=== PATIENT | female | born 1970 | race Hispanic/Latino ===

== ENCOUNTER 2024-10-13 16:34 | Inpatient (IN) | payer SELFPAY ==
[~2024-10-13] VITALS: Ht 152.4 cm; Wt 56.2 kg
--- NOTE | 2024-10-13 17:10 | NUR ---
Discussed plan of care, home medications and IV antibiotics and future testing with Dr. Caban at bedside.
[2024-10-13 17:11] LABS: IMMATURE GRANULOCYTE ABSOLUTE 0.04 K/uL (0-1); NUCLEATED RED BLOOD CELLS 0.0 % (0.0-0.19); PLATELET COUNT (AUTO) 335 K/uL (130-400); RED BLOOD CELL COUNT(AUTO) 3.41 MIL/uL (4.00-5.50); RED CELL DISTRIBUTION WIDTH 12.9 % (11.0-15.5); WHITE BLOOD COUNT (AUTO) 9.0 K/uL (4.8-10.8)
--- NOTE | 2024-10-13 17:15 | NUR ---
Collected wound cultures of right foot 4th toe ulcer. sent to lab
[2024-10-13 17:19] LABS: CREATININE 1.0 mg/dL (0.5-1.0); GLOMERULAR FILTR. RATE CALC 66.0 mL/min (>90); GLUCOSE,RANDOM 135.0 mg/dL (70-105); SODIUM SERUM 131.0 mmol/L (136-145); UREA NITROGEN, BLOOD 26.0 mg/dL (7-18)
--- NOTE | 2024-10-13 17:24 | ERN ---
General Chief Complaint: FOOT INJURY/PAIN Stated Complaint: RT FOOT UCLER Time Seen by MD: 16:38 Source: patient History of Present Illness Initial Comments PATIENT IS A 54-YEAR-OLD FEMALE COMING IN COMPLAINING OF RIGHT FOOT PAIN. PER PATIENT SHE NOTICED A LESION IN BETWEEN HER 4TH AND 5TH DIGIT WHICH SHE BELIEVES IT IS GETTING WORSE. SHE IS A DIABETIC AND STATES HE HAS HAD ULCERS IN THE PAST BUT THIS ONE SEEMS TO BE GETTING WORSE. Allergies: Coded Allergies: No Known Drug Allergies (Unverified Allergy, Unknown, 10/13/24) Past Medical History Past Medical History: Diabetes-Type II Past Surgical History: Hysterectomy, ROS Dictation CONSTITUTIONAL: NO CHILLS, NO FEVER, NO WEAKNESS, NO DIAPHORESIS, NO MALAISE. HEAD/FACE: NO SIGNS OF TRAUMA. EENT: NO EYE PAIN, NO BLURRED VISION, NO TEARING, NO DOUBLE VISION, NO EAR PAIN, NO EAR DISCHARGE, NO NOSE PAIN, NO NASAL CONGESTION, NO THROAT PAIN, NO THROAT SWELLING, NO MOUTH PAIN. RESPIRATORY: NO COUGH, NO ORTHOPNEA, NO SOB, NO STRIDOR, NO WHEEZING. CARDIOVASCULAR: NO CHEST PAIN, NO EDEMA, NO PALPITATIONS, NO SYNCOPE. GASTROINTESTINAL/ABDOMINAL: NO ABDOMINAL PAIN, NO CONSTIPATION, NO DIARRHEA, NO NAUSEA, NO VOMITING. GENITOURINARY: NO ABNORMAL DISCHARGE, NO DYSURIA, NO FREQUENT URINATION, NO HEMATURIA. NO COMPLAINTS OF PAIN IN THE GENITALS. MUSCULOSKELETAL: NO BACK PAIN, NO GOUT, NO JOINT PAIN, NO JOINT SWELLING, NO MUSCLE PAIN, NO MUSCLE STIFFNESS, NO NECK PAIN. INTEGUMENTARY: NO CHANGE IN COLOR, NO CHANGE IN HAIR/NAILS, NO DRYNESS, LESION, NO LUMPS, NO RASH. NEUROLOGICAL/PSYCH: NO ANXIETY, NOT DEPRESSED, NO EMOTIONAL PROBLEM, NO HEADACHE, NO NUMBNESS, NO PRE-EXISTING DEFICIT, NO HISTORY OF SEIZURES, NO TREMORS, NO WEAKNESS. HEMATOLOGIC/LYMPHATIC: NOT ANEMIC, NO HISTORY OF BLOOD CLOTS, NO APPARENT BLEEDING, NO BRUISING, GLANDS NOT SWOLLEN. ALL SYSTEMS NEGATIVE, EXCEPT NOTED. Physical Exam Physical Exam Dictation VITAL SIGNS: REVIEWED. GENERAL APPEARANCE: ALERT, ORIENTED X3, NO ACUTE DISTRESS, OBESE. HEAD AND FACE: NON-TRAUMATIC. EYES: PERRL, PINK CONJUNCTIVAS, EYELID NO TRAUMA, ANTERIOR CHAMBER CLEAR. EARS: PINNAS INTACT AND NO SIGNS OF TRAUMA OR ERYTHEMA. EAR CANALS CLEAR AND NO DISCHARGE. TMS NO ERYTHEMA. NOSE: NO DISCHARGE, NO BLEEDING. OROPHARYNX: MOUTH NORMAL, TEETH NO CARIES, TONGUE PINK. PHARYNX CLEAR, NO ERYTHEMA. TONSILS NO EXUDATES, NO ABSCESSES NOTED. MUCOUS MEMBRANE MOIST. NECK: SUPPLE, NON-TENDER, NO THYROMEGALY, NO MASSES, NO JVD, NO BRUITS. BREAST: DEFERRED. CHEST: NO TENDERNESS, NO CREPITUS, NO PARADOXICAL MOVEMENT, NO RETRACTIONS. LUNGS: CLEAR, WELL-VENTILATED, SYMMETRIC, NO RALES, NO WHEEZING, NO RHONCHI, NO STRIDOR, GOOD BREATH SOUNDS BILATERALLY. HEART: REGULAR RATE, REGULAR RHYTHM, NO MURMUR, NO GALLOPS. VASCULAR: NO PERIPHERAL EDEMA. ABDOMEN: SOFT, POSITIVE BOWEL SOUNDS, NONDISTENDED, NO GUARDING, NONTENDER, NO REBOUND, NO MASSES NO HEPATOMEGALY, NO SPLENOMEGALY, NO ROMEO'S SIGN, NO HERNIAS. RECTAL: DEFERRED. GENITAL: DEFERRED. NEUROLOGICAL: NORMAL SPEECH, GROSS MOTOR FUNCTION INTACT, GROSS SENSORY FUNCTION INTACT. MUSCULOSKELETAL: NECK NONTENDER, FULL RANGE OF MOTION, BACK NONTENDER, FULL RANGE OF MOTION. EXTREMITIES: NONTENDER, FULL RANGE OF MOTION. SKIN: COLOR PINK, DRY, NO TURGOR, NO RASH, 4TH AND 5TH DIGIT LESION CONSISTENT WITH NECROSIS. LYMPHATICS: DEFERRED. Results Laboratory and Microbiology Lab and Micro Result Laboratory Tests Test 10/13/24 17:00 White Blood Count 9.0 K/uL (4.8-10.8) Red Blood Count 3.41 MIL/uL (4.00-5.50) L Hemoglobin 9.1 g/dL (12.0-16.0) L Hematocrit 27.9 % (36-48) L Mean Corpuscular Volume 81.8 fL (79-99) Mean Corpuscular Hemoglobin 26.7 pg (27.0-33.0) L Mean Corpuscular Hemoglobin Concent 32.6 g/dL (32.0-36.0) Red Cell Distribution Width 12.9 % (11.0-15.5) Platelet Count 335 K/uL (130-400) Mean Platelet Volume 8.9 fL (7.5-10.5) Immature Granulocyte % (Auto) 0.4 % (0-1) Neutrophils (%) (Auto) 76.9 % (40.0-77.0) Lymphocytes (%) (Auto) 15.2 % (21.0-51.0) L Monocytes (%) (Auto) 5.7 % (3.0-13.0) Eosinophils (%) (Auto) 1.6 % (0.0-8.0) Basophils (%) (Auto) 0.2 % (0.0-5.0) Neutrophils # (Auto) 6.9 K/uL (1.8-7.7) Lymphocytes # (Auto) 1.4 K/uL (1.0-4.8) Monocytes # (Auto) 0.5 K/uL (0.1-1.0) Eosinophils # (Auto) 0.14 K/uL (0.00-0.70) Basophils # (Auto) 0.02 K/uL (0.00-0.20) Absolute Immature Granulocyte (auto 0.04 K/uL (0-1) Nucleated Red Blood Cells 0.0 % (0.0-0.19) Sodium Level 131 mmol/L (136-145) L Potassium Level 4.1 mmol/L (3.5-5.1) Chloride Level 97 mmol/L (101-111) L Carbon Dioxide Level 26 mmol/L (21-32) Blood Urea Nitrogen 26 mg/dL (7-18) H Creatinine 1.0 mg/dL (0.5-1.0) Glomerular Filtration Rate Calc 66 mL/min (>90) Random Glucose 135 mg/dL (70-105) H Total Calcium 9.3 mg/dL (8.5-10.1) Labs Reviewed?: Yes EKG/XRAY/US/CT/MRI X-RAY Comment [address] [address] [place] [address] IMAGING REPORT Signed PATIENT: KEAGAN DUNN MR#: [id number] : 1970 SEX: F AGE: 54 LOCATION: [facility] ORDER 42 STATUS: REG ER REPORT#: [id number] SERVICE 40 REASON: WOUND ORDERING PHYSICIAN: BEE PARADA MD PROCEDURE: FT 2VW RT - FOOT LIMITED 2VWS RT EXAM: CR right foot, 2 View. CLINICAL HISTORY: WOUND COMPARISON: None provided. FINDINGS: BONES: No acute fracture or aggressive appearing osseous lesion. No definite radiographic findings of osteomyelitis. JOINTS: The joint spaces appear within normal limits. No dislocation. SOFT TISSUES: The soft tissues are unremarkable. IMPRESSION: No acute osseous abnormality. /[place] DICTATED BY: PAULINE LOUISE MD DATE: 10/13/241828 ELECTRONICALLY SIGNED BY: PAULINE LOUISE MD DATE: 10/13/241828 [facility] MDM: DIFFERENTIAL DIAGNOSIS: OSTEOMYELITIS, CELLULITIS, NECROSIS, RATIONALE: TESTS CONSIDERED AND ORDERED SECONDARY TO SHARED DECISION MAKING INCLUDE: LABS, ECG AND RADIOLOGY PREVIOUS OUTSIDE RECORDS REVIEWED: OLD ER VISITS. RISK OF COMPLICATION AND/OR MORBIDITY OR MORTALITY OF PATIENT MANAGEMENT: NONE MEDICATIONS-PER MEDICATION RECONCILIATION NEED FOR HOSPITALIZATION: PATIENT DOES MEET CRITERIA FOR HOSPITALIZATION. NEED FOR EMERGENCY MAJOR/MINOR SURGERY: NO THERE ARE NO SOCIAL CONCERNS WITH THIS PATIENT. PRESCRIPTION DRUG MANAGEMENT PRESCRIPTIONS WILL INCLUDE SYMPTOMATIC CARE PATIENT'S PRIOR EXTERNAL MEDICAL RECORDS FROM OTHER ER VISITS WERE REVIEWED BY Rocio Denise INDICATED. PRIOR TESTING AND RESULTS FROM PREVIOUS VISITS WERE REVIEWED. PRIOR TESTS WERE TAKEN INTO ACCOUNT WITH MEDICAL DECISION MAKING AND RESOURCE UTILIZATION, INDEPENDENT HISTORIAN/HISTORIANS WERE USED TO OBTAIN COMPLETE MEDICAL HISTORY. I INDEPENDENTLY INTERPRETED THE TEST THAT WERE PERFORMED, RESULTS WERE REVIEWED BY ME AND CONSIDERED FINDINGS ON RADIOLOGY IF ORDERED. MEDICAL MANAGEMENT AND EXAMINATION INTERPRETATION DISCUSSIONS WERE HAD BY ME WITH OTHER QUALIFIED HEALTHCARE PROFESSIONALS INDICATED FOR THE PATIENT'S CARE. PATIENT WILL BE ADMITTED UNDER THE CARE OF HOSPITALIST GROUP FOR ONGOING MANAGEMENT ED Course Orders Procedure Category Date Status Time Cbc With Differential LAB 10/13/24 In Process 16:41 Basic Metabolic Panel LAB 10/13/24 Complete 16:41 Erythrocyte LAB 10/13/24 In Process Sedimentation Rate 16:41 Foot Limited 2vws Rt RAD 10/13/24 Resulted 16:41 Vancomycin 1g/250ml PHA 10/13/24 Complete Kit (Vancomycin 1g/2 17:30 Zosyn 3.375gm+Ns 50ml PHA 10/13/24 In Process (Zosyn 3.375gm+Ns 17:30 Current Medications Medications (Trade) Dose Ordered Sig/Elsy Route PRN Reason Start Time Stop Time Status Last Admin Dose Admin Piperacillin Sod/ Tazobactam Sod (Zosyn 3.375gm+NS 50ml) 3.375 gm Q12H IV 10/13/24 17:30 10/23/24 17:29 Vancomycin HCl (Vancomycin 1g/ 250ml Kit) 1 gm ONCE ONCE IV 10/13/24 17:30 10/13/24 17:31 DC Vital Signs Date Time Temp Pulse Resp B/P (MAP) Pulse Ox O2 Delivery O2 Flow Rate FiO2 10/13/24 16:37 98.1 91 16 123/67 100 Room Air 0 DX & DISP Disposition: Inpatient Decision to Admit Time: 17:24 Departure Impression: Primary Impression: Cellulitis in diabetic foot Additional Impression: Osteomyelitis of right foot Condition: Stable Referrals: SELF,REFERRAL (PCP) BEE PARADA MD Oct 13, 2024 17:24
[2024-10-13] MEDS ORDERED: ZOSYN 3.375GM +NS 50ML IV SCH (17:30)
--- NOTE | 2024-10-13 17:30 | HMCIMG ---
EXAM: CR right foot, 2 View. CLINICAL HISTORY: WOUND COMPARISON: None provided. FINDINGS: BONES: No acute fracture or aggressive appearing osseous lesion. No definite radiographic findings of osteomyelitis. JOINTS: The joint spaces appear within normal limits. No dislocation. SOFT TISSUES: The soft tissues are unremarkable. IMPRESSION: No acute osseous abnormality. /[place]
--- NOTE | 2024-10-13 17:40 | NUR ---
Dr. Caban notify Dr. Gage and Dr. Amaya of new consults.
[2024-10-13] MEDS: VANCOMYCIN KIT 1 GM/250 ML IV.KIT IV ONE (17:56)
--- NOTE | 2024-10-13 17:56 | NUR ---
Called pharmacy, spoke to Mr. Willis and notify him we do not have zosyn in [place]. He stated pharmacy will re stock.
--- NOTE | 2024-10-13 18:00 | NUR ---
Performed wound care as per Dr. Caban orders. Patient tolerated treatment well. Daughter at bedside. Discussed with adult daughter with patuients permission plan of care, antibiotic treatment and pending consults.
[2024-10-13 18:18] LABS: ERYTHROCYTE SEDIMENTATION RATE 155 MM/HR (0-30)
[2024-10-13 18:22] LABS: INR 0.97 (0.85-1.15)
[2024-10-13 18:23] LABS: % IRON SATURATION 6.9 % (22-44); IRON, SERUM 19.0 mcg/dL (50-170)
[2024-10-13] MEDS ORDERED: VANCOMYCIN PROTOCOL PER PHARMACY IV SCH (18:30)
[2024-10-13 18:41] LABS: ASPARTATE AMINOTRANSFERASE 15.0 U/L (10-37); LACTATE DEHYDROGENASE 160.0 U/L (81-234); TOTAL PROTEIN, SERUM 8.1 g/dL (6.0-8.3)
--- NOTE | 2024-10-13 18:42 | HP ---
[facility] HISTORY AND PHYSICAL Date of Service: Oct 13, 2024 Time of Service: 18:30 HISTORY OF PRESENT ILLNESS: Date of service: 10/13/2024, patient was seen in ER room 16 54-year-old female with underlying history of type 2 diabetes mellitus (diagnosed with diabetes for about 21 years) who presented to the ER for further evaluation of progressive redness, nonhealing wound involving the interdigital space of the 3rd and 4th digit of the right foot. Symptoms have been ongoing for the past 4-5 days and patient has been using local therapy with iodine as well as been taking penicillin for further treatment as outpatient. She has been cleaning the wound with sterile water. Symptoms have been worsening and patient has developed progressive redness of the right foot as well as increased drainage between the interdigital space with purulence noted. She denies previous history of cardiac disease of peripheral arterial disease. She has been taking ibuprofen intermittently with Tylenol for pain control at home. Reports having subjective chills. On presentation to the hospital, patient was noted to be afebrile with T-max of 98.1 F, heart rate of 91, blood pressure of 123/67. Labs on presentation showed WBC count of 9000, hemoglobin of 9.1, platelet count of 074908. BMP remarkable for sodium of 131, potassium 4.1, BUN of 26, creatinine 1.0. Patient had x-rays of the right foot which showed no acute fractures or soft tissue gas. Patient will be admitted for further treatment management of complicated cellulitis with infected diabetic foot wound/ulcer involving the interdigital space of the 3rd and 4th toe with progressive cellulitis of the right foot. Patient will receive broad-spectrum antibiotics, IV hydration. We will consult Podiatry and Infectious Disease. Patient will also undergo workup for peripheral arterial disease. REVIEW OF SYSTEMS CONSTITUTIONAL: Denies fevers, chills, or night sweats. No unintentional weight loss reported. NEUROLOGICAL: Denies headache, amaurosis fugax, motor weakness, sensory deficit, vertigo/spinning sensation, gait abnormalities, or tremors. ENT: No hearing loss, otalgia, otorrhea, rhinitis, rhinorrhea, hoarseness, or sore throat. CARDIOVASCULAR: Denies any exertional angina, dyspnea on exertion, orthopnea, paroxysmal nocturnal dyspnea, palpitations, life-threatening arrhythmias, claudication. PULMONARY: Denies any shortness of breath, cough, phlegm/sputum, hemoptysis, pleuritic chest pain. SLEEP: Denies morning headaches, daytime somnolence or napping. Denies difficulty falling asleep, staying asleep, waking from sleep. Denies knowledge of snoring. GASTROINTESTINAL: Denies any type of dysphagia to either liquids or solids. Denies nausea, vomiting, pyrosis, early satiety, abdominal pain, diarrhea, constipation, or changes in stool consistency or caliber. Denies coffee-ground emesis, hematemesis, hematochezia, or melanotic stools. GENITOURINARY: Denies frequency, urgency, nocturia, hematuria or incontinence (Storage/Irritative symptoms.) Low urinary stream, straining to void, urinary intermittency or hesitancy, splitting of the voiding stream, terminal dribbling. ENDOCRINOLOGIC: Denies polyuria, polydipsia, polyphagia or heat/cold intolerances. HEMATOLOGIC: Denies thrombophilia/previous clots, or coagulopathy/bleeding disorders. ONCOLOGIC: Denies personal history of malignancy. DERMATOLOGIC: Progressive redness, swelling and non healing diabetic foot ulcer involving the right foot, redness involving the 2nd to 4th toes PSYCHIATRIC: Denies any suicidal or homicidal ideation. Denies hallucinations. PAST MEDICAL HISTORY: Insulin-dependent diabetes over the past 21 years PAST SURGICAL HISTORY: History of hysterectomy, PAST SOCIAL HISTORY: Denies active smoking or alcohol consumption, patient is employed in [employer] services FAMILY HISTORY: Reports family history of diabetes Allergies: No known drug allergies Home medications: Patient reports being on metformin and Lantus as outpatient Coded Allergies: No Known Drug Allergies (Unverified Allergy, Unknown, 10/13/24) PHYSICAL EXAM GENERAL APPEARANCE: The patient is awake, alert, and oriented, in no acute cardiopulmonary distress. NEUROLOGICAL: Cranial nerves II-XII grossly intact. neurological examination is non focal for the patient HEENT: Face is symmetric. Pupils are equal and reactive. Extraocular movements are intact. NECK: Supple. No JVD. No thyromegaly. No submental, submandibular, pre- /postauricular, occipital or supraclavicular lymphadenopathy. CHEST: Normal chest expansion. No Telemetry. LUNGS: Absence of any rales, rhonchi or any wheezing. CARDIOVASCULAR: Regular. S1 and S2 normal. No appreciable rubs, murmurs or gallops. ABDOMEN: Soft, nontender, and nondistended. There is no rebound, voluntary guarding, or rigidity. : Deferred. No [place]. EXTREMITIES: right foot is swollen and redness noted extending to the midfoot, deep ulcer with purulence noted between the interdigital space of the 3rd and 4th toes, redness, noted of the 2nd, 3rd and 4th digit, patchy area of necrosis noted of the plantar and dorsal aspect of the metatarsal aspect of the third and fourth digit SKIN: as noted above Vital Sign (Last 24 Hours) 10/13/24 16:37 Temp 98.1 Pulse 91 Resp 16 B/P (MAP) 123/67 Pulse Ox 100 O2 Delivery Room Air O2 Flow Rate 0 LABS: Laboratory: Test 10/13/24 18:01 10/13/24 17:00 Range/Units Prothrombin Time 10.3 9.6-11.6 SEC Prothromb Time International Ratio 0.97 0.85-1.15 Activated Partial Thromboplast Time 27.4 26.3-35.5 SEC Iron Level 19 L 50-170 mcg/dL Total Iron Binding Capacity 273 250-450 mcg/dL Percent Iron Saturation 6.9 L 22-44 % White Blood Count 9.0 4.8-10.8 K/uL Red Blood Count 3.41 L 4.00-5.50 MIL/uL Hemoglobin 9.1 L 12.0-16.0 g/dL Hematocrit 27.9 L 36-48 % Mean Corpuscular Volume 81.8 79-99 fL Mean Corpuscular Hemoglobin 26.7 L 27.0-33.0 pg Mean Corpuscular Hemoglobin Concent 32.6 32.0-36.0 g/dL Red Cell Distribution Width 12.9 11.0-15.5 % Platelet Count 335 130-400 K/uL Mean Platelet Volume 8.9 7.5-10.5 fL Immature Granulocyte % (Auto) 0.4 0-1 % Neutrophils (%) (Auto) 76.9 40.0-77.0 % Lymphocytes (%) (Auto) 15.2 L 21.0-51.0 % Monocytes (%) (Auto) 5.7 3.0-13.0 % Eosinophils (%) (Auto) 1.6 0.0-8.0 % Basophils (%) (Auto) 0.2 0.0-5.0 % Neutrophils # (Auto) 6.9 1.8-7.7 K/uL Lymphocytes # (Auto) 1.4 1.0-4.8 K/uL Monocytes # (Auto) 0.5 0.1-1.0 K/uL Eosinophils # (Auto) 0.14 0.00-0.70 K/uL Basophils # (Auto) 0.02 0.00-0.20 K/uL Absolute Immature Granulocyte (auto 0.04 0-1 K/uL Nucleated Red Blood Cells 0.0 0.0-0.19 % Erythrocyte Sedimentation Rate 155 H 0-30 MM/HR Sodium Level 131 L 136-145 mmol/L Potassium Level 4.1 3.5-5.1 mmol/L Chloride Level 97 L 101-111 mmol/L Carbon Dioxide Level 26 21-32 mmol/L Blood Urea Nitrogen 26 H 7-18 mg/dL Creatinine 1.0 0.5-1.0 mg/dL Glomerular Filtration Rate Calc 66 >90 mL/min Random Glucose 135 H 70-105 mg/dL Total Calcium 9.3 8.5-10.1 mg/dL Current Medications Medications (Trade) Dose Ordered Sig/Elsy Route PRN Reason Start Time Stop Time Status Last Admin Dose Admin Acetaminophen (TYLenol 500MG TAB) 500 mg Q6H PRN PO MILD PAIN (1-3) 10/13/24 18:00 11/12/24 17:59 Cefepime HCl (MAXipime 2 gm vial) 2 gm Q12H IVPB 10/13/24 18:00 10/23/24 17:59 Famotidine (Pepcid 20mg Vial) 20 mg DAILY IV 10/14/24 09:00 10/13/24 18:14 DC Insulin Glargine (LANtus 100 UNITS/ML 10 ML VIAL) 12 units DAILY SQ 10/14/24 09:00 11/13/24 08:59 Insulin Human Regular (humuLIN R 100 UNIT/ML 3ML) INSULIN SLIDING SCAL... ACHS SQ 10/13/24 21:00 11/12/24 20:59 Metronidazole/ Sodium Chloride 100 ml @ 100 mls/hr Q8H6 IVPB 10/13/24 22:00 10/23/24 21:59 Morphine Sulfate (morPHINE 2MG SYG) 2 mg Q6H PRN IVP SEVERE PAIN (7-10) 10/13/24 18:00 10/20/24 17:59 Ondansetron HCl (zoFRAN 4MG INJ) 4 mg Q6H PRN IVP NAUSEA/VOMITING 10/13/24 18:00 11/12/24 17:59 Pantoprazole Sodium (PROTonix 40MG INJ) 40 mg HS IVP 10/13/24 21:00 11/12/24 20:59 Piperacillin Sod/ Tazobactam Sod (Zosyn 3.375gm+NS 50ml) 3.375 gm Q12H IV 10/13/24 17:30 10/13/24 17:56 DC Sodium Chloride 1,000 ml @ 100 mls/hr Q10H IV 10/13/24 18:00 11/12/24 17:59 Vancomycin HCl (Vancomycin 750mg) 750 mg Q12H IVPB 10/14/24 06:00 10/24/24 05:59 Vancomycin HCl (Vancomycin Protocol) 1 each AD IV 10/13/24 18:30 10/27/24 18:29 DIAGNOSTICS / RADIOLOGY: SERVICE 164 REASON: WOUND ORDERING PHYSICIAN: BEE PARADA MD PROCEDURE: FT 2VW RT - FOOT LIMITED 2VWS RT EXAM: CR right foot, 2 View. CLINICAL HISTORY: WOUND COMPARISON: None provided. FINDINGS: BONES: No acute fracture or aggressive appearing osseous lesion. No definite radiographic findings of osteomyelitis. JOINTS: The joint spaces appear within normal limits. No dislocation. SOFT TISSUES: The soft tissues are unremarkable. IMPRESSION: No acute osseous abnormality. /[place] DICTATED BY: PAULINE LOUISE MD DATE: 10/13/241828 ELECTRONICALLY SIGNED BY: PAULINE LOUISE MD DATE: 10/13/241828 ASSESSMENT: Progressive cellulitis of the right foot involving the midfoot with failure of outpatient treatment, POA Infected diabetic deep foot ulcer involving the interdigital space of the 3rd and 4th digit, POA Progressive cellulitis involving the 2nd, 3rd, 4th toes of the right foot, POA Hypovolemic hyponatremia, POA Anemia, POA Underlying history of insulin-dependent diabetes mellitus, POA PLAN: Patient will be admitted to medical-surgical floor under telemetry monitoring Consultation with Dr. Amaya with Podiatry will be requested for further assessment in evaluation for need for debridement/washout of the deep wound We will obtain MRI of the right foot to rule out any associated osteomyelitis Blood cultures will be obtained, wound cultures will be obtained We will start broad-spectrum antibiotics with vancomycin/cefepime/Flagyl All antibiotics will be renally dosed We will start IV hydration with normal saline at 100 mL/hour Consultation with Infectious Disease will be requested Patient has been using ibuprofen intermittently at home for pain control, NSAIDs will be stopped, we will obtain iron panel for further evaluation of anemia, patient denies any symptoms of GI bleed, heavy periods or hematuria. We will obtain a stool guaiac as well Transfuse to maintain hemoglobin greater than seven We will start patient on IV Protonix 40 mg daily We will obtain a arterial ultrasound to rule out any flow-limiting stenosis impairing wound healing of the right foot we will obtain a venous Doppler as well for further evaluation of right foot edema and rule out any occult DVT We will start patient on sliding scale insulin a.c. and HS, we will start patient on Lantus 12 units daily All labs will be repeated in the morning, we will check A1c and TSH Patient reports having had multiple vaccinations about a month ago and states that she may have received a tetanus vaccination as well about a month ago Date of service: 10/13/2024 Plan of care was discussed with patient at bedside Prognosis: Guarded Dc Caban MD Advanced Care Planning: Which of the following were discussed: Hospice care: Yes __ No _X_ Therapeutic options: Yes _X_ No __ Advance directives: Yes _X_ No __ Other discussions: Discussed with who?: Patient Voluntary nature of this service was explained to the patient? Yes _x_ No __ Amount of time spent: 20 minutes DC CABAN MD Oct 13, 2024 18:42
[2024-10-13] MEDS: 0.9%NACL 1000ML 1,000 ML IV SCH (18:46)
[2024-10-13 20:00] VITALS: BP 103/55; PULSE 72; RESP 19; TEMP 98.7
--- NOTE | 2024-10-13 20:17 | HMCIMG ---
EXAM: US for Deep Venous Thrombosis, right Lower Extremity. CLINICAL HISTORY: Patient presents with leg pain and swelling. TECHNIQUE: Real-time ultrasound scan of the veins of the right lower extremity with color Doppler flow, spectral waveform analysis and compression. COMPARISON: None provided. FINDINGS: DEEP VEINS: The common femoral vein (CFV), profunda femoris vein (PFV), and superficial femoral vein (SFV) at proximal, mid, and distal segments are echolucent and compressible, with normal color Doppler flow and augmentation. The popliteal vein and posterior tibial vein (PTV) are also patent with normal compression and Doppler flow. The great saphenous vein (GSV) demonstrates normal compressibility and Doppler characteristics. SOFT TISSUES: No popliteal fossa cyst or other soft tissue abnormality. IMPRESSION: No deep venous thrombosis evident in the right lower extremity. /[place]
--- NOTE | 2024-10-13 20:30 | HMCIMG ---
EXAMINATION: US Duplex Bilateral Lower Extremity Arteries. CLINICAL HISTORY: The patient presents with a non-healing wound on the right foot. History of diabetes mellitus type II. Evaluate for peripheral arterial disease. COMPARISON: None provided. TECHNIQUE: Real-time ultrasound scan of the arteries of both lower extremities with 2-D graves scale, color Doppler flow, and spectral waveform analysis. FINDINGS: RIGHT LOWER EXTREMITY: COMMON FEMORAL ARTERY: Peak systolic velocity (PSV) 114 cm/sec. Triphasic waveform. No occlusion or significant stenosis. SUPERFICIAL FEMORAL ARTERY: Proximal PSV 144 cm/sec, mid PSV 100 cm/sec, distal PSV 110 cm/sec. Triphasic waveform. No occlusion or significant stenosis. POPLITEAL ARTERY: Proximal PSV 76 cm/sec, distal PSV 100 cm/sec. Triphasic waveform. No occlusion or significant stenosis. CALF ARTERIES: Posterior tibial artery PSV 79 cm/sec. Triphasic waveform. Anterior tibial artery distal PSV 92 cm/sec. Monophasic waveform. Dorsalis pedis artery PSV 116 cm/sec. Monophasic waveform. No occlusion or significant stenosis. LEFT LOWER EXTREMITY: COMMON FEMORAL ARTERY: PSV 147 cm/sec. Triphasic waveform. No occlusion or significant stenosis. SUPERFICIAL FEMORAL ARTERY: Proximal PSV 145 cm/sec, mid PSV 110 cm/sec, distal PSV 69 cm/sec. Triphasic waveform. No occlusion or significant stenosis. POPLITEAL ARTERY: Proximal PSV 62 cm/sec, distal PSV 100 cm/sec. Triphasic waveform. No occlusion or significant stenosis. CALF ARTERIES: Posterior tibial artery PSV 45 cm/sec. Triphasic waveform. Anterior tibial artery distal PSV 106 cm/sec. Triphasic waveform. Dorsalis pedis artery PSV 100 cm/sec. Triphasic waveform. No occlusion or significant stenosis. IMPRESSION: No hemodynamically significant stenosis or occlusion in either lower extremity. Monophasic flow in the right anterior tibial and dorsalis pedis arteries, consistent with mild distal atherosclerotic disease and hyperemia. /[place]
[2024-10-14] VITALS: BP 115/64; PULSE 70; RESP 17; TEMP 98.8
[2024-10-14 04:00] VITALS: BP 107/54; PULSE 74; RESP 17; TEMP 98.5
[2024-10-14] MEDS: VANCOMYCIN 750MG VIAL IVPB SCH (05:42)
[2024-10-14 06:59] LABS: CREATININE 1.0 mg/dL (0.5-1.0); GLOMERULAR FILTR. RATE CALC 66.0 mL/min (>90); GLUCOSE,RANDOM 78.0 mg/dL (70-105); SODIUM SERUM 138.0 mmol/L (136-145); UREA NITROGEN, BLOOD 14.0 mg/dL (7-18)
--- NOTE | 2024-10-14 07:25 | CONS ---
CONSULTATION NOTE Date of Service: Oct 14, 2024 Reason for Consultation: 54 years old female was seen at the emergency room for evaluation of ulceration to the right foot 3rd and 4th interspace base of 4th toe with necrotic tissue and cellulitis not responding to local care by herself at home. Requesting Physician: Dr. Caban HISTORY OF PRESENT ILLNESS: Patient stated she developed this ulcerations weeks ago she has been taking care of this by herself done with hydrogen peroxide sterile water antibiotic powder and Betadine has not responded to local care at home at this time presented to the emergency room with cellulitis and worsening of the wound. This is of the right foot. REVIEW OF SYSTEMS CONSTITUTIONAL: Denies fever, chills, or fatigue. HEAD/FACE: No signs of trauma. EENT: Denies eye pain, blurred vision, double vision, or light sensitivity. RESPIRATORY: Denies shortness of breath, cough, wheezing CARDIOVASCULAR: Denies chest pain, palpitation, syncope GASTROINTESTINAL/ABDOMINAL: Denies abdominal pain, constipation, diarrhea, nausea or vomiting GENITOURINARY: Denies dysuria or hematuria. MUSCULOSKELETAL: Denies joint pain, tenderness, or trauma. INTEGUMENTARY: Ulcer to the right foot with cellulitis. NEUROLOGICAL/PSYCH: Denies anxiety, depression, heat or cold intolerance. PAST MEDICAL HISTORY: [ ] Diabetes PAST SURGICAL HISTORY: [ ] PAST SOCIAL HISTORY: [ ] Denies any smoking or drinking. Or use of illicit drugs. FAMILY HISTORY: Noncontributory Coded Allergies: No Known Drug Allergies (Unverified Allergy, Unknown, 10/13/24) PHYSICAL EXAM EYES: Anicteric. Pupils equal and reactive. HENT: No oral thrush seen, moist Oral mucosa NECK: Supple, no JVD or thyromegaly. LUNGS: Good air entry. No rales, no rhonchi. CARDIOVASCULAR: S1, S2 regular. No murmur heard. ABDOMEN: Soft, non tender, bowel sounds present, no organomegaly CENTRAL NERVOUS SYSTEM: Awake, alert, oriented x 3. No focal deficits. SKIN: Cellulitis of the ulcer on the right foot 3rd and 4th interspace base of the 4th toe plantar area of the 4th toe with necrotic tissue. Cellulitis of the foot. LYMPHATICS: No peripheral lymphadenopathy MUSCULOSKELETAL: No joint swelling, erythema or tenderness. EXTREMITIES: No cyanosis or clubbing BACK: No deformity, no pressure ulcer. GENITOURINARY: No dysuria or hematuria Vital Sign (Last 24 Hours) 10/13/24 10/14/24 17:20 04:00 Temp 98.4 Pulse 74 Resp 17 B/P (MAP) 107/54 Pulse Ox 98 O2 Delivery Room Air O2 Flow Rate 0 FiO2 21 LABS: Laboratory: Test 10/14/24 06:42 10/13/24 22:59 10/13/24 18:01 10/13/24 17:00 Range/Units Sodium Level 138 136-145 mmol/L Potassium Level 3.7 3.5-5.1 mmol/L Chloride Level 106 101-111 mmol/L Carbon Dioxide Level 24 21-32 mmol/L Blood Urea Nitrogen 14 7-18 mg/dL Creatinine 1.0 0.5-1.0 mg/dL Glomerular Filtration Rate Calc 66 >90 mL/min Random Glucose 78 70-105 mg/dL Total Calcium 8.6 8.5-10.1 mg/dL Whole Blood Glucose 101 70-110 MG/DL Prothrombin Time 10.3 9.6-11.6 SEC Prothromb Time International Ratio 0.97 0.85-1.15 Activated Partial Thromboplast Time 27.4 26.3-35.5 SEC Hemoglobin A1c 13.5 H 4.0-6.0 % Estimated Average Glucose (eAG) 341 H 70-126 mg/dL Lactic Acid Level 0.9 0.8-2.5 mmol/L Iron Level 19 L 50-170 mcg/dL Total Iron Binding Capacity 273 250-450 mcg/dL Percent Iron Saturation 6.9 L 22-44 % Ferritin 252 H 15-150 ng/mL Total Bilirubin 0.3 0.2-1.0 mg/dL Direct Bilirubin 0.1 0.0-0.3 mg/dL Aspartate Amino Transf (AST/SGOT) 15 10-37 U/L Alanine Aminotransferase (ALT/SGPT) 19 12-78 U/L Alkaline Phosphatase 104 50-136 U/L Lactate Dehydrogenase 160 81-234 U/L C-Reactive Protein, Quantitative 82.00 H 0.5-3.0 mg/L Total Protein 8.1 6.0-8.3 g/dL Albumin 3.0 L 3.5-5.0 g/dL Procalcitonin < 0.05 L 0.05-0.5 ng/mL Thyroid Stimulating Hormone (TSH) 1.73 0.36-3.74 uIU/mL White Blood Count 9.0 4.8-10.8 K/uL Red Blood Count 3.41 L 4.00-5.50 MIL/uL Hemoglobin 9.1 L 12.0-16.0 g/dL Hematocrit 27.9 L 36-48 % Mean Corpuscular Volume 81.8 79-99 fL Mean Corpuscular Hemoglobin 26.7 L 27.0-33.0 pg Mean Corpuscular Hemoglobin Concent 32.6 32.0-36.0 g/dL Red Cell Distribution Width 12.9 11.0-15.5 % Platelet Count 335 130-400 K/uL Mean Platelet Volume 8.9 7.5-10.5 fL Immature Granulocyte % (Auto) 0.4 0-1 % Neutrophils (%) (Auto) 76.9 40.0-77.0 % Lymphocytes (%) (Auto) 15.2 L 21.0-51.0 % Monocytes (%) (Auto) 5.7 3.0-13.0 % Eosinophils (%) (Auto) 1.6 0.0-8.0 % Basophils (%) (Auto) 0.2 0.0-5.0 % Neutrophils # (Auto) 6.9 1.8-7.7 K/uL Lymphocytes # (Auto) 1.4 1.0-4.8 K/uL Monocytes # (Auto) 0.5 0.1-1.0 K/uL Eosinophils # (Auto) 0.14 0.00-0.70 K/uL Basophils # (Auto) 0.02 0.00-0.20 K/uL Absolute Immature Granulocyte (auto 0.04 0-1 K/uL Nucleated Red Blood Cells 0.0 0.0-0.19 % Erythrocyte Sedimentation Rate 155 H 0-30 MM/HR DIAGNOSTICS / RADIOLOGY: No fracture or dislocation on x-ray MRI pending. ASSESSMENT: Diabetic foot ulcer to the right foot Cellulitis right foot PLAN: Continued IV antibiotic was started Iodosorb to the wound patient most likely will need debridement of this ulcer we will follow up MRI studies and depending on the results we will plan for continue current care thank you very much for allowing us to participate in this case. CLEOPATRA MCCORMACK DPM Oct 14, 2024 07:25
[2024-10-14] MEDS: IODOSORB GEL 40GM TP ONE (07:30)
--- NOTE | 2024-10-14 07:40 | NUR ---
ASSUMED PATIENT CARE AT THIS TIME
[2024-10-14 07:52] LABS: NUCLEATED RED BLOOD CELLS 0.0 % (0.0-0.19); PLATELET COUNT (AUTO) 340.0 K/uL (130-400); RED BLOOD CELL COUNT(AUTO) 3.27 MIL/uL (4.00-5.50); RED CELL DISTRIBUTION WIDTH 13.1 % (11.0-15.5); WHITE BLOOD COUNT (AUTO) 6.3 K/uL (4.8-10.8)
[2024-10-14] MEDS ORDERED: FAMOTIDINE 20MG VIAL IV SCH (09:00)
--- NOTE | 2024-10-14 11:18 | CONS ---
INFECTIOUS DISEASE CONSULTATION NOTE Date of Service: Oct 14, 2024 Reason for Consultation: Right foot cellulitis with infected DFU Requesting Physician: Dc Caban MD HISTORY OF PRESENT ILLNESS: Patient is a 54-year-old female with a past medical history of type 2 diabetes mellitus, who presented to the ER with a5 day history of nonhealing ulcer involving the interdigital space between the 3rd and 4th digits of the right foot. The ulcer was first noticed as a sore but has progressively worsened. Patient states that she has been taking penicillin and cleaning the wound daily at home. Symptoms have been worsening since then so she decided to come in for evaluation. Denies any fever , chills, nausea or vomiting. Labs done in the ED showed a WBC 6.3, and a HbA1c 13.5 and Glucose 341. Blood cultures and wound cultures were sent. X-ray, arterial doppler and venous doppler of the right foot were unremarkable. Pending MRI results. Patient is currently on Vancomycin 750mg, Metronidazole 500mg and Cefepime 2g. Patient remains afebrile . REVIEW OF SYSTEMS CONSTITUTIONAL: Denies fever, chills, or fatigue. HEAD/FACE: No signs of trauma. EENT: Denies eye pain, blurred vision, double vision, or light sensitivity. RESPIRATORY: Denies shortness of breath, cough, wheezing CARDIOVASCULAR: Denies chest pain, palpitation, syncope GASTROINTESTINAL/ABDOMINAL: Denies abdominal pain, constipation, diarrhea, nausea or vomiting GENITOURINARY: Denies dysuria or hematuria. MUSCULOSKELETAL: Denies joint pain, tenderness, or trauma. INTEGUMENTARY: right foot diabetic wound NEUROLOGICAL/PSYCH: Denies anxiety, depression, heat or cold intolerance. PAST MEDICAL HISTORY: Insulin dependent Diabetes mellitus for 21 yrs PAST SURGICAL HISTORY: Hysterectomy. PAST SOCIAL HISTORY: Denies smoking , alcohol consumption or use of illegal drugs FAMILY HISTORY: Diabetes mellitus Coded Allergies: No Known Drug Allergies (Unverified Allergy, Unknown, 10/13/24) PHYSICAL EXAM EYES: Anicteric. Pupils equal and reactive. HENT: No oral thrush seen, moist Oral mucosa NECK: Supple, no JVD or thyromegaly. LUNGS: Good air entry. No rales, no rhonchi. CARDIOVASCULAR: S1, S2 regular. No murmur heard. ABDOMEN: Soft, non tender, bowel sounds present, no organomegaly CENTRAL NERVOUS SYSTEM: Awake, alert, oriented x 3. No focal deficits. SKIN: No rashes, no swelling. LYMPHATICS: No peripheral lymphadenopathy MUSCULOSKELETAL: No joint swelling, erythema or tenderness. EXTREMITIES: Right foot swelling and redness , deep ulcer with purulence noted in the 3rd and 4th interdigital space BACK: No deformity, no pressure ulcer. GENITOURINARY: No dysuria or hematuria Vital Sign (Last 24 Hours) 10/14/24 07:43 Temp 98.4 Pulse 79 Resp 18 B/P (MAP) 130/67 Pulse Ox 100 O2 Delivery Room Air* O2 Flow Rate 0 FiO2 21 LABS: Laboratory: Test 10/14/24 09:54 10/14/24 07:45 10/14/24 06:42 10/13/24 18:01 Range/Units Whole Blood Glucose 99 70-110 MG/DL White Blood Count 6.3 # 4.8-10.8 K/uL Red Blood Count 3.27 L 4.00-5.50 MIL/uL Hemoglobin 8.8 L 12.0-16.0 g/dL Hematocrit 26.7 L 36-48 % Mean Corpuscular Volume 81.7 79-99 fL Mean Corpuscular Hemoglobin 26.9 L 27.0-33.0 pg Mean Corpuscular Hemoglobin Concent 33.0 32.0-36.0 g/dL Red Cell Distribution Width 13.1 11.0-15.5 % Platelet Count 340 130-400 K/uL Mean Platelet Volume 8.7 7.5-10.5 fL Nucleated Red Blood Cells 0.0 0.0-0.19 % Sodium Level 138 136-145 mmol/L Potassium Level 3.7 3.5-5.1 mmol/L Chloride Level 106 101-111 mmol/L Carbon Dioxide Level 24 21-32 mmol/L Blood Urea Nitrogen 14 7-18 mg/dL Creatinine 1.0 0.5-1.0 mg/dL Glomerular Filtration Rate Calc 66 >90 mL/min Random Glucose 78 70-105 mg/dL Total Calcium 8.6 8.5-10.1 mg/dL Prothrombin Time 10.3 9.6-11.6 SEC Prothromb Time International Ratio 0.97 0.85-1.15 Activated Partial Thromboplast Time 27.4 26.3-35.5 SEC Hemoglobin A1c 13.5 H 4.0-6.0 % Estimated Average Glucose (eAG) 341 H 70-126 mg/dL Lactic Acid Level 0.9 0.8-2.5 mmol/L Iron Level 19 L 50-170 mcg/dL Total Iron Binding Capacity 273 250-450 mcg/dL Percent Iron Saturation 6.9 L 22-44 % Ferritin 252 H 15-150 ng/mL Total Bilirubin 0.3 0.2-1.0 mg/dL Direct Bilirubin 0.1 0.0-0.3 mg/dL Aspartate Amino Transf (AST/SGOT) 15 10-37 U/L Alanine Aminotransferase (ALT/SGPT) 19 12-78 U/L Alkaline Phosphatase 104 50-136 U/L Lactate Dehydrogenase 160 81-234 U/L C-Reactive Protein, Quantitative 82.00 H 0.5-3.0 mg/L Total Protein 8.1 6.0-8.3 g/dL Albumin 3.0 L 3.5-5.0 g/dL Procalcitonin < 0.05 L 0.05-0.5 ng/mL Thyroid Stimulating Hormone (TSH) 1.73 0.36-3.74 uIU/mL Test 10/13/24 17:00 Range/Units Immature Granulocyte % (Auto) 0.4 0-1 % Neutrophils (%) (Auto) 76.9 40.0-77.0 % Lymphocytes (%) (Auto) 15.2 L 21.0-51.0 % Monocytes (%) (Auto) 5.7 3.0-13.0 % Eosinophils (%) (Auto) 1.6 0.0-8.0 % Basophils (%) (Auto) 0.2 0.0-5.0 % Neutrophils # (Auto) 6.9 1.8-7.7 K/uL Lymphocytes # (Auto) 1.4 1.0-4.8 K/uL Monocytes # (Auto) 0.5 0.1-1.0 K/uL Eosinophils # (Auto) 0.14 0.00-0.70 K/uL Basophils # (Auto) 0.02 0.00-0.20 K/uL Absolute Immature Granulocyte (auto 0.04 0-1 K/uL Erythrocyte Sedimentation Rate 155 H 0-30 MM/HR DIAGNOSTICS / RADIOLOGY: PATIENT: KEAGAN DUNN MR#: [id number] : 1970 SEX: F AGE: 54 LOCATION: ED ORDER [id number] STATUS: REG ER REPORT#: [id number] SERVICE 164 REASON: WOUND ORDERING PHYSICIAN: BEE PARADA MD PROCEDURE: FT 2VW RT - FOOT LIMITED 2VWS RT EXAM: CR right foot, 2 View. CLINICAL HISTORY: WOUND COMPARISON: None provided. FINDINGS: BONES: No acute fracture or aggressive appearing osseous lesion. No definite radiographic findings of osteomyelitis. JOINTS: The joint spaces appear within normal limits. No dislocation. SOFT TISSUES: The soft tissues are unremarkable. IMPRESSION: No acute osseous abnormality. /[place] DICTATED BY: PAULINE LOUISE MD DATE: 10/13/241828 ELECTRONICALLY SIGNED BY: PAULINE LOUISE MD DATE: 10/13/241828 PATIENT: KEAGAN DUNN MR#: [id number] : 1970 SEX: F AGE: 54 LOCATION: [facility] ORDER 44 [facility]: [facility] REPORT#: [id number] SERVICE 40 REASON: RLE edema, r/o any DVT ORDERING PHYSICIAN: DC CABAN MD PROCEDURE: VENOUS UNI - US VENOUS DOPPLER UNILATERAL EXAM: US for Deep Venous Thrombosis, right Lower Extremity. CLINICAL HISTORY: Patient presents with leg pain and swelling. TECHNIQUE: Real-time ultrasound scan of the veins of the right lower extremity with color Doppler flow, spectral waveform analysis and compression. COMPARISON: None provided. FINDINGS: DEEP VEINS: The common femoral vein (CFV), profunda femoris vein (PFV), and superficial femoral vein (SFV) at proximal, mid, and distal segments are echolucent and compressible, with normal color Doppler flow and augmentation. The popliteal vein and posterior tibial vein (PTV) are also patent with normal compression and Doppler flow. The great saphenous vein (GSV) demonstrates normal compressibility and Doppler characteristics. SOFT TISSUES: No popliteal fossa cyst or other soft tissue abnormality. IMPRESSION: No deep venous thrombosis evident in the right lower extremity. /[place] DICTATED BY: JOSE OVERTON Jr., MD DATE: 10/13/242116 ELECTRONICALLY SIGNED BY: JOSE OVERTON Jr., MD DATE: 10/13/242116 PATIENT: KEAGAN DUNN MR#: [id number] : 1970 SEX: F AGE: 54 LOCATION: [facility] ORDER 44 STATUS: ADM IN REPORT#: [id number] SERVICE 40 REASON: non healing wound right foot, r/o significant PAD, hx of DM II ORDERING PHYSICIAN: DC CABAN MD PROCEDURE: ART B LE - US ARTERIAL BILAT LOW EXT DUPL EXAMINATION: US Duplex Bilateral Lower Extremity Arteries. CLINICAL HISTORY: The patient presents with a non-healing wound on the right foot. History of diabetes mellitus type II. Evaluate for peripheral arterial disease. COMPARISON: None provided. TECHNIQUE: Real-time ultrasound scan of the arteries of both lower extremities with 2-D graves scale, color Doppler flow, and spectral waveform analysis. FINDINGS: RIGHT LOWER EXTREMITY: COMMON FEMORAL ARTERY: Peak systolic velocity (PSV) 114 cm/sec. Triphasic waveform. No occlusion or significant stenosis. SUPERFICIAL FEMORAL ARTERY: Proximal PSV 144 cm/sec, mid PSV 100 cm/sec, distal PSV 110 cm/sec. Triphasic waveform. No occlusion or significant stenosis. POPLITEAL ARTERY: Proximal PSV 76 cm/sec, distal PSV 100 cm/sec. Triphasic waveform. No occlusion or significant stenosis. CALF ARTERIES: Posterior tibial artery PSV 79 cm/sec. Triphasic waveform. Anterior tibial artery distal PSV 92 cm/sec. Monophasic waveform. Dorsalis pedis artery PSV 116 cm/sec. Monophasic waveform. No occlusion or significant stenosis. LEFT LOWER EXTREMITY: COMMON FEMORAL ARTERY: PSV 147 cm/sec. Triphasic waveform. No occlusion or significant stenosis. SUPERFICIAL FEMORAL ARTERY: Proximal PSV 145 cm/sec, mid PSV 110 cm/sec, distal PSV 69 cm/sec. Triphasic waveform. No occlusion or significant stenosis. POPLITEAL ARTERY: Proximal PSV 62 cm/sec, distal PSV 100 cm/sec. Triphasic waveform. No occlusion or significant stenosis. CALF ARTERIES: Posterior tibial artery PSV 45 cm/sec. Triphasic waveform. Anterior tibial artery distal PSV 106 cm/sec. Triphasic waveform. Dorsalis pedis artery PSV 100 cm/sec. Triphasic waveform. No occlusion or significant stenosis. IMPRESSION: No hemodynamically significant stenosis or occlusion in either lower extremity. Monophasic flow in the right anterior tibial and dorsalis pedis arteries, consistent with mild distal atherosclerotic disease and hyperemia. /[place] DICTATED BY: JOSE OVERTON Jr., MD DATE: 10/13/242129 ELECTRONICALLY SIGNED BY: JOSE OVERTON Jr., MD DATE: 10/13/242129 ASSESSMENT: Infected Diabetic ulcer involving the interdigital space between the 3rd & 4th toes Cellulitis of the right foot Anemia PLAN: *Continue on Vancomycin 750mg, Cefepime 2g, Metronidazole 500mg as ordered *Continue on IV hydration with normal saline at 100 mL/hour for adequate hydration. *Pending results of MRI of the right foot *Pending blood and wound culture results *Podiatry consult has been placed. *Transfuse to maintain hemoglobin greater than seven *We will start patient on IV Protonix 40 mg daily ATTESTATION BY PHYSICIAN I have seen and examined the patient. I reviewed the documentation, medical decision making, and treatment plan as noted by the resident provider above. I agree with the findings and plan of care. oTo García MD OBI,ROSA Denise MD Oct 14, 2024 11:18
[2024-10-14 12:00] VITALS: BP 110/58; PULSE 70; RESP 17; TEMP 98.7
--- NOTE | 2024-10-14 12:08 | NUR ---
DCP: HOME Pt states she and 21yro daughter live in home her sister in law owns. 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 Pt denies need for assist with her ADLS or home management. Uses no DME r in home care services. PCP is R Minor and uses [facility] for rx and will return at [place]. Community resources given Addendum: 10/14/24 at 1215 by JENNI MAYNARD Amended: Links added.
[2024-10-14] MEDS ORDERED: IODOSORB GEL 40GM TP ONE (12:30)
[2024-10-14] MEDS ORDERED: DEXTROSE 50%-WATER 50 ML DISP.SYRIN IV PRN (12:30)
[2024-10-14] MEDS ORDERED: GLUCAGON 1MG KIT 1 MG ML IM PRN (12:30)
--- NOTE | 2024-10-14 14:21 | PN ---
[facility] PROGRESS NOTE Date of Service: Oct 14, 2024 Time of Service: 14:18 SUBJECTIVE: 54-year-old female with underlying history of type 2 diabetes mellitus (diagnosed with diabetes for about 21 years) who presented to the ER for further evaluation of progressive redness, nonhealing wound involving the interdigital space of the 3rd and 4th digit of the right foot. Symptoms have been ongoing for the past 4-5 days and patient has been using local therapy with iodine as well as been taking penicillin for further treatment as outpatient. She has been cleaning the wound with sterile water. Symptoms have been worsening and patient has developed progressive redness of the right foot as well as increased drainage between the interdigital space with purulence noted. She denied previous history of cardiac disease of peripheral arterial disease. She has been taking ibuprofen intermittently with Tylenol for pain control at home. Reported having subjective chills. On presentation to the hospital, patient was noted to be afebrile with T-max of 98.1 F, heart rate of 91, blood pressure of 123/67. Labs on presentation showed WBC count of 9000, hemoglobin of 9.1, platelet count of 269039. BMP remarkable for sodium of 131, potassium 4.1, BUN of 26, creatinine 1.0. Patient had x-rays of the right foot which showed no acute fractures or soft tissue gas. Patient admitted for further treatment management of complicated cellulitis with infected diabetic foot wound/ulcer involving the interdigital space of the 3rd and 4th toe with progressive cellulitis of the right foot. Patient received broad-spectrum antibiotics, IV hydration. Podiatry and Infectious Disease consulted. Patient will undergo workup for peripheral arterial disease. 10/14 patient remains hemodynamically stable, BP 130/67, afebrile, saturating normal on room air, getting IV antibiotics at the time of my visit, Doppler of the lower extremities no evidence of DVT to the right lower extremity, MRI of the foot pending. Arterial Doppler no hemodynamically significant stenosis or occlusion in either lower extremity, monophasic flow in the right anterior tibial and dorsalis pedis arteries consistent with mild discharge atherosclerotic disease and hyperemia. We will continue the patient on vancomycin and Flagyl IV, patient also on cefepime, podiatry and infectious disease consulted, we will continue to follow input and recommendations. REVIEW OF SYSTEMS CONSTITUTIONAL: Denies fevers, chills, or night sweats. No unintentional weight loss reported. NEUROLOGICAL: Denies headache, amaurosis fugax, motor weakness, sensory deficit, vertigo/spinning sensation, gait abnormalities, or tremors. ENT: No hearing loss, otalgia, otorrhea, rhinitis, rhinorrhea, hoarseness, or sore throat. CARDIOVASCULAR: Denies any exertional angina, dyspnea on exertion, orthopnea, paroxysmal nocturnal dyspnea, palpitations, life-threatening arrhythmias, jackson ication. PULMONARY: Denies any shortness of breath, cough, phlegm/sputum, hemoptysis, pleuritic chest pain. SLEEP: Denies morning headaches, daytime somnolence or napping. Denies difficulty falling asleep, staying asleep, waking from sleep. Denies knowledge of snoring. GASTROINTESTINAL: Denies any type of dysphagia to either liquids or solids. Denies nausea, vomiting, pyrosis, early satiety, abdominal pain, diarrhea, constipation, or changes in stool consistency or caliber. Denies coffee-ground emesis, hematemesis, hematochezia, or melanotic stools. GENITOURINARY: Denies frequency, urgency, nocturia, hematuria or incontinence (Storage/Irritative symptoms.) Low urinary stream, straining to void, urinary intermittency or hesitancy, splitting of the voiding stream, terminal dribbling. ENDOCRINOLOGIC: Denies polyuria, polydipsia, polyphagia or heat/cold intolerances. HEMATOLOGIC: Denies thrombophilia/previous clots, or coagulopathy/bleeding disorders. ONCOLOGIC: Denies personal history of malignancy. DERMATOLOGIC: Progressive redness, swelling and non healing diabetic foot ulcer involving the right foot, redness involving the 2nd to 4th toes PSYCHIATRIC: Denies any suicidal or homicidal ideation. Denies hallucinations. PHYSICAL EXAM GENERAL APPEARANCE: The patient is awake, alert, and oriented, in no acute cardiopulmonary distress. NEUROLOGICAL: Cranial nerves II-XII grossly intact. neurological examination is non focal for the patient HEENT: Face is symmetric. Pupils are equal and reactive. Extraocular movements are intact. NECK: Supple. No JVD. No thyromegaly. No submental, submandibular, pre- /postauricular, occipital or supraclavicular lymphadenopathy. CHEST: Normal chest expansion. No Telemetry. LUNGS: Absence of any rales, rhonchi or any wheezing. CARDIOVASCULAR: Regular. S1 and S2 normal. No appreciable rubs, murmurs or gallops. ABDOMEN: Soft, nontender, and nondistended. There is no rebound, voluntary guarding, or rigidity. : Deferred. No [place]. EXTREMITIES: right foot is swollen and redness noted extending to the midfoot, deep ulcer with purulence noted between the interdigital space of the 3rd and 4th toes, redness, noted of the 2nd, 3rd and 4th digit, patchy area of necrosis noted of the plantar and dorsal aspect of the metatarsal aspect of the third and fourth digit SKIN: as noted above Vital Signs (last 8hr) Date Time Temp Pulse Resp B/P (MAP) Pulse Ox O2 Delivery O2 Flow Rate FiO2 10/14/24 07:43 98.4 79 18 130/67 100 Room Air* 0 21 LABS: Laboratory: Test 10/14/24 11:56 10/14/24 07:45 10/14/24 06:42 10/13/24 18:01 Range/Units Whole Blood Glucose 56 L 70-110 MG/DL White Blood Count 6.3 # 4.8-10.8 K/uL Red Blood Count 3.27 L 4.00-5.50 MIL/uL Hemoglobin 8.8 L 12.0-16.0 g/dL Hematocrit 26.7 L 36-48 % Mean Corpuscular Volume 81.7 79-99 fL Mean Corpuscular Hemoglobin 26.9 L 27.0-33.0 pg Mean Corpuscular Hemoglobin Concent 33.0 32.0-36.0 g/dL Red Cell Distribution Width 13.1 11.0-15.5 % Platelet Count 340 130-400 K/uL Mean Platelet Volume 8.7 7.5-10.5 fL Nucleated Red Blood Cells 0.0 0.0-0.19 % Sodium Level 138 136-145 mmol/L Potassium Level 3.7 3.5-5.1 mmol/L Chloride Level 106 101-111 mmol/L Carbon Dioxide Level 24 21-32 mmol/L Blood Urea Nitrogen 14 7-18 mg/dL Creatinine 1.0 0.5-1.0 mg/dL Glomerular Filtration Rate Calc 66 >90 mL/min Random Glucose 78 70-105 mg/dL Total Calcium 8.6 8.5-10.1 mg/dL Prothrombin Time 10.3 9.6-11.6 SEC Prothromb Time International Ratio 0.97 0.85-1.15 Activated Partial Thromboplast Time 27.4 26.3-35.5 SEC Hemoglobin A1c 13.5 H 4.0-6.0 % Estimated Average Glucose (eAG) 341 H 70-126 mg/dL Lactic Acid Level 0.9 0.8-2.5 mmol/L Iron Level 19 L 50-170 mcg/dL Total Iron Binding Capacity 273 250-450 mcg/dL Percent Iron Saturation 6.9 L 22-44 % Ferritin 252 H 15-150 ng/mL Total Bilirubin 0.3 0.2-1.0 mg/dL Direct Bilirubin 0.1 0.0-0.3 mg/dL Aspartate Amino Transf (AST/SGOT) 15 10-37 U/L Alanine Aminotransferase (ALT/SGPT) 19 12-78 U/L Alkaline Phosphatase 104 50-136 U/L Lactate Dehydrogenase 160 81-234 U/L C-Reactive Protein, Quantitative 82.00 H 0.5-3.0 mg/L Total Protein 8.1 6.0-8.3 g/dL Albumin 3.0 L 3.5-5.0 g/dL Procalcitonin < 0.05 L 0.05-0.5 ng/mL Thyroid Stimulating Hormone (TSH) 1.73 0.36-3.74 uIU/mL Test 10/13/24 17:00 Range/Units Immature Granulocyte % (Auto) 0.4 0-1 % Neutrophils (%) (Auto) 76.9 40.0-77.0 % Lymphocytes (%) (Auto) 15.2 L 21.0-51.0 % Monocytes (%) (Auto) 5.7 3.0-13.0 % Eosinophils (%) (Auto) 1.6 0.0-8.0 % Basophils (%) (Auto) 0.2 0.0-5.0 % Neutrophils # (Auto) 6.9 1.8-7.7 K/uL Lymphocytes # (Auto) 1.4 1.0-4.8 K/uL Monocytes # (Auto) 0.5 0.1-1.0 K/uL Eosinophils # (Auto) 0.14 0.00-0.70 K/uL Basophils # (Auto) 0.02 0.00-0.20 K/uL Absolute Immature Granulocyte (auto 0.04 0-1 K/uL Erythrocyte Sedimentation Rate 155 H 0-30 MM/HR Current Medications Medications (Trade) Dose Ordered Sig/Elsy Route PRN Reason Start Time Stop Time Status Last Admin Dose Admin Acetaminophen (TYLenol 500MG TAB) 500 mg Q6H PRN PO MILD PAIN (1-3) 10/13/24 18:00 11/12/24 17:59 Cefepime HCl (MAXipime 2 gm vial) 2 gm Q12H IVPB 10/13/24 18:00 10/23/24 17:59 10/14/24 05:41 2 GM Dextrose (D50w) 50 ml AD PRN IV HYPOGLYCEMIA PROTOCOL 10/14/24 12:30 11/13/24 12:29 Famotidine (Pepcid 20mg Vial) 20 mg DAILY IV 10/14/24 09:00 10/13/24 18:14 DC Glucagon (Glucagon 1mg Kit) 1 mg AD PRN IM HYPOGLYCEMIA PROTOCOL 10/14/24 12:30 11/13/24 12:29 Insulin Glargine (LANtus 100 UNITS/ML 10 ML VIAL) 12 units DAILY SQ 10/14/24 09:00 11/13/24 08:59 Insulin Human Regular (humuLIN R 100 UNIT/ML 3ML) INSULIN SLIDING SCAL... ACHS SQ 10/13/24 21:00 11/12/24 20:59 Metronidazole/ Sodium Chloride 100 ml @ 100 mls/hr Q8H6 IVPB 10/13/24 22:00 10/23/24 21:59 10/14/24 05:42 100 MLS/HR Morphine Sulfate (morPHINE 2MG SYG) 2 mg Q6H PRN IVP SEVERE PAIN (7-10) 10/13/24 18:00 10/20/24 17:59 10/13/24 18:46 2 MG Ondansetron HCl (zoFRAN 4MG INJ) 4 mg Q6H PRN IVP NAUSEA/VOMITING 10/13/24 18:00 11/12/24 17:59 10/13/24 18:46 4 MG Pantoprazole Sodium (PROTonix 40MG INJ) 40 mg HS IVP 10/13/24 21:00 11/12/24 20:59 10/13/24 23:07 40 MG Piperacillin Sod/ Tazobactam Sod (Zosyn 3.375gm+NS 50ml) 3.375 gm Q12H IV 10/13/24 17:30 10/13/24 17:56 DC Sodium Chloride 1,000 ml @ 100 mls/hr Q10H IV 10/13/24 18:00 11/12/24 17:59 10/14/24 05:58 100 MLS/HR Vancomycin HCl (Vancomycin 750mg) 750 mg Q12H IVPB 10/14/24 06:00 10/24/24 05:59 10/14/24 05:42 750 MG Vancomycin HCl (Vancomycin Protocol) 1 each AD IV 10/13/24 18:30 10/27/24 18:29 DIAGNOSTICS / RADIOLOGY: [ ] ASSESSMENT: Progressive cellulitis of the right foot involving the midfoot with failure of outpatient treatment, POA Infected diabetic deep foot ulcer involving the interdigital space of the 3rd and 4th digit, POA Progressive cellulitis involving the 2nd, 3rd, 4th toes of the right foot, POA Hypovolemic hyponatremia, POA Anemia, POA Underlying history of insulin-dependent diabetes mellitus, POA PLAN: patient remains hemodynamically stable, BP 130/67, afebrile, saturating normal on room air, getting IV antibiotics at the time of my visit, Doppler of the lower extremities no evidence of DVT to the right lower extremity, MRI of the foot pending. Arterial Doppler no hemodynamically significant stenosis or occlusion in either lower extremity, monophasic flow in the right anterior tibial and dorsalis pedis arteries consistent with mild discharge atherosclerotic disease and hyperemia. We will continue the patient on vancomycin and Flagyl IV, patient also on cefepime, podiatry and infectious disease consulted, we will continue to follow input and recommendations. NEURO: Minimize central acting medications as possible. Fall Precautions. Well lighted room through the day and minimize interruptions through the night to prevent acute delirium. PULMONARY: Supplemental 02 as needed BiPAP as necessary, for respiratory distress Titrate Fio2 to keep Spo2 > or = 90% DuoNebs and CPT as needed IS hourly while awake for pulmonary hygiene prn Out of bed to chair as tolerated Maintain aspiration precautions at all times CARDIOVASCULAR: Follow hemodynamics. Vital signs per facility protocol GI & NUTRITION: Continue nutritional support Aspirations precautions Prokinetic agents and laxatives as needed KIDNEYS & ELECTROLYTES: Strict monitoring of intake and output Daily weights Avoid nephrotoxic agents Monitor electrolytes and replace as needed Goal urine output of 30mL/hr or 0.5mL/kg/hr Medications to be dosed according to renal function. Avoid contrast if possible ENDOCRINE: Maintain blood glucose between 100-180 at all times. Insulin sliding scale for blood glucose management Hypoglycemia and hyperglycemia protocol in place INFECTIOUS DISEASE: Trend temperature, WBC and procalcitonin level Follow cultures, deescalate antibiotics as soon as possible. Panculture if new onset fever HEMATOLOGY & COAGULATION: Monitor H&H. Keep Hgb > 7 Transfuse 1 unit of PRBC for Hgb < 7 Transfuse 1 pack of platelets of platelets < 20, 000 Watch for any signs and symptoms of bleeding SKIN: Pressure ulcer prevention per facility protocol Specialty mattress as needed ORTHO/REHAB Continue PT/OT PRN: MEDICATIONS Tylenol 650 mg po every 4 hrs for fever zofran 4 mg IV every 6 hrs for n/v Hydralazine 5 mg IV every 4 hrs systolic pressure > 160 bowel regiment: lactulose 20 gm PO BID PRN constipation Supportive measures: Continue GI and DVT prophylaxis Disposition: Pending improvement in clinical condition All questions answered time spent: > 35 min NANCY COLBERT MD Oct 14, 2024 14:21
--- NOTE | 2024-10-14 14:51 | NUR ---
[facility] Consult: Patient assessed by wound healing team. See wound assessment. Assessment and recommendations provided. Education provided. Addendum: 10/15/24 at 1453 by LENNOX ANDRE RN RN/GHULAM Amended: Links added.
[2024-10-14] MEDS ORDERED: IODOSORB GEL 40GM TP SCH (17:30)
--- NOTE | 2024-10-14 20:05 | PN ---
INFECTIOUS DISEASE FOLLOWUP NOTE DATE OF SERVICE: 10/14/2024 SUBJECTIVE: The patient is seen and examined at bedside today. No fever. No chills. Still complains of pain to the right foot. No cough. No shortness of breath. No palpitations or orthopnea. No depression or suicidal ideation. No heat or cold intolerance. Denies dysuria and hematuria. No bleeding tendency. No rashes or itchiness. PHYSICAL EXAMINATION: VITAL SIGNS: Temperature today 98.9. EYES: No icterus. Pupils are equal and reactive. HEENT: No oral thrush seen. Moist oral mucosa. NECK: Supple. No JVD or thyromegaly. LUNGS: Good air entry. No rales, no rhonchi. CARDIOVASCULAR: S1 and S2, regular. No murmur heard. ABDOMEN: Full, soft, and nontender. Bowel sound is present. CENTRAL NERVOUS SYSTEM: Awake, alert, oriented x 3. No focal deficits. SKIN: No rashes. No itchiness. LYMPHATIC: There is right inguinal lymphadenopathy. BACK: No deformity. No pressure ulcer. EXTREMITIES: Ulcer with ____ to the right fourth toe. HEMATOLOGIC: No bleeding or petechial lesion is present. ASSESSMENT: A 54-year-old female who presented with left foot ulcer. Current problems include: * Diabetic foot ulcer. * Left foot cellulitis. * Possible osteomyelitis. * Possible peripheral vascular disease. PLAN: * Continue wound care. * Continue antibiotics. * Followup cultures. * Continue pain management. * Continue DVT prophylaxis. * Continue nutritional support. * Followup MRI results. TID: [id number] RECEIPT: [id number]
--- NOTE | 2024-10-14 21:51 | NUR ---
IODOSORB GEL NOT GIVEN BY DAY STAFF [facility]. GIVEN TO PATIENT BUT I AM UNABLE TO SIGN IT FROM THE MED LIST
--- NOTE | 2024-10-14 22:28 | NUR ---
CLEANED AND DRESSED WOUND, WOUND CS SENT
[2024-10-14] MEDS ORDERED: METF-446 PO (22:53)
[2024-10-14 23:00] VITALS: BP 143/68; PULSE 88; RESP 19; TEMP 98.6; O2SAT 97
[2024-10-15] VITALS (7 sets, daily range): BP systolic 134–164; BP diastolic 76–85; PULSE 79–89; RESP 19–20; TEMP 98–98.9; O2SAT 99
[2024-10-15] MEDS ORDERED: INSU3INS3 SQ (00:52)
--- NOTE | 2024-10-15 08:28 | HMCIMG ---
EXAMINATION: NONCONTRAST MRI OF THE RIGHT FOOT. CLINICAL HISTORY: Right foot cellulitis. COMPARISON: None provided. TECHNIQUE: Multiplanar, multisequence MR images of the right foot were obtained. FINDINGS: Evidence of cutaneous irregularity and suspicious ulcer involving fourth toe tip measuring 1.4 cm tyler-posteriorly and is associated with moderate phalangeal marrow edema and suspicious proximal phalangeal dorsal sided erosions. Evidence of cutaneous irregularity and suspicious ulcer involving the third toe at the level of proximal phalanx but no underlying osseous involvement. Fifth toe hammertoe deformity. Moderate diffuse dorsal as well as plantar subcutaneous edema and mild intrinsic foot muscles edema. No discrete drainable collection. Visualized extensor and flexor tendons are normal in course and morphology without evidence of tenosynovitis. IMPRESSION: 1. 1.4 cm ulcer of fourth toe tip with marrow edema and suspicious proximal phalangeal dorsal sided erosions, concerning for osteomyelitis. 2. Ulcer of third toe proximal phalanx without osseous involvement. 3. Moderate soft tissue edema of foot without drainable collection, concerning for cellulitis. /[place]
[2024-10-15] MEDS: IODOSORB GEL 40GM TP SCH (09:00)
--- NOTE | 2024-10-15 11:23 | CONS ---
[facility] CARDIOLOGY CONSULTATION REPORT Cardiology consultation note dictated for Usama Cardozo MD Date Patient Seen: Oct 15, 2024 Requesting Physician: Bri Danielle MD Reason for Consultation: PAD History of Present Illness: This is a 54-year-old female with a past medical history of type 2 diabetes mellitus who presented to the ED with complaints of worsening right lower extremity ulcer over the last 4-5 days. Cardiology has been consulted for PAD. The patient endorsed wearing a new pair of shoes and developed a blister to the right dorsal aspect of her foot. Over the last 4-5 days the blister progressed to ulceration and necrosis prompting h er to seek medical attention. Bilateral lower extremity arterial ultrasound on 10/13/2024 demonstrating monophasic flow in the right anterior tibial and dorsalis pedis arteries consistent with mild distal atherosclerotic disease and hyperemia. MRI of the right lower extremity on 10/13/2024 demonstrated 4th toe osteomyelitis. Right lower extremity venous Doppler was negative for DVT. Past Medical History: As per HPI and summarized below Past Surgical History: x2 I and D of an abscess to the left buttocks Family History: The patient's mother has diabetes mellitus type 2 with a history of diabetic ulcers to lower extremities. Social History: The patient lives with family. Habits: The patient denies alcohol, tobacco, or illicit drug use. Home Meds: Lantus insulin 15 units a.c. breakfast Metformin 1000 mg b.i.d. Current Meds: Medications Dose Ordered Sig/Elsy Start Time Stop Time Status Last Admin Sodium Chloride 1,000 ml @ 100 mls/hr Q10H 10/13/24 18:00 11/12/24 17:59 10/15/24 09:22 Morphine Sulfate 2 mg Q6H PRN 10/13/24 18:00 10/20/24 17:59 10/13/24 18:46 Acetaminophen 500 mg Q6H PRN 10/13/24 18:00 11/12/24 17:59 Ondansetron HCl 4 mg Q6H PRN 10/13/24 18:00 11/12/24 17:59 10/13/24 18:46 Cefepime HCl 2 gm Q12H 10/13/24 18:00 10/23/24 17:59 10/15/24 05:11 Pantoprazole Sodium 40 mg HS 10/13/24 21:00 11/12/24 20:59 10/14/24 21:55 Vancomycin HCl 1 each AD 10/13/24 18:30 10/27/24 18:29 Vancomycin HCl 750 mg Q12H 10/14/24 06:00 10/24/24 05:59 10/15/24 05:42 Insulin Glargine 12 units DAILY 10/14/24 09:00 11/13/24 08:59 10/15/24 09:31 Insulin Human Regular INSULIN SLIDING SCAL... ACHS 10/13/24 21:00 11/12/24 20:59 10/14/24 22:19 Dextrose 50 ml AD PRN 10/14/24 12:30 11/13/24 12:29 Glucagon 1 mg AD PRN 10/14/24 12:30 11/13/24 12:29 Cadexomer Iodine 1 APPL DAILY 10/15/24 09:00 11/14/24 08:59 Metronidazole/ Sodium Chloride 100 ml @ 100 mls/hr Q8H 10/15/24 07:30 10/25/24 07:29 10/15/24 09:22 Review of Systems: CONST: No fever, fatigue, or weight changes. EYES: No recent vision problems. ENT: No congestion, ear pain, or sore throat. C/V: No chest pain, palpitations, or edema. RESP: No cough, congestion, wheezing or shortness of breath. GI: No abdominal pain, nausea, vomiting, constipation, or diarrhea. : No incontinence or dysuria. SKIN: Admits to right lower extremity ulceration and necrosis NEURO: No headache, focal numbness or weakness, dizziness, or seizures. PSYCH: No depression or anxiety. HEME: No abnormal bruising or bleeding. LYMPH: No swollen glands. Physical Examination: GENERAL: No acute distress. HEAD: Normal with no signs of head trauma. EYES: PERRLA, EOMI, conjunctiva and sclera normal. ENT: Hearing grossly intact, normal oropharynx. NECK: Supple without JVD. There is no tenderness, lymphadenopathy, or masses. No thyromegaly. Normal carotid upstrokes without bruits. LUNGS: Clear breath sounds bilaterally. No wheezes, or rhonchi. HEART: Normal rate and rhythm. Normal S1 and S2 without murmurs, gallop or rub. VASC: Right DP pulse 1 +, unable to palpate right PT pulse. Left DP pulse 2 +. ABD: Bowel sounds normal, soft, nontender, no masses, no organomegaly. No audible bruits. : Not examined LYMPH: No lymphadenopathy noted. EXT: Right foot with edema, erythema, and warmth to touch. SKIN: Right foot interspace between the 3rd and 4th toes with ulceration, 4th t oe with necrosis. NEURO: Awake, alert, and oriented x3. No focal sensory or strength deficits noted. Vital Signs (last 8hr) Date Time Temp Pulse Resp B/P (MAP) Pulse Ox O2 Delivery O2 Flow Rate FiO2 10/15/24 08:00 98.4 79 19 134/78 100 Room Air 21 10/15/24 07:40 Room Air* 0 21 10/15/24 03:50 98.1 84 19 164/78 98 Room Air Laboratory: Hematology Labs: Test 10/14/24 07:45 10/13/24 17:00 Range/Units White Blood Count 6.3 # 4.8-10.8 K/uL Red Blood Count 3.27 L 4.00-5.50 MIL/uL Hemoglobin 8.8 L 12.0-16.0 g/dL Hematocrit 26.7 L 36-48 % Mean Corpuscular Volume 81.7 79-99 fL Mean Corpuscular Hemoglobin 26.9 L 27.0-33.0 pg Mean Corpuscular Hemoglobin Concent 33.0 32.0-36.0 g/dL Red Cell Distribution Width 13.1 11.0-15.5 % Platelet Count 340 130-400 K/uL Mean Platelet Volume 8.7 7.5-10.5 fL Nucleated Red Blood Cells 0.0 0.0-0.19 % Immature Granulocyte % (Auto) 0.4 0-1 % Neutrophils (%) (Auto) 76.9 40.0-77.0 % Lymphocytes (%) (Auto) 15.2 L 21.0-51.0 % Monocytes (%) (Auto) 5.7 3.0-13.0 % Eosinophils (%) (Auto) 1.6 0.0-8.0 % Basophils (%) (Auto) 0.2 0.0-5.0 % Neutrophils # (Auto) 6.9 1.8-7.7 K/uL Lymphocytes # (Auto) 1.4 1.0-4.8 K/uL Monocytes # (Auto) 0.5 0.1-1.0 K/uL Eosinophils # (Auto) 0.14 0.00-0.70 K/uL Basophils # (Auto) 0.02 0.00-0.20 K/uL Absolute Immature Granulocyte (auto 0.04 0-1 K/uL Erythrocyte Sedimentation Rate 155 H 0-30 MM/HR Chemistry Labs: Test 10/15/24 05:19 10/14/24 06:42 10/13/24 18:01 Range/Units Whole Blood Glucose 158 H 70-110 MG/DL Sodium Level 138 136-145 mmol/L Potassium Level 3.7 3.5-5.1 mmol/L Chloride Level 106 101-111 mmol/L Carbon Dioxide Level 24 21-32 mmol/L Blood Urea Nitrogen 14 7-18 mg/dL Creatinine 1.0 0.5-1.0 mg/dL Glomerular Filtration Rate Calc 66 >90 mL/min Random Glucose 78 70-105 mg/dL Total Calcium 8.6 8.5-10.1 mg/dL Hemoglobin A1c 13.5 H 4.0-6.0 % Estimated Average Glucose (eAG) 341 H 70-126 mg/dL Lactic Acid Level 0.9 0.8-2.5 mmol/L Iron Level 19 L 50-170 mcg/dL Total Iron Binding Capacity 273 250-450 mcg/dL Percent Iron Saturation 6.9 L 22-44 % Ferritin 252 H 15-150 ng/mL Total Bilirubin 0.3 0.2-1.0 mg/dL Direct Bilirubin 0.1 0.0-0.3 mg/dL Aspartate Amino Transf (AST/SGOT) 15 10-37 U/L Alanine Aminotransferase (ALT/SGPT) 19 12-78 U/L Alkaline Phosphatase 104 50-136 U/L Lactate Dehydrogenase 160 81-234 U/L C-Reactive Protein, Quantitative 82.00 H 0.5-3.0 mg/L Total Protein 8.1 6.0-8.3 g/dL Albumin 3.0 L 3.5-5.0 g/dL Procalcitonin < 0.05 L 0.05-0.5 ng/mL Thyroid Stimulating Hormone (TSH) 1.73 0.36-3.74 uIU/mL Coagulation Labs: Test 10/13/24 18:01 Range/Units Prothrombin Time 10.3 9.6-11.6 SEC Prothromb Time International Ratio 0.97 0.85-1.15 Activated Partial Thromboplast Time 27.4 26.3-35.5 SEC Diagnostics / Radiology: Impression and Plan: PAD, ulcer to the right foot interspace region between the 3rd and 4th toes (Masoud category 5 symptoms) Bilateral lower extremity arterial ultrasound on 10/13/2024 demonstrated monophasic flow in the right anterior tibial and dorsalis pedis arteries MRI of the right lower extremity on 10/13/2024 demonstrated 4th toe osteomyelitis. -Start aspirin 81 mg daily and atorvastatin 40 mg nightly -Obtain a CTA abd aorta with BLE runoff -NPO after MN, for possible peripheral angiogram with possible peripheral vascular intervention with Dr. Razo in AM -At this time, the patient is hesitant to undergo procedure and would like to think about Comorbidities: Uncontrolled type 2 diabetes mellitus, A1c 13.5% [facility] Oct 15, 2024 11:23
[2024-10-15] MEDS: ASPIRIN 81 MG EC TAB PO SCH (12:49)
--- NOTE | 2024-10-15 15:53 | PN ---
[facility] PROGRESS NOTE Date of Service: Oct 15, 2024 Time of Service: 15:51 SUBJECTIVE: 54-year-old female with underlying history of type 2 diabetes mellitus (diagnosed with diabetes for about 21 years) who presented to the ER for further evaluation of progressive redness, nonhealing wound involving the interdigital space of the 3rd and 4th digit of the right foot. Symptoms have been ongoing for the past 4-5 days and patient has been using local therapy with iodine as well as been taking penicillin for further treatment as outpatient. She has been cleaning the wound with sterile water. Symptoms have been worsening and patient has developed progressive redness of the right foot as well as increased drainage between the interdigital space with purulence noted. She denied previous history of cardiac disease of peripheral arterial disease. She has been taking ibuprofen intermittently with Tylenol for pain control at home. Reported having subjective chills. On presentation to the hospital, patient was noted to be afebrile with T-max of 98.1 F, heart rate of 91, blood pressure of 123/67. Labs on presentation showed WBC count of 9000, hemoglobin of 9.1, platelet count of 233391. BMP remarkable for sodium of 131, potassium 4.1, BUN of 26, creatinine 1.0. Patient had x-rays of the right foot which showed no acute fractures or soft tissue gas. Patient admitted for further treatment management of complicated cellulitis with infected diabetic foot wound/ulcer involving the interdigital space of the 3rd and 4th toe with progressive cellulitis of the right foot. Patient received broad-spectrum antibiotics, IV hydration. Podiatry and Infectious Disease consulted. Patient will undergo workup for peripheral arterial disease. 10/14 patient remains hemodynamically stable, BP 130/67, afebrile, saturating normal on room air, getting IV antibiotics at the time of my visit, Doppler of the lower extremities no evidence of DVT to the right lower extremity, MRI of the foot pending. Arterial Doppler no hemodynamically significant stenosis or occlusion in either lower extremity, monophasic flow in the right anterior tibial and dorsalis pedis arteries consistent with mild discharge atherosclerotic disease and hyperemia. We will continue the patient on vancomycin and Flagyl IV, patient also on cefepime, podiatry and infectious disease consulted, we will continue to follow input and recommendations. 10/15 patient remains admitted to the medical floor, getting IV antibiotics at the time of my visit, comfortably in bed, no acute events overnight per discussion with the RN. Results of MRI of the right foot positive for osteomyelitis, discussed with the patient. Arterial Doppler findings reviewed and discussed with the patient, findings of monophasic flow in the right anterior tibial and dorsalis pedis arteries consistent with a mild atherosclerotic disease. We will continue the patient on broad-spectrum IV antibiotics, infectious disease consultation requested, continue to follow input and recommendation, follow up Podiatry input recommendation, local wound care. Patient is scheduled for angiogram tomorrow. REVIEW OF SYSTEMS CONSTITUTIONAL: Denies fevers, chills, or night sweats. No unintentional weight loss reported. NEUROLOGICAL: Denies headache, amaurosis fugax, motor weakness, sensory deficit, vertigo/spinning sensation, gait abnormalities, or tremors. ENT: No hearing loss, otalgia, otorrhea, rhinitis, rhinorrhea, hoarseness, or sore throat. CARDIOVASCULAR: Denies any exertional angina, dyspnea on exertion, orthopnea, paroxysmal nocturnal dyspnea, palpitations, life-threatening arrhythmias, claudication. PULMONARY: Denies any shortness of breath, cough, phlegm/sputum, hemoptysis, pleuritic chest pain. SLEEP: Denies morning headaches, daytime somnolence or napping. Denies difficulty falling asleep, staying asleep, waking from sleep. Denies knowledge of snoring. GASTROINTESTINAL: Denies any type of dysphagia to either liquids or solids. D enies nausea, vomiting, pyrosis, early satiety, abdominal pain, diarrhea, constipation, or changes in stool consistency or caliber. Denies coffee-ground emesis, hematemesis, hematochezia, or melanotic stools. GENITOURINARY: Denies frequency, urgency, nocturia, hematuria or incontinence (Storage/Irritative symptoms.) Low urinary stream, straining to void, urinary intermittency or hesitancy, splitting of the voiding stream, terminal dribbling. ENDOCRINOLOGIC: Denies polyuria, polydipsia, polyphagia or heat/cold intolerances. HEMATOLOGIC: Denies thrombophilia/previous clots, or coagulopathy/bleeding disorders. ONCOLOGIC: Denies personal history of malignancy. DERMATOLOGIC: Progressive redness, swelling and non healing diabetic foot ulcer involving the right foot, redness involving the 2nd to 4th toes PSYCHIATRIC: Denies any suicidal or homicidal ideation. Denies hallucinations. PHYSICAL EXAM GENERAL APPEARANCE: The patient is awake, alert, and oriented, in no acute cardiopulmonary distress. NEUROLOGICAL: Cranial nerves II-XII grossly intact. neurological examination is non focal for the patient HEENT: Face is symmetric. Pupils are equal and reactive. Extraocular movements are intact. NECK: Supple. No JVD. No thyromegaly. No submental, submandibular, pre- /postauricular, occipital or supraclavicular lymphadenopathy. CHEST: Normal chest expansion. No Telemetry. LUNGS: Absence of any rales, rhonchi or any wheezing. CARDIOVASCULAR: Regular. S1 and S2 normal. No appreciable rubs, murmurs or gallops. ABDOMEN: Soft, nontender, and nondistended. There is no rebound, voluntary guarding, or rigidity. : Deferred. No [place]. EXTREMITIES: right foot is swollen and redness noted extending to the midfoot, deep ulcer with purulence noted between the interdigital space of the 3rd and 4th toes, redness, noted of the 2nd, 3rd and 4th digit, patchy area of necrosis noted of the plantar and dorsal aspect of the metatarsal aspect of the third and fourth digit SKIN: as noted above Vital Signs (last 8hr) Date Time Temp Pulse Resp B/P (MAP) Pulse Ox O2 Delivery O2 Flow Rate FiO2 10/15/24 11:51 98.2 82 19 142/77 99 Room Air 21 10/15/24 08:00 98.4 79 19 134/78 100 Room Air 21 LABS: Laboratory: Test 10/15/24 11:14 10/15/24 04:59 10/14/24 07:45 10/14/24 06:42 Range/Units Whole Blood Glucose 208 H 70-110 MG/DL Bedside Glucose Comment Notified Nurse Vancomycin Level Trough 13.2 10.0-20.0 UG/ML White Blood Count 6.3 # 4.8-10.8 K/uL Red Blood Count 3.27 L 4.00-5.50 MIL/uL Hemoglobin 8.8 L 12.0-16.0 g/dL Hematocrit 26.7 L 36-48 % Mean Corpuscular Volume 81.7 79-99 fL Mean Corpuscular Hemoglobin 26.9 L 27.0-33.0 pg Mean Corpuscular Hemoglobin Concent 33.0 32.0-36.0 g/dL Red Cell Distribution Width 13.1 11.0-15.5 % Platelet Count 340 130-400 K/uL Mean Platelet Volume 8.7 7.5-10.5 fL Nucleated Red Blood Cells 0.0 0.0-0.19 % Sodium Level 138 136-145 mmol/L Potassium Level 3.7 3.5-5.1 mmol/L Chloride Level 106 101-111 mmol/L Carbon Dioxide Level 24 21-32 mmol/L Blood Urea Nitrogen 14 7-18 mg/dL Creatinine 1.0 0.5-1.0 mg/dL Glomerular Filtration Rate Calc 66 >90 mL/min Random Glucose 78 70-105 mg/dL Total Calcium 8.6 8.5-10.1 mg/dL Test 10/13/24 18:01 10/13/24 17:00 Range/Units Prothrombin Time 10.3 9.6-11.6 SEC Prothromb Time International Ratio 0.97 0.85-1.15 Activated Partial Thromboplast Time 27.4 26.3-35.5 SEC Hemoglobin A1c 13.5 H 4.0-6.0 % Estimated Average Glucose (eAG) 341 H 70-126 mg/dL Lactic Acid Level 0.9 0.8-2.5 mmol/L Iron Level 19 L 50-170 mcg/dL Total Iron Binding Capacity 273 250-450 mcg/dL Percent Iron Saturation 6.9 L 22-44 % Ferritin 252 H 15-150 ng/mL Total Bilirubin 0.3 0.2-1.0 mg/dL Direct Bilirubin 0.1 0.0-0.3 mg/dL Aspartate Amino Transf (AST/SGOT) 15 10-37 U/L Alanine Aminotransferase (ALT/SGPT) 19 12-78 U/L Alkaline Phosphatase 104 50-136 U/L Lactate Dehydrogenase 160 81-234 U/L C-Reactive Protein, Quantitative 82.00 H 0.5-3.0 mg/L Total Protein 8.1 6.0-8.3 g/dL Albumin 3.0 L 3.5-5.0 g/dL Procalcitonin < 0.05 L 0.05-0.5 ng/mL Thyroid Stimulating Hormone (TSH) 1.73 0.36-3.74 uIU/mL Immature Granulocyte % (Auto) 0.4 0-1 % Neutrophils (%) (Auto) 76.9 40.0-77.0 % Lymphocytes (%) (Auto) 15.2 L 21.0-51.0 % Monocytes (%) (Auto) 5.7 3.0-13.0 % Eosinophils (%) (Auto) 1.6 0.0-8.0 % Basophils (%) (Auto) 0.2 0.0-5.0 % Neutrophils # (Auto) 6.9 1.8-7.7 K/uL Lymphocytes # (Auto) 1.4 1.0-4.8 K/uL Monocytes # (Auto) 0.5 0.1-1.0 K/uL Eosinophils # (Auto) 0.14 0.00-0.70 K/uL Basophils # (Auto) 0.02 0.00-0.20 K/uL Absolute Immature Granulocyte (auto 0.04 0-1 K/uL Erythrocyte Sedimentation Rate 155 H 0-30 MM/HR Current Medications Medications (Trade) Dose Ordered Sig/Elsy Route PRN Reason Start Time Stop Time Status Last Admin Dose Admin Acetaminophen (TYLenol 500MG TAB) 500 mg Q6H PRN PO MILD PAIN (1-3) 10/13/24 18:00 11/12/24 17:59 Aspirin (Aspirin 81mg Ec Tab) 81 mg DAILY PO 10/15/24 11:30 11/14/24 11:29 10/15/24 12:49 81 MG Atorvastatin Calcium (LIPItor 40MG) 40 mg HS PO 10/15/24 21:00 11/14/24 20:59 Cadexomer Iodine (Iodosorb Gel 40gm) 1 APPL DAILY TP 10/15/24 09:00 10/15/24 15:22 DC Cadexomer Iodine (Iodosorb Gel 40gm) 1 APPL DAILY TP 10/16/24 09:00 11/15/24 08:59 Cadexomer Iodine (Iodosorb Gel 40gm) 1 APPL ONCE TP 10/14/24 17:30 10/14/24 23:32 DC Cefepime HCl (MAXipime 2 gm vial) 2 gm Q12H IVPB 10/13/24 18:00 10/23/24 17:59 10/15/24 05:11 2 GM Dextrose (D50w) 50 ml AD PRN IV HYPOGLYCEMIA PROTOCOL 10/14/24 12:30 11/13/24 12:29 Famotidine (Pepcid 20mg Vial) 20 mg DAILY IV 10/14/24 09:00 10/13/24 18:14 DC Glucagon (Glucagon 1mg Kit) 1 mg AD PRN IM HYPOGLYCEMIA PROTOCOL 10/14/24 12:30 11/13/24 12:29 Insulin Glargine (LANtus 100 UNITS/ML 10 ML VIAL) 12 units DAILY SQ 10/14/24 09:00 11/13/24 08:59 10/15/24 09:31 12 UNITS Insulin Human Regular (humuLIN R 100 UNIT/ML 3ML) INSULIN SLIDING SCAL... ACHS SQ 10/13/24 21:00 11/12/24 20:59 10/15/24 12:49 3 UNIT Metronidazole/ Sodium Chloride 100 ml @ 100 mls/hr Q8H IVPB 10/15/24 07:30 10/25/24 07:29 10/15/24 09:22 100 MLS/HR Metronidazole/ Sodium Chloride 100 ml @ 100 mls/hr Q8H6 IVPB 10/13/24 22:00 10/15/24 00:10 DC 10/14/24 22:21 100 MLS/HR Morphine Sulfate (morPHINE 2MG SYG) 2 mg Q6H PRN IVP SEVERE PAIN (7-10) 10/13/24 18:00 10/20/24 17:59 10/13/24 18:46 2 MG Ondansetron HCl (zoFRAN 4MG INJ) 4 mg Q6H PRN IVP NAUSEA/VOMITING 10/13/24 18:00 11/12/24 17:59 10/13/24 18:46 4 MG Pantoprazole Sodium (PROTonix 40MG INJ) 40 mg HS IVP 10/13/24 21:00 11/12/24 20:59 10/14/24 21:55 40 MG Piperacillin Sod/ Tazobactam Sod (Zosyn 3.375gm+NS 50ml) 3.375 gm Q12H IV 10/13/24 17:30 10/13/24 17:56 DC Sodium Chloride 1,000 ml @ 100 mls/hr Q10H IV 10/13/24 18:00 11/12/24 17:59 10/15/24 09:22 100 MLS/HR Vancomycin HCl (Vancomycin 750mg) 750 mg Q12H IVPB 10/14/24 06:00 10/24/24 05:59 10/15/24 05:42 750 MG Vancomycin HCl (Vancomycin Protocol) 1 each AD IV 10/13/24 18:30 10/27/24 18:29 DIAGNOSTICS / RADIOLOGY: [ ] ASSESSMENT: Progressive cellulitis of the right foot involving the midfoot with failure of outpatient treatment, POA Infected diabetic deep foot ulcer involving the interdigital space of the 3rd and 4th digit, POA Progressive cellulitis involving the 2nd, 3rd, 4th toes of the right foot, POA Hypovolemic hyponatremia, POA Anemia, POA Underlying history of insulin-dependent diabetes mellitus, POA PLAN: patient remains admitted to the medical floor, getting IV antibiotics at the time of my visit, comfortably in bed, no acute events overnight per discussion with the RN. Results of MRI of the right foot positive for osteomyelitis, discussed with the patient. Arterial Doppler findings reviewed and discussed with the patient, findings of monophasic flow in the right anterior tibial and dorsalis pedis arteries consistent with a mild atherosclerotic disease. We will continue the patient on broad-spectrum IV antibiotics, infectious disease consultation requested, continue to follow input and recommendation, follow up Podiatry input recommendation, local wound care. Patient is scheduled for angiogram tomorrow. NEURO: Minimize central acting medications as possible. Fall Precautions. Well lighted room through the day and minimize interruptions through the night to prevent acute delirium. PULMONARY: Supplemental 02 as needed BiPAP as necessary, for respiratory distress Titrate Fio2 to keep Spo2 > or = 90% DuoNebs and CPT as needed IS hourly while awake for pulmonary hygiene prn Out of bed to chair as tolerated Maintain aspiration precautions at all times CARDIOVASCULAR: Follow hemodynamics. Vital signs per facility protocol GI & NUTRITION: Continue nutritional support Aspirations precautions Prokinetic agents and laxatives as needed KIDNEYS & ELECTROLYTES: Strict monitoring of intake and output Daily weights Avoid nephrotoxic agents Monitor electrolytes and replace as needed Goal urine output of 30mL/hr or 0.5mL/kg/hr Medications to be dosed according to renal function. Avoid contrast if possible ENDOCRINE: Maintain blood glucose between 100-180 at all times. Insulin sliding scale for blood glucose management Hypoglycemia and hyperglycemia protocol in place INFECTIOUS DISEASE: Trend temperature, WBC and procalcitonin level Follow cultures, deescalate antibiotics as soon as possible. Panculture if new onset fever HEMATOLOGY & COAGULATION: Monitor H&H. Keep Hgb > 7 Transfuse 1 unit of PRBC for Hgb < 7 Transfuse 1 pack of platelets of platelets < 20, 000 Watch for any signs and symptoms of bleeding SKIN: Pressure ulcer prevention per facility protocol Specialty mattress as needed ORTHO/REHAB Continue PT/OT PRN: MEDICATIONS Tylenol 650 mg po every 4 hrs for fever zofran 4 mg IV every 6 hrs for n/v Hydralazine 5 mg IV every 4 hrs systolic pressure > 160 bowel regiment: lactulose 20 gm PO BID PRN constipation Supportive measures: Continue GI and DVT prophylaxis Disposition: Pending improvement in clinical condition All questions answered time spent: > 35 min NANCY COLBERT MD Oct 15, 2024 15:53
[2024-10-15] MEDS ORDERED: IOHEXOL-350 50ML VIAL IV ONE (16:28)
[2024-10-15] MEDS ORDERED: IOHEXOL 350 MG/ML 100ML INFUS..BTL IV ONE (16:28)
--- NOTE | 2024-10-15 21:01 | PN ---
INFECTIOUS DISEASE PROGRESS NOTE Date of Service: Oct 15, 2024 SUBJECTIVE: This is a 54-year-old female patient who was admitted to the hospital for evaluation of a nonhealing diabetic wound on the right foot. An MRI of the right foot showed right 4th toe concerning for osteomyelitis. The preliminary right foot wound cultures is growing Bindu albicans and Streptococcus agalactiae group B. Patient was updated with these findings. We will continue on vancomycin, cefepime and metronidazole. PHYSICAL EXAM EYES: Anicteric. Pupils equal and reactive. HENT: No oral thrush seen, moist Oral mucosa NECK: Supple, no JVD or thyromegaly. LUNGS: Good air entry. No rales, no rhonchi. CARDIOVASCULAR: S1, S2 regular. No murmur heard. ABDOMEN: Soft, non tender, bowel sounds present, no organomegaly CENTRAL NERVOUS SYSTEM: Awake, alert, oriented x 3. SKIN: No rashes, no swelling. Right foot diabetic ulcer in the 3rd and 4th interdigital space LYMPHATICS: No peripheral lymphadenopathy MUSCULOSKELETAL: No joint swelling, erythema or tenderness. EXTREMITIES: Right foot swelling and redness. BACK: No deformity, no pressure ulcer. GENITOURINARY: No dysuria or hematuria. Vital Sign (Last 12 Hours) 10/15/24 10/15/24 10/15/24 11:51 16:00 19:40 Temp 98.2 99.0 98.2 Pulse 82 85 86 Resp 19 19 20 B/P (MAP) 142/77 151/78 158/76 Pulse Ox 99 100 99 O2 Delivery Room Air Room Air Room Air FiO2 21 21 Intake & Output (last 24hrs) 10/14/24 10/14/24 10/15/24 15:00 23:00 07:00 Intake Total 470.0 ml Balance 470.0 ml LABS: Laboratory: Test 10/15/24 19:43 10/15/24 15:51 10/15/24 04:59 10/14/24 07:45 Range/Units Whole Blood Glucose 223 H 70-110 MG/DL Bedside Glucose Comment Notified Nurse Vancomycin Level Trough 13.2 10.0-20.0 UG/ML White Blood Count 6.3 # 4.8-10.8 K/uL Red Blood Count 3.27 L 4.00-5.50 MIL/uL Hemoglobin 8.8 L 12.0-16.0 g/dL Hematocrit 26.7 L 36-48 % Mean Corpuscular Volume 81.7 79-99 fL Mean Corpuscular Hemoglobin 26.9 L 27.0-33.0 pg Mean Corpuscular Hemoglobin Concent 33.0 32.0-36.0 g/dL Red Cell Distribution Width 13.1 11.0-15.5 % Platelet Count 340 130-400 K/uL Mean Platelet Volume 8.7 7.5-10.5 fL Nucleated Red Blood Cells 0.0 0.0-0.19 % Test 10/14/24 06:42 Range/Units Sodium Level 138 136-145 mmol/L Potassium Level 3.7 3.5-5.1 mmol/L Chloride Level 106 101-111 mmol/L Carbon Dioxide Level 24 21-32 mmol/L Blood Urea Nitrogen 14 7-18 mg/dL Creatinine 1.0 0.5-1.0 mg/dL Glomerular Filtration Rate Calc 66 >90 mL/min Random Glucose 78 70-105 mg/dL Total Calcium 8.6 8.5-10.1 mg/dL DIAGNOSTICS / RADIOLOGY: PATIENT: KEAGAN DUNN MR#: [id number] : 1970 SEX: F AGE: 54 LOCATION: [facility] ORDER 48 STATUS: ADM IN REPORT#: [id number] SERVICE 46 REASON: cellulitis, right foot, infected DFU of space between 3rd and 4th toe ORDERING PHYSICIAN: ASIM MCFADDEN MD PROCEDURE: FT RT WO - MR FOOT RIGHT WO EXAMINATION: NONCONTRAST MRI OF THE RIGHT FOOT. CLINICAL HISTORY: Right foot cellulitis. COMPARISON: None provided. TECHNIQUE: Multiplanar, multisequence MR images of the right foot were obtained. FINDINGS: Evidence of cutaneous irregularity and suspicious ulcer involving fourth toe tip measuring 1.4 cm tyler-posteriorly and is associated with moderate phalangeal marrow edema and suspicious proximal phalangeal dorsal sided erosions. Evidence of cutaneous irregularity and suspicious ulcer involving the third toe at the level of proximal phalanx but no underlying osseous involvement. Fifth toe hammertoe deformity. Moderate diffuse dorsal as well as plantar subcutaneous edema and mild intrinsic foot muscles edema. No discrete drainable collection. Visualized extensor and flexor tendons are normal in course and morphology without evidence of tenosynovitis. IMPRESSION: 1. 1.4 cm ulcer of fourth toe tip with marrow edema and suspicious proximal phalangeal dorsal sided erosions, concerning for osteomyelitis. 2. Ulcer of third toe proximal phalanx without osseous involvement. 3. Moderate soft tissue edema of foot without drainable collection, concerning for cellulitis. /[place] DICTATED BY: JOSE OVERTON Jr., MD DATE: 10/15/24926 ELECTRONICALLY SIGNED BY: JOSE OVERTON Jr., MD DATE: 10/15/24926 ASSESSMENT: 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 Right 4th toe diabetic ulcer with gangrene. Right foot Cellulitis. Ruling out peripheral artery disease. Diabetes mellitus. Anemia PLAN: Continue on Vancomycin per pharmacy protocol. Continue Cefepime. Continue Metronidazole IV. Continue pain management. Continue wound care as recommended by mess attendant. Continue GI prophylaxis. This case was reviewed and discussed with my supervising physician and the above assessment and plan was formulated and agreed upon. ATTESTATION BY PHYSICIAN I have seen and examined the patient. I reviewed the documentation, medical decision making, and treatment plan as noted by the mid-level provider above. I agree with the findings and plan of care. MENDY KHAN MD, [facility] Oct 15, 2024 21:01
[2024-10-16] VITALS (7 sets, daily range): BP systolic 136–172; BP diastolic 76–95; PULSE 82–103; RESP 16–20; TEMP 97.8–98.4; O2SAT 98
--- NOTE | 2024-10-16 04:50 | HMCIMG ---
EXAM: CTA Aorta Runoff with IV contrast. CLINICAL HISTORY: Peripheral arterial disease. TECHNIQUE: Thin collimated axial CTA images of the abdomen, pelvis and bilateral lower extremities were obtained with sagittal and coronal reformatted images also submitted. CT scan done according to ALARA (As Low As Reasonably Achievable). Intravenous contrast was administered. COMPARISON: Ultrasound bilateral arterial doppler dated 10/13/24. FINDINGS: Abdominal aorta: Unremarkable abdominal aorta, celiac trunk, superior mesenteric artery, inferior mesenteric artery and bilateral renal arteries. A few tiny calcific atheromatous plaques in the abdominal aorta. Aortic Bifurcation: Unremarkable. Bilateral Common, origins of the internal, and external Iliac arteries: Unremarkable. Bilateral Common femoral, origin of the deep femoral, and Superficial femoral arteries: Moderate circumferential calcific atheromatous plaques in the bilateral superficial femoral arteries without luminal stenosis. Bilateral Popliteal arteries: Mild circumferential calcific atheromatous plaques in the bilateral popliteal arteries without luminal stenosis. Tibio-peroneal trifurcation: Unremarkable. Anterior Tibial, Posterior Tibial, and Peroneal arteries: Mild circumferential calcific atheromatous plaques with 10%-20% luminal stenosis. Dorsalis Pedis artery: Unremarkable. Normal 3-vessel flow to the foot. Osseous and Soft tissue structures: No acute abnormality. Unremarkable lung bases. There is no focal abnormality in the liver, gallbladder, spleen, pancreas, adrenals or kidneys. Mildly prominent common bile duct measuring up to 0.7 cm. No bowel wall thickening, obstruction or ileus. The appendix is normal. Mild uncomplicated sigmoid diverticulosis. No significant abdominal lymphadenopathy. No ascites. Circumferential urinary bladder wall thickening measuring up to 0.7 cm. Post-hysterectomy status. No pelvic mass. Multiple tiny phleboliths in the pelvis. IMPRESSIONS: 1. No hemodynamically significant abnormality. 2. Mild to moderate circumferential calcific atheromatous plaques in the bilateral superficial femoral, popliteal, anterior tibial, posterior tibial and peroneal arteries without significant luminal stenosis. Normal three-vessel flow to the foot. 3. Incidental mildly prominent common bile duct. 4. Cystitis. Grossly unremarkable ultrasound arterial doppler of the bilateral lower limbs dated 10/13/24. /[place]
[2024-10-16 05:49] LABS: NUCLEATED RED BLOOD CELLS 0.0 % (0.0-0.19); PLATELET COUNT (AUTO) 373.0 K/uL (130-400); RED BLOOD CELL COUNT(AUTO) 3.2 MIL/uL (4.00-5.50); RED CELL DISTRIBUTION WIDTH 13.1 % (11.0-15.5); WHITE BLOOD COUNT (AUTO) 6.5 K/uL (4.8-10.8)
[2024-10-16 06:04] LABS: ASPARTATE AMINOTRANSFERASE 16.0 U/L (10-37); CREATININE 0.7 mg/dL (0.5-1.0); GLOMERULAR FILTR. RATE CALC 101.0 mL/min (>90); GLUCOSE,RANDOM 195.0 mg/dL (70-105); SODIUM SERUM 140.0 mmol/L (136-145); TOTAL PROTEIN, SERUM 6.8 g/dL (6.0-8.3); UREA NITROGEN, BLOOD 9.0 mg/dL (7-18)
[2024-10-16] MEDS: MAGNESIUM 2GM PREMIX 50ML 50 ML IV PRN (06:22)
[2024-10-16] MEDS ORDERED: MAGNESIUM 2GM PREMIX 50ML 50 ML IV SCH (09:30)
[2024-10-16 09:40] LABS: % IRON SATURATION 12.6 % (22-44); IRON, SERUM 29.0 mcg/dL (50-170)
[2024-10-16] MEDS: IODOSORB GEL 40GM TP SCH (10:05)
--- NOTE | 2024-10-16 10:18 | PN ---
PROGRESS NOTE Date of Service: Oct 16, 2024 Time of Service: 10:14 SUBJECTIVE: This 58 years old female was seen for follow up evaluation right foot ulceration with gangrenous changes of the base of the 4th toe and 3rd toe right foot. The patient scheduled to have angiogram to be done today. Pending this evaluation and possible results for future planning. REVIEW OF SYSTEMS CONSTITUTIONAL: Denies fever, chills, or fatigue. HEAD/FACE: No signs of trauma. EENT: Denies eye pain, blurred vision, double vision, or light sensitivity. RESPIRATORY: Denies shortness of breath, cough, wheezing CARDIOVASCULAR: Denies chest pain, palpitation, syncope GASTROINTESTINAL/ABDOMINAL: Denies abdominal pain, constipation, diarrhea, nausea or vomiting GENITOURINARY: Denies dysuria or hematuria. MUSCULOSKELETAL: Denies joint pain, tenderness, or trauma. INTEGUMENTARY: Ulcer to the right foot with cellulitis. NEUROLOGICAL/PSYCH: Denies anxiety, depression, heat or cold intolerance. PHYSICAL EXAM EYES: Anicteric. Pupils equal and reactive. HENT: No oral thrush seen, moist Oral mucosa NECK: Supple, no JVD or thyromegaly. LUNGS: Good air entry. No rales, no rhonchi. CARDIOVASCULAR: S1, S2 regular. No murmur heard. ABDOMEN: Soft, non tender, bowel sounds present, no organomegaly CENTRAL NERVOUS SYSTEM: Awake, alert, oriented x 3. No focal deficits. SKIN: Cellulitis of the ulcer on the right foot 3rd and 4th interspace base of the 4th toe plantar area of the 4th toe with necrotic tissue. Cellulitis of the foot. LYMPHATICS: No peripheral lymphadenopathy MUSCULOSKELETAL: No joint swelling, erythema or tenderness. History of osteomyelitis to the 4th toe and base of the proximal phalanx 3rd toe. EXTREMITIES: No cyanosis or clubbing BACK: No deformity, no pressure ulcer. GENITOURINARY: No dysuria or hematuria Vital Signs (last 8hr) Date Time Temp Pulse Resp B/P (MAP) Pulse Ox O2 Delivery O2 Flow Rate FiO2 10/16/24 08:00 97.9 85 18 151/77 98 Room Air 21 10/16/24 03:04 98.2 90 16 144/76 98 Room Air LABS: Laboratory: Test 10/16/24 05:36 10/16/24 05:01 10/15/24 15:51 10/15/24 04:59 Range/Units White Blood Count 6.5 4.8-10.8 K/uL Red Blood Count 3.20 L 4.00-5.50 MIL/uL Hemoglobin 8.4 L 12.0-16.0 g/dL Hematocrit 26.1 L 36-48 % Mean Corpuscular Volume 81.6 79-99 fL Mean Corpuscular Hemoglobin 26.3 L 27.0-33.0 pg Mean Corpuscular Hemoglobin Concent 32.2 32.0-36.0 g/dL Red Cell Distribution Width 13.1 11.0-15.5 % Platelet Count 373 130-400 K/uL Mean Platelet Volume 9.0 7.5-10.5 fL Nucleated Red Blood Cells 0.0 0.0-0.19 % Sodium Level 140 136-145 mmol/L Potassium Level 3.3 L 3.5-5.1 mmol/L Chloride Level 107 101-111 mmol/L Carbon Dioxide Level 24 21-32 mmol/L Blood Urea Nitrogen 9 7-18 mg/dL Creatinine 0.7 0.5-1.0 mg/dL Glomerular Filtration Rate Calc 101 >90 mL/min Random Glucose 195 H 70-105 mg/dL Total Calcium 8.6 8.5-10.1 mg/dL Magnesium Level 1.50 L 1.80-2.40 mg/dL Total Bilirubin 0.3 0.2-1.0 mg/dL Aspartate Amino Transf (AST/SGOT) 16 10-37 U/L Alanine Aminotransferase (ALT/SGPT) 11 L 12-78 U/L Alkaline Phosphatase 88 50-136 U/L Total Protein 6.8 6.0-8.3 g/dL Albumin 2.3 L 3.5-5.0 g/dL Whole Blood Glucose 159 H 70-110 MG/DL Bedside Glucose Comment Notified Nurse Vancomycin Level Trough 13.2 10.0-20.0 UG/ML DIAGNOSTICS / RADIOLOGY: No fracture or dislocation on x-ray MRI positive for osteomyelitis of the 4th toe ASSESSMENT: Diabetic foot ulcer to the right foot Cellulitis right foot Osteomyelitis 4th toe right foot. PLAN: Continued IV antibiotic . Continue Iodosorb has a local wound care. Extensive conversation was done with the patient explain her about the severity of her case and the need for possible amputation of 4th toe and debridement of the 3rd toe base local wound care antibiotic therapy prolonged. She will be having an angiogram to be done today the depending on the studies results and tire trucker recommendation we will proceed to schedule the patient for amputation of this toe and debridement of this wound. The prognosis is guarded secondary to multiple comorbidities including peripheral vascular disease and diabetes with neuropathy. Once we had fully further studies results we will go ahead and proceed with debridement and amputation. CLEOPATRA MCCORMACK DPM Oct 16, 2024 10:18
--- NOTE | 2024-10-16 10:36 | NUR ---
ANGIOGRAM VIA TELEPHONE. GAVE OKAY TO GIVE MORNING MEDICATIONS INCLUDING ASPIRIN. TO HOLD ON LANTUS 12 UNITS. ORDERED TO SCHEDULE PT FOR ANGIOGRAM WITH DR. SEAY.
[2024-10-16] MEDS: PoTASSium chloRIDE 20MEQ ER 20 MEQ ERTAB PO ONE (10:44)
--- NOTE | 2024-10-16 11:05 | PN ---
[facility] PROGRESS NOTE Date of Service: Oct 16, 2024 Time of Service: 10:59 SUBJECTIVE: 54-year-old female with underlying history of type 2 diabetes mellitus (diagnosed with diabetes for about 21 years) who presented to the ER for further evaluation of progressive redness, nonhealing wound involving the interdigital space of the 3rd and 4th digit of the right foot. Symptoms have been ongoing for the past 4-5 days and patient has been using local therapy with iodine as well as been taking penicillin for further treatment as outpatient. She has been cleaning the wound with sterile water. Symptoms have been worsening and patient has developed progressive redness of the right foot as well as increased drainage between the interdigital space with purulence noted. She denied previous history of cardiac disease of peripheral arterial disease. She has been taking ibuprofen intermittently with Tylenol for pain control at home. Reported having subjective chills. On presentation to the hospital, patient was noted to be afebrile with T-max of 98.1 F, heart rate of 91, blood pressure of 123/67. Labs on presentation showed WBC count of 9000, hemoglobin of 9.1, platelet count of 177436. BMP remarkable for sodium of 131, potassium 4.1, BUN of 26, creatinine 1.0. Patient had x-rays of the right foot which showed no acute fractures or soft tissue gas. Patient admitted for further treatment management of complicated cellulitis with infected diabetic foot wound/ulcer involving the interdigital space of the 3rd and 4th toe with progressive cellulitis of the right foot. Patient received broad-spectrum antibiotics, IV hydration. Podiatry and Infectious Disease consulted. Patient will undergo workup for peripheral arterial disease. 10/14 patient remains hemodynamically stable, BP 130/67, afebrile, saturating normal on room air, getting IV antibiotics at the time of my visit, Doppler of the lower extremities no evidence of DVT to the right lower extremity, MRI of the foot pending. Arterial Doppler no hemodynamically significant stenosis or occlusion in either lower extremity, monophasic flow in the right anterior tibial and dorsalis pedis arteries consistent with mild discharge atherosclerotic disease and hyperemia. We will continue the patient on vancomycin and Flagyl IV, patient also on cefepime, podiatry and infectious disease consulted, we will continue to follow input and recommendations. 10/15 patient remains admitted to the medical floor, getting IV antibiotics at the time of my visit, comfortably in bed, no acute events overnight per discussion with the RN. Results of MRI of the right foot positive for osteomyelitis, discussed with the patient. Arterial Doppler findings reviewed and discussed with the patient, findings of monophasic flow in the right anterior tibial and dorsalis pedis arteries consistent with a mild atherosclerotic disease. We will continue the patient on broad-spectrum IV antibiotics, infectious disease consultation requested, continue to follow input and recommendation, follow up Podiatry input recommendation, local wound care. Patient is scheduled for angiogram tomorrow. 10/16 patient remains admitted to the medical floor, BP 151/77, afebrile, saturating normal on room air. Hemoglobin of 8.4, hematocrit 26.1. Sodium 140, potassium 3.3, BUN of nine, creatinine 0.7, magnesium level 1.5. Iron level of 29. Patient evaluated by campground caretaker yesterday, CTA aorta runoff with IV contrast no hemodynamically significant abnormality, mild to moderate circumferential calcific atheromatous plaques in the bilateral superficial femoral, popliteal, anterior tibial, posterior tibial and peroneal arteries without significant luminal stenosis, normal three-vessel flow to the foot, incidental mildly prominent common bile duct, cystitis. Grossly unremarkable ultrasound arterial Doppler of the bilateral lower limb stated 10/13/2024. Results of culture from right foot positive for Bindu albicans, Streptococcus agalactiae group B. Start losartan 25 mg p.o. daily, hydralazine 5 mg IV every 6 hours as needed. Replace electrolytes with magnesium sulfate 2 g IV x1, potassium chloride 40 mEq p.o. x1. Follow stool occult blood, if positive we will request GI consultation. We will hold aspirin for now. Continue to follow podiatry input and recommendation, continue local wound care with the cadexomer iodine one application daily, continue broad-spectrum IV antibiotics with the vanco and Flagyl IV, continue to follow ID input and recommendation. Follow Cardiology input and recommendation. Patient is scheduled for angiogram tomorrow. During my visit patient comfortably in bed, alert oriented x3, getting IV fluids and IV antibiotics. Denies chest pain, shortness shortness for breath, no nausea, no vomiting, no abdominal pain, no pain to the right foot area. REVIEW OF SYSTEMS CONSTITUTIONAL: Denies fevers, chills, or night sweats. No unintentional weight loss reported. NEUROLOGICAL: Denies headache, amaurosis fugax, motor weakness, sensory deficit, vertigo/spinning sensation, gait abnormalities, or tremors. ENT: No hearing loss, otalgia, otorrhea, rhinitis, rhinorrhea, hoarseness, or sore throat. CARDIOVASCULAR: Denies any exertional angina, dyspnea on exertion, orthopnea, paroxysmal nocturnal dyspnea, palpitations, life-threatening arrhythmias, claudication. PULMONARY: Denies any shortness of breath, cough, phlegm/sputum, hemoptysis, pleuritic chest pain. SLEEP: Denies morning headaches, daytime somnolence or napping. Denies difficulty falling asleep, staying asleep, waking from sleep. Denies knowledge of snoring. GASTROINTESTINAL: Denies any type of dysphagia to either liquids or solids. Denies nausea, vomiting, pyrosis, early satiety, abdominal pain, diarrhea, constipation, or changes in stool consistency or caliber. Denies coffee-ground emesis, hematemesis, hematochezia, or melanotic stools. GENITOURINARY: Denies frequency, urgency, nocturia, hematuria or incontinence (Storage/Irritative symptoms.) Low urinary stream, straining to void, urinary intermittency or hesitancy, splitting of the voiding stream, terminal dribbling. ENDOCRINOLOGIC: Denies polyuria, polydipsia, polyphagia or heat/cold intolerances. HEMATOLOGIC: Denies thrombophilia/previous clots, or coagulopathy/bleeding disorders. ONCOLOGIC: Denies personal history of malignancy. DERMATOLOGIC: Progressive redness, swelling and non healing diabetic foot ulcer involving the right foot, redness involving the 2nd to 4th toes PSYCHIATRIC: Denies any suicidal or homicidal ideation. Denies hallucinations. PHYSICAL EXAM GENERAL APPEARANCE: The patient is awake, alert, and oriented, in no acute cardiopulmonary distress. NEUROLOGICAL: Cranial nerves II-XII grossly intact. neurological examination is non focal for the patient HEENT: Face is symmetric. Pupils are equal and reactive. Extraocular movements are intact. NECK: Supple. No JVD. No thyromegaly. No submental, submandibular, pre-/postau ricular, occipital or supraclavicular lymphadenopathy. CHEST: Normal chest expansion. No Telemetry. LUNGS: Absence of any rales, rhonchi or any wheezing. CARDIOVASCULAR: Regular. S1 and S2 normal. No appreciable rubs, murmurs or gallops. ABDOMEN: Soft, nontender, and nondistended. There is no rebound, voluntary guarding, or rigidity. : Deferred. No [place]. EXTREMITIES: right foot is swollen and redness noted extending to the midfoot, deep ulcer with purulence noted between the interdigital space of the 3rd and 4th toes, redness, noted of the 2nd, 3rd and 4th digit, patchy area of necrosis noted of the plantar and dorsal aspect of the metatarsal aspect of the third and fourth digit SKIN: as noted above Vital Signs (last 8hr) Date Time Temp Pulse Resp B/P (MAP) Pulse Ox O2 Delivery O2 Flow Rate FiO2 10/16/24 08:00 97.9 85 18 151/77 98 Room Air 21 10/16/24 03:04 98.2 90 16 144/76 98 Room Air LABS: Laboratory: Test 10/16/24 05:36 10/16/24 05:01 10/15/24 15:51 10/15/24 04:59 Range/Units White Blood Count 6.5 4.8-10.8 K/uL Red Blood Count 3.20 L 4.00-5.50 MIL/uL Hemoglobin 8.4 L 12.0-16.0 g/dL Hematocrit 26.1 L 36-48 % Mean Corpuscular Volume 81.6 79-99 fL Mean Corpuscular Hemoglobin 26.3 L 27.0-33.0 pg Mean Corpuscular Hemoglobin Concent 32.2 32.0-36.0 g/dL Red Cell Distribution Width 13.1 11.0-15.5 % Platelet Count 373 130-400 K/uL Mean Platelet Volume 9.0 7.5-10.5 fL Nucleated Red Blood Cells 0.0 0.0-0.19 % Sodium Level 140 136-145 mmol/L Potassium Level 3.3 L 3.5-5.1 mmol/L Chloride Level 107 101-111 mmol/L Carbon Dioxide Level 24 21-32 mmol/L Blood Urea Nitrogen 9 7-18 mg/dL Creatinine 0.7 0.5-1.0 mg/dL Glomerular Filtration Rate Calc 101 >90 mL/min Random Glucose 195 H 70-105 mg/dL Total Calcium 8.6 8.5-10.1 mg/dL Magnesium Level 1.50 L 1.80-2.40 mg/dL Iron Level 29 #L 50-170 mcg/dL Total Iron Binding Capacity 229 L 250-450 mcg/dL Percent Iron Saturation 12.6 L 22-44 % Total Bilirubin 0.3 0.2-1.0 mg/dL Aspartate Amino Transf (AST/SGOT) 16 10-37 U/L Alanine Aminotransferase (ALT/SGPT) 11 L 12-78 U/L Alkaline Phosphatase 88 50-136 U/L Total Protein 6.8 6.0-8.3 g/dL Albumin 2.3 L 3.5-5.0 g/dL Whole Blood Glucose 159 H 70-110 MG/DL Bedside Glucose Comment Notified Nurse Vancomycin Level Trough 13.2 10.0-20.0 UG/ML Current Medications Medications (Trade) Dose Ordered Sig/Elsy Route PRN Reason Start Time Stop Time Status Last Admin Dose Admin Acetaminophen (TYLenol 500MG TAB) 500 mg Q6H PRN PO MILD PAIN (1-3) 10/13/24 18:00 11/12/24 17:59 Aspirin (Aspirin 81mg Ec Tab) 81 mg DAILY PO 10/15/24 11:30 11/14/24 11:29 10/16/24 10:44 81 MG Atorvastatin Calcium (LIPItor 40MG) 40 mg HS PO 10/15/24 21:00 11/14/24 20:59 10/15/24 21:12 40 MG Cadexomer Iodine (Iodosorb Gel 40gm) 1 APPL DAILY TP 10/15/24 09:00 10/15/24 15:22 DC Cadexomer Iodine (Iodosorb Gel 40gm) 1 APPL DAILY TP 10/16/24 09:00 11/15/24 08:59 10/16/24 10:05 1 APPL Cadexomer Iodine (Iodosorb Gel 40gm) 1 APPL ONCE TP 10/14/24 17:30 10/14/24 23:32 DC Cefepime HCl (MAXipime 2 gm vial) 2 gm Q12H IVPB 10/13/24 18:00 10/23/24 17:59 10/16/24 05:03 2 GM Dextrose (D50w) 50 ml AD PRN IV HYPOGLYCEMIA PROTOCOL 10/14/24 12:30 11/13/24 12:29 Famotidine (Pepcid 20mg Vial) 20 mg DAILY IV 10/14/24 09:00 10/13/24 18:14 DC Glucagon (Glucagon 1mg Kit) 1 mg AD PRN IM HYPOGLYCEMIA PROTOCOL 10/14/24 12:30 11/13/24 12:29 Hydralazine HCl (APRESOLine 20MG INJ) 5 mg Q6H PRN IV ADMINISTER FOR SBP > 160 10/16/24 09:30 11/15/24 09:29 Insulin Glargine (LANtus 100 UNITS/ML 10 ML VIAL) 12 units DAILY SQ 10/14/24 09:00 11/13/24 08:59 10/15/24 09:31 12 UNITS Insulin Human Regular (humuLIN R 100 UNIT/ML 3ML) INSULIN SLIDING SCAL... ACHS SQ 10/13/24 21:00 11/12/24 20:59 10/15/24 21:13 3 UNIT Losartan Potassium (CozAAR 25MG TAB) 25 mg DAILY PO 10/16/24 09:30 11/15/24 09:29 10/16/24 10:44 25 MG Magnesium Sulfate 50 ml @ 0 mls/hr PROTOCOL IV 10/16/24 09:30 10/16/24 09:24 DC Magnesium Sulfate 50 ml @ 0 mls/hr PROTOCOL PRN IV MAGNESIUM PROTOCOL 10/16/24 06:30 11/15/24 06:29 10/16/24 06:22 25 MLS/HR Metronidazole/ Sodium Chloride 100 ml @ 100 mls/hr Q8H IVPB 10/15/24 07:30 10/25/24 07:29 10/16/24 09:57 100 MLS/HR Metronidazole/ Sodium Chloride 100 ml @ 100 mls/hr Q8H6 IVPB 10/13/24 22:00 10/15/24 00:10 DC 10/14/24 22:21 100 MLS/HR Morphine Sulfate (morPHINE 2MG SYG) 2 mg Q6H PRN IVP SEVERE PAIN (7-10) 10/13/24 18:00 10/20/24 17:59 10/13/24 18:46 2 MG Ondansetron HCl (zoFRAN 4MG INJ) 4 mg Q6H PRN IVP NAUSEA/VOMITING 10/13/24 18:00 11/12/24 17:59 10/13/24 18:46 4 MG Pantoprazole Sodium (PROTonix 40MG INJ) 40 mg HS IVP 10/13/24 21:00 11/12/24 20:59 10/15/24 21:12 40 MG Piperacillin Sod/ Tazobactam Sod (Zosyn 3.375gm+NS 50ml) 3.375 gm Q12H IV 10/13/24 17:30 10/13/24 17:56 DC Potassium Chloride 100 ml @ 50 mls/hr AD PRN IV POTASSIUM PROTOCOL 10/16/24 06:30 11/15/24 06:29 Sodium Chloride 1,000 ml @ 100 mls/hr Q10H IV 10/13/24 18:00 11/12/24 17:59 10/16/24 05:37 100 MLS/HR Vancomycin HCl (Vancomycin 750mg) 750 mg Q12H IVPB 10/14/24 06:00 10/24/24 05:59 10/16/24 05:37 750 MG Vancomycin HCl (Vancomycin Protocol) 1 each AD IV 10/13/24 18:30 10/27/24 18:29 DIAGNOSTICS / RADIOLOGY: [ ] ASSESSMENT: Progressive cellulitis of the right foot involving the midfoot with failure of outpatient treatment, POA Infected diabetic deep foot ulcer involving the interdigital space of the 3rd and 4th digit, POA Progressive cellulitis involving the 2nd, 3rd, 4th toes of the right foot, POA Hypovolemic hyponatremia, POA Anemia, POA Underlying history of insulin-dependent diabetes mellitus, POA PLAN: Start losartan 25 mg p.o. daily, hydralazine 5 mg IV every 6 hours as needed. Replace electrolytes with magnesium sulfate 2 g IV x1, potassium chloride 40 mEq p.o. x1. Follow stool occult blood, if positive we will request GI consultation. We will hold aspirin for now. Continue to follow podiatry input and recommendation, continue local wound care with the cadexomer iodine one application daily, continue broad-spectrum IV antibiotics with the vanco and Flagyl IV, continue to follow ID input and recommendation. Follow Cardiology input and recommendation. Plan for angiogram tomorrow. NEURO: Minimize central acting medications as possible. Fall Precautions. Well lighted room through the day and minimize interruptions through the night to prevent acute delirium. PULMONARY: Supplemental 02 as needed BiPAP as necessary, for respiratory distress Titrate Fio2 to keep Spo2 > or = 90% DuoNebs and CPT as needed IS hourly while awake for pulmonary hygiene prn Out of bed to chair as tolerated Maintain aspiration precautions at all times CARDIOVASCULAR: Follow hemodynamics. Vital signs per facility protocol GI & NUTRITION: Continue nutritional support Aspirations precautions Prokinetic agents and laxatives as needed KIDNEYS & ELECTROLYTES: Strict monitoring of intake and output Daily weights Avoid nephrotoxic agents Monitor electrolytes and replace as needed Goal urine output of 30mL/hr or 0.5mL/kg/hr Medications to be dosed according to renal function. Avoid contrast if possible ENDOCRINE: Maintain blood glucose between 100-180 at all times. Insulin sliding scale for blood glucose management Hypoglycemia and hyperglycemia protocol in place INFECTIOUS DISEASE: Trend temperature, WBC and procalcitonin level Follow cultures, deescalate antibiotics as soon as possible. Panculture if new onset fever HEMATOLOGY & COAGULATION: Monitor H&H. Keep Hgb > 7 Transfuse 1 unit of PRBC for Hgb < 7 Transfuse 1 pack of platelets of platelets < 20, 000 Watch for any signs and symptoms of bleeding SKIN: Pressure ulcer prevention per facility protocol Specialty mattress as needed ORTHO/REHAB Continue PT/OT PRN: MEDICATIONS Tylenol 650 mg po every 4 hrs for fever zofran 4 mg IV every 6 hrs for n/v Hydralazine 5 mg IV every 4 hrs systolic pressure > 160 bowel regiment: lactulose 20 gm PO BID PRN constipation Supportive measures: Continue GI and DVT prophylaxis Disposition: Pending improvement in clinical condition All questions answered time spent: > 35 min NANCY COLBERT MD Oct 16, 2024 11:05
--- NOTE | 2024-10-16 13:56 | NUR ---
DR. SEAY AT BEDSIDE. EXPLAINED TO PT THAT PROCEDURE IS CANCELLED FOR TODAY.PT CAN GO BACK TO PREVIOUS DIET. PROCEDURE WILL BE RESCHEDULED FOR 7 AROUND NOON. TO HOLD MORNING INSULIN. OKAY TO GIVE ASPIRIN AND OTHER PO MEDICATIONS. HOLD BREAKFAST WELL. NPO AFTER MIDNIGHT.
--- NOTE | 2024-10-16 14:47 | PN ---
Patient seen and evaluated, no contraindication to contrast or angiography, erythema and induration of right foot with foot bandaged and ischemic ulceration of toes. Risks of contrast reaction, renal dysfunction, bleeding, and vascular complications requiring surgery or amputation, were discussed. Patient verbalizes understanding and acceptance of the risks. 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 Vitals/Labs Vital Signs Date Time Temp Pulse Resp B/P (MAP) Pulse Ox O2 Delivery O2 Flow Rate FiO2 10/16/24 13:26 103 148/79 10/16/24 12:00 97.9 18 100 Room Air 21 10/15/24 19:54 0 Laboratory Tests 10/16/24 05:36 Medications Current Medications Vancomycin HCl 1 gm ONCE ONCE IV Last administered on 10/13/24at 17:56; Start 10/13/24 at 17:30; Stop 10/13/24 at 17:31; Status DC Piperacillin Sod/ Tazobactam Sod 3.375 gm Q12H IV; Start 10/13/24 at 17:30; Stop 10/13/24 at 17:56; Status DC Sodium Chloride 1,000 ml @ 100 mls/hr Q10H IV Last administered on 10/16/24at 05:37; Start 10/13/24 at 18:00; Stop 11/12/24 at 17:59 Morphine Sulfate 2 mg Q6H PRN IVP Last administered on 10/13/24at 18:46; Start 10/13/24 at 18:00; Stop 10/20/24 at 17:59 Famotidine 20 mg DAILY IV; Start 10/14/24 at 09:00; Stop 10/13/24 at 18:14; Status DC Acetaminophen 500 mg Q6H PRN PO; Start 10/13/24 at 18:00; Stop 11/12/24 at 17:59 Ondansetron HCl 4 mg Q6H PRN IVP Last administered on 10/13/24at 18:46; Start 10/13/24 at 18:00; Stop 11/12/24 at 17:59 Cefepime HCl 2 gm Q12H IVPB Last administered on 10/16/24at 05:03; Start 10/13/24 at 18:00; Stop 10/23/24 at 17:59 Pantoprazole Sodium 40 mg HS IVP Last administered on 10/15/24at 21:12; Start 10/13/24 at 21:00; Stop 11/12/24 at 20:59 Metronidazole/ Sodium Chloride 100 ml @ 100 mls/hr Q8H6 IVPB Last administered on 10/14/24at 22:21; Start 10/13/24 at 22:00; Stop 10/15/24 at 00:10; Status DC Vancomycin HCl 1 each AD IV; Start 10/13/24 at 18:30; Stop 10/27/24 at 18:29 Vancomycin HCl 750 mg Q12H IVPB Last administered on 10/16/24at 05:37; Start 10/14/24 at 06:00; Stop 10/24/24 at 05:59 Insulin Glargine 12 units DAILY SQ Last administered on 10/15/24at 09:31; Start 10/14/24 at 09:00; Stop 11/13/24 at 08:59 Insulin Human Regular INSULIN SLIDING SCAL... ACHS SQ Last administered on 10/15/24at 21:13; Start 10/13/24 at 21:00; Stop 11/12/24 at 20:59 Cadexomer Iodine 1 APPL ONCE ONCE TP; Start 10/14/24 at 07:30; Stop 10/14/24 at 23:32; Status DC Cadexomer Iodine APPL ONCE ONCE TP; Start 10/14/24 at 12:30; Stop 10/14/24 at 23:32; Status DC Dextrose 50 ml AD PRN IV; Start 10/14/24 at 12:30; Stop 11/13/24 at 12:29 Glucagon 1 mg AD PRN IM; Start 10/14/24 at 12:30; Stop 11/13/24 at 12:29 Cadexomer Iodine 1 APPL ONCE TP; Start 10/14/24 at 17:30; Stop 10/14/24 at 23:32; Status DC Cadexomer Iodine 1 APPL DAILY TP; Start 10/15/24 at 09:00; Stop 10/15/24 at 15:22; Status DC Metronidazole/ Sodium Chloride 100 ml @ 100 mls/hr Q8H IVPB Last administered on 10/16/24at 09:57; Start 10/15/24 at 07:30; Stop 10/25/24 at 07:29 Aspirin 81 mg DAILY PO Last administered on 10/16/24at 10:44; Start 10/15/24 at 11:30; Stop 10/16/24 at 11:09; Status DC Atorvastatin Calcium 40 mg HS PO Last administered on 10/15/24at 21:12; Start 10/15/24 at 21:00; Stop 11/14/24 at 20:59 Cadexomer Iodine 1 APPL DAILY TP Last administered on 10/16/24at 10:05; Start 10/16/24 at 09:00; Stop 11/15/24 at 08:59 Iohexol 50 ml STK-MED ONCE IV; Start 10/15/24 at 16:28; Stop 10/15/24 at 16:28; Status DC Iohexol 35,000 mg STK-MED ONCE IV; Start 10/15/24 at 16:28; Stop 10/15/24 at 16:28; Status DC Magnesium Sulfate 50 ml @ 0 mls/hr PROTOCOL PRN IV Last administered on 10/16/24at 06:22; Start 10/16/24 at 06:30; Stop 11/15/24 at 06:29 Potassium Chloride 100 ml @ 50 mls/hr AD PRN IV Last administered on 10/16/24at 11:28; Start 10/16/24 at 06:30; Stop 11/15/24 at 06:29 Potassium Chloride 40 meq ONCE ONCE PO Last administered on 10/16/24at 10:44; Start 10/16/24 at 09:30; Stop 10/16/24 at 09:31; Status DC Magnesium Sulfate 50 ml @ 0 mls/hr PROTOCOL IV; Start 10/16/24 at 09:30; Stop 10/16/24 at 09:24; Status DC Losartan Potassium 25 mg DAILY PO Last administered on 10/16/24at 10:44; Start 10/16/24 at 09:30; Stop 11/15/24 at 09:29 Hydralazine HCl 5 mg Q6H PRN IV; Start 10/16/24 at 09:30; Stop 11/15/24 at 09:29 ROSARIO SEAY MD Oct 16, 2024 14:47
--- NOTE | 2024-10-16 17:02 | PN ---
INFECTIOUS DISEASE PROGRESS NOTE Date of Service: Oct 16, 2024 SUBJECTIVE: This is a 54-year-old female patient who was seen and examined at bedside in room 317. Patient is awake, alert and oriented x3. Patient is scheduled for a peripheral angiogram for today. Remains afebrile, temperature is 97.9. We will continue to follow up on the right foot final wound cultures results and continue on vancomycin, cefepime and metronidazole. PHYSICAL EXAM EYES: Anicteric. Pupils equal and reactive. HENT: No oral thrush seen, moist Oral mucosa NECK: Supple, no JVD or thyromegaly. LUNGS: Good air entry. No rales, no rhonchi. CARDIOVASCULAR: S1, S2 regular. No murmur heard. ABDOMEN: Soft, non tender, bowel sounds present, no organomegaly CENTRAL NERVOUS SYSTEM: Awake, alert, oriented x 3. SKIN: No rashes, no swelling. Right foot diabetic ulcer in the 3rd and 4th interdigital space LYMPHATICS: No peripheral lymphadenopathy MUSCULOSKELETAL: No joint swelling, erythema or tenderness. EXTREMITIES: Right foot swelling and redness. BACK: No deformity, no pressure ulcer. GENITOURINARY: No dysuria or hematuria. Vital Sign (Last 12 Hours) 10/16/24 10/16/24 10/16/24 10/16/24 08:00 12:00 13:26 16:00 Temp 97.9 97.9 98.2 Pulse 85 82 103 88 Resp 18 18 19 B/P (MAP) 151/77 172/95 148/79 136/77 Pulse Ox 98 100 99 O2 Delivery Room Air Room Air Room Air FiO2 21 21 21 Intake & Output (last 24hrs) 10/15/24 10/15/24 10/16/24 15:00 23:00 07:00 Intake Total 200 ml 450.0 ml Balance 200 ml 450.0 ml LABS: Laboratory: Test 10/16/24 15:06 10/16/24 05:36 10/15/24 15:51 10/15/24 04:59 Range/Units Whole Blood Glucose 173 H 70-110 MG/DL White Blood Count 6.5 4.8-10.8 K/uL Red Blood Count 3.20 L 4.00-5.50 MIL/uL Hemoglobin 8.4 L 12.0-16.0 g/dL Hematocrit 26.1 L 36-48 % Mean Corpuscular Volume 81.6 79-99 fL Mean Corpuscular Hemoglobin 26.3 L 27.0-33.0 pg Mean Corpuscular Hemoglobin Concent 32.2 32.0-36.0 g/dL Red Cell Distribution Width 13.1 11.0-15.5 % Platelet Count 373 130-400 K/uL Mean Platelet Volume 9.0 7.5-10.5 fL Nucleated Red Blood Cells 0.0 0.0-0.19 % Sodium Level 140 136-145 mmol/L Potassium Level 3.3 L 3.5-5.1 mmol/L Chloride Level 107 101-111 mmol/L Carbon Dioxide Level 24 21-32 mmol/L Blood Urea Nitrogen 9 7-18 mg/dL Creatinine 0.7 0.5-1.0 mg/dL Glomerular Filtration Rate Calc 101 >90 mL/min Random Glucose 195 H 70-105 mg/dL Total Calcium 8.6 8.5-10.1 mg/dL Magnesium Level 1.50 L 1.80-2.40 mg/dL Iron Level 29 #L 50-170 mcg/dL Total Iron Binding Capacity 229 L 250-450 mcg/dL Percent Iron Saturation 12.6 L 22-44 % Total Bilirubin 0.3 0.2-1.0 mg/dL Aspartate Amino Transf (AST/SGOT) 16 10-37 U/L Alanine Aminotransferase (ALT/SGPT) 11 L 12-78 U/L Alkaline Phosphatase 88 50-136 U/L Total Protein 6.8 6.0-8.3 g/dL Albumin 2.3 L 3.5-5.0 g/dL Bedside Glucose Comment Notified Nurse Vancomycin Level Trough 13.2 10.0-20.0 UG/ML DIAGNOSTIC/RADIOLOGY PATIENT: KEAGAN DUNN ACCT: [id number] LOC: [facility] U: [id number] AGE/SX: 54/F ROOM: 317 RE10/13/[address]: ASIM MCFADDEN MD : 1970 BED: 1 DIS: STATUS: ADM IN TLOC: SPEC: [id number] RAS: 10/14/24 STATUS: RES REQ: [id number] RECD: 10/14/[address] [facility] [address]: ASIM MCFADDEN MD SOURCE: FOOT ENTR: 10/14/[address]: MENDY KHAN MD SPDESC: RIGHT MINOR,CLEOPATRA SILVERMAN MD DP ORDERED: ISRAEL CULTURE, AEROBIC CULTURE COMMENTS: Has specimen been collected/obtained? Y Specimen Comment: 3TH 4TH DIGITS Has specimen been collected/obtained? Y Specimen Comment: 3TH 4TH DIGITS Has specimen been collected/obtained? Y Specimen Comment: 3TH 4TH DIGITS Has specimen been collected/obtained? Y Specimen Comment: 3TH 4TH DIGITS Has specimen been collected/obtained? Y Specimen Comment: 3TH 4TH DIGITS Procedure Result Joselyn Date-Time ANAEROBIC CULTURE Preliminary 10/16/24 [facility] COLONY DESCRIPTION: REPORT 1: NO ANAEROBES AT 24-35 HOURS; STUDIES TO CONTINUE Test(s) performed by: [facility] [address] [place] [address] AEROBIC CULTURE Preliminary 10/16/24 [facility] DESCRIPTION: REPORT 1: 1+ YEAST, AHSAN ALBICANS 1+ GRAM POSITIVE COCCI IN CHAINS IDENTIFICATION TO FOLLOW BETA HEMOLYTIC STREPTOCOCCUS GROUP B COMMENT: BETA STREPTOCOCCUS REMAIN SUSCEPTIBLE TO PENICILLIN COMMENT: NO FURTHER WORK-UP AHSAN ALBICANS STREP AGALACTIAE GROUP B ASSESSMENT: 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 Right foot Cellulitis. Ruling out peripheral artery disease. Diabetes mellitus. Anemia PLAN: Continue on Vancomycin per pharmacy protocol. Continue Cefepime. Continue Metronidazole IV. Continue pain management. Continue wound care as recommended by carpenter assistant installer. Continue GI prophylaxis. Cardiology following patient is scheduled for a peripheral angiogram for today. This case was reviewed and discussed with my supervising physician and the above assessment and plan was formulated and agreed upon. ATTESTATION BY PHYSICIAN I have seen and examined the patient. I reviewed the documentation, medical decision making, and treatment plan as noted by the mid-level provider above. I agree with the findings and plan of care. MENDY KHAN MD, MIRTA L [facility] Oct 16, 2024 17:02
--- NOTE | 2024-10-16 23:23 | NUR ---
NPO Patient aware of nothing to eat or drink after midnight due to procedure in the morning. Notified editor house organ of procedure.
[2024-10-17] VITALS (17 sets, daily range): BP systolic 125–163; BP diastolic 69–87; PULSE 73–94; RESP 18–20; TEMP 98–99; O2SAT 96–98
[2024-10-17 06:39] LABS: NUCLEATED RED BLOOD CELLS 0.0 % (0.0-0.19); PLATELET COUNT (AUTO) 367.0 K/uL (130-400); RED BLOOD CELL COUNT(AUTO) 3.31 MIL/uL (4.00-5.50); RED CELL DISTRIBUTION WIDTH 13.1 % (11.0-15.5); WHITE BLOOD COUNT (AUTO) 6.3 K/uL (4.8-10.8)
[2024-10-17 07:01] LABS: ASPARTATE AMINOTRANSFERASE 25.0 U/L (10-37); CREATININE 0.9 mg/dL (0.5-1.0); GLOMERULAR FILTR. RATE CALC 75.0 mL/min (>90); GLUCOSE,RANDOM 210.0 mg/dL (70-105); SODIUM SERUM 139.0 mmol/L (136-145); TOTAL PROTEIN, SERUM 7.0 g/dL (6.0-8.3); UREA NITROGEN, BLOOD 9.0 mg/dL (7-18)
--- NOTE | 2024-10-17 10:07 | PN ---
[facility] PROGRESS NOTE Date of Service: Oct 17, 2024 Time of Service: 10:03 SUBJECTIVE: 54-year-old female with underlying history of type 2 diabetes mellitus (diagnosed with diabetes for about 21 years) who presented to the ER for further evaluation of progressive redness, nonhealing wound involving the interdigital space of the 3rd and 4th digit of the right foot. Symptoms have been ongoing for the past 4-5 days and patient has been using local therapy with iodine as well as been taking penicillin for further treatment as outpatient. She has been cleaning the wound with sterile water. Symptoms have been worsening and patient has developed progressive redness of the right foot as well as increased drainage between the interdigital space with purulence noted. She denied previous history of cardiac disease of peripheral arterial disease. She has been taking ibuprofen intermittently with Tylenol for pain control at home. Reported having subjective chills. On presentation to the hospital, patient was noted to be afebrile with T-max of 98.1 F, heart rate of 91, blood pressure of 123/67. Labs on presentation showed WBC count of 9000, hemoglobin of 9.1, platelet count of [id number]. BMP remarkable for sodium of 131, potassium 4.1, BUN of 26, creatinine 1.0. Patient had x-rays of the right foot which showed no acute fractures or soft tissue gas. Patient admitted for further treatment management of complicated cellulitis with infected diabetic foot wound/ulcer involving the interdigital space of the 3rd and 4th toe with progressive cellulitis of the right foot. Patient received broad-spectrum antibiotics, IV hydration. Podiatry and Infectious Disease consulted. Patient will undergo workup for peripheral arterial disease. 10/14 patient remains hemodynamically stable, BP 130/67, afebrile, saturating normal on room air, getting IV antibiotics at the time of my visit, Doppler of the lower extremities no evidence of DVT to the right lower extremity, MRI of the foot pending. Arterial Doppler no hemodynamically significant stenosis or occlusion in either lower extremity, monophasic flow in the right anterior tibial and dorsalis pedis arteries consistent with mild discharge atherosclerotic disease and hyperemia. We will continue the patient on vancomycin and Flagyl IV, patient also on cefepime, podiatry and infectious disease consulted, we will continue to follow input and recommendations. 10/15 patient remains admitted to the medical floor, getting IV antibiotics at the time of my visit, comfortably in bed, no acute events overnight per discussion with the RN. Results of MRI of the right foot positive for osteomyelitis, discussed with the patient. Arterial Doppler findings reviewed and discussed with the patient, findings of monophasic flow in the right anterior tibial and dorsalis pedis arteries consistent with a mild atherosclerotic disease. We will continue the patient on broad-spectrum IV antibiotics, infectious disease consultation requested, continue to follow input and recommendation, follow up Podiatry input recommendation, local wound care. Patient is scheduled for angiogram tomorrow. 10/16 patient remains admitted to the medical floor, BP 151/77, afebrile, saturating normal on room air. Hemoglobin of 8.4, hematocrit 26.1. Sodium 140, potassium 3.3, BUN of nine, creatinine 0.7, magnesium level 1.5. Iron level of 29. 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 Grossly unremarkable ultrasound arterial Doppler of the bilateral lower limb stated 10/13/2024. Results of culture from right foot positive for Bindu albicans, Streptococcus agalactiae group B. Start losartan 25 mg p.o. daily, hydralazine 5 mg IV every 6 hours as needed. Replace electrolytes with magnesium sulfate 2 g IV x1, potassium chloride 40 mEq p.o. x1. Follow stool occult blood, if positive we will request GI consultation. We will hold aspirin for now. Continue to follow podiatry input and recommendation, continue local wound care with the cadexomer iodine one application daily, continue broad-spectrum IV antibiotics with the vanco and Flagyl IV, continue to follow ID input and recommendation. Follow Cardiology input and recommendation. Patient is scheduled for angiogram tomorrow. During my visit patient comfortably in bed, alert oriented x3, getting IV fluids and IV antibiotics. Denies chest pain, shortness shortness for breath, no nausea, no vomiting, no abdominal pain, no pain to the right foot area. 10/17 patient remains admitted to the medical floor, hemodynamically stable, afebrile, saturating normal on room air, hemoglobin 8.8, hematocrit 27.5, stool occult blood positive. Continue losartan 25 mg p.o. daily, hydralazine 5 mg IV every 6 hours as needed. Stool occult blood positive, we will request GI consultation. Continue to hold aspirin, start the patient on Protonix 40 mg IV b.i.d.. Continue to follow podiatry input and recommendation, continue local wound care with the cadexomer iodine one application daily, continue broad-spectrum IV antibiotics with the vanco and Flagyl IV, continue to follow ID input and recommendation. Follow Cardiology input and recommendation. Patient is scheduled for angiogram today. During my visit comfortably in bed, alert oriented x3, no acute events overnight per discussion with the RN, eating lunch, tolerating well, no nausea, no vomiting, no abdominal pain. REVIEW OF SYSTEMS CONSTITUTIONAL: Denies fevers, chills, or night sweats. No unintentional weight loss reported. NEUROLOGICAL: Denies headache, amaurosis fugax, motor weakness, sensory deficit, vertigo/spinning sensation, gait abnormalities, or tremors. ENT: No hearing loss, otalgia, otorrhea, rhinitis, rhinorrhea, hoarseness, or sore throat. CARDIOVASCULAR: Denies any exertional angina, dyspnea on exertion, orthopnea, paroxysmal nocturnal dyspnea, palpitations, life-threatening arrhythmias, claudication. PULMONARY: Denies any shortness of breath, cough, phlegm/sputum, hemoptysis, pleuritic chest pain. SLEEP: Denies morning headaches, daytime somnolence or napping. Denies diffic ulty falling asleep, staying asleep, waking from sleep. Denies knowledge of snoring. GASTROINTESTINAL: Denies any type of dysphagia to either liquids or solids. Denies nausea, vomiting, pyrosis, early satiety, abdominal pain, diarrhea, constipation, or changes in stool consistency or caliber. Denies coffee-ground emesis, hematemesis, hematochezia, or melanotic stools. GENITOURINARY: Denies frequency, urgency, nocturia, hematuria or incontinence (Storage/Irritative symptoms.) Low urinary stream, straining to void, urinary intermittency or hesitancy, splitting of the voiding stream, terminal dribbling. ENDOCRINOLOGIC: Denies polyuria, polydipsia, polyphagia or heat/cold into lerances. HEMATOLOGIC: Denies thrombophilia/previous clots, or coagulopathy/bleeding disorders. ONCOLOGIC: Denies personal history of malignancy. DERMATOLOGIC: Progressive redness, swelling and non healing diabetic foot ulcer involving the right foot, redness involving the 2nd to 4th toes PSYCHIATRIC: Denies any suicidal or homicidal ideation. Denies hallucinations. PHYSICAL EXAM GENERAL APPEARANCE: The patient is awake, alert, and oriented, in no acute cardiopulmonary distress. NEUROLOGICAL: Cranial nerves II-XII grossly intact. neurological examination i s non focal for the patient HEENT: Face is symmetric. Pupils are equal and reactive. Extraocular movements are intact. NECK: Supple. No JVD. No thyromegaly. No submental, submandibular, pre- /postauricular, occipital or supraclavicular lymphadenopathy. CHEST: Normal chest expansion. No Telemetry. LUNGS: Absence of any rales, rhonchi or any wheezing. CARDIOVASCULAR: Regular. S1 and S2 normal. No appreciable rubs, murmurs or gallops. ABDOMEN: Soft, nontender, and nondistended. There is no rebound, voluntary guarding, or rigidity. : Deferred. No [place]. EXTREMITIES: right foot is swollen and redness noted extending to the midfoot, deep ulcer with purulence noted between the interdigital space of the 3rd and 4th toes, redness, noted of the 2nd, 3rd and 4th digit, patchy area of necrosis noted of the plantar and dorsal aspect of the metatarsal aspect of the third and fourth digit SKIN: as noted above Vital Signs (last 8hr) Date Time Temp Pulse Resp B/P (MAP) Pulse Ox O2 Delivery O2 Flow Rate FiO2 10/17/24 08:19 82 125/76 95 Room Air 21 10/17/24 08:00 98.2 94 18 156/87 96 Room Air 21 10/17/24 04:00 99.0 87 20 132/76 96 Room Air LABS: Laboratory: Test 10/17/24 06:11 10/17/24 05:13 10/16/24 17:55 10/16/24 05:36 Range/Units White Blood Count 6.3 4.8-10.8 K/uL Red Blood Count 3.31 L 4.00-5.50 MIL/uL Hemoglobin 8.8 L 12.0-16.0 g/dL Hematocrit 27.5 L 36-48 % Mean Corpuscular Volume 83.1 79-99 fL Mean Corpuscular Hemoglobin 26.6 L 27.0-33.0 pg Mean Corpuscular Hemoglobin Concent 32.0 32.0-36.0 g/dL Red Cell Distribution Width 13.1 11.0-15.5 % Platelet Count 367 130-400 K/uL Mean Platelet Volume 9.0 7.5-10.5 fL Nucleated Red Blood Cells 0.0 0.0-0.19 % Sodium Level 139 136-145 mmol/L Potassium Level 3.7 3.5-5.1 mmol/L Chloride Level 107 101-111 mmol/L Carbon Dioxide Level 24 21-32 mmol/L Blood Urea Nitrogen 9 7-18 mg/dL Creatinine 0.9 0.5-1.0 mg/dL Glomerular Filtration Rate Calc 75 >90 mL/min Random Glucose 210 H 70-105 mg/dL Total Calcium 8.5 8.5-10.1 mg/dL Magnesium Level 1.80 1.80-2.40 mg/dL Total Bilirubin 0.2 0.2-1.0 mg/dL Aspartate Amino Transf (AST/SGOT) 25 10-37 U/L Alanine Aminotransferase (ALT/SGPT) 18 12-78 U/L Alkaline Phosphatase 78 50-136 U/L Total Protein 7.0 6.0-8.3 g/dL Albumin 2.3 L 3.5-5.0 g/dL Whole Blood Glucose 202 H 70-110 MG/DL Stool Occult Blood POSITIVE H NEGATIVE Iron Level 29 #L 50-170 mcg/dL Total Iron Binding Capacity 229 L 250-450 mcg/dL Percent Iron Saturation 12.6 L 22-44 % Test 10/15/24 15:51 Range/Units Bedside Glucose Comment Notified Nurse Current Medications Medications (Trade) Dose Ordered Sig/Elsy Route PRN Reason Start Time Stop Time Status Last Admin Dose Admin Acetaminophen (TYLenol 500MG TAB) 500 mg Q6H PRN PO MILD PAIN (1-3) 10/13/24 18:00 11/12/24 17:59 Aspirin (Aspirin 81mg Ec Tab) 81 mg DAILY PO 10/15/24 11:30 10/16/24 11:09 DC 10/16/24 10:44 81 MG Atorvastatin Calcium (LIPItor 40MG) 40 mg HS PO 10/15/24 21:00 11/14/24 20:59 10/16/24 20:37 40 MG Cadexomer Iodine (Iodosorb Gel 40gm) 1 APPL DAILY TP 10/15/24 09:00 10/15/24 15:22 DC Cadexomer Iodine (Iodosorb Gel 40gm) 1 APPL DAILY TP 10/16/24 09:00 11/15/24 08:59 10/17/24 08:21 1 APPL Cadexomer Iodine (Iodosorb Gel 40gm) 1 APPL ONCE TP 10/14/24 17:30 10/14/24 23:32 DC Cefepime HCl (MAXipime 2 gm vial) 2 gm Q12H IVPB 10/13/24 18:00 10/23/24 17:59 10/17/24 04:18 2 GM Dextrose (D50w) 50 ml AD PRN IV HYPOGLYCEMIA PROTOCOL 10/14/24 12:30 11/13/24 12:29 Famotidine (Pepcid 20mg Vial) 20 mg DAILY IV 10/14/24 09:00 10/13/24 18:14 DC Glucagon (Glucagon 1mg Kit) 1 mg AD PRN IM HYPOGLYCEMIA PROTOCOL 10/14/24 12:30 11/13/24 12:29 Hydralazine HCl (APRESOLine 20MG INJ) 5 mg Q6H PRN IV ADMINISTER FOR SBP > 160 10/16/24 09:30 11/15/24 09:29 Insulin Glargine (LANtus 100 UNITS/ML 10 ML VIAL) 12 units DAILY SQ 10/14/24 09:00 11/13/24 08:59 10/15/24 09:31 12 UNITS Insulin Human Regular (humuLIN R 100 UNIT/ML 3ML) INSULIN SLIDING SCAL... ACHS SQ 10/13/24 21:00 11/12/24 20:59 10/15/24 21:13 3 UNIT Losartan Potassium (CozAAR 25MG TAB) 25 mg DAILY PO 10/16/24 09:30 11/15/24 09:29 10/17/24 08:20 25 MG Magnesium Sulfate 50 ml @ 0 mls/hr PROTOCOL IV 10/16/24 09:30 10/16/24 09:24 DC Magnesium Sulfate 50 ml @ 0 mls/hr PROTOCOL PRN IV MAGNESIUM PROTOCOL 10/16/24 06:30 11/15/24 06:29 10/16/24 06:22 25 MLS/HR Metronidazole/ Sodium Chloride 100 ml @ 100 mls/hr Q8H IVPB 10/15/24 07:30 10/25/24 07:29 10/17/24 08:20 100 MLS/HR Metronidazole/ Sodium Chloride 100 ml @ 100 mls/hr Q8H6 IVPB 10/13/24 22:00 10/15/24 00:10 DC 10/14/24 22:21 100 MLS/HR Morphine Sulfate (morPHINE 2MG SYG) 2 mg Q6H PRN IVP SEVERE PAIN (7-10) 10/13/24 18:00 10/20/24 17:59 10/13/24 18:46 2 MG Ondansetron HCl (zoFRAN 4MG INJ) 4 mg Q6H PRN IVP NAUSEA/VOMITING 10/13/24 18:00 11/12/24 17:59 10/13/24 18:46 4 MG Pantoprazole Sodium (PROTonix 40MG INJ) 40 mg HS IVP 10/13/24 21:00 11/12/24 20:59 10/16/24 20:37 40 MG Piperacillin Sod/ Tazobactam Sod (Zosyn 3.375gm+NS 50ml) 3.375 gm Q12H IV 10/13/24 17:30 10/13/24 17:56 DC Potassium Chloride 100 ml @ 50 mls/hr AD PRN IV POTASSIUM PROTOCOL 10/16/24 06:30 11/15/24 06:29 10/16/24 18:36 50 MLS/HR Sodium Chloride 1,000 ml @ 100 mls/hr Q10H IV 10/13/24 18:00 11/12/24 17:59 10/16/24 15:56 100 MLS/HR Vancomycin HCl (Vancomycin 750mg) 750 mg Q12H IVPB 10/14/24 06:00 10/24/24 05:59 10/17/24 05:58 750 MG Vancomycin HCl (Vancomycin Protocol) 1 each AD IV 10/13/24 18:30 10/27/24 18:29 DIAGNOSTICS / RADIOLOGY: [ ] ASSESSMENT: Progressive cellulitis of the right foot involving the midfoot with failure of outpatient treatment, POA Infected diabetic deep foot ulcer involving the interdigital space of the 3rd and 4th digit, POA Progressive cellulitis involving the 2nd, 3rd, 4th toes of the right foot, POA Right foot cultures positive for Bindu albicans and Streptococcus agalactiae group B. Hypovolemic hyponatremia, POA Anemia, POA Underlying history of insulin-dependent diabetes mellitus, POA Acute gastrointestinal bleed, POA PLAN: Continue losartan 25 mg p.o. daily, hydralazine 5 mg IV every 6 hours as needed. Stool occult blood positive, we will request GI consultation. Continue to hold aspirin, start the patient on Protonix 40 mg IV b.i.d.. Continue to follow podiatry input and recommendation, continue local wound care with the cadexomer iodine one application daily, continue broad-spectrum IV antibiotics with the vanco and Flagyl IV, continue to follow ID input and recommendation. Follow Cardiology input and recommendation. Patient is scheduled for angiogram today. NEURO: Minimize central acting medications as possible. Fall Precautions. Well lighted room through the day and minimize interruptions through the night to prevent acute delirium. PULMONARY: Supplemental 02 as needed BiPAP as necessary, for respiratory distress Titrate Fio2 to keep Spo2 > or = 90% DuoNebs and CPT as needed IS hourly while awake for pulmonary hygiene prn Out of bed to chair as tolerated Maintain aspiration precautions at all times CARDIOVASCULAR: Follow hemodynamics. Vital signs per facility protocol GI & NUTRITION: Continue nutritional support Aspirations precautions Prokinetic agents and laxatives as needed KIDNEYS & ELECTROLYTES: Strict monitoring of intake and output Daily weights Avoid nephrotoxic agents Monitor electrolytes and replace as needed Goal urine output of 30mL/hr or 0.5mL/kg/hr Medications to be dosed according to renal function. Avoid contrast if possible ENDOCRINE: Maintain blood glucose between 100-180 at all times. Insulin sliding scale for blood glucose management Hypoglycemia and hyperglycemia protocol in place INFECTIOUS DISEASE: Trend temperature, WBC and procalcitonin level Follow cultures, deescalate antibiotics as soon as possible. Panculture if new onset fever HEMATOLOGY & COAGULATION: Monitor H&H. Keep Hgb > 7 Transfuse 1 unit of PRBC for Hgb < 7 Transfuse 1 pack of platelets of platelets < 20, 000 Watch for any signs and symptoms of bleeding SKIN: Pressure ulcer prevention per facility protocol Specialty mattress as needed ORTHO/REHAB Continue PT/OT PRN: MEDICATIONS Tylenol 650 mg po every 4 hrs for fever zofran 4 mg IV every 6 hrs for n/v Hydralazine 5 mg IV every 4 hrs systolic pressure > 160 bowel regiment: lactulose 20 gm PO BID PRN constipation Supportive measures: Continue GI and DVT prophylaxis Disposition: Pending improvement in clinical condition All questions answered time spent: > 35 min NANCY COLBERT MD Oct 17, 2024 10:07
--- NOTE | 2024-10-17 11:10 | CONS ---
GASTROENTEROLOGY CONSULTATION NOTE Date of Consultation: Oct 17, 2024 Time of Consultation: 11:10 History of Present Illness: [This is a 54-year-old female with past medical history of type 2 diabetes who presented due to redness and nonhealing wound to the 3rd and 4th digit of the right foot. She has been on penicillin outpatient. She takes Tylenol for pain. She was admitted for complicated cellulitis with infected diabetic foot ulcer. We were consulted due to positive FOBT. Hemoglobin has been stable since admission measuring 9.1 and now 8.8. No overt GI bleeding. Review of Systems: CONSTITUTIONAL: No malaise or change in sensation of wellbeing. ENMT: No rhinorrhea, otorrhea, sinus pain, ear ache. CARDIOVASCULAR: No angina, palpitations, orthopnea or paroxysmal dyspnea. RESPIRATORY: No SOB. GASTROINTESTINAL: No abdominal pain, nausea, vomiting, diarrhea, hematemesis, melena or change in the patient's habitual bowel movements consistency/number. GENITOURINARY: No dysuria, hematuria or change in bladder continence. MUSCULOSKELETAL: No new muscle pain or decrease in muscular strength. No new joint swelling, redness or tenderness. SKIN: No new rash. Past Medical History: [ ] Past Surgical History: [ ] Past Social History: [ ] Family History: [ ] Coded Allergies: No Known Drug Allergies (Unverified Allergy, Unknown, 10/13/24) Physical Exam: GEN: Awake, alert, oriented in person, time and place, and in no acute distress. HEENT: No sinus tenderness. Tympanic membranes were not examined. No rhinorrhea. Oral pharyngeal mucosa is pink, moist and within normal limits. Neck is supple with no cervical lymphadenopathy, thyromegaly or JVD. CHEST: Inspection, palpation and percussion of the chest were unremarkable. Lung auscultation revealed normal breath sounds bilaterally. CARDIAC: PMI is within normal limits. Heart sounds are regular. Normal S1, S2. No gallop or murmur. ABD: Soft, non-tender and not distended. No peritoneal signs on palpation. No organomegaly. Normal bowel sounds. EXT: No cyanosis or clubbing. No edema. SKIN: Intact. No rashes. JOINTS: No evidence of synovitis or acute arthritis. NEURO: Alert and oriented to name, place and person. Cranial nerve examination is unremarkable. No focal motor deficits. Normal speech. Gait is normal. Strength is normal. Vital Sign (Last 24 Hours) 10/16/24 10/17/24 10/17/24 20:00 08:00 08:19 Temp 98.2 Pulse 82 Resp 18 B/P (MAP) 125/76 Pulse Ox 95 O2 Delivery Room Air O2 Flow Rate 0 FiO2 21 Intake & Output (last 24hrs) 10/16/24 10/16/24 10/17/24 15:00 23:00 07:00 Intake Total 3680.0 ml Balance 3680.0 ml Laboratory: [ ] Laboratory: Test 10/17/24 06:11 10/17/24 05:13 10/16/24 17:55 10/16/24 05:36 Range/Units White Blood Count 6.3 4.8-10.8 K/uL Red Blood Count 3.31 L 4.00-5.50 MIL/uL Hemoglobin 8.8 L 12.0-16.0 g/dL Hematocrit 27.5 L 36-48 % Mean Corpuscular Volume 83.1 79-99 fL Mean Corpuscular Hemoglobin 26.6 L 27.0-33.0 pg Mean Corpuscular Hemoglobin Concent 32.0 32.0-36.0 g/dL Red Cell Distribution Width 13.1 11.0-15.5 % Platelet Count 367 130-400 K/uL Mean Platelet Volume 9.0 7.5-10.5 fL Nucleated Red Blood Cells 0.0 0.0-0.19 % Sodium Level 139 136-145 mmol/L Potassium Level 3.7 3.5-5.1 mmol/L Chloride Level 107 101-111 mmol/L Carbon Dioxide Level 24 21-32 mmol/L Blood Urea Nitrogen 9 7-18 mg/dL Creatinine 0.9 0.5-1.0 mg/dL Glomerular Filtration Rate Calc 75 >90 mL/min Random Glucose 210 H 70-105 mg/dL Total Calcium 8.5 8.5-10.1 mg/dL Magnesium Level 1.80 1.80-2.40 mg/dL Total Bilirubin 0.2 0.2-1.0 mg/dL Aspartate Amino Transf (AST/SGOT) 25 10-37 U/L Alanine Aminotransferase (ALT/SGPT) 18 12-78 U/L Alkaline Phosphatase 78 50-136 U/L Total Protein 7.0 6.0-8.3 g/dL Albumin 2.3 L 3.5-5.0 g/dL Whole Blood Glucose 202 H 70-110 MG/DL Stool Occult Blood POSITIVE H NEGATIVE Iron Level 29 #L 50-170 mcg/dL Total Iron Binding Capacity 229 L 250-450 mcg/dL Percent Iron Saturation 12.6 L 22-44 % Test 10/15/24 15:51 Range/Units Bedside Glucose Comment Notified Nurse Current Medications Medications (Trade) Dose Ordered Sig/Elsy Route PRN Reason Start Time Stop Time Status Last Admin Dose Admin Acetaminophen (TYLenol 500MG TAB) 500 mg Q6H PRN PO MILD PAIN (1-3) 10/13/24 18:00 11/12/24 17:59 Aspirin (Aspirin 81mg Ec Tab) 81 mg DAILY PO 10/15/24 11:30 10/16/24 11:09 DC 10/16/24 10:44 81 MG Atorvastatin Calcium (LIPItor 40MG) 40 mg HS PO 10/15/24 21:00 11/14/24 20:59 10/16/24 20:37 40 MG Cadexomer Iodine (Iodosorb Gel 40gm) 1 APPL DAILY TP 10/15/24 09:00 10/15/24 15:22 DC Cadexomer Iodine (Iodosorb Gel 40gm) 1 APPL DAILY TP 10/16/24 09:00 11/15/24 08:59 10/17/24 08:21 1 APPL Cadexomer Iodine (Iodosorb Gel 40gm) 1 APPL ONCE TP 10/14/24 17:30 10/14/24 23:32 DC Cefepime HCl (MAXipime 2 gm vial) 2 gm Q12H IVPB 10/13/24 18:00 10/23/24 17:59 10/17/24 04:18 2 GM Dextrose (D50w) 50 ml AD PRN IV HYPOGLYCEMIA PROTOCOL 10/14/24 12:30 11/13/24 12:29 Famotidine (Pepcid 20mg Vial) 20 mg DAILY IV 10/14/24 09:00 10/13/24 18:14 DC Glucagon (Glucagon 1mg Kit) 1 mg AD PRN IM HYPOGLYCEMIA PROTOCOL 10/14/24 12:30 11/13/24 12:29 Hydralazine HCl (APRESOLine 20MG INJ) 5 mg Q6H PRN IV ADMINISTER FOR SBP > 160 10/16/24 09:30 11/15/24 09:29 Insulin Glargine (LANtus 100 UNITS/ML 10 ML VIAL) 12 units DAILY SQ 10/14/24 09:00 11/13/24 08:59 10/15/24 09:31 12 UNITS Insulin Human Regular (humuLIN R 100 UNIT/ML 3ML) INSULIN SLIDING SCAL... ACHS SQ 10/13/24 21:00 11/12/24 20:59 10/15/24 21:13 3 UNIT Losartan Potassium (CozAAR 25MG TAB) 25 mg DAILY PO 10/16/24 09:30 11/15/24 09:29 10/17/24 08:20 25 MG Magnesium Sulfate 50 ml @ 0 mls/hr PROTOCOL IV 10/16/24 09:30 10/16/24 09:24 DC Magnesium Sulfate 50 ml @ 0 mls/hr PROTOCOL PRN IV MAGNESIUM PROTOCOL 10/16/24 06:30 11/15/24 06:29 10/17/24 11:08 25 MLS/HR Metronidazole/ Sodium Chloride 100 ml @ 100 mls/hr Q8H IVPB 10/15/24 07:30 10/25/24 07:29 10/17/24 08:20 100 MLS/HR Metronidazole/ Sodium Chloride 100 ml @ 100 mls/hr Q8H6 IVPB 10/13/24 22:00 10/15/24 00:10 DC 10/14/24 22:21 100 MLS/HR Morphine Sulfate (morPHINE 2MG SYG) 2 mg Q6H PRN IVP SEVERE PAIN (7-10) 10/13/24 18:00 10/20/24 17:59 10/13/24 18:46 2 MG Ondansetron HCl (zoFRAN 4MG INJ) 4 mg Q6H PRN IVP NAUSEA/VOMITING 10/13/24 18:00 11/12/24 17:59 10/13/24 18:46 4 MG Pantoprazole Sodium (PROTonix 40MG INJ) 40 mg BID IVP 10/17/24 10:30 11/16/24 10:29 10/17/24 11:08 40 MG Pantoprazole Sodium (PROTonix 40MG INJ) 40 mg HS IVP 10/13/24 21:00 11/12/24 20:59 10/16/24 20:37 40 MG Piperacillin Sod/ Tazobactam Sod (Zosyn 3.375gm+NS 50ml) 3.375 gm Q12H IV 10/13/24 17:30 10/13/24 17:56 DC Potassium Chloride 100 ml @ 50 mls/hr AD PRN IV POTASSIUM PROTOCOL 10/16/24 06:30 11/15/24 06:29 10/16/24 18:36 50 MLS/HR Potassium Chloride 100 ml @ 100 mls/hr AD PRN IV POTASSIUM PROTOCOL 10/17/24 10:30 10/17/24 10:11 DC Potassium Chloride (K-Dur/Klor-Con 20meq) 20 meq AD PRN PO POTASSIUM PROTOCOL 10/17/24 10:30 11/16/24 10:29 Potassium Chloride (KCl 10% Elixir 20meq/15ml) 20 meq AD PRN PO POTASSIUM PROTOCOL 10/17/24 10:30 11/16/24 10:29 Sodium Chloride 1,000 ml @ 100 mls/hr Q10H IV 10/13/24 18:00 11/12/24 17:59 10/16/24 15:56 100 MLS/HR Vancomycin HCl (Vancomycin 750mg) 750 mg Q12H IVPB 10/14/24 06:00 10/24/24 05:59 10/17/24 05:58 750 MG Vancomycin HCl (Vancomycin Protocol) 1 each AD IV 10/13/24 18:30 10/27/24 18:29 Diagnostics / Radiology: [COPY/PASTE HERE IF NO REPORTS PLEASE DELETE SECTION] Assessment: Positive fobt Normocytic anemia Cellulitis Plan: Recommend to start/continue DAPT We can defer egd/colonoscopy outpatient as there is no overt GI bleeding and hgb stable If she begins to show signs of overt GI bleeding, we can re-eval [employer] Oct 17, 2024 11:10
--- NOTE | 2024-10-17 12:07 | PN ---
INFECTIOUS DISEASE PROGRESS NOTE Date of Service: Oct 17, 2024 SUBJECTIVE: This is a 54-year-old female patient who was seen and examined at bedside in room 317. Patient is awake, alert and oriented x3. Patient is laying comfortably in bed in no respiratory distress. The right foot final culture results came back positive for Bindu albicans and Streptococcus agalactiae group B. The peripheral angiogram was rescheduled for today. No fever, temperature is 98.2. We will continue on vancomycin, cefepime and metronidazole. No other issues reported by nursing. PHYSICAL EXAM EYES: Anicteric. Pupils equal and reactive. HENT: No oral thrush seen, moist Oral mucosa NECK: Supple, no JVD or thyromegaly. LUNGS: Good air entry. No rales, no rhonchi. CARDIOVASCULAR: S1, S2 regular. No murmur heard. ABDOMEN: Soft, non tender, bowel sounds present, no organomegaly CENTRAL NERVOUS SYSTEM: Awake, alert, oriented x 3. SKIN: No rashes, no swelling. Right foot diabetic ulcer in the 3rd and 4th interdigital space LYMPHATICS: No peripheral lymphadenopathy MUSCULOSKELETAL: No joint swelling, erythema or tenderness. EXTREMITIES: Right foot swelling and redness. BACK: No deformity, no pressure ulcer. GENITOURINARY: No dysuria or hematuria. Vital Sign (Last 12 Hours) 10/17/24 10/17/24 10/17/24 10/17/24 00:00 04:00 08:00 08:19 Temp 98.4 99.0 98.2 Pulse 89 87 94 82 Resp 20 20 18 B/P (MAP) 131/69 132/76 156/87 125/76 Pulse Ox 98 96 96 95 O2 Delivery Room Air Room Air Room Air Room Air FiO2 21 21 10/17/24 11:52 Temp 98.1 Pulse 82 Resp 19 B/P (MAP) 148/79 Pulse Ox 96 O2 Delivery Room Air FiO2 21 Intake & Output (last 24hrs) 10/16/24 10/16/24 10/17/24 14:59 22:59 06:59 Intake Total 3680.0 ml Balance 3680.0 ml LABS: Laboratory: Test 10/17/24 11:31 10/17/24 06:11 10/16/24 17:55 10/16/24 05:36 Range/Units Whole Blood Glucose 199 H 70-110 MG/DL White Blood Count 6.3 4.8-10.8 K/uL Red Blood Count 3.31 L 4.00-5.50 MIL/uL Hemoglobin 8.8 L 12.0-16.0 g/dL Hematocrit 27.5 L 36-48 % Mean Corpuscular Volume 83.1 79-99 fL Mean Corpuscular Hemoglobin 26.6 L 27.0-33.0 pg Mean Corpuscular Hemoglobin Concent 32.0 32.0-36.0 g/dL Red Cell Distribution Width 13.1 11.0-15.5 % Platelet Count 367 130-400 K/uL Mean Platelet Volume 9.0 7.5-10.5 fL Nucleated Red Blood Cells 0.0 0.0-0.19 % Sodium Level 139 136-145 mmol/L Potassium Level 3.7 3.5-5.1 mmol/L Chloride Level 107 101-111 mmol/L Carbon Dioxide Level 24 21-32 mmol/L Blood Urea Nitrogen 9 7-18 mg/dL Creatinine 0.9 0.5-1.0 mg/dL Glomerular Filtration Rate Calc 75 >90 mL/min Random Glucose 210 H 70-105 mg/dL Total Calcium 8.5 8.5-10.1 mg/dL Magnesium Level 1.80 1.80-2.40 mg/dL Total Bilirubin 0.2 0.2-1.0 mg/dL Aspartate Amino Transf (AST/SGOT) 25 10-37 U/L Alanine Aminotransferase (ALT/SGPT) 18 12-78 U/L Alkaline Phosphatase 78 50-136 U/L Total Protein 7.0 6.0-8.3 g/dL Albumin 2.3 L 3.5-5.0 g/dL Stool Occult Blood POSITIVE H NEGATIVE Iron Level 29 #L 50-170 mcg/dL Total Iron Binding Capacity 229 L 250-450 mcg/dL Percent Iron Saturation 12.6 L 22-44 % Test 10/15/24 15:51 Range/Units Bedside Glucose Comment Notified Nurse DIAGNOSTIC/RADIOLOGY PATIENT: KEAGAN DUNN ACCT: [id number] LOC: [facility] U: [id number] AGE/SX: 54/F ROOM: [facility] RE10/13/[address]: ASIM MCFADDEN MD : 1970 BED: 1 DIS: STATUS: ADM IN TLOC: SPEC: [id number] RAS: 10/13/24 STATUS: COMP REQ: [id number] RECD: 10/13/24 [facility] DR: BEE PARADA MD SOURCE: FOOT ENTR: 10/13/[address]: SELF,REFERRAL SPDESC: FOOT RIGHT ORDERED: ISRAEL CULTURE, AEROBIC CULTURE Procedure Result Joselyn Date-Time ----- ------- ANAEROBIC CULTURE Final 10/17/24-526 MRL COLONY DESCRIPTION: REPORT 1: NO ANAEROBES AT 24-35 HOURS; STUDIES TO CONTINUE REPORT 2: NO ANAEROBES AT 48-59 HOURS; STUDIES TO CONTINUE REPORT 3: NO ANAEROBES AT 72-96 HOURS 1+ YEAST, BINDU ALBICANS NO FURTHER WORK-UP DONE BINDU ALBICANS Test(s) performed by: [facility] [address] [place] [address] AEROBIC CULTURE Final 10/17/24-716 MRL COLONY DESCRIPTION: REPORT 1: 1+ SKIN SHANTELLE ; STUDIES TO CONTINUE STREPTOCOCCUS VIRIDANS 1+ GRAM POSITIVE COCCI IN CHAINS IDENTIFICATION TO FOLLOW BETA HEMOLYTIC STREPTOCOCCUS GROUP B 1+ YEAST, BINDU ALBICANS REPORT 2: STUDIES TO CONTINUE REPORT 3: NO FURTHER WORK-UP DONE COMMENT: BETA STREPTOCOCCUS REMAIN SUSCEPTIBLE TO PENICILLIN COMMENT: NO FURTHER WORK-UP BINDU ALBICANS STREP AGALACTIAE GROUP B ASSESSMENT: 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 Right foot diabetic ulcer in the 3rd and 4th interdigital space with gangrene and polymicrobial infection. Right foot Cellulitis. Ruling out peripheral artery disease. Diabetes mellitus. Anemia PLAN: Continue on Vancomycin per pharmacy protocol. Continue Cefepime. Continue Metronidazole IV. Continue pain management. Continue wound care as recommended by supervisor newspaper deliveries. Continue GI prophylaxis. Cardiology following patient is scheduled for a peripheral angiogram for today. This case was reviewed and discussed with my supervising physician and the above assessment and plan was formulated and agreed upon. ATTESTATION BY PHYSICIAN I have seen and examined the patient. I reviewed the documentation, medical decision making, and treatment plan as noted by the mid-level provider above. I agree with the findings and plan of care. MENDY KHAN MD, [facility] Oct 17, 2024 12:07
[2024-10-17] MEDS ORDERED: IODIXANOL 320 MG/ML 100 ML VIAL ONE (12:26)
[2024-10-17] MEDS ORDERED: SODIUM BICARB 50MEQ 50ML VIAL 50 ML ONE (12:26)
[2024-10-17] MEDS ORDERED: LIDOCAINE HCL 400MG/20ML VIAL ONE (12:26)
[2024-10-17] MEDS ORDERED: HEParin-NS 1,000 UNIT/500 ML 1,000 ML IV ONE (12:26)
[2024-10-17] MEDS ORDERED: NITROGLYCERIN 50MG VIAL ONE (12:27)
[2024-10-17] MEDS ORDERED: MIDAZOLAM HCL 1 MG/ML 2ML VIAL ONE (12:42)
[2024-10-17] MEDS ORDERED: ASPIRIN 325MG EC TAB PO ONE (13:28)
[2024-10-17] MEDS ORDERED: 0.9%NACL 1000ML 1,000 ML IV SCH (14:00)
--- NOTE | 2024-10-17 14:20 | PRN ---
ABDOMINAL AORTOGRAM WITH PELVIC RUNOFF, RIGHT LOWER EXTREMITY DIGITAL SUBTRACTION ARTERIOGRAM, RIGHT POSTERIOR TIBIAL DRUG COATED BALLOON ANGIOPLASTY INDICATION: NONHEALING ULCER RIGHT FOOT TECHNIQUE: Patient was brought to the lab in a fasting state after informed consent and sedated with 1 mg Versed and 50 mcg fentanyl. Under local anesthesia with 1% lidocaine using micropuncture technique with fluoroscopic and ultrasound guidance left common femoral access was gained anteriorly and a six Bangladeshi sheath was inserted. An Omni flush was positioned in the distal abdominal aorta and aortogram with pelvic runoff was obtained. The Omni flush was then positioned in the right common femoral and right lower extremity digital subtraction arteriography was initiated. The catheter was then repositioned in the SFA and right lower extremity digital subtraction angiography was completed. We then exchanged for a six Bangladeshi sheath and administered 4200 units aqueous heparin intravenously with 600 mg clopidogrel and 325 mg aspirin orally and we wired the right posterior tibial with a run- through guidewire. We dilated with a 3 x 20 mm balloon on the 90% ostial posterior tibial stenosis, then exchanged for a 4 mm 4 cm Trivitron Healthcare[employer] TeeBeeDeeiral drug coated balloon with which we covered the treated segment in the MEDICAL ASSISTANT INTERNAL MEDICINE and the tibioperoneal trunk. We inflated only two to atmospheres for 3 minutes and we withdrew the apparatus and obtained final angiograms, then close the arteriotomy with Perclose. No complications occurred. Results: There is no disease in the distal aorta, pelvic vessels on either side, right superficial femoral, or right anterior tibial or peroneal. There is 30% plaque in the tibioperoneal trunk and 90% stenosis at the origin of the right posterior tibial and this was reduced to 0% residual. On the initial angiogram hypervascularity is noted in the toes of the right foot, particularly in the lateral portion of the foot, but there was no disease in the anterior tibial. Successful DCB-MEDICAL ASSISTANT INTERNAL MEDICINE RIGHT POSTERIOR TIBIAL ROSARIO SEAY MD Oct 17, 2024 14:20
--- NOTE | 2024-10-17 14:22 | NUR ---
arrival to unit PT ARRIVED VIA STRETCHER. A&OX4. VS: BP: 148/84 HR:80 RR:18 O2:100 T:98 F. STATES 2/[address] SEAY MADE AWARE. DRESSING NOTED ON LEFT INGUINAL AREA. DRY AND INTACT. ANSWERED PT QUESTIONS AT THIS TIME. TEACHING GIVEN. PT AWARE TO GET OOB UNTIL TOMORROW MORNING. BED REST FOR 2 HOURS. ACKNOWLEDGED INFORMATION.
[2024-10-17] MEDS: PoTASSium chloRIDE 20MEQ ER 20 MEQ ERTAB PO PRN (16:47)
[2024-10-18] VITALS (8 sets, daily range): BP systolic 134–154; BP diastolic 74–85; PULSE 69–88; RESP 18; TEMP 98–98.9; O2SAT 98–99
[2024-10-18 05:18] LABS: NUCLEATED RED BLOOD CELLS 0.0 % (0.0-0.19); PLATELET COUNT (AUTO) 367.0 K/uL (130-400); RED BLOOD CELL COUNT(AUTO) 3.34 MIL/uL (4.00-5.50); RED CELL DISTRIBUTION WIDTH 12.8 % (11.0-15.5); WHITE BLOOD COUNT (AUTO) 7.1 K/uL (4.8-10.8)
[2024-10-18 05:32] LABS: ASPARTATE AMINOTRANSFERASE 23.0 U/L (10-37); CREATININE 0.6 mg/dL (0.5-1.0); GLOMERULAR FILTR. RATE CALC 105.0 mL/min (>90); GLUCOSE,RANDOM 174.0 mg/dL (70-105); LDL DIRECT 69.0 mg/dL (0-99); SODIUM SERUM 135.0 mmol/L (136-145); TOTAL PROTEIN, SERUM 7.0 g/dL (6.0-8.3); UREA NITROGEN, BLOOD 8.0 mg/dL (7-18)
--- NOTE | 2024-10-18 08:00 | PN ---
Patient reports less discomfort in her right foot after intervention on right posterior tibial. There is no hematoma, no ecchymosis; dressing can be removed from left femoral access. It is not clear to me how much the posterior tibial is contributing to the patient's tissue necrosis on her toes, and I did not frankly expect symptomatic improvement after revascularization, but we did open a 90% posterior tibial stenosis in hopes that there may be some clinical benefit. Patient should have dual antiplatelet therapy for 90 days. No stent was implanted so there is no need to prolong antiplatelet therapy longer than 90 days. Patient will follow up with Dr. Cardozo, her primary chief design drafter, in two months. Vitals/Labs Vital Signs Date Time Temp Pulse Resp B/P (MAP) Pulse Ox O2 Delivery O2 Flow Rate FiO2 10/18/24 07:39 98.6 85 18 154/85 99 Room Air 10/17/24 20:00 0 21 Laboratory Tests 10/18/24 04:47 Medications Current Medications Vancomycin HCl 1 gm ONCE ONCE IV Last administered on 10/13/24at 17:56; Start 10/13/24 at 17:30; Stop 10/13/24 at 17:31; Status DC Piperacillin Sod/ Tazobactam Sod 3.375 gm Q12H IV; Start 10/13/24 at 17:30; Stop 10/13/24 at 17:56; Status DC Sodium Chloride 1,000 ml @ 100 mls/hr Q10H IV Last administered on 10/17/24at 12:16; Start 10/13/24 at 18:00; Stop 10/17/24 at 14:07; Status DC Morphine Sulfate 2 mg Q6H PRN IVP Last administered on 10/13/24at 18:46; Start 10/13/24 at 18:00; Stop 10/20/24 at 17:59 Famotidine 20 mg DAILY IV; Start 10/14/24 at 09:00; Stop 10/13/24 at 18:14; Status DC Acetaminophen 500 mg Q6H PRN PO; Start 10/13/24 at 18:00; Stop 11/12/24 at 17:59 Ondansetron HCl 4 mg Q6H PRN IVP Last administered on 10/13/24at 18:46; Start 10/13/24 at 18:00; Stop 11/12/24 at 17:59 Cefepime HCl 2 gm Q12H IVPB Last administered on 10/18/24at 05:04; Start 10/13/24 at 18:00; Stop 10/23/24 at 17:59 Pantoprazole Sodium 40 mg HS IVP Last administered on 10/16/24at 20:37; Start 10/13/24 at 21:00; Stop 11/12/24 at 20:59 Metronidazole/ Sodium Chloride 100 ml @ 100 mls/hr Q8H6 IVPB Last administered on 10/14/24at 22:21; Start 10/13/24 at 22:00; Stop 10/15/24 at 00:10; Status DC Vancomycin HCl 1 each AD IV; Start 10/13/24 at 18:30; Stop 10/27/24 at 18:29 Vancomycin HCl 750 mg Q12H IVPB Last administered on 10/18/24at 06:06; Start 10/14/24 at 06:00; Stop 10/24/24 at 05:59 Insulin Glargine 12 units DAILY SQ Last administered on 10/15/24at 09:31; Start 10/14/24 at 09:00; Stop 11/13/24 at 08:59 Insulin Human Regular INSULIN SLIDING SCAL... ACHS SQ Last administered on 10/15/24at 21:13; Start 10/13/24 at 21:00; Stop 11/12/24 at 20:59 Cadexomer Iodine 1 APPL ONCE ONCE TP; Start 10/14/24 at 07:30; Stop 10/14/24 at 23:32; Status DC Cadexomer Iodine APPL ONCE ONCE TP; Start 10/14/24 at 12:30; Stop 10/14/24 at 23:32; Status DC Dextrose 50 ml AD PRN IV; Start 10/14/24 at 12:30; Stop 11/13/24 at 12:29 Glucagon 1 mg AD PRN IM; Start 10/14/24 at 12:30; Stop 11/13/24 at 12:29 Cadexomer Iodine 1 APPL ONCE TP; Start 10/14/24 at 17:30; Stop 10/14/24 at 23:32; Status DC Cadexomer Iodine 1 APPL DAILY TP; Start 10/15/24 at 09:00; Stop 10/15/24 at 15:22; Status DC Metronidazole/ Sodium Chloride 100 ml @ 100 mls/hr Q8H IVPB Last administered on 10/17/24at 23:55; Start 10/15/24 at 07:30; Stop 10/25/24 at 07:29 Aspirin 81 mg DAILY PO Last administered on 10/16/24at 10:44; Start 10/15/24 at 11:30; Stop 10/16/24 at 11:09; Status DC Atorvastatin Calcium 40 mg HS PO Last administered on 10/17/24at 20:39; Start 10/15/24 at 21:00; Stop 11/14/24 at 20:59 Cadexomer Iodine 1 APPL DAILY TP Last administered on 10/17/24at 08:21; Start 10/16/24 at 09:00; Stop 11/15/24 at 08:59 Iohexol 50 ml STK-MED ONCE IV; Start 10/15/24 at 16:28; Stop 10/15/24 at 16:28; Status DC Iohexol 35,000 mg STK-MED ONCE IV; Start 10/15/24 at 16:28; Stop 10/15/24 at 16:28; Status DC Magnesium Sulfate 50 ml @ 0 mls/hr PROTOCOL PRN IV Last administered on 10/17/24at 11:08; Start 10/16/24 at 06:30; Stop 11/15/24 at 06:29 Potassium Chloride 100 ml @ 50 mls/hr AD PRN IV Last administered on 10/16/24at 18:36; Start 10/16/24 at 06:30; Stop 11/15/24 at 06:29 Potassium Chloride 40 meq ONCE ONCE PO Last administered on 10/16/24at 10:44; Start 10/16/24 at 09:30; Stop 10/16/24 at 09:31; Status DC Magnesium Sulfate 50 ml @ 0 mls/hr PROTOCOL IV; Start 10/16/24 at 09:30; Stop 10/16/24 at 09:24; Status DC Losartan Potassium 25 mg DAILY PO Last administered on 10/17/24at 08:20; Start 10/16/24 at 09:30; Stop 11/15/24 at 09:29 Hydralazine HCl 5 mg Q6H PRN IV; Start 10/16/24 at 09:30; Stop 11/15/24 at 09:29 Potassium Chloride 100 ml @ 100 mls/hr AD PRN IV; Start 10/17/24 at 10:30; Stop 10/17/24 at 10:11; Status DC Potassium Chloride 20 meq AD PRN PO; Start 10/17/24 at 10:30; Stop 11/16/24 at 10:29 Potassium Chloride 20 meq AD PRN PO Last administered on 10/17/24at 16:47; Start 10/17/24 at 10:30; Stop 11/16/24 at 10:29 Potassium Chloride 100 ml @ 50 mls/hr ONCE ONCE IV; Start 10/17/24 at 10:30; Stop 10/17/24 at 16:19; Status DC Pantoprazole Sodium 40 mg BID IVP Last administered on 10/17/24at 20:39; Start 10/17/24 at 10:30; Stop 11/16/24 at 10:29 Lidocaine HCl 20 ml STK-MED ONCE .ROUTE; Start 10/17/24 at 12:26; Stop 10/17/24 at 12:26; Status DC Sodium Bicarbonate 50 ml @ As Directed STK-MED ONCE .ROUTE; Start 10/17/24 at 12:26; Stop 10/17/24 at 12:26; Status DC Iodixanol 100 ml STK-MED ONCE .ROUTE; Start 10/17/24 at 12:26; Stop 10/17/24 at 12:26; Status DC Heparin Sodium (Porcine) 10,000 unit STK-MED ONCE .ROUTE; Start 10/17/24 at 12:26; Stop 10/17/24 at 12:26; Status DC Nicardipine HCl 25 mg STK-MED ONCE IV; Start 10/17/24 at 12:26; Stop 10/17/24 at 12:26; Status DC Heparin Sodium/ Sodium Chloride 1,000 ml @ As Directed STK-MED ONCE IV; Start 10/17/24 at 12:26; Stop 10/17/24 at 12:27; Status DC Nitroglycerin 50 mg STK-MED ONCE .ROUTE; Start 10/17/24 at 12:27; Stop 10/17/24 at 12:27; Status DC Fentanyl Citrate 100 mcg STK-MED ONCE .ROUTE; Start 10/17/24 at 12:41; Stop 10/17/24 at 12:41; Status DC Midazolam HCl 2 mg STK-MED ONCE .ROUTE; Start 10/17/24 at 12:42; Stop 10/17/24 at 12:43; Status DC Clopidogrel Bisulfate 300 mg STK-MED ONCE .ROUTE; Start 10/17/24 at 13:28; Stop 10/17/24 at 13:28; Status DC Aspirin 325 mg STK-MED ONCE PO; Start 10/17/24 at 13:28; Stop 10/17/24 at 13:28; Status DC Aspirin 81 mg DAILY PO; Start 10/18/24 at 09:00; Stop 11/17/24 at 08:59 Clopidogrel Bisulfate 75 mg DAILY PO; Start 10/18/24 at 09:00; Stop 11/17/24 at 08:59 Sodium Chloride 1,000 ml @ 150 mls/hr AD IV; Start 10/17/24 at 14:00; Stop 10/17/24 at 19:59; Status DC ROSARIO SEAY MD Oct 18, 2024 08:00
--- NOTE | 2024-10-18 08:11 | PN ---
GASTROENTEROLOGY PROGRESS NOTE Date of Visit: Oct 18, 2024 Time of Visit: 08:11 Events / Notes: [ ] Review of Systems: CONSTITUTIONAL: No malaise or change in sensation of wellbeing. ENMT: No rhinorrhea, otorrhea, sinus pain, ear ache. CARDIOVASCULAR: No angina, palpitations, orthopnea or paroxysmal dyspnea. RESPIRATORY: No SOB. GASTROINTESTINAL: No abdominal pain, nausea, vomiting, diarrhea, hematemesis, melena or change in the patient's habitual bowel movements consistency/number. GENITOURINARY: No dysuria, hematuria or change in bladder continence. MUSCULOSKELETAL: No new muscle pain or decrease in muscular strength. No new joint swelling, redness or tenderness. SKIN: No new rash. Physical Exam: GEN: Awake, alert, oriented in person, time and place, and in no acute distress. HEENT: No sinus tenderness. Tympanic membranes were not examined. No rhinorrhea. Oral pharyngeal mucosa is pink, moist and within normal limits. Neck is supple with no cervical lymphadenopathy, thyromegaly or JVD. CHEST: Inspection, palpation and percussion of the chest were unremarkable. Lung auscultation revealed normal breath sounds bilaterally. CARDIAC: PMI is within normal limits. Heart sounds are regular. Normal S1, S2. No gallop or murmur. ABD: Soft, non-tender and not distended. No peritoneal signs on palpation. No organomegaly. Normal bowel sounds. EXT: No cyanosis or clubbing. No edema. SKIN: Intact. No rashes. JOINTS: No evidence of synovitis or acute arthritis. NEURO: Alert and oriented to name, place and person. Cranial nerve examination is unremarkable. No focal motor deficits. Normal speech. Gait is normal. Strength is normal. Vital Signs (last 8hr) Date Time Temp Pulse Resp B/P (MAP) Pulse Ox O2 Delivery O2 Flow Rate FiO2 10/18/24 07:39 98.6 85 18 154/85 99 Room Air 10/18/24 04:00 98.2 69 18 150/83 98 Room Air Laboratory: [ ] Laboratory: Test 10/18/24 05:28 10/18/24 04:47 10/17/24 17:05 10/16/24 17:55 Range/Units Whole Blood Glucose 169 H 70-110 MG/DL White Blood Count 7.1 4.8-10.8 K/uL Red Blood Count 3.34 L 4.00-5.50 MIL/uL Hemoglobin 8.9 L 12.0-16.0 g/dL Hematocrit 27.3 L 36-48 % Mean Corpuscular Volume 81.7 79-99 fL Mean Corpuscular Hemoglobin 26.6 L 27.0-33.0 pg Mean Corpuscular Hemoglobin Concent 32.6 32.0-36.0 g/dL Red Cell Distribution Width 12.8 11.0-15.5 % Platelet Count 367 130-400 K/uL Mean Platelet Volume 8.9 7.5-10.5 fL Nucleated Red Blood Cells 0.0 0.0-0.19 % Sodium Level 135 L 136-145 mmol/L Potassium Level 3.5 3.5-5.1 mmol/L Chloride Level 102 101-111 mmol/L Carbon Dioxide Level 25 21-32 mmol/L Blood Urea Nitrogen 8 7-18 mg/dL Creatinine 0.6 0.5-1.0 mg/dL Glomerular Filtration Rate Calc 105 >90 mL/min Random Glucose 174 H 70-105 mg/dL Total Calcium 8.6 8.5-10.1 mg/dL Magnesium Level 1.70 L 1.80-2.40 mg/dL Total Bilirubin 0.3 # 0.2-1.0 mg/dL Aspartate Amino Transf (AST/SGOT) 23 10-37 U/L Alanine Aminotransferase (ALT/SGPT) 17 12-78 U/L Alkaline Phosphatase 70 50-136 U/L Total Protein 7.0 6.0-8.3 g/dL Albumin 2.2 L 3.5-5.0 g/dL Triglycerides Level 81 30-200 mg/dL Cholesterol Level 118 <200 mg/dL LDL Cholesterol 69 0-99 mg/dL HDL Cholesterol 37 35-85 mg/dL Vancomycin Level Trough 15.0 10.0-20.0 UG/ML Stool Occult Blood POSITIVE H NEGATIVE Current Medications Medications (Trade) Dose Ordered Sig/Elsy Route PRN Reason Start Time Stop Time Status Last Admin Dose Admin Acetaminophen (TYLenol 500MG TAB) 500 mg Q6H PRN PO MILD PAIN (1-3) 10/13/24 18:00 11/12/24 17:59 Aspirin (Aspirin 81mg Chew Tab) 81 mg DAILY PO 10/18/24 09:00 11/17/24 08:59 Aspirin (Aspirin 81mg Ec Tab) 81 mg DAILY PO 10/15/24 11:30 10/16/24 11:09 DC 10/16/24 10:44 81 MG Atorvastatin Calcium (LIPItor 40MG) 40 mg HS PO 10/15/24 21:00 11/14/24 20:59 10/17/24 20:39 40 MG Cadexomer Iodine (Iodosorb Gel 40gm) 1 APPL DAILY TP 10/15/24 09:00 10/15/24 15:22 DC Cadexomer Iodine (Iodosorb Gel 40gm) 1 APPL DAILY TP 10/16/24 09:00 11/15/24 08:59 10/17/24 08:21 1 APPL Cadexomer Iodine (Iodosorb Gel 40gm) 1 APPL ONCE TP 10/14/24 17:30 10/14/24 23:32 DC Cefepime HCl (MAXipime 2 gm vial) 2 gm Q12H IVPB 10/13/24 18:00 10/23/24 17:59 10/18/24 05:04 2 GM Clopidogrel Bisulfate (plaVIX 75MG) 75 mg DAILY PO 10/18/24 09:00 11/17/24 08:59 Dextrose (D50w) 50 ml AD PRN IV HYPOGLYCEMIA PROTOCOL 10/14/24 12:30 11/13/24 12:29 Famotidine (Pepcid 20mg Vial) 20 mg DAILY IV 10/14/24 09:00 10/13/24 18:14 DC Glucagon (Glucagon 1mg Kit) 1 mg AD PRN IM HYPOGLYCEMIA PROTOCOL 10/14/24 12:30 11/13/24 12:29 Hydralazine HCl (APRESOLine 20MG INJ) 5 mg Q6H PRN IV ADMINISTER FOR SBP > 160 10/16/24 09:30 11/15/24 09:29 Insulin Glargine (LANtus 100 UNITS/ML 10 ML VIAL) 12 units DAILY SQ 10/14/24 09:00 11/13/24 08:59 10/15/24 09:31 12 UNITS Insulin Human Regular (humuLIN R 100 UNIT/ML 3ML) INSULIN SLIDING SCAL... ACHS SQ 10/13/24 21:00 11/12/24 20:59 10/15/24 21:13 3 UNIT Losartan Potassium (CozAAR 25MG TAB) 25 mg DAILY PO 10/16/24 09:30 11/15/24 09:29 10/17/24 08:20 25 MG Magnesium Sulfate 50 ml @ 0 mls/hr PROTOCOL IV 10/16/24 09:30 10/16/24 09:24 DC Magnesium Sulfate 50 ml @ 0 mls/hr PROTOCOL PRN IV MAGNESIUM PROTOCOL 10/16/24 06:30 11/15/24 06:29 10/17/24 11:08 25 MLS/HR Metronidazole/ Sodium Chloride 100 ml @ 100 mls/hr Q8H IVPB 10/15/24 07:30 10/25/24 07:29 10/17/24 23:55 100 MLS/HR Metronidazole/ Sodium Chloride 100 ml @ 100 mls/hr Q8H6 IVPB 10/13/24 22:00 10/15/24 00:10 DC 10/14/24 22:21 100 MLS/HR Morphine Sulfate (morPHINE 2MG SYG) 2 mg Q6H PRN IVP SEVERE PAIN (7-10) 10/13/24 18:00 10/20/24 17:59 10/13/24 18:46 2 MG Ondansetron HCl (zoFRAN 4MG INJ) 4 mg Q6H PRN IVP NAUSEA/VOMITING 10/13/24 18:00 11/12/24 17:59 10/13/24 18:46 4 MG Pantoprazole Sodium (PROTonix 40MG INJ) 40 mg BID IVP 10/17/24 10:30 11/16/24 10:29 10/17/24 20:39 40 MG Pantoprazole Sodium (PROTonix 40MG INJ) 40 mg HS IVP 10/13/24 21:00 11/12/24 20:59 10/16/24 20:37 40 MG Piperacillin Sod/ Tazobactam Sod (Zosyn 3.375gm+NS 50ml) 3.375 gm Q12H IV 10/13/24 17:30 10/13/24 17:56 DC Potassium Chloride 100 ml @ 50 mls/hr AD PRN IV POTASSIUM PROTOCOL 10/16/24 06:30 11/15/24 06:29 10/16/24 18:36 50 MLS/HR Potassium Chloride 100 ml @ 100 mls/hr AD PRN IV POTASSIUM PROTOCOL 10/17/24 10:30 10/17/24 10:11 DC Potassium Chloride (K-Dur/Klor-Con 20meq) 20 meq AD PRN PO POTASSIUM PROTOCOL 10/17/24 10:30 11/16/24 10:29 10/17/24 16:47 20 MEQ Potassium Chloride (KCl 10% Elixir 20meq/15ml) 20 meq AD PRN PO POTASSIUM PROTOCOL 10/17/24 10:30 11/16/24 10:29 Sodium Chloride 1,000 ml @ 100 mls/hr Q10H IV 10/13/24 18:00 10/17/24 14:07 DC 10/17/24 12:16 100 MLS/HR Sodium Chloride 1,000 ml @ 150 mls/hr AD IV 10/17/24 14:00 10/17/24 19:59 DC Vancomycin HCl (Vancomycin 750mg) 750 mg Q12H IVPB 10/14/24 06:00 10/24/24 05:59 10/18/24 06:06 750 MG Vancomycin HCl (Vancomycin Protocol) 1 each AD IV 10/13/24 18:30 10/27/24 18:29 Diagnostics / Radiology: [COPY/PASTE HERE IF NO REPORTS PLEASE DELETE SECTION] Assessment: Positive fobt Normocytic anemia Cellulitis Plan: Recommend to start/continue DAPT We can defer egd/colonoscopy outpatient as there is no overt GI bleeding and hgb stable If she begins to show signs of overt GI bleeding, we can re-eval [employer] ASSISTANT Oct 18, 2024 08:11
[2024-10-18] MEDS: ASPIRIN 81MG CHEW TAB PO SCH (09:18)
--- NOTE | 2024-10-18 10:30 | NUR ---
[facility] Follow-up: Patient re-assessed by wound healing team. Assessment and recommendations provided to primary nurse. Education provided. Addendum: 10/18/24 at 1310 by LENNOX ANDRE RN RN/ Amended: Links added.
--- NOTE | 2024-10-18 11:11 | PN ---
[facility] PROGRESS NOTE Date of Service: Oct 18, 2024 Time of Service: 11:05 SUBJECTIVE: 54-year-old female with underlying history of type 2 diabetes mellitus (diagnosed with diabetes for about 21 years) who presented to the ER for further evaluation of progressive redness, nonhealing wound involving the interdigital space of the 3rd and 4th digit of the right foot. Symptoms have been ongoing for the past 4-5 days and patient has been using local therapy with iodine as well as been taking penicillin for further treatment as outpatient. She has been cleaning the wound with sterile water. Symptoms have been worsening and patient has developed progressive redness of the right foot as well as increased drainage between the interdigital space with purulence noted. She denied previous history of cardiac disease of peripheral arterial disease. She has been taking ibuprofen intermittently with Tylenol for pain control at home. Reported having subjective chills. On presentation to the hospital, patient was noted to be afebrile with T-max of 98.1 F, heart rate of 91, blood pressure of 123/67. Labs on presentation showed WBC count of 9000, hemoglobin of 9.1, platelet count of 362912. BMP remarkable for sodium of 131, potassium 4.1, BUN of 26, creatinine 1.0. Patient had x-rays of the right foot which showed no acute fractures or soft tissue gas. Patient admitted for further treatment management of complicated cellulitis with infected diabetic foot wound/ulcer involving the interdigital space of the 3rd and 4th toe with progressive cellulitis of the right foot. Patient received broad-spectrum antibiotics, IV hydration. Podiatry and Infectious Disease consulted. Patient will undergo workup for peripheral arterial disease. 10/14 patient remains hemodynamically stable, BP 130/67, afebrile, saturating normal on room air, getting IV antibiotics at the time of my visit, Doppler of the lower extremities no evidence of DVT to the right lower extremity, MRI of the foot pending. Arterial Doppler no hemodynamically significant stenosis or occlusion in either lower extremity, monophasic flow in the right anterior tibial and dorsalis pedis arteries consistent with mild discharge atherosclerotic disease and hyperemia. We will continue the patient on vancomycin and Flagyl IV, patient also on cefepime, podiatry and infectious disease consulted, we will continue to follow input and recommendations. 10/15 patient remains admitted to the medical floor, getting IV antibiotics at the time of my visit, comfortably in bed, no acute events overnight per discussion with the RN. Results of MRI of the right foot positive for osteomyelitis, discussed with the patient. Arterial Doppler findings reviewed and discussed with the patient, findings of monophasic flow in the right anterior tibial and dorsalis pedis arteries consistent with a mild atherosclerotic disease. We will continue the patient on broad-spectrum IV antibiotics, infectious disease consultation requested, continue to follow input and recommendation, follow up Podiatry input recommendation, local wound care. Patient is scheduled for angiogram tomorrow. 10/16 patient remains admitted to the medical floor, BP 151/77, afebrile, saturating normal on room air. Hemoglobin of 8.4, hematocrit 26.1. Sodium 140, potassium 3.3, BUN of nine, creatinine 0.7, magnesium level 1.5. Iron level of 29. Patient evaluated by infrastructure engineer yesterday, CTA aorta runoff with IV contrast no hemodynamically significant abnormality, mild to moderate circumferential calcific atheromatous plaques in the bilateral superficial femoral, popliteal, anterior tibial, posterior tibial and peroneal arteries without significant luminal stenosis, normal three-vessel flow to the foot, incidental mildly prominent common bile duct, cystitis. Grossly unremarkable ultrasound arterial Doppler of the bilateral lower limb stated 10/13/2024. Results of culture from right foot positive for Bindu albicans, Streptococcus agalactiae group B. Start losartan 25 mg p.o. daily, hydralazine 5 mg IV every 6 hours as needed. Replace electrolytes with magnesium sulfate 2 g IV x1, potassium chloride 40 mEq p.o. x1. Follow stool occult blood, if positive we will request GI consultation. We will hold aspirin for now. Continue to follow podiatry input and recommendation, continue local wound care with the cadexomer iodine one application daily, continue broad-spectrum IV antibiotics with the vanco and Flagyl IV, continue to follow ID input and recommendation. Follow Cardiology input and recommendation. Patient is scheduled for angiogram tomorrow. During my visit patient comfortably in bed, alert oriented x3, getting IV fluids and IV antibiotics. Denies chest pain, shortness shortness for breath, no nausea, no vomiting, no abdominal pain, no pain to the right foot area. 10/17 patient remains admitted to the medical floor, hemodynamically stable, afebrile, saturating normal on room air, hemoglobin 8.8, hematocrit 27.5, stool occult blood positive. Continue losartan 25 mg p.o. daily, hydralazine 5 mg IV every 6 hours as needed. Stool occult blood positive, we will request GI consultation. Continue to hold aspirin, start the patient on Protonix 40 mg IV b.i.d.. Continue to follow podiatry input and recommendation, continue local wound care with the cadexomer iodine one application daily, continue broad-spectrum IV antibiotics with the vanco and Flagyl IV, continue to follow ID input and recommendation. Follow Cardiology input and recommendation. Patient is scheduled for angiogram today. During my visit comfortably in bed, alert oriented x3, no acute events overnight per discussion with the RN, eating lunch, tolerating well, no nausea, no vomiting, no abdominal pain. 10/18 patient remains admitted to the medical floor, BP 154/85, afebrile, saturating normal on room air, hemoglobin 8.9, hematocrit 27.3. Magnesium 1.7. Patient underwent abdominal aortogram with pelvic runoff, right lower extremity digital subtraction arteriogram, right posterior tibial drug coated balloon angioplasty 10/17/2024 with the following results: Results: There is no disease in the distal aorta, pelvic vessels on either side, right superficial femoral, or right anterior tibial or peroneal. There is 30% plaque in the tibioperoneal trunk and 90% stenosis at the origin of the right posterior tibial and this was reduced to 0% residual. On the initial angiogram hypervascularity is noted in the toes of the right foot, particularly in the lateral portion of the foot, but there was no disease in the anterior tibial. Successful DCB-SERVICE ATTENDANT CAFETERIA RIGHT POSTERIOR TIBIAL Patient to continue on broad-spectrum IV antibiotics, continue aspirin 81 mg p.o. daily, Plavix 75 mg p.o. daily, continue to follow Cardiology input recommendation, continue local wound care, continue to follow podiatry and infectious disease input and recommendations. GI consultation requested secondary to positive stool occult blood, okay to start and continue dual antiplatelet therapy, can defer EGD/colonoscopy as an outpatient, as there is no overt GI bleeding and hemoglobin stable, if the patient shows signs of upper GI bleed reconsult as needed. During my visit the patient is comfortably in bed, alert oriented x3, getting IV antibiotics, case discussed with the RN, no acute events overnight, findings of angiogram discussed in detail with the patient, all questions answered, she agreed and understood all the information provided as well as plan of care. REVIEW OF SYSTEMS CONSTITUTIONAL: Denies fevers, chills, or night sweats. No unintentional weight loss reported. NEUROLOGICAL: Denies headache, amaurosis fugax, motor weakness, sensory defi cit, vertigo/spinning sensation, gait abnormalities, or tremors. ENT: No hearing loss, otalgia, otorrhea, rhinitis, rhinorrhea, hoarseness, or sore throat. CARDIOVASCULAR: Denies any exertional angina, dyspnea on exertion, orthopnea, paroxysmal nocturnal dyspnea, palpitations, life-threatening arrhythmias, claudication. PULMONARY: Denies any shortness of breath, cough, phlegm/sputum, hemoptysis, pleuritic chest pain. SLEEP: Denies morning headaches, daytime somnolence or napping. Denies difficulty falling asleep, staying asleep, waking from sleep. Denies knowledge of snoring. GASTROINTESTINAL: Denies any type of dysphagia to either liquids or solids. Denies nausea, vomiting, pyrosis, early satiety, abdominal pain, diarrhea, constipation, or changes in stool consistency or caliber. Denies coffee-ground emesis, hematemesis, hematochezia, or melanotic stools. GENITOURINARY: Denies frequency, urgency, nocturia, hematuria or incontinence (Storage/Irritative symptoms.) Low urinary stream, straining to void, urinary intermittency or hesitancy, splitting of the voiding stream, terminal dribbling. ENDOCRINOLOGIC: Denies polyuria, polydipsia, polyphagia or heat/cold intolerances. HEMATOLOGIC: Denies thrombophilia/previous clots, or coagulopathy/bleeding disorders. ONCOLOGIC: Denies personal history of malignancy. DERMATOLOGIC: Progressive redness, swelling and non healing diabetic foot ulcer involving the right foot, redness involving the 2nd to 4th toes PSYCHIATRIC: Denies any suicidal or homicidal ideation. Denies hallucinations. PHYSICAL EXAM GENERAL APPEARANCE: The patient is awake, alert, and oriented, in no acute cardiopulmonary distress. NEUROLOGICAL: Cranial nerves II-XII grossly intact. neurological examination is non focal for the patient HEENT: Face is symmetric. Pupils are equal and reactive. Extraocular movements are intact. NECK: Supple. No JVD. No thyromegaly. No submental, submandibular, pre- /postauricular, occipital or supraclavicular lymphadenopathy. CHEST: Normal chest expansion. No Telemetry. LUNGS: Absence of any rales, rhonchi or any wheezing. CARDIOVASCULAR: Regular. S1 and S2 normal. No appreciable rubs, murmurs or gallops. ABDOMEN: Soft, nontender, and nondistended. There is no rebound, voluntary guarding, or rigidity. : Deferred. No [place]. EXTREMITIES: right foot is swollen and redness noted extending to the midfoot, deep ulcer with purulence noted between the interdigital space of the 3rd and 4th toes, redness, noted of the 2nd, 3rd and 4th digit, patchy area of necrosis noted of the plantar and dorsal aspect of the metatarsal aspect of the third and fourth digit SKIN: as noted above Vital Signs (last 8hr) Date Time Temp Pulse Resp B/P (MAP) Pulse Ox O2 Delivery O2 Flow Rate FiO2 10/18/24 08:21 99 Room Air* 0 21 10/18/24 07:39 98.6 85 18 154/85 99 Room Air 10/18/24 04:00 98.2 69 18 150/83 98 Room Air LABS: Laboratory: Test 10/18/24 10:40 10/18/24 04:47 10/17/24 17:05 10/16/24 17:55 Range/Units Whole Blood Glucose 184 H 70-110 MG/DL White Blood Count 7.1 4.8-10.8 K/uL Red Blood Count 3.34 L 4.00-5.50 MIL/uL Hemoglobin 8.9 L 12.0-16.0 g/dL Hematocrit 27.3 L 36-48 % Mean Corpuscular Volume 81.7 79-99 fL Mean Corpuscular Hemoglobin 26.6 L 27.0-33.0 pg Mean Corpuscular Hemoglobin Concent 32.6 32.0-36.0 g/dL Red Cell Distribution Width 12.8 11.0-15.5 % Platelet Count 367 130-400 K/uL Mean Platelet Volume 8.9 7.5-10.5 fL Nucleated Red Blood Cells 0.0 0.0-0.19 % Sodium Level 135 L 136-145 mmol/L Potassium Level 3.5 3.5-5.1 mmol/L Chloride Level 102 101-111 mmol/L Carbon Dioxide Level 25 21-32 mmol/L Blood Urea Nitrogen 8 7-18 mg/dL Creatinine 0.6 0.5-1.0 mg/dL Glomerular Filtration Rate Calc 105 >90 mL/min Random Glucose 174 H 70-105 mg/dL Total Calcium 8.6 8.5-10.1 mg/dL Magnesium Level 1.70 L 1.80-2.40 mg/dL Total Bilirubin 0.3 # 0.2-1.0 mg/dL Aspartate Amino Transf (AST/SGOT) 23 10-37 U/L Alanine Aminotransferase (ALT/SGPT) 17 12-78 U/L Alkaline Phosphatase 70 50-136 U/L Total Protein 7.0 6.0-8.3 g/dL Albumin 2.2 L 3.5-5.0 g/dL Triglycerides Level 81 30-200 mg/dL Cholesterol Level 118 <200 mg/dL LDL Cholesterol 69 0-99 mg/dL HDL Cholesterol 37 35-85 mg/dL Vancomycin Level Trough 15.0 10.0-20.0 UG/ML Stool Occult Blood POSITIVE H NEGATIVE Current Medications Medications (Trade) Dose Ordered Sig/Elsy Route PRN Reason Start Time Stop Time Status Last Admin Dose Admin Acetaminophen (TYLenol 500MG TAB) 500 mg Q6H PRN PO MILD PAIN (1-3) 10/13/24 18:00 11/12/24 17:59 Aspirin (Aspirin 81mg Chew Tab) 81 mg DAILY PO 10/18/24 09:00 11/17/24 08:59 10/18/24 09:18 81 MG Aspirin (Aspirin 81mg Ec Tab) 81 mg DAILY PO 10/15/24 11:30 10/16/24 11:09 DC 10/16/24 10:44 81 MG Atorvastatin Calcium (LIPItor 40MG) 40 mg HS PO 10/15/24 21:00 11/14/24 20:59 10/17/24 20:39 40 MG Cadexomer Iodine (Iodosorb Gel 40gm) 1 APPL DAILY TP 10/15/24 09:00 10/15/24 15:22 DC Cadexomer Iodine (Iodosorb Gel 40gm) 1 APPL DAILY TP 10/16/24 09:00 11/15/24 08:59 10/18/24 09:18 1 APPL Cadexomer Iodine (Iodosorb Gel 40gm) 1 APPL ONCE TP 10/14/24 17:30 10/14/24 23:32 DC Cefepime HCl (MAXipime 2 gm vial) 2 gm Q12H IVPB 10/13/24 18:00 10/23/24 17:59 10/18/24 05:04 2 GM Clopidogrel Bisulfate (plaVIX 75MG) 75 mg DAILY PO 10/18/24 09:00 11/17/24 08:59 10/18/24 09:17 75 MG Dextrose (D50w) 50 ml AD PRN IV HYPOGLYCEMIA PROTOCOL 10/14/24 12:30 11/13/24 12:29 Famotidine (Pepcid 20mg Vial) 20 mg DAILY IV 10/14/24 09:00 10/13/24 18:14 DC Glucagon (Glucagon 1mg Kit) 1 mg AD PRN IM HYPOGLYCEMIA PROTOCOL 10/14/24 12:30 11/13/24 12:29 Hydralazine HCl (APRESOLine 20MG INJ) 5 mg Q6H PRN IV ADMINISTER FOR SBP > 160 10/16/24 09:30 11/15/24 09:29 Insulin Glargine (LANtus 100 UNITS/ML 10 ML VIAL) 12 units DAILY SQ 10/14/24 09:00 11/13/24 08:59 10/15/24 09:31 12 UNITS Insulin Human Regular (humuLIN R 100 UNIT/ML 3ML) INSULIN SLIDING SCAL... ACHS SQ 10/13/24 21:00 11/12/24 20:59 10/15/24 21:13 3 UNIT Losartan Potassium (CozAAR 25MG TAB) 25 mg DAILY PO 10/16/24 09:30 11/15/24 09:29 10/18/24 09:17 25 MG Magnesium Sulfate 50 ml @ 0 mls/hr PROTOCOL IV 10/16/24 09:30 10/16/24 09:24 DC Magnesium Sulfate 50 ml @ 0 mls/hr PROTOCOL IV 10/18/24 09:30 11/17/24 09:29 Magnesium Sulfate 50 ml @ 0 mls/hr PROTOCOL PRN IV MAGNESIUM PROTOCOL 10/16/24 06:30 11/15/24 06:29 10/17/24 11:08 25 MLS/HR Metronidazole/ Sodium Chloride 100 ml @ 100 mls/hr Q8H IVPB 10/15/24 07:30 10/25/24 07:29 10/18/24 09:18 100 MLS/HR Metronidazole/ Sodium Chloride 100 ml @ 100 mls/hr Q8H6 IVPB 10/13/24 22:00 10/15/24 00:10 DC 10/14/24 22:21 100 MLS/HR Morphine Sulfate (morPHINE 2MG SYG) 2 mg Q6H PRN IVP SEVERE PAIN (7-10) 10/13/24 18:00 10/20/24 17:59 10/13/24 18:46 2 MG Ondansetron HCl (zoFRAN 4MG INJ) 4 mg Q6H PRN IVP NAUSEA/VOMITING 10/13/24 18:00 11/12/24 17:59 10/13/24 18:46 4 MG Pantoprazole Sodium (PROTonix 40MG INJ) 40 mg BID IVP 10/17/24 10:30 11/16/24 10:29 10/18/24 09:18 40 MG Pantoprazole Sodium (PROTonix 40MG INJ) 40 mg HS IVP 10/13/24 21:00 11/12/24 20:59 10/16/24 20:37 40 MG Piperacillin Sod/ Tazobactam Sod (Zosyn 3.375gm+NS 50ml) 3.375 gm Q12H IV 10/13/24 17:30 10/13/24 17:56 DC Potassium Chloride 100 ml @ 50 mls/hr AD PRN IV POTASSIUM PROTOCOL 10/16/24 06:30 11/15/24 06:29 10/16/24 18:36 50 MLS/HR Potassium Chloride 100 ml @ 100 mls/hr AD PRN IV POTASSIUM PROTOCOL 10/17/24 10:30 10/17/24 10:11 DC Potassium Chloride (K-Dur/Klor-Con 20meq) 20 meq AD PRN PO POTASSIUM PROTOCOL 10/17/24 10:30 11/16/24 10:29 10/18/24 09:17 20 MEQ Potassium Chloride (KCl 10% Elixir 20meq/15ml) 20 meq AD PRN PO POTASSIUM PROTOCOL 10/17/24 10:30 11/16/24 10:29 Sodium Chloride 1,000 ml @ 100 mls/hr Q10H IV 10/13/24 18:00 10/17/24 14:07 DC 10/17/24 12:16 100 MLS/HR Sodium Chloride 1,000 ml @ 150 mls/hr AD IV 10/17/24 14:00 10/17/24 19:59 DC Vancomycin HCl (Vancomycin 750mg) 750 mg Q12H IVPB 10/14/24 06:00 10/24/24 05:59 10/18/24 06:06 750 MG Vancomycin HCl (Vancomycin Protocol) 1 each AD IV 10/13/24 18:30 10/27/24 18:29 DIAGNOSTICS / RADIOLOGY: [ ] ASSESSMENT: Progressive cellulitis of the right foot involving the midfoot with failure of outpatient treatment, POA Infected diabetic deep foot ulcer involving the interdigital space of the 3rd and 4th digit, POA Progressive cellulitis involving the 2nd, 3rd, 4th toes of the right foot, POA Right foot cultures positive for Bindu albicans and Streptococcus agalactiae group B. Peripheral arterial disease, POA Successful DCB-SERVICE ATTENDANT CAFETERIA RIGHT POSTERIOR TIBIAL 10/17/24 Hypovolemic hyponatremia, POA Anemia, POA Underlying history of insulin-dependent diabetes mellitus, POA Iron deficiency anemia with a stool occult blood positive, POA PLAN: Patient to continue on broad-spectrum IV antibiotics, continue aspirin 81 mg p.o. daily, Plavix 75 mg p.o. daily, continue to follow Cardiology input recommendation, continue local wound care, continue to follow podiatry and infectious disease input and recommendations. GI consultation requested secondary to positive stool occult blood, okay to start and continue dual antiplatelet therapy, can defer EGD/colonoscopy as an outpatient, as there is no overt GI bleeding and hemoglobin stable, if the patient shows signs of upper GI bleed reconsult as needed. Start the patient on Venofer IV. NEURO: Minimize central acting medications as possible. Fall Precautions. Well lighted room through the day and minimize interruptions through the night to prevent acute delirium. PULMONARY: Supplemental 02 as needed BiPAP as necessary, for respiratory distress Titrate Fio2 to keep Spo2 > or = 90% DuoNebs and CPT as needed IS hourly while awake for pulmonary hygiene prn Out of bed to chair as tolerated Maintain aspiration precautions at all times CARDIOVASCULAR: Follow hemodynamics. Vital signs per facility protocol GI & NUTRITION: Continue nutritional support Aspirations precautions Prokinetic agents and laxatives as needed KIDNEYS & ELECTROLYTES: Strict monitoring of intake and output Daily weights Avoid nephrotoxic agents Monitor electrolytes and replace as needed Goal urine output of 30mL/hr or 0.5mL/kg/hr Medications to be dosed according to renal function. Avoid contrast if possible ENDOCRINE: Maintain blood glucose between 100-180 at all times. Insulin sliding scale for blood glucose management Hypoglycemia and hyperglycemia protocol in place INFECTIOUS DISEASE: Trend temperature, WBC and procalcitonin level Follow cultures, deescalate antibiotics as soon as possible. Panculture if new onset fever HEMATOLOGY & COAGULATION: Monitor H&H. Keep Hgb > 7 Transfuse 1 unit of PRBC for Hgb < 7 Transfuse 1 pack of platelets of platelets < 20, 000 Watch for any signs and symptoms of bleeding SKIN: Pressure ulcer prevention per facility protocol Specialty mattress as needed ORTHO/REHAB Continue PT/OT PRN: MEDICATIONS Tylenol 650 mg po every 4 hrs for fever zofran 4 mg IV every 6 hrs for n/v Hydralazine 5 mg IV every 4 hrs systolic pressure > 160 bowel regiment: lactulose 20 gm PO BID PRN constipation Supportive measures: Continue GI and DVT prophylaxis Disposition: Pending improvement in clinical condition All questions answered time spent: > 35 min NANCY COLBERT MD Oct 18, 2024 11:11
[2024-10-18] MEDS: PoTASSium chloRIDE 20MEQ ER 20 MEQ ERTAB PO ONE (11:14)
[2024-10-18] MEDS: MAGNESIUM 2GM PREMIX 50ML 50 ML IV SCH (11:27)
--- NOTE | 2024-10-18 11:56 | NUR ---
wound care to right foot done by johnathan randall
--- NOTE | 2024-10-18 17:03 | NUR ---
DR MCCORMACK AT BEDSIDE, WOUND EVALUATED. MD PLACED ORDERED AND SCHEDULED FOR RIGHT 4TH RAY AMPUTATION ON MONDAY. WOUND CARE DONE. TOLERATED PROCEDURE.
--- NOTE | 2024-10-18 17:06 | PN ---
PROGRESS NOTE Date of Service: Oct 18, 2024 Time of Service: 17:04 SUBJECTIVE: This 58 years old female was seen for follow up evaluation right foot ulceration with gangrenous changes of the base of the 4th toe and 3rd toe right foot. Status post angiogram today. With improved circulation to the lower extremity at this time we will scheduled for amputation of 4th toe and debridement of wound ulcer dorsal foot 3rd toe base. To be done on Monday. REVIEW OF SYSTEMS CONSTITUTIONAL: Denies fever, chills, or fatigue. HEAD/FACE: No signs of trauma. EENT: Denies eye pain, blurred vision, double vision, or light sensitivity. RESPIRATORY: Denies shortness of breath, cough, wheezing CARDIOVASCULAR: Denies chest pain, palpitation, syncope GASTROINTESTINAL/ABDOMINAL: Denies abdominal pain, constipation, diarrhea, nausea or vomiting GENITOURINARY: Denies dysuria or hematuria. MUSCULOSKELETAL: Denies joint pain, tenderness, or trauma. INTEGUMENTARY: Ulcer to the right foot with cellulitis. NEUROLOGICAL/PSYCH: Denies anxiety, depression, heat or cold intolerance. PHYSICAL EXAM EYES: Anicteric. Pupils equal and reactive. HENT: No oral thrush seen, moist Oral mucosa NECK: Supple, no JVD or thyromegaly. LUNGS: Good air entry. No rales, no rhonchi. CARDIOVASCULAR: S1, S2 regular. No murmur heard. ABDOMEN: Soft, non tender, bowel sounds present, no organomegaly CENTRAL NERVOUS SYSTEM: Awake, alert, oriented x 3. No focal deficits. SKIN: Cellulitis of the ulcer on the right foot 3rd and 4th interspace base of the 4th toe plantar area of the 4th toe with necrotic tissue. Cellulitis of the foot. LYMPHATICS: No peripheral lymphadenopathy MUSCULOSKELETAL: No joint swelling, erythema or tenderness. History of osteomyelitis to the 4th toe and base of the proximal phalanx 3rd toe. EXTREMITIES: No cyanosis or clubbing BACK: No deformity, no pressure ulcer. GENITOURINARY: No dysuria or hematuria Vital Signs (last 8hr) Date Time Temp Pulse Resp B/P (MAP) Pulse Ox O2 Delivery O2 Flow Rate FiO2 10/18/24 15:41 98.6 85 18 139/76 95 Room Air 10/18/24 11:16 98.6 84 18 140/74 99 Room Air LABS: Laboratory: Test 7/18/25 15:34 10/18/24 04:47 10/17/24 17:05 10/16/24 17:55 Range/Units Whole Blood Glucose 217 H 70-110 MG/DL White Blood Count 7.1 4.8-10.8 K/uL Red Blood Count 3.34 L 4.00-5.50 MIL/uL Hemoglobin 8.9 L 12.0-16.0 g/dL Hematocrit 27.3 L 36-48 % Mean Corpuscular Volume 81.7 79-99 fL Mean Corpuscular Hemoglobin 26.6 L 27.0-33.0 pg Mean Corpuscular Hemoglobin Concent 32.6 32.0-36.0 g/dL Red Cell Distribution Width 12.8 11.0-15.5 % Platelet Count 367 130-400 K/uL Mean Platelet Volume 8.9 7.5-10.5 fL Nucleated Red Blood Cells 0.0 0.0-0.19 % Sodium Level 135 L 136-145 mmol/L Potassium Level 3.5 3.5-5.1 mmol/L Chloride Level 102 101-111 mmol/L Carbon Dioxide Level 25 21-32 mmol/L Blood Urea Nitrogen 8 7-18 mg/dL Creatinine 0.6 0.5-1.0 mg/dL Glomerular Filtration Rate Calc 105 >90 mL/min Random Glucose 174 H 70-105 mg/dL Total Calcium 8.6 8.5-10.1 mg/dL Magnesium Level 1.70 L 1.80-2.40 mg/dL Total Bilirubin 0.3 # 0.2-1.0 mg/dL Aspartate Amino Transf (AST/SGOT) 23 10-37 U/L Alanine Aminotransferase (ALT/SGPT) 17 12-78 U/L Alkaline Phosphatase 70 50-136 U/L Total Protein 7.0 6.0-8.3 g/dL Albumin 2.2 L 3.5-5.0 g/dL Triglycerides Level 81 30-200 mg/dL Cholesterol Level 118 <200 mg/dL LDL Cholesterol 69 0-99 mg/dL HDL Cholesterol 37 35-85 mg/dL Vancomycin Level Trough 15.0 10.0-20.0 UG/ML Stool Occult Blood POSITIVE H NEGATIVE DIAGNOSTICS / RADIOLOGY: No fracture or dislocation on x-ray MRI positive for osteomyelitis of the 4th toe ASSESSMENT: Diabetic foot ulcer to the right foot Cellulitis right foot Osteomyelitis 4th toe right foot. PLAN: Continue local wound care IV antibiotic patient is scheduled for Monday amputation 4th toe and debridement of wound ulcer dorsal aspect of the 3rd toe base. Patient educated on the problem treatment options given to the patient she agreed to the treatment plan at this point no guarantees were offered at this time disease due to diabetes and other comorbidities otherwise we will continue with local wound care after the surgery patient will need antibiotics postoperatively. Again this is not guarantee and is in an attempt to salvage the foot and prevent further amputations patient may need future surgery if this fails to heal. CLEOPATRA MCCORMACK DPM Oct 18, 2024 17:06
--- NOTE | 2024-10-18 21:48 | PN ---
INFECTIOUS DISEASE PROGRESS NOTE Date of Service: Oct 18, 2024 SUBJECTIVE: This is a 54-year-old female patient who was seen and examined at bedside in room 317. Patient is awake, alert and oriented x3. Patient is s/p peripheral angiogram day # 1 with findings of 90% stenosis at the origin of the right posterior tibial with successful intervention reducing it to 0 % by Dr. Razo. Patient remains afebrile, temperature is 98.6. We will continue on vancomycin, cefepime and metronidazole. PHYSICAL EXAM EYES: Anicteric. Pupils equal and reactive. HENT: No oral thrush seen, moist Oral mucosa NECK: Supple, no JVD or thyromegaly. LUNGS: Good air entry. No rales, no rhonchi. CARDIOVASCULAR: S1, S2 regular. No murmur heard. ABDOMEN: Soft, non tender, bowel sounds present, no organomegaly CENTRAL NERVOUS SYSTEM: Awake, alert, oriented x 3. SKIN: No rashes, no swelling. Right foot diabetic ulcer in the 3rd and 4th interdigital space LYMPHATICS: No peripheral lymphadenopathy MUSCULOSKELETAL: No joint swelling, erythema or tenderness. EXTREMITIES: Right foot swelling and redness. BACK: No deformity, no pressure ulcer. GENITOURINARY: No dysuria or hematuria. Vital Sign (Last 12 Hours) 10/18/24 10/18/24 10/18/24 11:16 15:41 20:31 Temp 98.6 98.6 98.1 Pulse 84 85 83 Resp 18 18 18 B/P (MAP) 140/74 139/76 136/78 Pulse Ox 99 95 98 O2 Delivery Room Air Room Air Room Air Intake & Output (last 24hrs) 10/17/24 10/17/24 10/18/24 15:00 23:00 07:00 Intake Total 2220.0 ml Output Total 1200 ml 300 ml Balance 1020.0 ml -300 ml LABS: Laboratory: Test 10/18/24 19:34 10/18/24 04:47 10/17/24 17:05 Range/Units Whole Blood Glucose 181 H 70-110 MG/DL White Blood Count 7.1 4.8-10.8 K/uL Red Blood Count 3.34 L 4.00-5.50 MIL/uL Hemoglobin 8.9 L 12.0-16.0 g/dL Hematocrit 27.3 L 36-48 % Mean Corpuscular Volume 81.7 79-99 fL Mean Corpuscular Hemoglobin 26.6 L 27.0-33.0 pg Mean Corpuscular Hemoglobin Concent 32.6 32.0-36.0 g/dL Red Cell Distribution Width 12.8 11.0-15.5 % Platelet Count 367 130-400 K/uL Mean Platelet Volume 8.9 7.5-10.5 fL Nucleated Red Blood Cells 0.0 0.0-0.19 % Sodium Level 135 L 136-145 mmol/L Potassium Level 3.5 3.5-5.1 mmol/L Chloride Level 102 101-111 mmol/L Carbon Dioxide Level 25 21-32 mmol/L Blood Urea Nitrogen 8 7-18 mg/dL Creatinine 0.6 0.5-1.0 mg/dL Glomerular Filtration Rate Calc 105 >90 mL/min Random Glucose 174 H 70-105 mg/dL Total Calcium 8.6 8.5-10.1 mg/dL Magnesium Level 1.70 L 1.80-2.40 mg/dL Total Bilirubin 0.3 # 0.2-1.0 mg/dL Aspartate Amino Transf (AST/SGOT) 23 10-37 U/L Alanine Aminotransferase (ALT/SGPT) 17 12-78 U/L Alkaline Phosphatase 70 50-136 U/L Total Protein 7.0 6.0-8.3 g/dL Albumin 2.2 L 3.5-5.0 g/dL Triglycerides Level 81 30-200 mg/dL Cholesterol Level 118 <200 mg/dL LDL Cholesterol 69 0-99 mg/dL HDL Cholesterol 37 35-85 mg/dL Vancomycin Level Trough 15.0 10.0-20.0 UG/ML ASSESSMENT: 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 Right foot diabetic ulcer in the 3rd and 4th interdigital space with gangrene and polymicrobial infection. Right foot Cellulitis. Ruling out peripheral artery disease, s/p peripheral angiogram with findings of 90% stenosis at the origin of the right posterior tibial with successful intervention reducing it to 0 %. Diabetes mellitus. Anemia PLAN: Continue on Vancomycin per pharmacy protocol. Continue Cefepime. Continue Metronidazole IV. Continue pain management. Continue wound care as recommended by cocoa butter filter operator. Continue GI prophylaxis. This case was reviewed and discussed with my supervising physician and the above assessment and plan was formulated and agreed upon. ATTESTATION BY PHYSICIAN I have seen and examined the patient. I reviewed the documentation, medical decision making, and treatment plan as noted by the mid-level provider above. I agree with the findings and plan of care. MENDY KHAN MD, MIRTA L [facility] Oct 18, 2024 21:48
[2024-10-19] VITALS (8 sets, daily range): BP systolic 120–147; BP diastolic 68–80; PULSE 80–86; RESP 16–18; TEMP 98–98.4; O2SAT 97
[2024-10-19 04:51] LABS: NUCLEATED RED BLOOD CELLS 0.0 % (0.0-0.19); PLATELET COUNT (AUTO) 380.0 K/uL (130-400); RED BLOOD CELL COUNT(AUTO) 3.14 MIL/uL (4.00-5.50); RED CELL DISTRIBUTION WIDTH 13.2 % (11.0-15.5); WHITE BLOOD COUNT (AUTO) 8.6 K/uL (4.8-10.8)
[2024-10-19 05:08] LABS: ASPARTATE AMINOTRANSFERASE 25.0 U/L (10-37); CREATININE 0.7 mg/dL (0.5-1.0); GLOMERULAR FILTR. RATE CALC 101.0 mL/min (>90); GLUCOSE,RANDOM 111.0 mg/dL (70-105); SODIUM SERUM 139.0 mmol/L (136-145); TOTAL PROTEIN, SERUM 6.9 g/dL (6.0-8.3); UREA NITROGEN, BLOOD 12.0 mg/dL (7-18)
--- NOTE | 2024-10-19 10:35 | PN ---
[facility] PROGRESS NOTE Date of Service: Oct 19, 2024 Time of Service: 10:33 SUBJECTIVE: 54-year-old female with underlying history of type 2 diabetes mellitus (diagnosed with diabetes for about 21 years) who presented to the ER for further evaluation of progressive redness, nonhealing wound involving the interdigital space of the 3rd and 4th digit of the right foot. Symptoms have been ongoing for the past 4-5 days and patient has been using local therapy with iodine as well as been taking penicillin for further treatment as outpatient. She has been cleaning the wound with sterile water. Symptoms have been worsening and patient has developed progressive redness of the right foot as well as increased drainage between the interdigital space with purulence noted. She denied previous history of cardiac disease of peripheral arterial disease. She has been taking ibuprofen intermittently with Tylenol for pain control at home. Reported having subjective chills. On presentation to the hospital, patient was noted to be afebrile with T-max of 98.1 F, heart rate of 91, blood pressure of 123/67. Labs on presentation showed WBC count of 9000, hemoglobin of 9.1, platelet count of 030214. BMP remarkable for sodium of 131, potassium 4.1, BUN of 26, creatinine 1.0. Patient had x-rays of the right foot which showed no acute fractures or soft tissue gas. Patient admitted for further treatment management of complicated cellulitis with infected diabetic foot wound/ulcer involving the interdigital space of the 3rd and 4th toe with progressive cellulitis of the right foot. Patient received broad-spectrum antibiotics, IV hydration. Podiatry and Infectious Disease consulted. Patient will undergo workup for peripheral arterial disease. 10/14 patient remains hemodynamically stable, BP 130/67, afebrile, saturating normal on room air, getting IV antibiotics at the time of my visit, Doppler of the lower extremities no evidence of DVT to the right lower extremity, MRI of the foot pending. Arterial Doppler no hemodynamically significant stenosis or occlusion in either lower extremity, monophasic flow in the right anterior tibial and dorsalis pedis arteries consistent with mild discharge atherosclerotic disease and hyperemia. We will continue the patient on vancomycin and Flagyl IV, patient also on cefepime, podiatry and infectious disease consulted, we will continue to follow input and recommendations. 10/15 patient remains admitted to the medical floor, getting IV antibiotics at the time of my visit, comfortably in bed, no acute events overnight per discussion with the RN. Results of MRI of the right foot positive for osteomyelitis, discussed with the patient. Arterial Doppler findings reviewed and discussed with the patient, findings of monophasic flow in the right anterior tibial and dorsalis pedis arteries consistent with a mild atherosclerotic disease. We will continue the patient on broad-spectrum IV antibiotics, infectious disease consultation requested, continue to follow input and recommendation, follow up Podiatry input recommendation, local wound care. Patient is scheduled for angiogram tomorrow. 10/16 patient remains admitted to the medical floor, BP 151/77, afebrile, saturating normal on room air. Hemoglobin of 8.4, hematocrit 26.1. Sodium 140, potassium 3.3, BUN of nine, creatinine 0.7, magnesium level 1.5. Iron level of 29. Patient evaluated by biomedical engineer yesterday, CTA aorta runoff with IV contrast no hemodynamically significant abnormality, mild to moderate circumferential calcific atheromatous plaques in the bilateral superficial femoral, popliteal, anterior tibial, posterior tibial and peroneal arteries without significant luminal stenosis, normal three-vessel flow to the foot, incidental mildly prominent common bile duct, cystitis. Grossly unremarkable ultrasound arterial Doppler of the bilateral lower limb stated 10/13/2024. Results of culture from right foot positive for Bindu albicans, Streptococcus agalactiae group B. Start losartan 25 mg p.o. daily, hydralazine 5 mg IV every 6 hours as needed. Replace electrolytes with magnesium sulfate 2 g IV x1, potassium chloride 40 mEq p.o. x1. Follow stool occult blood, if positive we will request GI consultation. We will hold aspirin for now. Continue to follow podiatry input and recommendation, continue local wound care with the cadexomer iodine one application daily, continue broad-spectrum IV antibiotics with the vanco and Flagyl IV, continue to follow ID input and recommendation. Follow Cardiology input and recommendation. Patient is scheduled for angiogram tomorrow. During my visit patient comfortably in bed, alert oriented x3, getting IV fluids and IV antibiotics. Denies chest pain, shortness shortness for breath, no nausea, no vomiting, no abdominal pain, no pain to the right foot area. 10/17 patient remains admitted to the medical floor, hemodynamically stable, afebrile, saturating normal on room air, hemoglobin 8.8, hematocrit 27.5, stool occult blood positive. Continue losartan 25 mg p.o. daily, hydralazine 5 mg IV every 6 hours as needed. Stool occult blood positive, we will request GI consultation. Continue to hold aspirin, start the patient on Protonix 40 mg IV b.i.d.. Continue to follow podiatry input and recommendation, continue local wound care with the cadexomer iodine one application daily, continue broad-spectrum IV antibiotics with the vanco and Flagyl IV, continue to follow ID input and recommendation. Follow Cardiology input and recommendation. Patient is scheduled for angiogram today. During my visit comfortably in bed, alert oriented x3, no acute events overnight per discussion with the RN, eating lunch, tolerating well, no nausea, no vomiting, no abdominal pain. 10/18 patient remains admitted to the medical floor, BP 154/85, afebrile, saturating normal on room air, hemoglobin 8.9, hematocrit 27.3. Magnesium 1.7. Patient underwent abdominal aortogram with pelvic runoff, right lower extremity digital subtraction arteriogram, right posterior tibial drug coated balloon angioplasty 10/17/2024 with the following results: Results: There is no disease in the distal aorta, pelvic vessels on either side, right superficial femoral, or right anterior tibial or peroneal. There is 30% plaque in the tibioperoneal trunk and 90% stenosis at the origin of the right posterior tibial and this was reduced to 0% residual. On the initial angiogram hypervascularity is noted in the toes of the right foot, particularly in the lateral portion of the foot, but there was no disease in the anterior tibial. 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 daily, Plavix 75 mg p.o. daily, continue to follow Cardiology input recommendation, continue local wound care, continue to follow podiatry and infectious disease input and recommendations. GI consultation requested secondary to positive stool occult blood, okay to start and continue dual antiplatelet therapy, can defer EGD/colonoscopy as an outpatient, as there is no overt GI bleeding and hemoglobin stable, if the patient shows signs of upper GI bleed reconsult as needed. During my visit the patient is comfortably in bed, alert oriented x3, getting IV antibiotics, case discussed with the RN, no acute events overnight, findings of angiogram discussed in detail with the patient, all questions answered, she agreed and understood all the information provided as well as plan of care. 10/19 patient remains admitted to the medical floor, hemodynamically stable, BP 147/70, afebrile, saturating normal on room air. Hemoglobin continues to drop, today at 8.2, hematocrit 26.1, WBC 8.6, platelet count of 380. Sodium 139, potassium 3.8, BUN of 12, creatinine 0.7, total calcium 8.8, magnesium 1.8. Patient to continue on broad-spectrum IV antibiotics, continue aspirin 81 mg p.o. daily, Plavix 75 mg p.o. daily, continue to follow Cardiology input recommendation, continue local wound care, continue to follow podiatry and infectious disease input and recommendations. Possible debridement/amputation on Monday. GI consultation requested secondary secondary to positive stool occult blood, okay to start and continue dual antiplatelet therapy, can defer EGD/colonoscopy as an outpatient, as there is no overt GI bleeding and hemoglobin stable, if the patient shows signs of upper GI bleed reconsult as needed. Hemoglobin continues to decrease, today 8.2, hematocrit 26.1. We will do CBC q.8 hours, transfuse 1 unit of PRBC if hemoglobin less than seven. If hemoglobin continues to drop we will reconsult GI. Patient iron level is low, continue Venofer 200 mg IV daily to complete three days. At the time of my visit the patient comfortably in bed, alert oriented x3, watching TV, no chest pain, no shortness a breath, no nausea, no vomiting. REVIEW OF SYSTEMS CONSTITUTIONAL: Denies fevers, chills, or night sweats. No unintentional weight loss reported. NEUROLOGICAL: Denies headache, amaurosis fugax, motor weakness, sensory deficit, vertigo/spinning sensation, gait abnormalities, or tremors. ENT: No hearing loss, otalgia, otorrhea, rhinitis, rhinorrhea, hoarseness, or sore throat. CARDIOVASCULAR: Denies any exertional angina, dyspnea on exertion, orthopnea, paroxysmal nocturnal dyspnea, palpitations, life-threatening arrhythmias, claudication. PULMONARY: Denies any shortness of breath, cough, phlegm/sputum, hemoptysis, pleuritic chest pain. SLEEP: Denies morning headaches, daytime somnolence or napping. Denies difficulty falling asleep, staying asleep, waking from sleep. Denies knowledge of snoring. GASTROINTESTINAL: Denies any type of dysphagia to either liquids or solids. Denies nausea, vomiting, pyrosis, early satiety, abdominal pain, diarrhea, constipation, or changes in stool consistency or caliber. Denies coffee-ground emesis, hematemesis, hematochezia, or melanotic stools. GENITOURINARY: Denies frequency, urgency, nocturia, hematuria or incontinence (Storage/Irritative symptoms.) Low urinary stream, straining to void, urinary intermittency or hesitancy, splitting of the voiding stream, terminal dribbling. ENDOCRINOLOGIC: Denies polyuria, polydipsia, polyphagia or heat/cold intolerances. HEMATOLOGIC: Denies thrombophilia/previous clots, or coagulopathy/bleeding disorders. ONCOLOGIC: Denies personal history of malignancy. DERMATOLOGIC: Progressive redness, swelling and non healing diabetic foot ulcer involving the right foot, redness involving the 2nd to 4th toes PSYCHIATRIC: Denies any suicidal or homicidal ideation. Denies hallucinations. PHYSICAL EXAM GENERAL APPEARANCE: The patient is awake, alert, and oriented, in no acute cardiopulmonary distress. NEUROLOGICAL: Cranial nerves II-XII grossly intact. neurological examination is non focal for the patient HEENT: Face is symmetric. Pupils are equal and reactive. Extraocular movements are intact. NECK: Supple. No JVD. No thyromegaly. No submental, submandibular, pre- /postauricular, occipital or supraclavicular lymphadenopathy. CHEST: Normal chest expansion. No Telemetry. LUNGS: Absence of any rales, rhonchi or any wheezing. CARDIOVASCULAR: Regular. S1 and S2 normal. No appreciable rubs, murmurs or gallops. ABDOMEN: Soft, nontender, and nondistended. There is no rebound, voluntary guarding, or rigidity. : Deferred. No [place]. EXTREMITIES: right foot is swollen and redness noted extending to the midfoot, deep ulcer with purulence noted between the interdigital space of the 3rd and 4th toes, redness, noted of the 2nd, 3rd and 4th digit, patchy area of necrosis noted of the plantar and dorsal aspect of the metatarsal aspect of the third and fourth digit SKIN: as noted above Vital Signs (last 8hr) Date Time Temp Pulse Resp B/P (MAP) Pulse Ox O2 Delivery O2 Flow Rate FiO2 10/19/24 08:00 98.2 82 18 147/70 96 Room Air 10/19/24 07:30 97 Room Air* 0 21 10/19/24 03:30 98.2 84 17 133/69 97 LABS: Laboratory: Test 10/19/24 05:38 10/19/24 04:17 10/18/24 04:47 10/17/24 17:05 Range/Units Whole Blood Glucose 101 70-110 MG/DL White Blood Count 8.6 4.8-10.8 K/uL Red Blood Count 3.14 L 4.00-5.50 MIL/uL Hemoglobin 8.2 L 12.0-16.0 g/dL Hematocrit 26.1 L 36-48 % Mean Corpuscular Volume 83.1 79-99 fL Mean Corpuscular Hemoglobin 26.1 L 27.0-33.0 pg Mean Corpuscular Hemoglobin Concent 31.4 L 32.0-36.0 g/dL Red Cell Distribution Width 13.2 11.0-15.5 % Platelet Count 380 130-400 K/uL Mean Platelet Volume 8.9 7.5-10.5 fL Nucleated Red Blood Cells 0.0 0.0-0.19 % Sodium Level 139 136-145 mmol/L Potassium Level 3.8 3.5-5.1 mmol/L Chloride Level 106 101-111 mmol/L Carbon Dioxide Level 26 21-32 mmol/L Blood Urea Nitrogen 12 7-18 mg/dL Creatinine 0.7 0.5-1.0 mg/dL Glomerular Filtration Rate Calc 101 >90 mL/min Random Glucose 111 H 70-105 mg/dL Total Calcium 8.8 8.5-10.1 mg/dL Magnesium Level 1.80 1.80-2.40 mg/dL Total Bilirubin 0.2 # 0.2-1.0 mg/dL Aspartate Amino Transf (AST/SGOT) 25 10-37 U/L Alanine Aminotransferase (ALT/SGPT) 17 12-78 U/L Alkaline Phosphatase 67 50-136 U/L Total Protein 6.9 6.0-8.3 g/dL Albumin 2.3 L 3.5-5.0 g/dL Triglycerides Level 81 30-200 mg/dL Cholesterol Level 118 <200 mg/dL LDL Cholesterol 69 0-99 mg/dL HDL Cholesterol 37 35-85 mg/dL Vancomycin Level Trough 15.0 10.0-20.0 UG/ML Current Medications Medications (Trade) Dose Ordered Sig/Elsy Route PRN Reason Start Time Stop Time Status Last Admin Dose Admin Acetaminophen (TYLenol 500MG TAB) 500 mg Q6H PRN PO MILD PAIN (1-3) 10/13/24 18:00 11/12/24 17:59 Aspirin (Aspirin 81mg Chew Tab) 81 mg DAILY PO 10/18/24 09:00 11/17/24 08:59 10/19/24 08:53 81 MG Aspirin (Aspirin 81mg Ec Tab) 81 mg DAILY PO 10/15/24 11:30 10/16/24 11:09 DC 10/16/24 10:44 81 MG Atorvastatin Calcium (LIPItor 40MG) 40 mg HS PO 10/15/24 21:00 11/14/24 20:59 10/18/24 21:22 40 MG Cadexomer Iodine (Iodosorb Gel 40gm) 1 APPL DAILY TP 10/15/24 09:00 10/15/24 15:22 DC Cadexomer Iodine (Iodosorb Gel 40gm) 1 APPL DAILY TP 10/16/24 09:00 11/15/24 08:59 10/19/24 08:53 1 APPL Cadexomer Iodine (Iodosorb Gel 40gm) 1 APPL ONCE TP 10/14/24 17:30 10/14/24 23:32 DC Cefepime HCl (MAXipime 2 gm vial) 2 gm Q12H IVPB 10/13/24 18:00 10/23/24 17:59 10/19/24 04:51 2 GM Clopidogrel Bisulfate (plaVIX 75MG) 75 mg DAILY PO 10/18/24 09:00 11/17/24 08:59 10/19/24 08:52 75 MG Dextrose (D50w) 50 ml AD PRN IV HYPOGLYCEMIA PROTOCOL 10/14/24 12:30 11/13/24 12:29 Famotidine (Pepcid 20mg Vial) 20 mg DAILY IV 10/14/24 09:00 10/13/24 18:14 DC Fluconazole (DiFLUCan 100 mg TAB) 200 mg DAILY PO 10/19/24 09:00 10/28/24 08:59 10/19/24 08:52 200 MG Glucagon (Glucagon 1mg Kit) 1 mg AD PRN IM HYPOGLYCEMIA PROTOCOL 10/14/24 12:30 11/13/24 12:29 Hydralazine HCl (APRESOLine 20MG INJ) 5 mg Q6H PRN IV ADMINISTER FOR SBP > 160 10/16/24 09:30 11/15/24 09:29 Insulin Glargine (LANtus 100 UNITS/ML 10 ML VIAL) 12 units DAILY SQ 10/14/24 09:00 11/13/24 08:59 10/18/24 11:32 12 UNITS Insulin Human Regular (humuLIN R 100 UNIT/ML 3ML) INSULIN SLIDING SCAL... ACHS SQ 10/13/24 21:00 11/12/24 20:59 10/18/24 21:22 2 UNIT Iron Sucrose (VenoFER) 200 mg DAILY IV 10/18/24 12:00 10/20/24 14:00 10/19/24 08:52 200 MG Losartan Potassium (CozAAR 25MG TAB) 25 mg DAILY PO 10/16/24 09:30 11/15/24 09:29 10/19/24 08:53 25 MG Magnesium Sulfate 50 ml @ 0 mls/hr PROTOCOL IV 10/16/24 09:30 10/16/24 09:24 DC Magnesium Sulfate 50 ml @ 0 mls/hr PROTOCOL IV 10/18/24 09:30 11/17/24 09:29 10/19/24 05:26 25 MLS/HR Magnesium Sulfate 50 ml @ 0 mls/hr PROTOCOL PRN IV MAGNESIUM PROTOCOL 10/16/24 06:30 10/18/24 12:48 DC 10/17/24 11:08 25 MLS/HR Metronidazole/ Sodium Chloride 100 ml @ 100 mls/hr Q8H IVPB 10/15/24 07:30 10/25/24 07:29 10/19/24 07:07 100 MLS/HR Metronidazole/ Sodium Chloride 100 ml @ 100 mls/hr Q8H6 IVPB 10/13/24 22:00 10/15/24 00:10 DC 10/14/24 22:21 100 MLS/HR Morphine Sulfate (morPHINE 2MG SYG) 2 mg Q6H PRN IVP SEVERE PAIN (7-10) 10/13/24 18:00 10/18/24 20:59 DC 10/13/24 18:46 2 MG Ondansetron HCl (zoFRAN 4MG INJ) 4 mg Q6H PRN IVP NAUSEA/VOMITING 10/13/24 18:00 11/12/24 17:59 10/13/24 18:46 4 MG Pantoprazole Sodium (PROTonix 40MG INJ) 40 mg BID IVP 10/17/24 10:30 11/16/24 10:29 10/19/24 08:52 40 MG Pantoprazole Sodium (PROTonix 40MG INJ) 40 mg HS IVP 10/13/24 21:00 11/12/24 20:59 10/18/24 21:22 40 MG Piperacillin Sod/ Tazobactam Sod (Zosyn 3.375gm+NS 50ml) 3.375 gm Q12H IV 10/13/24 17:30 10/13/24 17:56 DC Potassium Chloride 100 ml @ 50 mls/hr AD PRN IV POTASSIUM PROTOCOL 10/16/24 06:30 11/15/24 06:29 10/16/24 18:36 50 MLS/HR Potassium Chloride 100 ml @ 100 mls/hr AD PRN IV POTASSIUM PROTOCOL 10/17/24 10:30 10/17/24 10:11 DC Potassium Chloride (K-Dur/Klor-Con 20meq) 20 meq AD PRN PO POTASSIUM PROTOCOL 10/17/24 10:30 11/16/24 10:29 10/18/24 11:27 20 MEQ Potassium Chloride (KCl 10% Elixir 20meq/15ml) 20 meq AD PRN PO POTASSIUM PROTOCOL 10/17/24 10:30 11/16/24 10:29 Sodium Chloride 1,000 ml @ 100 mls/hr Q10H IV 10/13/24 18:00 10/17/24 14:07 DC 10/17/24 12:16 100 MLS/HR Sodium Chloride 1,000 ml @ 150 mls/hr AD IV 10/17/24 14:00 10/17/24 19:59 DC Vancomycin HCl (Vancomycin 750mg) 750 mg Q12H IVPB 10/14/24 06:00 10/24/24 05:59 10/19/24 05:52 750 MG Vancomycin HCl (Vancomycin Protocol) 1 each AD IV 10/13/24 18:30 10/27/24 18:29 DIAGNOSTICS / RADIOLOGY: [ ] ASSESSMENT: Progressive cellulitis of the right foot involving the midfoot with failure of outpatient treatment, POA Infected diabetic deep foot ulcer involving the interdigital space of the 3rd and 4th digit, POA Progressive cellulitis involving the 2nd, 3rd, 4th toes of the right foot, POA Right foot cultures positive for Bindu albicans and Streptococcus agalactiae group B. 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 daily, Plavix 75 mg p.o. daily, continue to follow Cardiology input recommendation, continue local wound care, continue to follow podiatry and infectious disease input and recommendations. Possible debridement/amputation on Monday. GI consultation requested secondary secondary to positive stool occult blood, okay to start and continue dual antiplatelet therapy, can defer EGD/colonoscopy as an outpatient, as there is no overt GI bleeding and hemoglobin stable, if the patient shows signs of upper GI bleed reconsult as needed. Hemoglobin continues to decrease, today 8.2, hematocrit 26.1. We will do CBC q.8 hours, transfuse 1 unit of PRBC if hemoglobin less than seven. If hemoglobin continues to drop we will reconsult GI. Patient iron level is low, continue Venofer 200 mg IV daily to complete three days. NEURO: Minimize central acting medications as possible. Fall Precautions. Well lighted room through the day and minimize interruptions through the night to prevent acute delirium. PULMONARY: Supplemental 02 as needed BiPAP as necessary, for respiratory distress Titrate Fio2 to keep Spo2 > or = 90% DuoNebs and CPT as needed IS hourly while awake for pulmonary hygiene prn Out of bed to chair as tolerated Maintain aspiration precautions at all times CARDIOVASCULAR: Follow hemodynamics. Vital signs per facility protocol GI & NUTRITION: Continue nutritional support Aspirations precautions Prokinetic agents and laxatives as needed KIDNEYS & ELECTROLYTES: Strict monitoring of intake and output Daily weights Avoid nephrotoxic agents Monitor electrolytes and replace as needed Goal urine output of 30mL/hr or 0.5mL/kg/hr Medications to be dosed according to renal function. Avoid contrast if possible ENDOCRINE: Maintain blood glucose between 100-180 at all times. Insulin sliding scale for blood glucose management Hypoglycemia and hyperglycemia protocol in place INFECTIOUS DISEASE: Trend temperature, WBC and procalcitonin level Follow cultures, deescalate antibiotics as soon as possible. Panculture if new onset fever HEMATOLOGY & COAGULATION: Monitor H&H. Keep Hgb > 7 Transfuse 1 unit of PRBC for Hgb < 7 Transfuse 1 pack of platelets of platelets < 20, 000 Watch for any signs and symptoms of bleeding SKIN: Pressure ulcer prevention per facility protocol Specialty mattress as needed ORTHO/REHAB Continue PT/OT PRN: MEDICATIONS Tylenol 650 mg po every 4 hrs for fever zofran 4 mg IV every 6 hrs for n/v Hydralazine 5 mg IV every 4 hrs systolic pressure > 160 bowel regiment: lactulose 20 gm PO BID PRN constipation Supportive measures: Continue GI and DVT prophylaxis Disposition: Pending improvement in clinical condition All questions answered time spent: > 35 min NANCY COLBERT MD Oct 19, 2024 10:35
[2024-10-19 13:45] LABS: NUCLEATED RED BLOOD CELLS 0.0 % (0.0-0.19); PLATELET COUNT (AUTO) 337.0 K/uL (130-400); RED BLOOD CELL COUNT(AUTO) 3.17 MIL/uL (4.00-5.50); RED CELL DISTRIBUTION WIDTH 13.1 % (11.0-15.5); WHITE BLOOD COUNT (AUTO) 8.0 K/uL (4.8-10.8)
--- NOTE | 2024-10-19 14:01 | PN ---
INFECTIOUS DISEASE PROGRESS NOTE Date of Service: Oct 19, 2024 SUBJECTIVE: This 54 year old female patient is being seen today at bedside.Awake, alert and oriented. Patient continues with antibiotics, no adjustments will be made today. Patient is pending possible surgical intervention for Monday with dispatch clerk. No acute events over night, we continue to follow patient closely. PHYSICAL EXAM EYES: Anicteric. Pupils equal and reactive. HENT: No oral thrush seen, moist Oral mucosa NECK: Supple, no JVD or thyromegaly. LUNGS: Good air entry. No rales, no rhonchi. CARDIOVASCULAR: S1, S2 regular. No murmur heard. ABDOMEN: Soft, non tender, bowel sounds present, no organomegaly CENTRAL NERVOUS SYSTEM: Awake, alert, oriented x 3. SKIN: No rashes, no swelling. Right foot diabetic ulcer in the 3rd and 4th interdigital space LYMPHATICS: No peripheral lymphadenopathy MUSCULOSKELETAL: No joint swelling, erythema or tenderness. EXTREMITIES: Right foot swelling and redness. BACK: No deformity, no pressure ulcer. GENITOURINARY: No dysuria or hematuria. Vital Sign (Last 12 Hours) 10/19/24 10/19/24 10/19/24 03:30 07:30 08:00 Temp 98.2 98.2 Pulse 84 82 Resp 17 18 B/P (MAP) 133/69 147/70 Pulse Ox 97 97 96 O2 Delivery Room Air* Room Air O2 Flow Rate 0 FiO2 21 Intake & Output (last 24hrs) 10/18/24 10/18/24 10/19/24 15:00 23:00 07:00 Intake Total 640 ml 320 ml 610.0 ml Output Total 800 ml Balance 640 ml -480 ml 610.0 ml LABS: Laboratory: Test 10/19/24 13:39 10/19/24 11:31 10/19/24 04:17 10/18/24 04:47 Range/Units White Blood Count 8.0 4.8-10.8 K/uL Red Blood Count 3.17 L 4.00-5.50 MIL/uL Hemoglobin 8.4 L 12.0-16.0 g/dL Hematocrit 25.9 L 36-48 % Mean Corpuscular Volume 81.7 79-99 fL Mean Corpuscular Hemoglobin 26.5 L 27.0-33.0 pg Mean Corpuscular Hemoglobin Concent 32.4 32.0-36.0 g/dL Red Cell Distribution Width 13.1 11.0-15.5 % Platelet Count 337 130-400 K/uL Mean Platelet Volume 9.0 7.5-10.5 fL Nucleated Red Blood Cells 0.0 0.0-0.19 % Whole Blood Glucose 193 #H 70-110 MG/DL Sodium Level 139 136-145 mmol/L Potassium Level 3.8 3.5-5.1 mmol/L Chloride Level 106 101-111 mmol/L Carbon Dioxide Level 26 21-32 mmol/L Blood Urea Nitrogen 12 7-18 mg/dL Creatinine 0.7 0.5-1.0 mg/dL Glomerular Filtration Rate Calc 101 >90 mL/min Random Glucose 111 H 70-105 mg/dL Total Calcium 8.8 8.5-10.1 mg/dL Magnesium Level 1.80 1.80-2.40 mg/dL Total Bilirubin 0.2 # 0.2-1.0 mg/dL Aspartate Amino Transf (AST/SGOT) 25 10-37 U/L Alanine Aminotransferase (ALT/SGPT) 17 12-78 U/L Alkaline Phosphatase 67 50-136 U/L Total Protein 6.9 6.0-8.3 g/dL Albumin 2.3 L 3.5-5.0 g/dL Triglycerides Level 81 30-200 mg/dL Cholesterol Level 118 <200 mg/dL LDL Cholesterol 69 0-99 mg/dL HDL Cholesterol 37 35-85 mg/dL Test 10/17/24 17:05 Range/Units Vancomycin Level Trough 15.0 10.0-20.0 UG/ML DIAGNOSTIC/RADIOLOGY PATIENT: KEAGAN DUNN ACCT: [id number] LOC: [facility] U: [id number] AGE/SX: 54/F ROOM: 317 RE10/13/[address]: ASIM MCFADDEN MD : 1970 BED: 1 DIS: STATUS: ADM IN TLOC: SPEC: [id number] RAS: 10/13/24 STATUS: COMP REQ: [id number] RECD: 10/13/[address] [facility] [address]: BEE PARADA MD SOURCE: FOOT ENTR: 10/13/[address] ORDERED: [place]RA[place] CULTURE, AEROBIC CULTURE Procedure Result Joselyn Date-Time ANAEROBIC CULTURE Final 10/17/24-526 MRL COLONY DESCRIPTION: REPORT 1: NO ANAEROBES AT 24-35 HOURS; STUDIES TO CONTINUE REPORT 2: NO ANAEROBES AT 48-59 HOURS; STUDIES TO CONTINUE REPORT 3: NO ANAEROBES AT 72-96 HOURS 1+ YEAST, [facility] NO FURTHER WORK-UP DONE [facility] Test(s) performed by: [facility] [address] [facility] [address] AEROBIC CULTURE Final 10/17/24-716 MRL COLONY DESCRIPTION: REPORT 1: 1+ SKIN SHANTELLE ; STUDIES TO CONTINUE STREPTOCOCCUS VIRIDANS 1+ GRAM POSITIVE COCCI IN CHAINS IDENTIFICATION TO FOLLOW BETA HEMOLYTIC STREPTOCOCCUS GROUP B 1+ YEAST, [facility] ALBICANS REPORT 2: STUDIES TO CONTINUE REPORT 3: NO FURTHER WORK-UP DONE COMMENT: BETA STREPTOCOCCUS REMAIN SUSCEPTIBLE TO PENICILLIN COMMENT: NO FURTHER WORK-UP [facility] STREP AGALACTIAE GROUP B ASSESSMENT: 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 Right foot diabetic ulcer in the 3rd and 4th interdigital space with gangrene and polymicrobial infection. Right foot Cellulitis. Ruling out peripheral artery disease. Diabetes mellitus. Anemia PLAN: Continue on Vancomycin per pharmacy protocol. Continue Cefepime. Continue Metronidazole IV. Continue pain management. Continue wound care as recommended by dispatch clerk. Continue GI prophylaxis. This case was reviewed and discussed with my supervising physician and the above assessment and plan was formulated and agreed upon. ETHAN VELAZQUEZP Oct 19, 2024 14:01
--- NOTE | 2024-10-19 18:26 | NUR ---
WOUND CARE DONE TO RIGHT FOOT
[2024-10-19 21:05] LABS: NUCLEATED RED BLOOD CELLS 0.0 % (0.0-0.19); PLATELET COUNT (AUTO) 333.0 K/uL (130-400); RED BLOOD CELL COUNT(AUTO) 3.28 MIL/uL (4.00-5.50); RED CELL DISTRIBUTION WIDTH 13.2 % (11.0-15.5); WHITE BLOOD COUNT (AUTO) 9.0 K/uL (4.8-10.8)
[2024-10-20] VITALS (7 sets, daily range): BP systolic 132–156; BP diastolic 69–83; PULSE 78–88; RESP 17–20; TEMP 98–98.8; O2SAT 98
[2024-10-20 05:21] LABS: NUCLEATED RED BLOOD CELLS 0.0 % (0.0-0.19); PLATELET COUNT (AUTO) 357.0 K/uL (130-400); RED BLOOD CELL COUNT(AUTO) 3.1 MIL/uL (4.00-5.50); RED CELL DISTRIBUTION WIDTH 13.3 % (11.0-15.5); WHITE BLOOD COUNT (AUTO) 7.1 K/uL (4.8-10.8)
[2024-10-20 05:41] LABS: ASPARTATE AMINOTRANSFERASE 31.0 U/L (10-37); CREATININE 0.9 mg/dL (0.5-1.0); GLOMERULAR FILTR. RATE CALC 75.0 mL/min (>90); GLUCOSE,RANDOM 197.0 mg/dL (70-105); SODIUM SERUM 137.0 mmol/L (136-145); TOTAL PROTEIN, SERUM 6.7 g/dL (6.0-8.3); UREA NITROGEN, BLOOD 10.0 mg/dL (7-18)
[2024-10-20] MEDS: PoTASSium chl 10% ELIXIR 20MEQ 20 MEQ/15 ML UDCUP PO PRN (09:27)
--- NOTE | 2024-10-20 11:41 | PN ---
[facility] PROGRESS NOTE Date of Service: Oct 20, 2024 Time of Service: 11:38 SUBJECTIVE: 54-year-old female with underlying history of type 2 diabetes mellitus (diagnosed with diabetes for about 21 years) who presented to the ER for further evaluation of progressive redness, nonhealing wound involving the interdigital space of the 3rd and 4th digit of the right foot. Symptoms have been ongoing for the past 4-5 days and patient has been using local therapy with iodine as well as been taking penicillin for further treatment as outpatient. She has been cleaning the wound with sterile water. Symptoms have been worsening and patient has developed progressive redness of the right foot as well as increased drainage between the interdigital space with purulence noted. She denied previous history of cardiac disease of peripheral arterial disease. She has been taking ibuprofen intermittently with Tylenol for pain control at home. Reported having subjective chills. On presentation to the hospital, patient was noted to be afebrile with T-max of 98.1 F, heart rate of 91, blood pressure of 123/67. Labs on presentation showed WBC count of 9000, hemoglobin of 9.1, platelet count of [id number]. BMP remarkable for sodium of 131, potassium 4.1, BUN of 26, creatinine 1.0. Patient had x-rays of the right foot which showed no acute fractures or soft tissue gas. Patient admitted for further treatment management of complicated cellulitis with infected diabetic foot wound/ulcer involving the interdigital space of the 3rd and 4th toe with progressive cellulitis of the right foot. Patient received broad-spectrum antibiotics, IV hydration. Podiatry and Infectious Disease consulted. Patient will undergo workup for peripheral arterial disease. 10/14 patient remains hemodynamically stable, BP 130/67, afebrile, saturating normal on room air, getting IV antibiotics at the time of my visit, Doppler of the lower extremities no evidence of DVT to the right lower extremity, MRI of the foot pending. Arterial Doppler no hemodynamically significant stenosis or occlusion in either lower extremity, monophasic flow in the right anterior tibial and dorsalis pedis arteries consistent with mild discharge atherosclerotic disease and hyperemia. We will continue the patient on vancomycin and Flagyl IV, patient also on cefepime, podiatry and infectious disease consulted, we will continue to follow input and recommendations. 10/15 patient remains admitted to the medical floor, getting IV antibiotics at the time of my visit, comfortably in bed, no acute events overnight per discussion with the RN. Results of MRI of the right foot positive for osteomyelitis, discussed with the patient. Arterial Doppler findings reviewed and discussed with the patient, findings of monophasic flow in the right anterior tibial and dorsalis pedis arteries consistent with a mild atherosclerotic disease. We will continue the patient on broad-spectrum IV antibiotics, infectious disease consultation requested, continue to follow input and recommendation, follow up Podiatry input recommendation, local wound care. Patient is scheduled for angiogram tomorrow. 10/16 patient remains admitted to the medical floor, BP 151/77, afebrile, saturating normal on room air. Hemoglobin of 8.4, hematocrit 26.1. Sodium 140, potassium 3.3, BUN of nine, creatinine 0.7, magnesium level 1.5. Iron level of 29. Patient evaluated by dependency case manager yesterday, CTA aorta runoff with IV contrast no hemodynamically significant abnormality, mild to moderate circumferential calcific atheromatous plaques in the bilateral superficial femoral, popliteal, anterior tibial, posterior tibial and peroneal arteries without significant luminal stenosis, normal three-vessel flow to the foot, incidental mildly prominent common bile duct, cystitis. Grossly unremarkable ultrasound arterial Doppler of the bilateral lower limb stated 10/13/2024. Results of culture from right foot positive for Bindu albicans, Streptococcus agalactiae group B. Start losartan 25 mg p.o. daily, hydralazine 5 mg IV every 6 hours as needed. Replace electrolytes with magnesium sulfate 2 g IV x1, potassium chloride 40 mEq p.o. x1. Follow stool occult blood, if positive we will request GI consultation. We will hold aspirin for now. Continue to follow podiatry input and recommendation, continue local wound care with the cadexomer iodine one application daily, continue broad-spectrum IV antibiotics with the vanco and Flagyl IV, continue to follow ID input and recommendation. Follow Cardiology input and recommendation. Patient is scheduled for angiogram tomorrow. During my visit patient comfortably in bed, alert oriented x3, getting IV fluids and IV antibiotics. Denies chest pain, shortness shortness for breath, no nausea, no vomiting, no abdominal pain, no pain to the right foot area. 10/17 patient remains admitted to the medical floor, hemodynamically stable, afebrile, saturating normal on room air, hemoglobin 8.8, hematocrit 27.5, stool occult blood positive. Continue losartan 25 mg p.o. daily, hydralazine 5 mg IV every 6 hours as needed. Stool occult blood positive, we will request GI consultation. Continue to hold aspirin, start the patient on Protonix 40 mg IV b.i.d.. Continue to follow podiatry input and recommendation, continue local wound care with the cadexomer iodine one application daily, continue broad-spectrum IV antibiotics with the vanco and Flagyl IV, continue to follow ID input and recommendation. Follow Cardiology input and recommendation. Patient is scheduled for angiogram today. During my visit comfortably in bed, alert oriented x3, no acute events overnight per discussion with the RN, eating lunch, tolerating well, no nausea, no vomiting, no abdominal pain. 10/18 patient remains admitted to the medical floor, BP 154/85, afebrile, saturating normal on room air, hemoglobin 8.9, hematocrit 27.3. Magnesium 1.7. Patient underwent abdominal aortogram with pelvic runoff, right lower extremity digital subtraction arteriogram, right posterior tibial drug coated balloon angioplasty 10/17/2024 with the following results: Results: There is no disease in the distal aorta, pelvic vessels on either side, right superficial femoral, or right anterior tibial or peroneal. There is 30% plaque in the tibioperoneal trunk and 90% stenosis at the origin of the right posterior tibial and this was reduced to 0% residual. On the initial angiogram hypervascularity is noted in the toes of the right foot, particularly in the lateral portion of the foot, but there was no disease in the anterior tibial. Successful DCB-SALES MERCHANDISER RIGHT POSTERIOR TIBIAL Patient to continue on broad-spectrum IV antibiotics, continue aspirin 81 mg p.o. daily, Plavix 75 mg p.o. daily, continue to follow Cardiology input recommendation, continue local wound care, continue to follow podiatry and infectious disease input and recommendations. GI consultation requested secondary to positive stool occult blood, okay to start and continue dual antiplatelet therapy, can defer EGD/colonoscopy as an outpatient, as there is no overt GI bleeding and hemoglobin stable, if the patient shows signs of upper GI bleed reconsult as needed. During my visit the patient is comfortably in bed, alert oriented x3, getting IV antibiotics, case discussed with the RN, no acute events overnight, findings of angiogram discussed in detail with the patient, all questions answered, she agreed and understood all the information provided as well as plan of care. 10/19 patient remains admitted to the medical floor, hemodynamically stable, BP 147/70, afebrile, saturating normal on room air. Hemoglobin continues to drop, today at 8.2, hematocrit 26.1, WBC 8.6, platelet count of 380. Sodium 139, potassium 3.8, BUN of 12, creatinine 0.7, total calcium 8.8, magnesium 1.8. Patient to continue on broad-spectrum IV antibiotics, continue aspirin 81 mg p.o. daily, Plavix 75 mg p.o. daily, continue to follow Cardiology input recommendation, continue local wound care, continue to follow podiatry and infectious disease input and recommendations. Possible debridement/amputation on Monday. GI consultation requested secondary secondary to positive stool occult blood, okay to start and continue dual antiplatelet therapy, can defer EGD/colonoscopy as an outpatient, as there is no overt GI bleeding and hemoglobin stable, if the patient shows signs of upper GI bleed reconsult as needed. Hemoglobin continues to decrease, today 8.2, hematocrit 26.1. We will do CBC q.8 hours, transfuse 1 unit of PRBC if hemoglobin less than seven. If hemoglobin continues to drop we will reconsult GI. Patient iron level is low, continue Venofer 200 mg IV daily to complete three days. At the time of my visit the patient comfortably in bed, alert oriented x3, watching TV, no chest pain, no shortness a breath, no nausea, no vomiting. 10/20 patient remains admitted to the medical floor, hemodynamically stable, afebrile, saturating normal on room air, hemoglobin keeps dropping, today 8.1, hematocrit 25.1, platelet count of 357. Potassium 3.5, magnesium 1.7. Patient to continue on broad-spectrum IV antibiotics, continue aspirin 81 mg p.o. daily, Plavix 75 mg p.o. daily, continue to follow Cardiology input recommendation, continue local wound care, continue to follow podiatry and infectious disease input and recommendations. Possible debridement/amputation on Monday. GI consultation requested secondary secondary to positive stool occult blood, okay to start and continue dual antiplatelet therapy, can defer EGD/colonoscopy as an outpatient, as there is no overt GI bleeding and hemoglobin stable, if the patient shows signs of upper GI bleed reconsult as needed. Hemoglobin continues to decrease, today 8.1, hematocrit 25.1 follow CBC transfuse as needed. Continue Venofer IV. At the time of my visit the patient is comfortably in bed, she is eating lunch, tolerating well, no nausea, no vomiting, no abdominal pain, family members at bedside, updated. REVIEW OF SYSTEMS CONSTITUTIONAL: Denies fevers, chills, or night sweats. No unintentional weight loss reported. NEUROLOGICAL: Denies headache, amaurosis fugax, motor weakness, sensory deficit, vertigo/spinning sensation, gait abnormalities, or tremors. ENT: No hearing loss, otalgia, otorrhea, rhinitis, rhinorrhea, hoarseness, or sore throat. CARDIOVASCULAR: Denies any exertional angina, dyspnea on exertion, orthopnea, paroxysmal nocturnal dyspnea, palpitations, life-threatening arrhythmias, claudication. PULMONARY: Denies any shortness of breath, cough, phlegm/sputum, hemoptysis, pleuritic chest pain. SLEEP: Denies morning headaches, daytime somnolence or napping. Denies difficulty falling asleep, staying asleep, waking from sleep. Denies knowledge of snoring. GASTROINTESTINAL: Denies any type of dysphagia to either liquids or solids. Denies nausea, vomiting, pyrosis, early satiety, abdominal pain, diarrhea, constipation, or changes in stool consistency or caliber. Denies coffee-ground e mesis, hematemesis, hematochezia, or melanotic stools. GENITOURINARY: Denies frequency, urgency, nocturia, hematuria or incontinence (Storage/Irritative symptoms.) Low urinary stream, straining to void, urinary intermittency or hesitancy, splitting of the voiding stream, terminal dribbling. ENDOCRINOLOGIC: Denies polyuria, polydipsia, polyphagia or heat/cold intolerances. HEMATOLOGIC: Denies thrombophilia/previous clots, or coagulopathy/bleeding disorders. ONCOLOGIC: Denies personal history of malignancy. DERMATOLOGIC: Progressive redness, swelling and non healing diabetic foot ulcer involving the right foot, redness involving the 2nd to 4th toes PSYCHIATRIC: Denies any suicidal or homicidal ideation. Denies hallucinations. PHYSICAL EXAM GENERAL APPEARANCE: The patient is awake, alert, and oriented, in no acute cardiopulmonary distress. NEUROLOGICAL: Cranial nerves II-XII grossly intact. neurological examination is non focal for the patient HEENT: Face is symmetric. Pupils are equal and reactive. Extraocular movements are intact. NECK: Supple. No JVD. No thyromegaly. No submental, submandibular, pre- /postauricular, occipital or supraclavicular lymphadenopathy. CHEST: Normal chest expansion. No Telemetry. LUNGS: Absence of any rales, rhonchi or any wheezing. CARDIOVASCULAR: Regular. S1 and S2 normal. No appreciable rubs, murmurs or gallops. ABDOMEN: Soft, nontender, and nondistended. There is no rebound, voluntary guarding, or rigidity. : Deferred. No [place]. EXTREMITIES: right foot is swollen and redness noted extending to the midfoot, deep ulcer with purulence noted between the interdigital space of the 3rd and 4th toes, redness, noted of the 2nd, 3rd and 4th digit, patchy area of necrosis noted of the plantar and dorsal aspect of the metatarsal aspect of the third and fourth digit SKIN: as noted above Vital Signs (last 8hr) Date Time Temp Pulse Resp B/P (MAP) Pulse Ox O2 Delivery O2 Flow Rate FiO2 10/20/24 07:55 98 Room Air* 0 21 10/20/24 07:35 98.8 83 18 146/76 98 Room Air 10/20/24 04:00 98.1 78 17 132/69 95 Room Air LABS: Laboratory: Test 10/20/24 11:09 10/20/24 04:51 10/19/24 16:52 Range/Units Whole Blood Glucose 277 #H 70-110 MG/DL White Blood Count 7.1 4.8-10.8 K/uL Red Blood Count 3.10 L 4.00-5.50 MIL/uL Hemoglobin 8.1 L 12.0-16.0 g/dL Hematocrit 25.1 L 36-48 % Mean Corpuscular Volume 81.0 79-99 fL Mean Corpuscular Hemoglobin 26.1 L 27.0-33.0 pg Mean Corpuscular Hemoglobin Concent 32.3 32.0-36.0 g/dL Red Cell Distribution Width 13.3 11.0-15.5 % Platelet Count 357 130-400 K/uL Mean Platelet Volume 9.1 7.5-10.5 fL Nucleated Red Blood Cells 0.0 0.0-0.19 % Sodium Level 137 136-145 mmol/L Potassium Level 3.5 3.5-5.1 mmol/L Chloride Level 101 101-111 mmol/L Carbon Dioxide Level 29 21-32 mmol/L Blood Urea Nitrogen 10 7-18 mg/dL Creatinine 0.9 0.5-1.0 mg/dL Glomerular Filtration Rate Calc 75 >90 mL/min Random Glucose 197 H 70-105 mg/dL Total Calcium 8.6 8.5-10.1 mg/dL Magnesium Level 1.70 L 1.80-2.40 mg/dL Total Bilirubin 0.2 0.2-1.0 mg/dL Aspartate Amino Transf (AST/SGOT) 31 10-37 U/L Alanine Aminotransferase (ALT/SGPT) 23 12-78 U/L Alkaline Phosphatase 72 50-136 U/L Total Protein 6.7 6.0-8.3 g/dL Albumin 2.3 L 3.5-5.0 g/dL Vancomycin Level Trough 15.6 10.0-20.0 UG/ML Current Medications Medications (Trade) Dose Ordered Sig/Elsy Route PRN Reason Start Time Stop Time Status Last Admin Dose Admin Acetaminophen (TYLenol 500MG TAB) 500 mg Q6H PRN PO MILD PAIN (1-3) 10/13/24 18:00 11/12/24 17:59 Aspirin (Aspirin 81mg Chew Tab) 81 mg DAILY PO 10/18/24 09:00 11/17/24 08:59 10/20/24 09:28 81 MG Aspirin (Aspirin 81mg Ec Tab) 81 mg DAILY PO 10/15/24 11:30 10/16/24 11:09 DC 10/16/24 10:44 81 MG Atorvastatin Calcium (LIPItor 40MG) 40 mg HS PO 10/15/24 21:00 11/14/24 20:59 10/19/24 21:08 40 MG Cadexomer Iodine (Iodosorb Gel 40gm) 1 APPL DAILY TP 10/15/24 09:00 10/15/24 15:22 DC Cadexomer Iodine (Iodosorb Gel 40gm) 1 APPL DAILY TP 10/16/24 09:00 11/15/24 08:59 10/20/24 09:26 1 APPL Cadexomer Iodine (Iodosorb Gel 40gm) 1 APPL ONCE TP 10/14/24 17:30 10/14/24 23:32 DC Cefepime HCl (MAXipime 2 gm vial) 2 gm Q12H IVPB 10/13/24 18:00 10/23/24 17:59 10/20/24 06:22 2 GM Clopidogrel Bisulfate (plaVIX 75MG) 75 mg DAILY PO 10/18/24 09:00 11/17/24 08:59 10/20/24 09:28 75 MG Dextrose (D50w) 50 ml AD PRN IV HYPOGLYCEMIA PROTOCOL 10/14/24 12:30 11/13/24 12:29 Famotidine (Pepcid 20mg Vial) 20 mg DAILY IV 10/14/24 09:00 10/13/24 18:14 DC Fluconazole (DiFLUCan 100 mg TAB) 200 mg DAILY PO 10/19/24 09:00 10/28/24 08:59 10/20/24 09:27 200 MG Glucagon (Glucagon 1mg Kit) 1 mg AD PRN IM HYPOGLYCEMIA PROTOCOL 10/14/24 12:30 11/13/24 12:29 Hydralazine HCl (APRESOLine 20MG INJ) 5 mg Q6H PRN IV ADMINISTER FOR SBP > 160 10/16/24 09:30 11/15/24 09:29 Insulin Glargine (LANtus 100 UNITS/ML 10 ML VIAL) 12 units DAILY SQ 10/14/24 09:00 11/13/24 08:59 10/19/24 11:35 12 UNITS Insulin Human Regular (humuLIN R 100 UNIT/ML 3ML) INSULIN SLIDING SCAL... ACHS SQ 10/13/24 21:00 11/12/24 20:59 10/19/24 16:12 2 UNIT Iron Sucrose (VenoFER) 200 mg DAILY IV 10/18/24 12:00 10/20/24 14:00 10/19/24 08:52 200 MG Losartan Potassium (CozAAR 25MG TAB) 25 mg DAILY PO 10/16/24 09:30 11/15/24 09:29 10/20/24 09:27 25 MG Magnesium Sulfate 50 ml @ 0 mls/hr PROTOCOL IV 10/16/24 09:30 10/16/24 09:24 DC Magnesium Sulfate 50 ml @ 0 mls/hr PROTOCOL IV 10/18/24 09:30 11/17/24 09:29 10/20/24 09:26 25 MLS/HR Magnesium Sulfate 50 ml @ 0 mls/hr PROTOCOL PRN IV MAGNESIUM PROTOCOL 10/16/24 06:30 10/18/24 12:48 DC 10/17/24 11:08 25 MLS/HR Metronidazole/ Sodium Chloride 100 ml @ 100 mls/hr Q8H IVPB 10/15/24 07:30 10/25/24 07:29 10/20/24 09:27 100 MLS/HR Metronidazole/ Sodium Chloride 100 ml @ 100 mls/hr Q8H6 IVPB 10/13/24 22:00 10/15/24 00:10 DC 10/14/24 22:21 100 MLS/HR Morphine Sulfate (morPHINE 2MG SYG) 2 mg Q6H PRN IVP SEVERE PAIN (7-10) 10/13/24 18:00 10/18/24 20:59 DC 10/13/24 18:46 2 MG Ondansetron HCl (zoFRAN 4MG INJ) 4 mg Q6H PRN IVP NAUSEA/VOMITING 10/13/24 18:00 11/12/24 17:59 10/13/24 18:46 4 MG Pantoprazole Sodium (PROTonix 40MG INJ) 40 mg BID IVP 10/17/24 10:30 11/16/24 10:29 10/20/24 09:28 40 MG Pantoprazole Sodium (PROTonix 40MG INJ) 40 mg HS IVP 10/13/24 21:00 10/19/24 14:22 DC 10/18/24 21:22 40 MG Piperacillin Sod/ Tazobactam Sod (Zosyn 3.375gm+NS 50ml) 3.375 gm Q12H IV 10/13/24 17:30 10/13/24 17:56 DC Potassium Chloride 100 ml @ 50 mls/hr AD PRN IV POTASSIUM PROTOCOL 10/16/24 06:30 11/15/24 06:29 10/16/24 18:36 50 MLS/HR Potassium Chloride 100 ml @ 100 mls/hr AD PRN IV POTASSIUM PROTOCOL 10/17/24 10:30 10/17/24 10:11 DC Potassium Chloride (K-Dur/Klor-Con 20meq) 20 meq AD PRN PO POTASSIUM PROTOCOL 10/17/24 10:30 11/16/24 10:29 10/18/24 11:27 20 MEQ Potassium Chloride (KCl 10% Elixir 20meq/15ml) 20 meq AD PRN PO POTASSIUM PROTOCOL 10/17/24 10:30 11/16/24 10:29 10/20/24 09:27 20 MEQ Sodium Chloride 1,000 ml @ 100 mls/hr Q10H IV 10/13/24 18:00 10/17/24 14:07 DC 10/17/24 12:16 100 MLS/HR Sodium Chloride 1,000 ml @ 150 mls/hr AD IV 10/17/24 14:00 10/17/24 19:59 DC Vancomycin HCl (Vancomycin 750mg) 750 mg Q12H IVPB 10/14/24 06:00 10/24/24 05:59 10/20/24 06:23 750 MG Vancomycin HCl (Vancomycin Protocol) 1 each AD IV 10/13/24 18:30 10/27/24 18:29 DIAGNOSTICS / RADIOLOGY: [ ] ASSESSMENT: Progressive cellulitis of the right foot involving the midfoot with failure of outpatient treatment, POA Infected diabetic deep foot ulcer involving the interdigital space of the 3rd and 4th digit, POA Progressive cellulitis involving the 2nd, 3rd, 4th toes of the right foot, POA Right foot cultures positive for Bindu albicans and Streptococcus agalactiae group B. Peripheral arterial disease, POA Successful DCB-SALES MERCHANDISER RIGHT POSTERIOR TIBIAL 10/17/24 Hypovolemic hyponatremia, POA Anemia, POA Underlying history of insulin-dependent diabetes mellitus, POA Iron deficiency anemia with a stool occult blood positive, POA PLAN: Patient to continue on broad-spectrum IV antibiotics, continue aspirin 81 mg p.o. daily, Plavix 75 mg p.o. daily, continue to follow Cardiology input recommendation, continue local wound care, continue to follow podiatry and infectious disease input and recommendations. Possible debridement/amputation on Monday. GI consultation requested secondary secondary to positive stool occult blood, okay to start and continue dual antiplatelet therapy, can defer EGD/colonoscopy as an outpatient, as there is no overt GI bleeding and hemoglobin stable, if the patient shows signs of upper GI bleed reconsult as needed. Hemoglobin continues to decrease, today 8.1, hematocrit 25.1 follow CBC transfuse as needed. Continue Venofer IV. NEURO: Minimize central acting medications as possible. Fall Precautions. Well lighted room through the day and minimize interruptions through the night to prevent acute delirium. PULMONARY: Supplemental 02 as needed BiPAP as necessary, for respiratory distress Titrate Fio2 to keep Spo2 > or = 90% DuoNebs and CPT as needed IS hourly while awake for pulmonary hygiene prn Out of bed to chair as tolerated Maintain aspiration precautions at all times CARDIOVASCULAR: Follow hemodynamics. Vital signs per facility protocol GI & NUTRITION: Continue nutritional support Aspirations precautions Prokinetic agents and laxatives as needed KIDNEYS & ELECTROLYTES: Strict monitoring of intake and output Daily weights Avoid nephrotoxic agents Monitor electrolytes and replace as needed Goal urine output of 30mL/hr or 0.5mL/kg/hr Medications to be dosed according to renal function. Avoid contrast if possible ENDOCRINE: Maintain blood glucose between 100-180 at all times. Insulin sliding scale for blood glucose management Hypoglycemia and hyperglycemia protocol in place INFECTIOUS DISEASE: Trend temperature, WBC and procalcitonin level Follow cultures, deescalate antibiotics as soon as possible. Panculture if new onset fever HEMATOLOGY & COAGULATION: Monitor H&H. Keep Hgb > 7 Transfuse 1 unit of PRBC for Hgb < 7 Transfuse 1 pack of platelets of platelets < 20, 000 Watch for any signs and symptoms of bleeding SKIN: Pressure ulcer prevention per facility protocol Specialty mattress as needed ORTHO/REHAB Continue PT/OT PRN: MEDICATIONS Tylenol 650 mg po every 4 hrs for fever zofran 4 mg IV every 6 hrs for n/v Hydralazine 5 mg IV every 4 hrs systolic pressure > 160 bowel regiment: lactulose 20 gm PO BID PRN constipation Supportive measures: Continue GI and DVT prophylaxis Disposition: Pending improvement in clinical condition All questions answered time spent: > 35 min NANCY COLBERT MD Oct 20, 2024 11:41
[2024-10-20] MEDS: PoTASSium chloRIDE 20MEQ ER 20 MEQ ERTAB PO ONE (12:04)
--- NOTE | 2024-10-20 18:26 | NUR ---
INFORMED CONSENT FOR AMPUTATION OF RIGHT 3RD TOE SIGNED BY PATIENT. INSTRUCTED TO BE NPO POST MIDNIGHT
[2024-10-21] VITALS (30 sets, daily range): BP systolic 89–153; BP diastolic 52–76; PULSE 70–86; RESP 13–19; TEMP 97.2–98.7; O2SAT 100
[2024-10-21 05:41] LABS: NUCLEATED RED BLOOD CELLS 0.0 % (0.0-0.19); PLATELET COUNT (AUTO) 379.0 K/uL (130-400); RED BLOOD CELL COUNT(AUTO) 3.09 MIL/uL (4.00-5.50); RED CELL DISTRIBUTION WIDTH 13.4 % (11.0-15.5); WHITE BLOOD COUNT (AUTO) 7.5 K/uL (4.8-10.8)
[2024-10-21 06:00] LABS: ASPARTATE AMINOTRANSFERASE 33.0 U/L (10-37); CREATININE 1.0 mg/dL (0.5-1.0); GLOMERULAR FILTR. RATE CALC 66.0 mL/min (>90); GLUCOSE,RANDOM 232.0 mg/dL (70-105); SODIUM SERUM 137.0 mmol/L (136-145); TOTAL PROTEIN, SERUM 6.6 g/dL (6.0-8.3); UREA NITROGEN, BLOOD 14.0 mg/dL (7-18); VANCOMYCIN TROUGH 16.8 UG/ML (10.0-20.0)
[2024-10-21] MEDS ORDERED: MIDAZOLAM HCL 1 MG/ML 2ML VIAL ONE (07:05)
[2024-10-21] MEDS: LIDOCAINE HCL 1% 20 ML VIAL ONE (07:11)
--- NOTE | 2024-10-21 07:54 | OP ---
Operative Note: DATE OF PROCEDURE: 10/21/24 SURGEON: CLEOPATRA MCCORMACK DPM INSOLE BEVELER: Or tech ANESTHESIA: Local I V sedation 1% lidocaine .25% marcaine plain total of 20 cc ANESTHESIOLOGIST/COUNT TEAM MEMBER: Dr. 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 At this time decision was made for amputation of 4th toe secondary to osteomyelitis of the 4th toe and debridement of ulcer to the 3rd toe of the right foot. No guarantees were offered at this time patient may need more surgeries in the future if this failed to heal. She has history of diabetes. PROCEDURE: Amputation of 4th toe MPJ level right foot and debridement of ulceration 3rd toe right. ESTIMATED BLOOD LOSS: Less than 5 cc INDICATIONS: Osteomyelitis DESCRIPTION OF PROCEDURE: Patient was brought into the operating room table placed in the supine position of IV induction local anesthesia was achieved via local infiltration 1% xylocaine 0.25% Marcaine plain total of 20 cc via on right foot block metatarsal block. At this time the foot attention was towards the 4th toe on the right foot where two semielliptical incision were performed about the metatarsophalangeal joint. At this moment the joint was disarticulated via the soft tissue dissection and the toe was removed from the surgical site attention was directed towards the dorsal aspect of the toe 3rd and metatarsophalangeal joint excisional debridement of subcutaneous tissue was performed removing necrotic slough tissue from the area. The area was flushed utilizing copious amounts saline solution preop this cultures and sensitivity were taken the wound was left open for secondary intention closure in the future. At this moment dressing was applied lysing Xeroform 4x4s and Kerlix patient tolerated procedure well was sent to recovery room with vital signs stable and continued IV antibiotics local wound care and outpatient wound care. CLEOPATRA MCCORMACK DPM Oct 21, 2024 07:54
--- NOTE | 2024-10-21 08:51 | NUR ---
pt arrived to unit, drowsy, yet arousable, dressing with some blood noted, per leobardo dressing was reinforced d/t bleeding. will continue monitoring right foot. family at bedside. vital signs stable on 2L nc.
--- NOTE | 2024-10-21 11:56 | NUR ---
right foot sx site right foot sx site oozing, dr vieira aware, ordered to apply surgicel, and reinforce dressing with 4x4 and kerlix. will followup.
--- NOTE | 2024-10-21 12:30 | NUR ---
dr vieira aware of wound oozing aware of wound continuing to ooze, stated he is in [place] and will stop by later to see pt. pt awake and alert x 4 on 2L nc, vital signs stable. will continue to monitor.
--- NOTE | 2024-10-21 13:10 | PN ---
[facility] PROGRESS NOTE Date of Service: Oct 21, 2024 Time of Service: 13:08 SUBJECTIVE: 54-year-old female with underlying history of type 2 diabetes mellitus (diagnosed with diabetes for about 21 years) who presented to the ER for further evaluation of progressive redness, nonhealing wound involving the interdigital space of the 3rd and 4th digit of the right foot. Symptoms have been ongoing for the past 4-5 days and patient has been using local therapy with iodine as well as been taking penicillin for further treatment as outpatient. She has been cleaning the wound with sterile water. Symptoms have been worsening and patient has developed progressive redness of the right foot as well as increased drainage between the interdigital space with purulence noted. She denied previous history of cardiac disease of peripheral arterial disease. She has been taking ibuprofen intermittently with Tylenol for pain control at home. Reported having subjective chills. On presentation to the hospital, patient was noted to be afebrile with T-max of 98.1 F, heart rate of 91, blood pressure of 123/67. Labs on presentation showed WBC count of 9000, hemoglobin of 9.1, platelet count of [id number]. BMP remarkable for sodium of 131, potassium 4.1, BUN of 26, creatinine 1.0. Patient had x-rays of the right foot which showed no acute fractures or soft tissue gas. Patient admitted for further treatment management of complicated cellulitis with infected diabetic foot wound/ulcer involving the interdigital space of the 3rd and 4th toe with progressive cellulitis of the right foot. Patient received broad-spectrum antibiotics, IV hydration. Podiatry and Infectious Disease consulted. Patient will undergo workup for peripheral arterial disease. 10/14 patient remains hemodynamically stable, BP 130/67, afebrile, saturating normal on room air, getting IV antibiotics at the time of my visit, Doppler of the lower extremities no evidence of DVT to the right lower extremity, MRI of the foot pending. Arterial Doppler no hemodynamically significant stenosis or occlusion in either lower extremity, monophasic flow in the right anterior tibial and dorsalis pedis arteries consistent with mild discharge atherosclerotic disease and hyperemia. We will continue the patient on vancomycin and Flagyl IV, patient also on cefepime, podiatry and infectious disease consulted, we will continue to follow input and recommendations. 10/15 patient remains admitted to the medical floor, getting IV antibiotics at the time of my visit, comfortably in bed, no acute events overnight per discussion with the RN. Results of MRI of the right foot positive for osteomyelitis, discussed with the patient. Arterial Doppler findings reviewed and discussed with the patient, findings of monophasic flow in the right anterior tibial and dorsalis pedis arteries consistent with a mild atherosclerotic disease. We will continue the patient on broad-spectrum IV antibiotics, infectious disease consultation requested, continue to follow input and recommendation, follow up Podiatry input recommendation, local wound care. Patient is scheduled for angiogram tomorrow. 10/16 patient remains admitted to the medical floor, BP 151/77, afebrile, saturating normal on room air. Hemoglobin of 8.4, hematocrit 26.1. Sodium 140, potassium 3.3, BUN of nine, creatinine 0.7, magnesium level 1.5. Iron level of 29. Patient evaluated by tie carrier yesterday, CTA aorta runoff with IV contrast no hemodynamically significant abnormality, mild to moderate circumferential calcific atheromatous plaques in the bilateral superficial femoral, popliteal, anterior tibial, posterior tibial and peroneal arteries without significant luminal stenosis, normal three-vessel flow to the foot, incidental mildly prominent common bile duct, cystitis. Grossly unremarkable ultrasound arterial Doppler of the bilateral lower limb stated 10/13/2024. Results of culture from right foot positive for Bindu albicans, Streptococcus agalactiae group B. Start losartan 25 mg p.o. daily, hydralazine 5 mg IV every 6 hours as needed. Replace electrolytes with magnesium sulfate 2 g IV x1, potassium chloride 40 mEq p.o. x1. Follow stool occult blood, if positive we will request GI consultation. We will hold aspirin for now. Continue to follow podiatry input and recommendation, continue local wound care with the cadexomer iodine one application daily, continue broad-spectrum IV antibiotics with the vanco and Flagyl IV, continue to follow ID input and recommendation. Follow Cardiology input and recommendation. Patient is scheduled for angiogram tomorrow. During my visit patient comfortably in bed, alert oriented x3, getting IV fluids and IV antibiotics. Denies chest pain, shortness shortness for breath, no nausea, no vomiting, no abdominal pain, no pain to the right foot area. 10/17 patient remains admitted to the medical floor, hemodynamically stable, afebrile, saturating normal on room air, hemoglobin 8.8, hematocrit 27.5, stool occult blood positive. Continue losartan 25 mg p.o. daily, hydralazine 5 mg IV every 6 hours as needed. Stool occult blood positive, we will request GI consultation. Continue to hold aspirin, start the patient on Protonix 40 mg IV b.i.d.. Continue to follow podiatry input and recommendation, continue local wound care with the cadexomer iodine one application daily, continue broad-spectrum IV antibiotics with the vanco and Flagyl IV, continue to follow ID input and recommendation. Follow Cardiology input and recommendation. Patient is scheduled for angiogram today. During my visit comfortably in bed, alert oriented x3, no acute events overnight per discussion with the RN, eating lunch, tolerating well, no nausea, no vomiting, no abdominal pain. 10/18 patient remains admitted to the medical floor, BP 154/85, afebrile, saturating normal on room air, hemoglobin 8.9, hematocrit 27.3. Magnesium 1.7. Patient underwent abdominal aortogram with pelvic runoff, right lower extremity digital subtraction arteriogram, right posterior tibial drug coated balloon angioplasty 10/17/2024 with the following results: Results: There is no disease in the distal aorta, pelvic vessels on either side, right superficial femoral, or right anterior tibial or peroneal. There is 30% plaque in the tibioperoneal trunk and 90% stenosis at the origin of the right posterior tibial and this was reduced to 0% residual. On the initial angiogram hypervascularity is noted in the toes of the right foot, particularly in the lateral portion of the foot, but there was no disease in the anterior tibial. Successful DCB-SCOOP OPERATOR RIGHT POSTERIOR TIBIAL Patient to continue on broad-spectrum IV antibiotics, continue aspirin 81 mg p.o. daily, Plavix 75 mg p.o. daily, continue to follow Cardiology input recommendation, continue local wound care, continue to follow podiatry and infectious disease input and recommendations. GI consultation requested secondary to positive stool occult blood, okay to start and continue dual antiplatelet therapy, can defer EGD/colonoscopy as an outpatient, as there is no overt GI bleeding and hemoglobin stable, if the patient shows signs of upper GI bleed reconsult as needed. During my visit the patient is comfortably in bed, alert oriented x3, getting IV antibiotics, case discussed with the RN, no acute events overnight, findings of angiogram discussed in detail with the patient, all questions answered, she agreed and understood all the information provided as well as plan of care. 10/19 patient remains admitted to the medical floor, hemodynamically stable, BP 147/70, afebrile, saturating normal on room air. Hemoglobin continues to drop, today at 8.2, hematocrit 26.1, WBC 8.6, platelet count of 380. Sodium 139, potassium 3.8, BUN of 12, creatinine 0.7, total calcium 8.8, magnesium 1.8. Patient to continue on broad-spectrum IV antibiotics, continue aspirin 81 mg p.o. daily, Plavix 75 mg p.o. daily, continue to follow Cardiology input recommendation, continue local wound care, continue to follow podiatry and infectious disease input and recommendations. Possible debridement/amputation on Monday. GI consultation requested secondary secondary to positive stool occult blood, okay to start and continue dual antiplatelet therapy, can defer EGD/colonoscopy as an outpatient, as there is no overt GI bleeding and hemoglobin stable, if the patient shows signs of upper GI bleed reconsult as needed. Hemoglobin continues to decrease, today 8.2, hematocrit 26.1. We will do CBC q.8 hours, transfuse 1 unit of PRBC if hemoglobin less than seven. If hemoglobin continues to drop we will reconsult GI. Patient iron level is low, continue Venofer 200 mg IV daily to complete three days. At the time of my visit the patient comfortably in bed, alert oriented x3, watching TV, no chest pain, no shortness a breath, no nausea, no vomiting. 10/20 patient remains admitted to the medical floor, hemodynamically stable, afebrile, saturating normal on room air, hemoglobin keeps dropping, today 8.1, hematocrit 25.1, platelet count of 357. Potassium 3.5, magnesium 1.7. Patient to continue on broad-spectrum IV antibiotics, continue aspirin 81 mg p.o. daily, Plavix 75 mg p.o. daily, continue to follow Cardiology input recommendation, continue local wound care, continue to follow podiatry and infectious disease input and recommendations. Possible debridement/amputation on Monday. GI consultation requested secondary secondary to positive stool occult blood, okay to start and continue dual antiplatelet therapy, can defer EGD/colonoscopy as an outpatient, as there is no overt GI bleeding and hemoglobin stable, if the patient shows signs of upper GI bleed reconsult as needed. Hemoglobin continues to decrease, today 8.1, hematocrit 25.1 follow CBC transfuse as needed. Continue Venofer IV. At the time of my visit the patient is comfortably in bed, she is eating lunch, tolerating well, no nausea, no vomiting, no abdominal pain, family members at bedside, updated. 10/21 patient remains admitted to medical floor, hemodynamically stable, afebrile, saturating normal on room air. Hemoglobin stable 8.2, hematocrit 25.2. Sodium 137, potassium 3.6, BUN 40, creatinine 1.0, magnesium 1.8. Patient to continue on broad-spectrum IV antibiotics, continue aspirin 81 mg p.o. daily, Plavix 75 mg p.o. daily, continue to follow Cardiology input recommendation, continue local wound care, continue to follow podiatry and infectious disease input and recommendations. Status post amputation today. Hemoglobin dropped to 6.8. We will transfuse 1 unit of PRBC. Discussed with the GI, plan for EGD tomorrow. At the time of my visit the patient is comfortably in bed, alert oriented x3, not in distress, received a phone call by the nurse because patient dropped her systolic blood pressure to 89, she has been oozing blood from amputation site. Podiatry contacted, Surgicel to be applied. I have decided to give a bolus of NS 500 total. Patient re-evaluated, and systolic blood pressure 120/70. Asymptomatic. Continue to monitor. REVIEW OF SYSTEMS CONSTITUTIONAL: Denies fevers, chills, or night sweats. No unintentional weight loss reported. NEUROLOGICAL: Denies headache, amaurosis fugax, motor weakness, sensory deficit, vertigo/spinning sensation, gait abnormalities, or tremors. ENT: No hearing loss, otalgia, otorrhea, rhinitis, rhinorrhea, hoarseness, or sore throat. CARDIOVASCULAR: Denies any exertional angina, dyspnea on exertion, orthopnea, paroxysmal nocturnal dyspnea, palpitations, life-threatening arrhythmias, claudication. PULMONARY: Denies any shortness of breath, cough, phlegm/sputum, hemoptysis, pleuritic chest pain. SLEEP: Denies morning headaches, daytime somnolence or napping. Denies difficulty falling asleep, staying asleep, waking from sleep. Denies knowledge of snoring. GASTROINTESTINAL: Denies any type of dysphagia to either liquids or solids. Denies nausea, vomiting, pyrosis, early satiety, abdominal pain, diarrhea, constipation, or changes in stool consistency or caliber. Denies coffee-ground emesis, hematemesis, hematochezia, or melanotic stools. GENITOURINARY: Denies frequency, urgency, nocturia, hematuria or incontinence (Storage/Irritative symptoms.) Low urinary stream, straining to void, urinary intermittency or hesitancy, splitting of the voiding stream, terminal dribbling. ENDOCRINOLOGIC: Denies polyuria, polydipsia, polyphagia or heat/cold intolerances. HEMATOLOGIC: Denies thrombophilia/previous clots, or coagulopathy/bleeding disorders. ONCOLOGIC: Denies personal history of malignancy. DERMATOLOGIC: Progressive redness, swelling and non healing diabetic foot ulcer involving the right foot, redness involving the 2nd to 4th toes PSYCHIATRIC: Denies any suicidal or homicidal ideation. Denies hallucinations. PHYSICAL EXAM GENERAL APPEARANCE: The patient is awake, alert, and oriented, in no acute cardiopulmonary distress. NEUROLOGICAL: Cranial nerves II-XII grossly intact. neurological examination is non focal for the patient HEENT: Face is symmetric. Pupils are equal and reactive. Extraocular movements are intact. NECK: Supple. No JVD. No thyromegaly. No submental, submandibular, pre- /postauricular, occipital or supraclavicular lymphadenopathy. CHEST: Normal chest expansion. No Telemetry. LUNGS: Absence of any rales, rhonchi or any wheezing. CARDIOVASCULAR: Regular. S1 and S2 normal. No appreciable rubs, murmurs or gallops. ABDOMEN: Soft, nontender, and nondistended. There is no rebound, voluntary guarding, or rigidity. : Deferred. No [place]. EXTREMITIES: right foot is swollen and redness noted extending to the midfoot, deep ulcer with purulence noted between the interdigital space of the 3rd and 4th toes, redness, noted of the 2nd, 3rd and 4th digit, patchy area of necrosis noted of the plantar and dorsal aspect of the metatarsal aspect of the third and fourth digit SKIN: as noted above Vital Signs (last 8hr) Date Time Temp Pulse Resp B/P (MAP) Pulse Ox O2 Delivery O2 Flow Rate FiO2 10/21/24 10:10 80 16 119/65 99 Nasal Cannula 2.0 10/21/24 09:40 73 16 114/61 98 Nasal Cannula 2.0 10/21/24 09:25 72 16 109/59 98 Nasal Cannula 2.0 10/21/24 09:10 98.8 71 16 112/61 98 Nasal Cannula 2.0 10/21/24 08:55 98.8 75 16 119/65 98 Nasal Cannula 2.0 10/21/24 08:40 97.2 73 15 107/65 98 Room Air 10/21/24 08:35 71 16 104/60 98 Room Air 10/21/24 08:30 70 14 106/58 99 Room Air 10/21/24 08:25 71 19 108/56 98 Room Air 10/21/24 08:20 79 15 107/58 98 Room Air 10/21/24 08:15 74 13 100/54 100 Room Air 10/21/24 08:10 73 14 110/59 98 Room Air 10/21/24 08:05 75 14 105/57 98 Nasal Cannula 2.0 10/21/24 08:00 76 17 115/54 100 Nasal Cannula 2.0 10/21/24 07:55 71 14 112/56 98 Nonrebreathing Mask 10.0 10/21/24 07:50 72 16 101/55 100 Nonrebreathing Mask 10.0 10/21/24 07:45 79 15 99/56 100 Nonrebreathing Mask 10.0 10/21/24 07:40 97.5 75 13 96/54 Nonrebreathing Mask 10.0 10/21/24 06:45 98.4 86 18 135/71 96 Room Air 0.0 21 LABS: Laboratory: Test 10/21/24 11:27 10/21/24 05:02 Range/Units Whole Blood Glucose 191 H 70-110 MG/DL White Blood Count 7.5 4.8-10.8 K/uL Red Blood Count 3.09 L 4.00-5.50 MIL/uL Hemoglobin 8.2 L 12.0-16.0 g/dL Hematocrit 25.2 L 36-48 % Mean Corpuscular Volume 81.6 79-99 fL Mean Corpuscular Hemoglobin 26.5 L 27.0-33.0 pg Mean Corpuscular Hemoglobin Concent 32.5 32.0-36.0 g/dL Red Cell Distribution Width 13.4 11.0-15.5 % Platelet Count 379 130-400 K/uL Mean Platelet Volume 9.3 7.5-10.5 fL Nucleated Red Blood Cells 0.0 0.0-0.19 % Sodium Level 137 136-145 mmol/L Potassium Level 3.6 3.5-5.1 mmol/L Chloride Level 103 101-111 mmol/L Carbon Dioxide Level 27 21-32 mmol/L Blood Urea Nitrogen 14 7-18 mg/dL Creatinine 1.0 0.5-1.0 mg/dL Glomerular Filtration Rate Calc 66 >90 mL/min Random Glucose 232 H 70-105 mg/dL Total Calcium 8.1 L 8.5-10.1 mg/dL Magnesium Level 1.80 1.80-2.40 mg/dL Total Bilirubin 0.1 L 0.2-1.0 mg/dL Aspartate Amino Transf (AST/SGOT) 33 10-37 U/L Alanine Aminotransferase (ALT/SGPT) 24 12-78 U/L Alkaline Phosphatase 97 50-136 U/L Total Protein 6.6 6.0-8.3 g/dL Albumin 2.2 L 3.5-5.0 g/dL Vancomycin Level Trough 16.8 10.0-20.0 UG/ML Current Medications Medications (Trade) Dose Ordered Sig/Elsy Route PRN Reason Start Time Stop Time Status Last Admin Dose Admin Acetaminophen (TYLenol 500MG TAB) 500 mg Q6H PRN PO MILD PAIN (1-3) 10/13/24 18:00 11/12/24 17:59 Aspirin (Aspirin 81mg Chew Tab) 81 mg DAILY PO 10/18/24 09:00 11/17/24 08:59 10/20/24 09:28 81 MG Aspirin (Aspirin 81mg Ec Tab) 81 mg DAILY PO 10/15/24 11:30 10/16/24 11:09 DC 10/16/24 10:44 81 MG Atorvastatin Calcium (LIPItor 40MG) 40 mg HS PO 10/15/24 21:00 11/14/24 20:59 10/20/24 22:49 40 MG Cadexomer Iodine (Iodosorb Gel 40gm) 1 APPL DAILY TP 10/15/24 09:00 10/15/24 15:22 DC Cadexomer Iodine (Iodosorb Gel 40gm) 1 APPL DAILY TP 10/16/24 09:00 11/15/24 08:59 10/20/24 09:26 1 APPL Cadexomer Iodine (Iodosorb Gel 40gm) 1 APPL ONCE TP 10/14/24 17:30 10/14/24 23:32 DC Cefepime HCl (MAXipime 2 gm vial) 2 gm Q12H IVPB 10/13/24 18:00 10/23/24 17:59 10/21/24 06:57 2 GM Clopidogrel Bisulfate (plaVIX 75MG) 75 mg DAILY PO 10/18/24 09:00 11/17/24 08:59 10/20/24 09:28 75 MG Dextrose (D50w) 50 ml AD PRN IV HYPOGLYCEMIA PROTOCOL 10/14/24 12:30 11/13/24 12:29 Famotidine (Pepcid 20mg Vial) 20 mg DAILY IV 10/14/24 09:00 10/13/24 18:14 DC Fluconazole (DiFLUCan 100 mg TAB) 200 mg DAILY PO 10/19/24 09:00 10/28/24 08:59 10/21/24 11:48 200 MG Glucagon (Glucagon 1mg Kit) 1 mg AD PRN IM HYPOGLYCEMIA PROTOCOL 10/14/24 12:30 11/13/24 12:29 Hydralazine HCl (APRESOLine 20MG INJ) 5 mg Q6H PRN IV ADMINISTER FOR SBP > 160 10/16/24 09:30 11/15/24 09:29 Insulin Glargine (LANtus 100 UNITS/ML 10 ML VIAL) 12 units DAILY SQ 10/14/24 09:00 11/13/24 08:59 10/21/24 11:56 12 UNITS Insulin Human Regular (humuLIN R 100 UNIT/ML 3ML) INSULIN SLIDING SCAL... ACHS SQ 10/13/24 21:00 11/12/24 20:59 10/21/24 12:00 2 UNIT Iron Sucrose (VenoFER) 200 mg DAILY IV 10/18/24 12:00 10/20/24 14:00 DC 10/20/24 12:04 200 MG Losartan Potassium (CozAAR 25MG TAB) 25 mg DAILY PO 10/16/24 09:30 11/15/24 09:29 10/20/24 09:27 25 MG Magnesium Sulfate 50 ml @ 0 mls/hr PROTOCOL IV 10/16/24 09:30 10/16/24 09:24 DC Magnesium Sulfate 50 ml @ 0 mls/hr PROTOCOL IV 10/18/24 09:30 10/20/24 12:03 DC 10/20/24 09:26 25 MLS/HR Magnesium Sulfate 50 ml @ 0 mls/hr PROTOCOL IV 10/20/24 12:00 11/19/24 11:59 Magnesium Sulfate 50 ml @ 0 mls/hr PROTOCOL PRN IV MAGNESIUM PROTOCOL 10/16/24 06:30 10/18/24 12:48 DC 10/17/24 11:08 25 MLS/HR Metronidazole/ Sodium Chloride 100 ml @ 100 mls/hr Q8H IVPB 10/15/24 07:30 10/25/24 07:29 10/21/24 11:55 100 MLS/HR Metronidazole/ Sodium Chloride 100 ml @ 100 mls/hr Q8H6 IVPB 10/13/24 22:00 10/15/24 00:10 DC 10/14/24 22:21 100 MLS/HR Morphine Sulfate (morPHINE 2MG SYG) 2 mg Q6H PRN IVP SEVERE PAIN (7-10) 10/13/24 18:00 10/18/24 20:59 DC 10/13/24 18:46 2 MG Ondansetron HCl (zoFRAN 4MG INJ) 4 mg Q6H PRN IVP NAUSEA/VOMITING 10/13/24 18:00 11/12/24 17:59 10/13/24 18:46 4 MG Pantoprazole Sodium (PROTonix 40MG INJ) 40 mg BID IVP 10/17/24 10:30 11/16/24 10:29 10/21/24 11:46 40 MG Pantoprazole Sodium (PROTonix 40MG INJ) 40 mg HS IVP 10/13/24 21:00 10/19/24 14:22 DC 10/18/24 21:22 40 MG Piperacillin Sod/ Tazobactam Sod (Zosyn 3.375gm+NS 50ml) 3.375 gm Q12H IV 10/13/24 17:30 10/13/24 17:56 DC Potassium Chloride 100 ml @ 50 mls/hr AD PRN IV POTASSIUM PROTOCOL 10/16/24 06:30 11/15/24 06:29 10/16/24 18:36 50 MLS/HR Potassium Chloride 100 ml @ 100 mls/hr AD PRN IV POTASSIUM PROTOCOL 10/17/24 10:30 10/17/24 10:11 DC Potassium Chloride (K-Dur/Klor-Con 20meq) 20 meq AD PRN PO POTASSIUM PROTOCOL 10/17/24 10:30 11/16/24 10:29 10/18/24 11:27 20 MEQ Potassium Chloride (KCl 10% Elixir 20meq/15ml) 20 meq AD PRN PO POTASSIUM PROTOCOL 10/17/24 10:30 11/16/24 10:29 10/20/24 17:17 20 MEQ Sodium Chloride 1,000 ml @ 100 mls/hr Q10H IV 10/13/24 18:00 10/17/24 14:07 DC 10/17/24 12:16 100 MLS/HR Sodium Chloride 1,000 ml @ 150 mls/hr AD IV 10/17/24 14:00 10/17/24 19:59 DC Vancomycin HCl (Vancomycin 750mg) 750 mg Q12H IVPB 10/14/24 06:00 10/24/24 05:59 10/20/24 18:29 750 MG Vancomycin HCl (Vancomycin Protocol) 1 each AD IV 10/13/24 18:30 10/27/24 18:29 DIAGNOSTICS / RADIOLOGY: [ ] ASSESSMENT: Osteomyelitis tip of 4th right toe, POA Right 3rd toe ulceration, POA Status post amputation 4th toe right foot and debridement ulceration right 3rd toe Progressive cellulitis of the right foot involving the midfoot with failure of outpatient treatment, POA Infected diabetic deep foot ulcer involving the interdigital space of the 3rd and 4th digit, POA Progressive cellulitis involving the 2nd, 3rd, 4th toes of the right foot, POA Right foot cultures positive for Bindu albicans and Streptococcus agalactiae group B. Peripheral arterial disease, POA Successful DCB-SCOOP OPERATOR RIGHT POSTERIOR TIBIAL 10/17/24 Hypovolemic hyponatremia, POA Anemia, POA Underlying history of insulin-dependent diabetes mellitus, POA Iron deficiency anemia with a stool occult blood positive, POA PLAN: Patient to continue on broad-spectrum IV antibiotics, continue aspirin 81 mg p.o. daily, Plavix 75 mg p.o. daily, continue to follow Cardiology input recommendation, continue local wound care, continue to follow podiatry and infectious disease input and recommendations. Status post amputation today. Hemoglobin dropped to 6.8. We will transfuse 1 unit of PRBC. Discussed with the GI, plan for EGD tomorrow. NEURO: Minimize central acting medications as possible. Fall Precautions. Well lighted room through the day and minimize interruptions through the night to prevent acute delirium. PULMONARY: Supplemental 02 as needed BiPAP as necessary, for respiratory distress Titrate Fio2 to keep Spo2 > or = 90% DuoNebs and CPT as needed IS hourly while awake for pulmonary hygiene prn Out of bed to chair as tolerated Maintain aspiration precautions at all times CARDIOVASCULAR: Follow hemodynamics. Vital signs per facility protocol GI & NUTRITION: Continue nutritional support Aspirations precautions Prokinetic agents and laxatives as needed KIDNEYS & ELECTROLYTES: Strict monitoring of intake and output Daily weights Avoid nephrotoxic agents Monitor electrolytes and replace as needed Goal urine output of 30mL/hr or 0.5mL/kg/hr Medications to be dosed according to renal function. Avoid contrast if possible ENDOCRINE: Maintain blood glucose between 100-180 at all times. Insulin sliding scale for blood glucose management Hypoglycemia and hyperglycemia protocol in place INFECTIOUS DISEASE: Trend temperature, WBC and procalcitonin level Follow cultures, deescalate antibiotics as soon as possible. Panculture if new onset fever HEMATOLOGY & COAGULATION: Monitor H&H. Keep Hgb > 7 Transfuse 1 unit of PRBC for Hgb < 7 Transfuse 1 pack of platelets of platelets < 20, 000 Watch for any signs and symptoms of bleeding SKIN: Pressure ulcer prevention per facility protocol Specialty mattress as needed ORTHO/REHAB Continue PT/OT PRN: MEDICATIONS Tylenol 650 mg po every 4 hrs for fever zofran 4 mg IV every 6 hrs for n/v Hydralazine 5 mg IV every 4 hrs systolic pressure > 160 bowel regiment: lactulose 20 gm PO BID PRN constipation Supportive measures: Continue GI and DVT prophylaxis Disposition: Pending improvement in clinical condition All questions answered time spent: > 35 min NANCY COLBERT MD Oct 21, 2024 13:10
--- NOTE | 2024-10-21 13:40 | NUR ---
dr webb made aware pt vital signs s/p sx to right foot: bp low 85/47 hr 80 rr 18 o2 96% on 2L nc, temp 98.5. dr webb ordered ns 500ml bolus stat and labs cbc/cmp/mg. pt alert and oriented x 4. family at bedside. will followup and continue monitoring.
[2024-10-21 13:53] LABS: NUCLEATED RED BLOOD CELLS 0.0 % (0.0-0.19); PLATELET COUNT (AUTO) 297.0 K/uL (130-400); RED BLOOD CELL COUNT(AUTO) 2.53 MIL/uL (4.00-5.50); RED CELL DISTRIBUTION WIDTH 13.6 % (11.0-15.5); WHITE BLOOD COUNT (AUTO) 6.6 K/uL (4.8-10.8)
[2024-10-21 14:01] LABS: CREATININE 0.7 mg/dL (0.5-1.0); GLOMERULAR FILTR. RATE CALC 101.0 mL/min (>90); GLUCOSE,RANDOM 216.0 mg/dL (70-105); SODIUM SERUM 139.0 mmol/L (136-145); UREA NITROGEN, BLOOD 18.0 mg/dL (7-18)
[2024-10-21 14:06] LABS: ASPARTATE AMINOTRANSFERASE 25.0 U/L (10-37); TOTAL PROTEIN, SERUM 5.8 g/dL (6.0-8.3)
--- NOTE | 2024-10-21 14:10 | NUR ---
[facility] Follow-up: Patient re-assessed by wound healing team. See wound assessment. Assessment and recommendations provided to primary nurse. Education provided. Wound care done, quik clot dressing applied per Dr. Amaya orders. Addendum: 10/22/24 at 1432 by LENNOX ANDRE RN RN/ Amended: Links added.
--- NOTE | 2024-10-21 14:15 | NUR ---
wound care nurse at bedside wound care nurse that works with dr vieira at bedside assessing right foot sx wound and stated she applied a "quick clot" per dr vieira orders. dressing c/d/i to right foot. will continue monitoring.
--- NOTE | 2024-10-21 14:20 | NUR ---
dr webb aware of low h & h, ordered type and screen and one unit of prbc. salvage laborer aware and at bedside, will followup when blood will be ready.
--- NOTE | 2024-10-21 14:35 | NUR ---
gi reconsult gi reconsulted per dr webb hospitalist. dr webb spoke with claude kiran with gi, and aware pt anemia and hemoglobin dropping. per claude, pt going for egd in am.
[2024-10-21] MEDS: 0.9% NACL 500ML IV.SOLN 500 ML IV STA (14:37)
--- NOTE | 2024-10-21 22:06 | PN ---
INFECTIOUS DISEASE PROGRESS NOTE Date of Service: Oct 21, 2024 SUBJECTIVE: This is a 54-year-old female patient who was seen and examined at bedside in room 317. Patient is status post amputation of the right 4th toe today. During rounding today patient was having bleeding from the surgical site, pressure dressing applied and nursing staff reaching out to project facilitator. No fever, temperature is 98.8. Patient is currently on fluconazole, vancomycin, cefepime and metronidazole. No nausea or vomiting. PHYSICAL EXAM EYES: Anicteric. Pupils equal and reactive. HENT: No oral thrush seen, moist Oral mucosa NECK: Supple, no JVD or thyromegaly. LUNGS: Good air entry. No rales, no rhonchi. CARDIOVASCULAR: S1, S2 regular. No murmur heard. ABDOMEN: Soft, non tender, bowel sounds present, no organomegaly CENTRAL NERVOUS SYSTEM: Awake, alert, oriented x 3. SKIN: No rashes, no swelling. Right foot diabetic ulcer in the 3rd and 4th interdigital space LYMPHATICS: No peripheral lymphadenopathy MUSCULOSKELETAL: No joint swelling, erythema or tenderness. EXTREMITIES: Right foot swelling and redness. BACK: No deformity, no pressure ulcer. GENITOURINARY: No dysuria or hematuria. Vital Sign (Last 12 Hours) 10/21/24 10/21/24 10/21/24 10/21/24 10:10 10:40 11:40 12:40 Temp 98.8 98.8 Pulse 80 78 80 85 Resp 16 16 16 16 B/P (MAP) 119/65 102/55 105/56 106/62 Pulse Ox 99 98 98 98 O2 Delivery Nasal Cannula Room Air Room Air Nasal Cannula O2 Flow Rate 2.0 2.0 10/21/24 10/21/24 10/21/24 10/21/24 13:30 13:40 15:00 16:00 Pulse 81 78 80 84 Resp 16 16 17 18 B/P (MAP) 92/52 89/54 114/67 132/75 Pulse Ox 99 99 98 98 O2 Delivery Nasal Cannula Nasal Cannula Nasal Cannula Nasal Cannula O2 Flow Rate 2.0 2.0 2.0 2.0 10/21/24 20:47 Temp 98.4 Pulse 78 Resp 19 B/P (MAP) 153/76 Pulse Ox 100 O2 Delivery Nasal Cannula O2 Flow Rate 2.0 Intake & Output (last 24hrs) 710/20/24 10/21/24 15:00 23:00 07:00 Intake Total 640 ml Balance 640 ml LABS: Laboratory: Test 10/21/24 19:55 10/21/24 13:49 10/21/24 05:02 Range/Units Whole Blood Glucose 161 H 70-110 MG/DL White Blood Count 6.6 4.8-10.8 K/uL Red Blood Count 2.53 L 4.00-5.50 MIL/uL Hemoglobin 6.8 *L 12.0-16.0 g/dL Hematocrit 20.8 *L 36-48 % Mean Corpuscular Volume 82.2 79-99 fL Mean Corpuscular Hemoglobin 26.9 L 27.0-33.0 pg Mean Corpuscular Hemoglobin Concent 32.7 32.0-36.0 g/dL Red Cell Distribution Width 13.6 11.0-15.5 % Platelet Count 297 130-400 K/uL Mean Platelet Volume 8.8 7.5-10.5 fL Nucleated Red Blood Cells 0.0 0.0-0.19 % Sodium Level 139 136-145 mmol/L Potassium Level 3.7 3.5-5.1 mmol/L Chloride Level 107 101-111 mmol/L Carbon Dioxide Level 28 21-32 mmol/L Blood Urea Nitrogen 18 7-18 mg/dL Creatinine 0.7 0.5-1.0 mg/dL Glomerular Filtration Rate Calc 101 >90 mL/min Random Glucose 216 H 70-105 mg/dL Total Calcium 8.0 L 8.5-10.1 mg/dL Magnesium Level 1.70 L 1.80-2.40 mg/dL Total Bilirubin 0.1 L 0.2-1.0 mg/dL Aspartate Amino Transf (AST/SGOT) 25 10-37 U/L Alanine Aminotransferase (ALT/SGPT) 20 12-78 U/L Alkaline Phosphatase 70 # 50-136 U/L Total Protein 5.8 L 6.0-8.3 g/dL Albumin 1.9 L 3.5-5.0 g/dL Vancomycin Level Trough 16.8 10.0-20.0 UG/ML ASSESSMENT: Right 4th toe osteomyelitis, status post amputation today. Right foot diabetic ulcer in the 3rd and 4th interdigital space with gangrene. Polymicrobial infection. Right foot Cellulitis. Peripheral artery disease, s/p peripheral angiogram with findings of 90% stenosis at the origin of the right posterior tibial with successful intervention reducing it to 0 %. Diabetes mellitus. Anemia PLAN: Continue fluconazole. Continue on Vancomycin per pharmacy protocol. Continue Cefepime. Continue Metronidazole IV. Continue pain management. Continue wound care as recommended by project facilitator. Continue GI prophylaxis. Continue antidiabetics. This case was reviewed and discussed with my supervising physician and the above assessment and plan was formulated and agreed upon. ATTESTATION BY PHYSICIAN I have seen and examined the patient. I reviewed the documentation, medical decision making, and treatment plan as noted by the mid-level provider above. I agree with the findings and plan of care. MENDY KHAN MD, [facility] Oct 21, 2024 22:06
--- NOTE | 2024-10-21 23:18 | PN ---
GASTROENTEROLOGY PROGRESS NOTE Date of Visit: Oct 21, 2024 Time of Visit: 23:18 Events / Notes: [ ] Review of Systems: CONSTITUTIONAL: No malaise or change in sensation of wellbeing. ENMT: No rhinorrhea, otorrhea, sinus pain, ear ache. CARDIOVASCULAR: No angina, palpitations, orthopnea or paroxysmal dyspnea. RESPIRATORY: No SOB. GASTROINTESTINAL: No abdominal pain, nausea, vomiting, diarrhea, hematemesis, melena or change in the patient's habitual bowel movements consistency/number. GENITOURINARY: No dysuria, hematuria or change in bladder continence. MUSCULOSKELETAL: No new muscle pain or decrease in muscular strength. No new joint swelling, redness or tenderness. SKIN: No new rash. Physical Exam: GEN: Awake, alert, oriented in person, time and place, and in no acute distress. HEENT: No sinus tenderness. Tympanic membranes were not examined. No rhinorrhea. Oral pharyngeal mucosa is pink, moist and within normal limits. Neck is supple with no cervical lymphadenopathy, thyromegaly or JVD. CHEST: Inspection, palpation and percussion of the chest were unremarkable. Lung auscultation revealed normal breath sounds bilaterally. CARDIAC: PMI is within normal limits. Heart sounds are regular. Normal S1, S2. No gallop or murmur. ABD: Soft, non-tender and not distended. No peritoneal signs on palpation. No organomegaly. Normal bowel sounds. EXT: No cyanosis or clubbing. No edema. SKIN: Intact. No rashes. JOINTS: No evidence of synovitis or acute arthritis. NEURO: Alert and oriented to name, place and person. Cranial nerve examination is unremarkable. No focal motor deficits. Normal speech. Gait is normal. Strength is normal. Vital Signs (last 8hr) Date Time Temp Pulse Resp B/P (MAP) Pulse Ox O2 Delivery O2 Flow Rate FiO2 10/21/24 20:47 98.4 78 19 153/76 100 Nasal Cannula 2.0 10/21/24 16:00 84 18 132/75 98 Nasal Cannula 2.0 Laboratory: [ ] Laboratory: Test 10/21/24 19:55 10/21/24 13:49 10/21/24 05:02 Range/Units Whole Blood Glucose 161 H 70-110 MG/DL White Blood Count 6.6 4.8-10.8 K/uL Red Blood Count 2.53 L 4.00-5.50 MIL/uL Hemoglobin 6.8 *L 12.0-16.0 g/dL Hematocrit 20.8 *L 36-48 % Mean Corpuscular Volume 82.2 79-99 fL Mean Corpuscular Hemoglobin 26.9 L 27.0-33.0 pg Mean Corpuscular Hemoglobin Concent 32.7 32.0-36.0 g/dL Red Cell Distribution Width 13.6 11.0-15.5 % Platelet Count 297 130-400 K/uL Mean Platelet Volume 8.8 7.5-10.5 fL Nucleated Red Blood Cells 0.0 0.0-0.19 % Sodium Level 139 136-145 mmol/L Potassium Level 3.7 3.5-5.1 mmol/L Chloride Level 107 101-111 mmol/L Carbon Dioxide Level 28 21-32 mmol/L Blood Urea Nitrogen 18 7-18 mg/dL Creatinine 0.7 0.5-1.0 mg/dL Glomerular Filtration Rate Calc 101 >90 mL/min Random Glucose 216 H 70-105 mg/dL Total Calcium 8.0 L 8.5-10.1 mg/dL Magnesium Level 1.70 L 1.80-2.40 mg/dL Total Bilirubin 0.1 L 0.2-1.0 mg/dL Aspartate Amino Transf (AST/SGOT) 25 10-37 U/L Alanine Aminotransferase (ALT/SGPT) 20 12-78 U/L Alkaline Phosphatase 70 # 50-136 U/L Total Protein 5.8 L 6.0-8.3 g/dL Albumin 1.9 L 3.5-5.0 g/dL Vancomycin Level Trough 16.8 10.0-20.0 UG/ML Current Medications Medications (Trade) Dose Ordered Sig/Elsy Route PRN Reason Start Time Stop Time Status Last Admin Dose Admin Acetaminophen (TYLenol 500MG TAB) 500 mg Q6H PRN PO MILD PAIN (1-3) 10/13/24 18:00 11/12/24 17:59 10/21/24 18:33 500 MG Aspirin (Aspirin 81mg Chew Tab) 81 mg DAILY PO 10/18/24 09:00 11/17/24 08:59 10/20/24 09:28 81 MG Aspirin (Aspirin 81mg Ec Tab) 81 mg DAILY PO 10/15/24 11:30 10/16/24 11:09 DC 7/16/25 10:44 81 MG Atorvastatin Calcium (LIPItor 40MG) 40 mg HS PO 10/15/24 21:00 11/14/24 20:59 10/21/24 20:59 40 MG Cadexomer Iodine (Iodosorb Gel 40gm) 1 APPL DAILY TP 10/15/24 09:00 10/15/24 15:22 DC Cadexomer Iodine (Iodosorb Gel 40gm) 1 APPL DAILY TP 10/16/24 09:00 11/15/24 08:59 10/20/24 09:26 1 APPL Cadexomer Iodine (Iodosorb Gel 40gm) 1 APPL ONCE TP 10/14/24 17:30 10/14/24 23:32 DC Cefepime HCl (MAXipime 2 gm vial) 2 gm Q12H IVPB 10/13/24 18:00 10/23/24 17:59 10/21/24 18:34 2 GM Clopidogrel Bisulfate (plaVIX 75MG) 75 mg DAILY PO 10/18/24 09:00 11/17/24 08:59 10/20/24 09:28 75 MG Dextrose (D50w) 50 ml AD PRN IV HYPOGLYCEMIA PROTOCOL 10/14/24 12:30 11/13/24 12:29 Famotidine (Pepcid 20mg Vial) 20 mg DAILY IV 10/14/24 09:00 10/13/24 18:14 DC Fluconazole (DiFLUCan 100 mg TAB) 200 mg DAILY PO 10/19/24 09:00 10/28/24 08:59 10/21/24 11:48 200 MG Glucagon (Glucagon 1mg Kit) 1 mg AD PRN IM HYPOGLYCEMIA PROTOCOL 10/14/24 12:30 11/13/24 12:29 Hydralazine HCl (APRESOLine 20MG INJ) 5 mg Q6H PRN IV ADMINISTER FOR SBP > 160 10/16/24 09:30 11/15/24 09:29 Hydromorphone HCl (DiLAUDid 0.5MG INJ) 0.5 mg Q4H PRN IVP SEVERE PAIN (7-10) 10/21/24 19:00 10/26/24 18:59 10/21/24 19:14 0.5 MG Insulin Glargine (LANtus 100 UNITS/ML 10 ML VIAL) 12 units DAILY SQ 10/14/24 09:00 11/13/24 08:59 10/21/24 11:56 12 UNITS Insulin Human Regular (humuLIN R 100 UNIT/ML 3ML) INSULIN SLIDING SCAL... ACHS SQ 10/13/24 21:00 11/12/24 20:59 10/21/24 12:00 2 UNIT Iron Sucrose (VenoFER) 200 mg DAILY IV 10/18/24 12:00 10/20/24 14:00 DC 10/20/24 12:04 200 MG Losartan Potassium (CozAAR 25MG TAB) 25 mg DAILY PO 10/16/24 09:30 11/15/24 09:29 10/20/24 09:27 25 MG Magnesium Sulfate 50 ml @ 0 mls/hr PROTOCOL IV 10/16/24 09:30 10/16/24 09:24 DC Magnesium Sulfate 50 ml @ 0 mls/hr PROTOCOL IV 10/18/24 09:30 10/20/24 12:03 DC 10/20/24 09:26 25 MLS/HR Magnesium Sulfate 50 ml @ 0 mls/hr PROTOCOL IV 10/20/24 12:00 11/19/24 11:59 Magnesium Sulfate 50 ml @ 0 mls/hr PROTOCOL PRN IV MAGNESIUM PROTOCOL 10/16/24 06:30 10/18/24 12:48 DC 10/17/24 11:08 25 MLS/HR Metronidazole/ Sodium Chloride 100 ml @ 100 mls/hr Q8H IVPB 10/15/24 07:30 10/25/24 07:29 10/21/24 18:35 100 MLS/HR Metronidazole/ Sodium Chloride 100 ml @ 100 mls/hr Q8H6 IVPB 10/13/24 22:00 10/15/24 00:10 DC 10/14/24 22:21 100 MLS/HR Morphine Sulfate (morPHINE 2MG SYG) 2 mg Q6H PRN IVP SEVERE PAIN (7-10) 10/13/24 18:00 10/18/24 20:59 DC 10/13/24 18:46 2 MG Ondansetron HCl (zoFRAN 4MG INJ) 4 mg Q6H PRN IVP NAUSEA/VOMITING 10/13/24 18:00 11/12/24 17:59 10/13/24 18:46 4 MG Pantoprazole Sodium (PROTonix 40MG INJ) 40 mg BID IVP 10/17/24 10:30 11/16/24 10:29 10/21/24 20:59 40 MG Pantoprazole Sodium (PROTonix 40MG INJ) 40 mg HS IVP 10/13/24 21:00 10/19/24 14:22 DC 10/18/24 21:22 40 MG Piperacillin Sod/ Tazobactam Sod (Zosyn 3.375gm+NS 50ml) 3.375 gm Q12H IV 10/13/24 17:30 10/13/24 17:56 DC Potassium Chloride 100 ml @ 50 mls/hr AD PRN IV POTASSIUM PROTOCOL 10/16/24 06:30 11/15/24 06:29 10/16/24 18:36 50 MLS/HR Potassium Chloride 100 ml @ 100 mls/hr AD PRN IV POTASSIUM PROTOCOL 10/17/24 10:30 10/17/24 10:11 DC Potassium Chloride (K-Dur/Klor-Con 20meq) 20 meq AD PRN PO POTASSIUM PROTOCOL 10/17/24 10:30 11/16/24 10:29 10/18/24 11:27 20 MEQ Potassium Chloride (KCl 10% Elixir 20meq/15ml) 20 meq AD PRN PO POTASSIUM PROTOCOL 10/17/24 10:30 11/16/24 10:29 10/20/24 17:17 20 MEQ Sodium Chloride 500 ml @ 0 mls/hr Q0M STAT IV 10/21/24 13:53 10/21/24 13:56 DC 10/21/24 14:37 500 MLS/HR Sodium Chloride 1,000 ml @ 100 mls/hr Q10H IV 10/13/24 18:00 10/17/24 14:07 DC 10/17/24 12:16 100 MLS/HR Sodium Chloride 1,000 ml @ 150 mls/hr AD IV 10/17/24 14:00 10/17/24 19:59 DC Vancomycin HCl (Vancomycin 750mg) 750 mg Q12H IVPB 10/14/24 06:00 10/24/24 05:59 10/21/24 21:15 750 MG Vancomycin HCl (Vancomycin Protocol) 1 each AD IV 10/13/24 18:30 10/27/24 18:29 Diagnostics / Radiology: [COPY/PASTE HERE IF NO REPORTS PLEASE DELETE SECTION] Assessment: Positive fobt Normocytic anemia Cellulitis Plan: EGD in [facility] Oct 21, 2024 23:18
[2024-10-22] VITALS (21 sets, daily range): BP systolic 118–159; BP diastolic 60–89; PULSE 77–93; RESP 13–18; TEMP 96.2–98.6; O2SAT 93–97
[2024-10-22 05:15] LABS: NUCLEATED RED BLOOD CELLS 0.0 % (0.0-0.19); PLATELET COUNT (AUTO) 306.0 K/uL (130-400); RED BLOOD CELL COUNT(AUTO) 3.01 MIL/uL (4.00-5.50); RED CELL DISTRIBUTION WIDTH 14.4 % (11.0-15.5); WHITE BLOOD COUNT (AUTO) 9.5 K/uL (4.8-10.8)
[2024-10-22 05:34] LABS: ASPARTATE AMINOTRANSFERASE 26.0 U/L (10-37); CREATININE 0.7 mg/dL (0.5-1.0); GLOMERULAR FILTR. RATE CALC 101.0 mL/min (>90); GLUCOSE,RANDOM 138.0 mg/dL (70-105); SODIUM SERUM 135.0 mmol/L (136-145); TOTAL PROTEIN, SERUM 6.3 g/dL (6.0-8.3); UREA NITROGEN, BLOOD 13.0 mg/dL (7-18)
[2024-10-22] MEDS: MAGNESIUM 2GM PREMIX 50ML 50 ML IV SCH (06:07)
--- NOTE | 2024-10-22 06:45 | PN ---
PROGRESS NOTE Date of Service: Oct 22, 2024 Time of Service: 06:40 SUBJECTIVE: This 58 years old female was seen for follow up evaluation right foot ulceration with gangrenous changes of the base of the 4th toe and 3rd toe right foot. Status post amputation of 4th toe and debridement of ulcer to the 3rd toe. Anemia secondary to acute blood loss patient having an EGD today to rule out any GI bleeding. Today dressing was intact no bleeding noted at this time responding well to quick clot dressing. Patient denies any pain last night or this morning. REVIEW OF SYSTEMS CONSTITUTIONAL: Denies fever, chills, or fatigue. HEAD/FACE: No signs of trauma. EENT: Denies eye pain, blurred vision, double vision, or light sensitivity. RESPIRATORY: Denies shortness of breath, cough, wheezing CARDIOVASCULAR: Denies chest pain, palpitation, syncope GASTROINTESTINAL/ABDOMINAL: Denies abdominal pain, constipation, diarrhea, nausea or vomiting GENITOURINARY: Denies dysuria or hematuria. MUSCULOSKELETAL: Denies joint pain, tenderness, or trauma. INTEGUMENTARY: Ulcer to the right foot status post amputation of 4th toe and debridement of 3rd toe right. NEUROLOGICAL/PSYCH: Denies anxiety, depression, heat or cold intolerance. PHYSICAL EXAM EYES: Anicteric. Pupils equal and reactive. HENT: No oral thrush seen, moist Oral mucosa NECK: Supple, no JVD or thyromegaly. LUNGS: Good air entry. No rales, no rhonchi. CARDIOVASCULAR: S1, S2 regular. No murmur heard. ABDOMEN: Soft, non tender, bowel sounds present, no organomegaly CENTRAL NERVOUS SYSTEM: Awake, alert, oriented x 3. No focal deficits. SKIN: Open wound status post amputation 4th toe and debridement 3rd toe right foot. LYMPHATICS: No peripheral lymphadenopathy MUSCULOSKELETAL: No joint swelling, erythema or tenderness. History of osteomyelitis to the 4th toe and base of the proximal phalanx 3rd toe. EXTREMITIES: No cyanosis or clubbing BACK: No deformity, no pressure ulcer. GENITOURINARY: No dysuria or hematuria Vital Signs (last 8hr) Date Time Temp Pulse Resp B/P (MAP) Pulse Ox O2 Delivery O2 Flow Rate FiO2 10/22/24 04:24 98.4 77 18 140/74 94 Room Air 10/22/24 01:09 98.4 78 18 136/68 96 Nasal Cannula 2.0 LABS: Laboratory: Test 10/22/24 05:16 10/22/24 04:25 10/21/24 05:02 Range/Units Whole Blood Glucose 130 H 70-110 MG/DL White Blood Count 9.5 # 4.8-10.8 K/uL Red Blood Count 3.01 L 4.00-5.50 MIL/uL Hemoglobin 8.3 #L 12.0-16.0 g/dL Hematocrit 25.3 #L 36-48 % Mean Corpuscular Volume 84.1 79-99 fL Mean Corpuscular Hemoglobin 27.6 27.0-33.0 pg Mean Corpuscular Hemoglobin Concent 32.8 32.0-36.0 g/dL Red Cell Distribution Width 14.4 11.0-15.5 % Platelet Count 306 130-400 K/uL Mean Platelet Volume 9.5 7.5-10.5 fL Nucleated Red Blood Cells 0.0 0.0-0.19 % Sodium Level 135 L 136-145 mmol/L Potassium Level 3.5 3.5-5.1 mmol/L Chloride Level 102 101-111 mmol/L Carbon Dioxide Level 27 21-32 mmol/L Blood Urea Nitrogen 13 7-18 mg/dL Creatinine 0.7 0.5-1.0 mg/dL Glomerular Filtration Rate Calc 101 >90 mL/min Random Glucose 138 H 70-105 mg/dL Total Calcium 8.2 L 8.5-10.1 mg/dL Magnesium Level 1.60 L 1.80-2.40 mg/dL Total Bilirubin 0.2 # 0.2-1.0 mg/dL Aspartate Amino Transf (AST/SGOT) 26 10-37 U/L Alanine Aminotransferase (ALT/SGPT) 23 12-78 U/L Alkaline Phosphatase 58 50-136 U/L Total Protein 6.3 6.0-8.3 g/dL Albumin 2.1 L 3.5-5.0 g/dL Vancomycin Level Trough 16.8 10.0-20.0 UG/ML DIAGNOSTICS / RADIOLOGY: No fracture or dislocation on x-ray MRI positive for osteomyelitis of the 4th toe ASSESSMENT: Diabetic foot ulcer to the right foot Cellulitis right foot Osteomyelitis 4th toe right foot. Wound status post amputation of 4th toe and debridement of tissue right 3rd toe. PLAN: Continue current plan IV antibiotics local wound care will be resumed tomorrow keep dressing intact today keep right foot elevated. CLEOPATRA MCCORMACK DPM Oct 22, 2024 06:45
--- NOTE | 2024-10-22 12:27 | PN ---
[facility] PROGRESS NOTE Date of Service: Oct 22, 2024 Time of Service: 12:26 SUBJECTIVE: 54-year-old female with underlying history of type 2 diabetes mellitus (diagnosed with diabetes for about 21 years) who presented to the ER for further evaluation of progressive redness, nonhealing wound involving the interdigital space of the 3rd and 4th digit of the right foot. Symptoms have been ongoing for the past 4-5 days and patient has been using local therapy with iodine as well as been taking penicillin for further treatment as outpatient. She has been cleaning the wound with sterile water. Symptoms have been worsening and patient has developed progressive redness of the right foot as well as increased drainage between the interdigital space with purulence noted. She denied previous history of cardiac disease of peripheral arterial disease. She has been taking ibuprofen intermittently with Tylenol for pain control at home. Reported having subjective chills. On presentation to the hospital, patient was noted to be afebrile with T-max of 98.1 F, heart rate of 91, blood pressure of 123/67. Labs on presentation showed WBC count of 9000, hemoglobin of 9.1, platelet count of 099630. BMP remarkable for sodium of 131, potassium 4.1, BUN of 26, creatinine 1.0. Patient had x-rays of the right foot which showed no acute fractures or soft tissue gas. Patient admitted for further treatment management of complicated cellulitis with infected diabetic foot wound/ulcer involving the interdigital space of the 3rd and 4th toe with progressive cellulitis of the right foot. Patient received broad-spectrum antibiotics, IV hydration. Podiatry and Infectious Disease consulted. Patient will undergo workup for peripheral arterial disease. 10/14 patient remains hemodynamically stable, BP 130/67, afebrile, saturating normal on room air, getting IV antibiotics at the time of my visit, Doppler of the lower extremities no evidence of DVT to the right lower extremity, MRI of the foot pending. Arterial Doppler no hemodynamically significant stenosis or occlusion in either lower extremity, monophasic flow in the right anterior tibial and dorsalis pedis arteries consistent with mild discharge atherosclerotic disease and hyperemia. We will continue the patient on vancomycin and Flagyl IV, patient also on cefepime, podiatry and infectious disease consulted, we will continue to follow input and recommendations. 10/15 patient remains admitted to the medical floor, getting IV antibiotics at the time of my visit, comfortably in bed, no acute events overnight per discussion with the RN. Results of MRI of the right foot positive for osteomyelitis, discussed with the patient. Arterial Doppler findings reviewed and discussed with the patient, findings of monophasic flow in the right anterior tibial and dorsalis pedis arteries consistent with a mild atherosclerotic disease. We will continue the patient on broad-spectrum IV antibiotics, infectious disease consultation requested, continue to follow input and recommendation, follow up Podiatry input recommendation, local wound care. Patient is scheduled for angiogram tomorrow. 10/16 patient remains admitted to the medical floor, BP 151/77, afebrile, saturating normal on room air. Hemoglobin of 8.4, hematocrit 26.1. Sodium 140, potassium 3.3, BUN of nine, creatinine 0.7, magnesium level 1.5. Iron level of 29. Patient evaluated by lead software developer yesterday, CTA aorta runoff with IV contrast no hemodynamically significant abnormality, mild to moderate circumferential calcific atheromatous plaques in the bilateral superficial femoral, popliteal, anterior tibial, posterior tibial and peroneal arteries without significant luminal stenosis, normal three-vessel flow to the foot, incidental mildly prominent common bile duct, cystitis. Grossly unremarkable ultrasound arterial Doppler of the bilateral lower limb stated 10/13/2024. Results of culture from right foot positive for Bindu albicans, Streptococcus agalactiae group B. Start losartan 25 mg p.o. daily, hydralazine 5 mg IV every 6 hours as needed. Replace electrolytes with magnesium sulfate 2 g IV x1, potassium chloride 40 mEq p.o. x1. Follow stool occult blood, if positive we will request GI consultation. We will hold aspirin for now. Continue to follow podiatry input and recommendation, continue local wound care with the cadexomer iodine one application daily, continue broad-spectrum IV antibiotics with the vanco and Flagyl IV, continue to follow ID input and recommendation. Follow Cardiology input and recommendation. Patient is scheduled for angiogram tomorrow. During my visit patient comfortably in bed, alert oriented x3, getting IV fluids and IV antibiotics. Denies chest pain, shortness shortness for breath, no nausea, no vomiting, no abdominal pain, no pain to the right foot area. 10/17 patient remains admitted to the medical floor, hemodynamically stable, afebrile, saturating normal on room air, hemoglobin 8.8, hematocrit 27.5, stool occult blood positive. Continue losartan 25 mg p.o. daily, hydralazine 5 mg IV every 6 hours as needed. Stool occult blood positive, we will request GI consultation. Continue to hold aspirin, start the patient on Protonix 40 mg IV b.i.d.. Continue to follow podiatry input and recommendation, continue local wound care with the cadexomer iodine one application daily, continue broad-spectrum IV antibiotics with the vanco and Flagyl IV, continue to follow ID input and recommendation. Follow Cardiology input and recommendation. Patient is scheduled for angiogram today. During my visit comfortably in bed, alert oriented x3, no acute events overnight per discussion with the RN, eating lunch, tolerating well, no nausea, no vomiting, no abdominal pain. 10/18 patient remains admitted to the medical floor, BP 154/85, afebrile, saturating normal on room air, hemoglobin 8.9, hematocrit 27.3. Magnesium 1.7. Patient underwent abdominal aortogram with pelvic runoff, right lower extremity digital subtraction arteriogram, right posterior tibial drug coated balloon angioplasty 10/17/2024 with the following results: Results: There is no disease in the distal aorta, pelvic vessels on either side, right superficial femoral, or right anterior tibial or peroneal. There is 30% plaque in the tibioperoneal trunk and 90% stenosis at the origin of the right posterior tibial and this was reduced to 0% residual. On the initial angiogram hypervascularity is noted in the toes of the right foot, particularly in the lateral portion of the foot, but there was no disease in the anterior tibial. Successful [facility] RIGHT POSTERIOR TIBIAL Patient to continue on broad-spectrum IV antibiotics, continue aspirin 81 mg p.o. daily, Plavix 75 mg p.o. daily, continue to follow Cardiology input recommendation, continue local wound care, continue to follow podiatry and infectious disease input and recommendations. GI consultation requested secondary to positive stool occult blood, okay to start and continue dual antiplatelet therapy, can defer EGD/colonoscopy as an outpatient, as there is no overt GI bleeding and hemoglobin stable, if the patient shows signs of upper GI bleed reconsult as needed. During my visit the patient is comfortably in bed, alert oriented x3, getting IV antibiotics, case discussed with the RN, no acute events overnight, findings of angiogram discussed in detail with the patient, all questions answered, she agreed and understood all the information provided as well as plan of care. 10/19 patient remains admitted to the medical floor, hemodynamically stable, BP 147/70, afebrile, saturating normal on room air. Hemoglobin continues to drop, today at 8.2, hematocrit 26.1, WBC 8.6, platelet count of 380. Sodium 139, potassium 3.8, BUN of 12, creatinine 0.7, total calcium 8.8, magnesium 1.8. Patient to continue on broad-spectrum IV antibiotics, continue aspirin 81 mg p.o. daily, Plavix 75 mg p.o. daily, continue to follow Cardiology input recommendation, continue local wound care, continue to follow podiatry and infectious disease input and recommendations. Possible debridement/amputation on Monday. GI consultation requested secondary secondary to positive stool occult blood, okay to start and continue dual antiplatelet therapy, can defer EGD/colonoscopy as an outpatient, as there is no overt GI bleeding and hemoglobin stable, if the patient shows signs of upper GI bleed reconsult as needed. Hemoglobin continues to decrease, today 8.2, hematocrit 26.1. We will do CBC q.8 hours, transfuse 1 unit of PRBC if hemoglobin less than seven. If hemoglobin continues to drop we will reconsult GI. Patient iron level is low, continue Venofer 200 mg IV daily to complete three days. At the time of my visit the patient comfortably in bed, alert oriented x3, watching TV, no chest pain, no shortness a breath, no nausea, no vomiting. 10/20 patient remains admitted to the medical floor, hemodynamically stable, afebrile, saturating normal on room air, hemoglobin keeps dropping, today 8.1, hematocrit 25.1, platelet count of 357. Potassium 3.5, magnesium 1.7. Patient to continue on broad-spectrum IV antibiotics, continue aspirin 81 mg p.o. daily, Plavix 75 mg p.o. daily, continue to follow Cardiology input recommendation, continue local wound care, continue to follow podiatry and infectious disease input and recommendations. Possible debridement/amputation on Monday. GI consultation requested secondary secondary to positive stool occult blood, okay to start and continue dual antiplatelet therapy, can defer EGD/colonoscopy as an outpatient, as there is no overt GI bleeding and hemoglobin stable, if the patient shows signs of upper GI bleed reconsult as needed. Hemoglobin continues to decrease, today 8.1, hematocrit 25.1 follow CBC transfuse as needed. Continue Venofer IV. At the time of my visit the patient is comfortably in bed, she is eating lunch, tolerating well, no nausea, no vomiting, no abdominal pain, family members at bedside, updated. 10/21 patient remains admitted to medical floor, hemodynamically stable, afebrile, saturating normal on room air. Hemoglobin stable 8.2, hematocrit 25.2. Sodium 137, potassium 3.6, BUN 40, creatinine 1.0, magnesium 1.8. Patient to continue on broad-spectrum IV antibiotics, continue aspirin 81 mg p.o. daily, Plavix 75 mg p.o. daily, continue to follow Cardiology input recommendation, continue local wound care, continue to follow podiatry and infectious disease input and recommendations. Status post amputation today. Hemoglobin dropped to 6.8. We will transfuse 1 unit of PRBC. Discussed with the GI, plan for EGD tomorrow. At the time of my visit the patient is comfortably in bed, alert oriented x3, not in distress, received a phone call by the nurse because patient dropped her systolic blood pressure to 89, she has been oozing blood from amputation site. Podiatry contacted, Surgicel to be applied. I have decided to give a bolus of NS 500 total. Patient re-evaluated, and systolic blood pressure 120/70. Asymptomatic. Continue to monitor. 10/22 patient is seen at bedside, case discussed with the RN, no acute events overnight, during my visit the patient is alert oriented x3, hemodynamically stable, received 1 unit of PRBC yesterday, tolerated well, no acute reaction, hemoglobin today at 8.3, hematocrit 35.3, currently the patient NPO, scheduled vomiting EGD today. We will follow up. REVIEW OF SYSTEMS CONSTITUTIONAL: Denies fevers, chills, or night sweats. No unintentional weight loss reported. NEUROLOGICAL: Denies headache, amaurosis fugax, motor weakness, sensory deficit, vertigo/spinning sensation, gait abnormalities, or tremors. ENT: No hearing loss, otalgia, otorrhea, rhinitis, rhinorrhea, hoarseness, or sore throat. CARDIOVASCULAR: Denies any exertional angina, dyspnea on exertion, orthopnea, paroxysmal nocturnal dyspnea, palpitations, life-threatening arrhythmias, claudication. PULMONARY: Denies any shortness of breath, cough, phlegm/sputum, hemoptysis, pleuritic chest pain. SLEEP: Denies morning headaches, daytime somnolence or napping. Denies difficulty falling asleep, staying asleep, waking from sleep. Denies knowledge of snoring. GASTROINTESTINAL: Denies any type of dysphagia to either liquids or solids. Denies nausea, vomiting, pyrosis, early satiety, abdominal pain, diarrhea, constipation, or changes in stool consistency or caliber. Denies coffee-ground emesis, hematemesis, hematochezia, or melanotic stools. GENITOURINARY: Denies frequency, urgency, nocturia, hematuria or incontinence (Storage/Irritative symptoms.) Low urinary stream, straining to void, urinary intermittency or hesitancy, splitting of the voiding stream, terminal dribbling. ENDOCRINOLOGIC: Denies polyuria, polydipsia, polyphagia or heat/cold intolerances. HEMATOLOGIC: Denies thrombophilia/previous clots, or coagulopathy/bleeding disorders. ONCOLOGIC: Denies personal history of malignancy. DERMATOLOGIC: Progressive redness, swelling and non healing diabetic foot ulcer involving the right foot, redness involving the 2nd to 4th toes PSYCHIATRIC: Denies any suicidal or homicidal ideation. Denies hallucinations. PHYSICAL EXAM GENERAL APPEARANCE: The patient is awake, alert, and oriented, in no acute cardiopulmonary distress. NEUROLOGICAL: Cranial nerves II-XII grossly intact. neurological examination is non focal for the patient HEENT: Face is symmetric. Pupils are equal and reactive. Extraocular movements are intact. NECK: Supple. No JVD. No thyromegaly. No submental, submandibular, pre- /postauricular, occipital or supraclavicular lymphadenopathy. CHEST: Normal chest expansion. No Telemetry. LUNGS: Absence of any rales, rhonchi or any wheezing. CARDIOVASCULAR: Regular. S1 and S2 normal. No appreciable rubs, murmurs or gallops. ABDOMEN: Soft, nontender, and nondistended. There is no rebound, voluntary guarding, or rigidity. : Deferred. No [place]. EXTREMITIES: right foot is swollen and redness noted extending to the midfoot, deep ulcer with purulence noted between the interdigital space of the 3rd and 4th toes, redness, noted of the 2nd, 3rd and 4th digit, patchy area of necrosis noted of the plantar and dorsal aspect of the metatarsal aspect of the third and fourth digit SKIN: as noted above Vital Signs (last 8hr) Date Time Temp Pulse Resp B/P (MAP) Pulse Ox O2 Delivery O2 Flow Rate FiO2 10/22/24 08:00 98.6 80 18 148/73 93 Room Air LABS: Laboratory: Test 10/22/24 11:14 10/22/24 04:25 10/21/24 05:02 Range/Units Whole Blood Glucose 156 H 70-110 MG/DL White Blood Count 9.5 # 4.8-10.8 K/uL Red Blood Count 3.01 L 4.00-5.50 MIL/uL Hemoglobin 8.3 #L 12.0-16.0 g/dL Hematocrit 25.3 #L 36-48 % Mean Corpuscular Volume 84.1 79-99 fL Mean Corpuscular Hemoglobin 27.6 27.0-33.0 pg Mean Corpuscular Hemoglobin Concent 32.8 32.0-36.0 g/dL Red Cell Distribution Width 14.4 11.0-15.5 % Platelet Count 306 130-400 K/uL Mean Platelet Volume 9.5 7.5-10.5 fL Nucleated Red Blood Cells 0.0 0.0-0.19 % Sodium Level 135 L 136-145 mmol/L Potassium Level 3.5 3.5-5.1 mmol/L Chloride Level 102 101-111 mmol/L Carbon Dioxide Level 27 21-32 mmol/L Blood Urea Nitrogen 13 7-18 mg/dL Creatinine 0.7 0.5-1.0 mg/dL Glomerular Filtration Rate Calc 101 >90 mL/min Random Glucose 138 H 70-105 mg/dL Total Calcium 8.2 L 8.5-10.1 mg/dL Magnesium Level 1.60 L 1.80-2.40 mg/dL Total Bilirubin 0.2 # 0.2-1.0 mg/dL Aspartate Amino Transf (AST/SGOT) 26 10-37 U/L Alanine Aminotransferase (ALT/SGPT) 23 12-78 U/L Alkaline Phosphatase 58 50-136 U/L Total Protein 6.3 6.0-8.3 g/dL Albumin 2.1 L 3.5-5.0 g/dL Vancomycin Level Trough 16.8 10.0-20.0 UG/ML Current Medications Medications (Trade) Dose Ordered Sig/Elsy Route PRN Reason Start Time Stop Time Status Last Admin Dose Admin Acetaminophen (TYLenol 500MG TAB) 500 mg Q6H PRN PO MILD PAIN (1-3) 10/13/24 18:00 11/12/24 17:59 10/21/24 18:33 500 MG Aspirin (Aspirin 81mg Chew Tab) 81 mg DAILY PO 10/18/24 09:00 11/17/24 08:59 10/20/24 09:28 81 MG Aspirin (Aspirin 81mg Ec Tab) 81 mg DAILY PO 10/15/24 11:30 10/16/24 11:09 DC 10/16/24 10:44 81 MG Atorvastatin Calcium (LIPItor 40MG) 40 mg HS PO 10/15/24 21:00 11/14/24 20:59 10/21/24 20:59 40 MG Cadexomer Iodine (Iodosorb Gel 40gm) 1 APPL DAILY TP 10/15/24 09:00 10/15/24 15:22 DC Cadexomer Iodine (Iodosorb Gel 40gm) 1 APPL DAILY TP 10/16/24 09:00 11/15/24 08:59 10/22/24 11:08 1 APPL Cadexomer Iodine (Iodosorb Gel 40gm) 1 APPL ONCE TP 10/14/24 17:30 10/14/24 23:32 DC Cefepime HCl (MAXipime 2 gm vial) 2 gm Q12H IVPB 10/13/24 18:00 10/23/24 17:59 10/22/24 05:20 2 GM Clopidogrel Bisulfate (plaVIX 75MG) 75 mg DAILY PO 10/18/24 09:00 11/17/24 08:59 10/20/24 09:28 75 MG Dextrose (D50w) 50 ml AD PRN IV HYPOGLYCEMIA PROTOCOL 10/14/24 12:30 11/13/24 12:29 Famotidine (Pepcid 20mg Vial) 20 mg DAILY IV 10/14/24 09:00 10/13/24 18:14 DC Fluconazole (DiFLUCan 100 mg TAB) 200 mg DAILY PO 10/19/24 09:00 10/28/24 08:59 10/21/24 11:48 200 MG Glucagon (Glucagon 1mg Kit) 1 mg AD PRN IM HYPOGLYCEMIA PROTOCOL 10/14/24 12:30 11/13/24 12:29 Hydralazine HCl (APRESOLine 20MG INJ) 5 mg Q6H PRN IV ADMINISTER FOR SBP > 160 10/16/24 09:30 11/15/24 09:29 Hydromorphone HCl (DiLAUDid 0.5MG INJ) 0.5 mg Q4H PRN IVP SEVERE PAIN (7-10) 10/21/24 19:00 10/22/24 01:14 DC 10/21/24 19:14 0.5 MG Insulin Glargine (LANtus 100 UNITS/ML 10 ML VIAL) 12 units DAILY SQ 10/14/24 09:00 11/13/24 08:59 10/21/24 11:56 12 UNITS Insulin Human Regular (humuLIN R 100 UNIT/ML 3ML) INSULIN SLIDING SCAL... ACHS SQ 10/13/24 21:00 11/12/24 20:59 10/21/24 12:00 2 UNIT Iron Sucrose (VenoFER) 200 mg DAILY IV 10/18/24 12:00 10/20/24 14:00 DC 10/20/24 12:04 200 MG Losartan Potassium (CozAAR 25MG TAB) 25 mg DAILY PO 10/16/24 09:30 11/15/24 09:29 10/20/24 09:27 25 MG Magnesium Sulfate 50 ml @ 0 mls/hr PROTOCOL IV 10/16/24 09:30 10/16/24 09:24 DC Magnesium Sulfate 50 ml @ 0 mls/hr PROTOCOL IV 10/18/24 09:30 10/20/24 12:03 DC 10/20/24 09:26 25 MLS/HR Magnesium Sulfate 50 ml @ 0 mls/hr PROTOCOL IV 10/20/24 12:00 11/19/24 11:59 10/22/24 06:07 25 MLS/HR Magnesium Sulfate 50 ml @ 0 mls/hr PROTOCOL PRN IV MAGNESIUM PROTOCOL 10/16/24 06:30 10/18/24 12:48 DC 10/17/24 11:08 25 MLS/HR Metronidazole/ Sodium Chloride 100 ml @ 100 mls/hr Q8H IVPB 10/15/24 07:30 10/25/24 07:29 10/22/24 11:04 100 MLS/HR Metronidazole/ Sodium Chloride 100 ml @ 100 mls/hr Q8H6 IVPB 10/13/24 22:00 10/15/24 00:10 DC 10/14/24 22:21 100 MLS/HR Morphine Sulfate (morPHINE 2MG SYG) 2 mg Q6H PRN IVP SEVERE PAIN (7-10) 10/13/24 18:00 10/18/24 20:59 DC 10/13/24 18:46 2 MG Morphine Sulfate (morPHINE 4MG SYG) 4 mg Q4H PRN IM SEVERE PAIN (7-10) 10/22/24 01:30 10/22/24 01:51 DC Morphine Sulfate (morPHINE 4MG SYG) 4 mg Q4H PRN IVP SEVERE PAIN (7-10) 10/22/24 02:00 10/29/24 01:59 Ondansetron HCl (zoFRAN 4MG INJ) 4 mg Q6H PRN IVP NAUSEA/VOMITING 10/13/24 18:00 11/12/24 17:59 10/13/24 18:46 4 MG Pantoprazole Sodium (PROTonix 40MG INJ) 40 mg BID IVP 10/17/24 10:30 11/16/24 10:29 10/22/24 09:00 40 MG Pantoprazole Sodium (PROTonix 40MG INJ) 40 mg HS IVP 10/13/24 21:00 10/19/24 14:22 DC 10/18/24 21:22 40 MG Piperacillin Sod/ Tazobactam Sod (Zosyn 3.375gm+NS 50ml) 3.375 gm Q12H IV 10/13/24 17:30 10/13/24 17:56 DC Potassium Chloride 100 ml @ 50 mls/hr AD PRN IV POTASSIUM PROTOCOL 10/16/24 06:30 11/15/24 06:29 10/16/24 18:36 50 MLS/HR Potassium Chloride 100 ml @ 100 mls/hr AD PRN IV POTASSIUM PROTOCOL 10/17/24 10:30 10/17/24 10:11 DC Potassium Chloride (K-Dur/Klor-Con 20meq) 20 meq AD PRN PO POTASSIUM PROTOCOL 10/17/24 10:30 11/16/24 10:29 10/18/24 11:27 20 MEQ Potassium Chloride (KCl 10% Elixir 20meq/15ml) 20 meq AD PRN PO POTASSIUM PROTOCOL 10/17/24 10:30 11/16/24 10:29 10/20/24 17:17 20 MEQ Sodium Chloride 500 ml @ 0 mls/hr Q0M STAT IV 10/21/24 13:53 10/21/24 13:56 DC 10/21/24 14:37 500 MLS/HR Sodium Chloride 1,000 ml @ 100 mls/hr Q10H IV 10/13/24 18:00 10/17/24 14:07 DC 10/17/24 12:16 100 MLS/HR Sodium Chloride 1,000 ml @ 150 mls/hr AD IV 10/17/24 14:00 10/17/24 19:59 DC Vancomycin HCl (Vancomycin 750mg) 750 mg Q12H IVPB 10/14/24 06:00 10/24/24 05:59 10/22/24 06:58 750 MG Vancomycin HCl (Vancomycin Protocol) 1 each AD IV 10/13/24 18:30 10/27/24 18:29 DIAGNOSTICS / RADIOLOGY: [ ] ASSESSMENT: Osteomyelitis tip of 4th right toe, POA Right 3rd toe ulceration, POA Status post amputation 4th toe right foot and debridement ulceration right 3rd toe Progressive cellulitis of the right foot involving the midfoot with failure of outpatient treatment, POA Infected diabetic deep foot ulcer involving the interdigital space of the 3rd and 4th digit, POA Progressive cellulitis involving the 2nd, 3rd, 4th toes of the right foot, POA Right foot cultures positive for Bindu albicans and Streptococcus agalactiae group B. Peripheral arterial disease, POA Successful [facility] [employer]ERIOR TIB[facility] 10/17/24 Hypovolemic hyponatremia, POA Anemia, POA Underlying history of insulin-dependent diabetes mellitus, POA Iron deficiency anemia with a stool occult blood positive, POA PLAN: patient is seen at bedside, case discussed with the RN, no acute events overnight, during my visit the patient is alert oriented x3, hemodynamically stable, received 1 unit of PRBC yesterday, tolerated well, no acute reaction, hemoglobin today at 8.3, hematocrit 35.3, currently the patient NPO, scheduled vomiting EGD today. We will follow up. NEURO: Minimize central acting medications as possible. Fall Precautions. Well lighted room through the day and minimize interruptions through the night to prevent acute delirium. PULMONARY: Supplemental 02 as needed BiPAP as necessary, for respiratory distress Titrate Fio2 to keep Spo2 > or = 90% DuoNebs and CPT as needed IS hourly while awake for pulmonary hygiene prn Out of bed to chair as tolerated Maintain aspiration precautions at all times CARDIOVASCULAR: Follow hemodynamics. Vital signs per facility protocol GI & NUTRITION: Continue nutritional support Aspirations precautions Prokinetic agents and laxatives as needed KIDNEYS & ELECTROLYTES: Strict monitoring of intake and output Daily weights Avoid nephrotoxic agents Monitor electrolytes and replace as needed Goal urine output of 30mL/hr or 0.5mL/kg/hr Medications to be dosed according to renal function. Avoid contrast if possible ENDOCRINE: Maintain blood glucose between 100-180 at all times. Insulin sliding scale for blood glucose management Hypoglycemia and hyperglycemia protocol in place INFECTIOUS DISEASE: Trend temperature, WBC and procalcitonin level Follow cultures, deescalate antibiotics as soon as possible. Panculture if new onset fever HEMATOLOGY & COAGULATION: Monitor H&H. Keep Hgb > 7 Transfuse 1 unit of PRBC for Hgb < 7 Transfuse 1 pack of platelets of platelets < 20, 000 Watch for any signs and symptoms of bleeding SKIN: Pressure ulcer prevention per facility protocol Specialty mattress as needed ORTHO/REHAB Continue PT/OT PRN: MEDICATIONS Tylenol 650 mg po every 4 hrs for fever zofran 4 mg IV every 6 hrs for n/v Hydralazine 5 mg IV every 4 hrs systolic pressure > 160 bowel regiment: lactulose 20 gm PO BID PRN constipation Supportive measures: Continue GI and DVT prophylaxis Disposition: Pending improvement in clinical condition All questions answered time spent: > 35 min NANCY COLBERT MD Oct 22, 2024 12:27
[2024-10-22] MEDS ORDERED: MAGNESIUM 2GM PREMIX 50ML 50 ML IV SCH (12:30)
[2024-10-22] MEDS ORDERED: LIDOCAINE HCL 400MG/20ML VIAL ONE (14:41)
[2024-10-22] MEDS: PoTASSium chloRIDE 20MEQ ER 20 MEQ ERTAB PO ONE (16:50)
--- NOTE | 2024-10-22 23:10 | PN ---
INFECTIOUS DISEASE PROGRESS NOTE Date of Service: Oct 22, 2024 SUBJECTIVE: This is a 54-year-old female patient who is status post amputation of the right 4th toe day # 1. No fever reported, latest temperature is 97.9. No more bleeding reported from the surgical site and the latest hemoglobin is 8.3. During rounding today patient was scheduled for an EGD. Patient is currently on fluconazole, vancomycin, cefepime and metronidazole. Will continue to follow patient's care. PHYSICAL EXAM EYES: Anicteric. Pupils equal and reactive. HENT: No oral thrush seen, moist Oral mucosa NECK: Supple, no JVD or thyromegaly. LUNGS: Good air entry. No rales, no rhonchi. CARDIOVASCULAR: S1, S2 regular. No murmur heard. ABDOMEN: Soft, non tender, bowel sounds present, no organomegaly CENTRAL NERVOUS SYSTEM: Awake, alert, oriented x 3. SKIN: No rashes, no swelling. Status post right 4th toe amputation. LYMPHATICS: No peripheral lymphadenopathy MUSCULOSKELETAL: No joint swelling, erythema or tenderness. EXTREMITIES: Right foot swelling and redness. BACK: No deformity, no pressure ulcer. GENITOURINARY: No dysuria or hematuria. Vital Sign (Last 12 Hours) 10/22/24 10/22/24 10/22/24 10/22/24 12:00 13:30 13:45 14:00 Temp 97.9 98.2 Pulse 82 86 85 83 Resp 17 16 16 16 B/P (MAP) 142/74 151/81 158/89 159/82 Pulse Ox 95 95 95 95 O2 Delivery Room Air Room Air Room Air Room Air 10/22/24 10/22/24 10/22/24 10/22/24 14:15 14:40 14:40 14:45 Pulse 81 80 Resp 16 16 B/P (MAP) 141/73 145/77 Pulse Ox 95 95 O2 Delivery Room Air Mask Mask Room Air O2 Flow Rate 10.0 10/22/24 10/22/24 10/22/24 10/22/24 14:50 14:55 15:00 15:05 Temp 96.3 Pulse 82 84 87 89 Resp 17 15 13 14 B/P (MAP) 127/67 121/64 118/65 121/64 Pulse Ox 98 99 100 98 O2 Delivery Aerosol Face Mask Aerosol Face Mask Nasal Cannula Nasal Cannula O2 Flow Rate 10.0 10.0 2.0 2.0 10/22/24 10/22/24 10/22/24 10/22/24 15:10 15:15 15:15 15:20 Temp 97.0 Pulse 81 82 83 88 Resp 17 18 16 16 B/P (MAP) 131/67 128/64 159/82 125/60 Pulse Ox 99 99 95 98 O2 Delivery Room Air Room Air Room Air Room Air 10/22/24 10/22/24 10/22/24 16:15 17:15 18:15 Pulse 84 80 80 Resp 16 16 16 B/P (MAP) 144/73 145/77 147/74 Pulse Ox 95 95 95 O2 Delivery Room Air Room Air Room Air Intake & Output (last 24hrs) 10/21/24 10/21/24 10/22/24 15:00 23:00 07:00 Intake Total 150 ml 200.0 ml Output Total 100 ml 200 ml Balance -100 ml -50 ml 200.0 ml LABS: Laboratory: Test 10/22/24 19:18 10/22/24 04:25 10/21/24 05:02 Range/Units Whole Blood Glucose 185 H 70-110 MG/DL White Blood Count 9.5 # 4.8-10.8 K/uL Red Blood Count 3.01 L 4.00-5.50 MIL/uL Hemoglobin 8.3 #L 12.0-16.0 g/dL Hematocrit 25.3 #L 36-48 % Mean Corpuscular Volume 84.1 79-99 fL Mean Corpuscular Hemoglobin 27.6 27.0-33.0 pg Mean Corpuscular Hemoglobin Concent 32.8 32.0-36.0 g/dL Red Cell Distribution Width 14.4 11.0-15.5 % Platelet Count 306 130-400 K/uL Mean Platelet Volume 9.5 7.5-10.5 fL Nucleated Red Blood Cells 0.0 0.0-0.19 % Sodium Level 135 L 136-145 mmol/L Potassium Level 3.5 3.5-5.1 mmol/L Chloride Level 102 101-111 mmol/L Carbon Dioxide Level 27 21-32 mmol/L Blood Urea Nitrogen 13 7-18 mg/dL Creatinine 0.7 0.5-1.0 mg/dL Glomerular Filtration Rate Calc 101 >90 mL/min Random Glucose 138 H 70-105 mg/dL Total Calcium 8.2 L 8.5-10.1 mg/dL Magnesium Level 1.60 L 1.80-2.40 mg/dL Total Bilirubin 0.2 # 0.2-1.0 mg/dL Aspartate Amino Transf (AST/SGOT) 26 10-37 U/L Alanine Aminotransferase (ALT/SGPT) 23 12-78 U/L Alkaline Phosphatase 58 50-136 U/L Total Protein 6.3 6.0-8.3 g/dL Albumin 2.1 L 3.5-5.0 g/dL Vancomycin Level Trough 16.8 10.0-20.0 UG/ML ASSESSMENT: 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 Right foot diabetic ulcer in the 3rd and 4th interdigital space with gangrene. Polymicrobial infection. Right foot Cellulitis. Peripheral artery disease, s/p peripheral angiogram with findings of 90% stenosis at the origin of the right posterior tibial with successful intervention reducing it to 0 %. Diabetes mellitus. Anemia, status post blood transfusion. PLAN: Continue fluconazole. Continue on Vancomycin per pharmacy protocol. Continue Cefepime. Continue Metronidazole IV. Continue pain management. Continue wound care as recommended by head girls golf coach. Continue GI prophylaxis. Continue antidiabetics. Patient is scheduled for an EGD for today. This case was reviewed and discussed with my supervising physician and the above assessment and plan was formulated and agreed upon. ATTESTATION BY PHYSICIAN I have seen and examined the patient. I reviewed the documentation, medical decision making, and treatment plan as noted by the mid-level provider above. I agree with the findings and plan of care. MENDY KHAN MD, [facility] Oct 22, 2024 23:10
[2024-10-23] VITALS (8 sets, daily range): BP systolic 115–145; BP diastolic 63–77; PULSE 75–90; RESP 17–21; TEMP 97.8–99.1; O2SAT 93
[2024-10-23] MEDS ORDERED: ASPI-1005 PO (08:58)
[2024-10-23] MEDS ORDERED: PANT40TA55 PO (08:58)
[2024-10-23] MEDS ORDERED: LOSA-417 PO (08:58)
[2024-10-23] MEDS ORDERED: ATOR40TA69 PO (08:58)
[2024-10-23] MEDS ORDERED: IODOG TP (08:58)
[2024-10-23] MEDS ORDERED: CLOP-31 PO (08:58)
[2024-10-23 09:05] LABS: NUCLEATED RED BLOOD CELLS 0.0 % (0.0-0.19); PLATELET COUNT (AUTO) 305.0 K/uL (130-400); RED BLOOD CELL COUNT(AUTO) 3.09 MIL/uL (4.00-5.50); RED CELL DISTRIBUTION WIDTH 14.5 % (11.0-15.5); WHITE BLOOD COUNT (AUTO) 7.5 K/uL (4.8-10.8)
[2024-10-23 09:36] LABS: ASPARTATE AMINOTRANSFERASE 24.0 U/L (10-37); CREATININE 0.8 mg/dL (0.5-1.0); GLOMERULAR FILTR. RATE CALC 86.0 mL/min (>90); GLUCOSE,RANDOM 158.0 mg/dL (70-105); SODIUM SERUM 133.0 mmol/L (136-145); TOTAL PROTEIN, SERUM 6.5 g/dL (6.0-8.3); UREA NITROGEN, BLOOD 10.0 mg/dL (7-18)
--- NOTE | 2024-10-23 11:21 | PN ---
PROGRESS NOTE Date of Service: Oct 23, 2024 Time of Service: 11:17 SUBJECTIVE: This 58 years old female was seen for follow up evaluation right foot ulceration with gangrenous changes of the base of the 4th toe and 3rd toe right foot. Status post amputation of 4th toe and debridement of ulcer to the 3rd toe. Doing better dressing changed today. REVIEW OF SYSTEMS CONSTITUTIONAL: Denies fever, chills, or fatigue. HEAD/FACE: No signs of trauma. EENT: Denies eye pain, blurred vision, double vision, or light sensitivity. RESPIRATORY: Denies shortness of breath, cough, wheezing CARDIOVASCULAR: Denies chest pain, palpitation, syncope GASTROINTESTINAL/ABDOMINAL: Denies abdominal pain, constipation, diarrhea, nausea or vomiting GENITOURINARY: Denies dysuria or hematuria. MUSCULOSKELETAL: Denies joint pain, tenderness, or trauma. INTEGUMENTARY: Ulcer to the right foot status post amputation of 4th toe and debridement of 3rd toe right. NEUROLOGICAL/PSYCH: Denies anxiety, depression, heat or cold intolerance. PHYSICAL EXAM EYES: Anicteric. Pupils equal and reactive. HENT: No oral thrush seen, moist Oral mucosa NECK: Supple, no JVD or thyromegaly. LUNGS: Good air entry. No rales, no rhonchi. CARDIOVASCULAR: S1, S2 regular. No murmur heard. ABDOMEN: Soft, non tender, bowel sounds present, no organomegaly CENTRAL NERVOUS SYSTEM: Awake, alert, oriented x 3. No focal deficits. SKIN: Open wound status post amputation 4th toe and debridement 3rd toe right foot. LYMPHATICS: No peripheral lymphadenopathy MUSCULOSKELETAL: No joint swelling, erythema or tenderness. History of osteomyelitis to the 4th toe and base of the proximal phalanx 3rd toe. EXTREMITIES: No cyanosis or clubbing BACK: No deformity, no pressure ulcer. GENITOURINARY: No dysuria or hematuria Vital Signs (last 8hr) Date Time Temp Pulse Resp B/P (MAP) Pulse Ox O2 Delivery O2 Flow Rate FiO2 10/23/24 08:00 97.9 82 17 115/63 93 Room Air 10/23/24 05:58 99.1 89 18 135/69 95 Room Air LABS: Laboratory: Test 10/23/24 08:50 10/23/24 06:10 Range/Units White Blood Count 7.5 4.8-10.8 K/uL Red Blood Count 3.09 L 4.00-5.50 MIL/uL Hemoglobin 8.6 L 12.0-16.0 g/dL Hematocrit 25.3 L 36-48 % Mean Corpuscular Volume 81.9 79-99 fL Mean Corpuscular Hemoglobin 27.8 27.0-33.0 pg Mean Corpuscular Hemoglobin Concent 34.0 32.0-36.0 g/dL Red Cell Distribution Width 14.5 11.0-15.5 % Platelet Count 305 130-400 K/uL Mean Platelet Volume 8.8 7.5-10.5 fL Nucleated Red Blood Cells 0.0 0.0-0.19 % Sodium Level 133 L 136-145 mmol/L Potassium Level 3.5 3.5-5.1 mmol/L Chloride Level 103 101-111 mmol/L Carbon Dioxide Level 27 21-32 mmol/L Blood Urea Nitrogen 10 7-18 mg/dL Creatinine 0.8 0.5-1.0 mg/dL Glomerular Filtration Rate Calc 86 >90 mL/min Random Glucose 158 H 70-105 mg/dL Total Calcium 8.5 8.5-10.1 mg/dL Magnesium Level 1.90 1.80-2.40 mg/dL Total Bilirubin 0.3 0.2-1.0 mg/dL Aspartate Amino Transf (AST/SGOT) 24 10-37 U/L Alanine Aminotransferase (ALT/SGPT) 20 12-78 U/L Alkaline Phosphatase 59 50-136 U/L Total Protein 6.5 6.0-8.3 g/dL Albumin 2.2 L 3.5-5.0 g/dL Whole Blood Glucose 191 H 70-110 MG/DL DIAGNOSTICS / RADIOLOGY: No fracture or dislocation on x-ray MRI positive for osteomyelitis of the 4th toe ASSESSMENT: Diabetic foot ulcer to the right foot Cellulitis right foot Osteomyelitis 4th toe right foot. Wound status post amputation of 4th toe and debridement of tissue right 3rd toe. PLAN: Plan is to continue local wound care at home patient given instruction how to change the dressing she will have daughter assist in her for dressing changes continue Iodosorb Xeroform 4x4s and Kerlix daily. Physical therapy to evaluate the patient for ambulation with walker partial weight-bearing. Dispensed surgical shoe. Follow up Infectious Disease evaluation for continued oral antibiotics. Follow up appointment at [facility] next Monday. CLEOPATRA MCCORMACK DPM Oct 23, 2024 11:21
--- NOTE | 2024-10-23 12:55 | PN ---
[facility] PROGRESS NOTE Date of Service: Oct 23, 2024 Time of Service: 12:54 SUBJECTIVE: 54-year-old female with underlying history of type 2 diabetes mellitus (diagnosed with diabetes for about 21 years) who presented to the ER for further evaluation of progressive redness, nonhealing wound involving the interdigital space of the 3rd and 4th digit of the right foot. Symptoms have been ongoing for the past 4-5 days and patient has been using local therapy with iodine as well as been taking penicillin for further treatment as outpatient. She has been cleaning the wound with sterile water. Symptoms have been worsening and patient has developed progressive redness of the right foot as well as increased drainage between the interdigital space with purulence noted. She denied previous history of cardiac disease of peripheral arterial disease. She has been taking ibuprofen intermittently with Tylenol for pain control at home. Reported having subjective chills. On presentation to the hospital, patient was noted to be afebrile with T-max of 98.1 F, heart rate of 91, blood pressure of 123/67. Labs on presentation showed WBC count of 9000, hemoglobin of 9.1, platelet count of [id number]. BMP remarkable for sodium of 131, potassium 4.1, BUN of 26, creatinine 1.0. Patient had x-rays of the right foot which showed no acute fractures or soft tissue gas. Patient admitted for further treatment management of complicated cellulitis with infected diabetic foot wound/ulcer involving the interdigital space of the 3rd and 4th toe with progressive cellulitis of the right foot. Patient received broad-spectrum antibiotics, IV hydration. Podiatry and Infectious Disease consulted. Patient will undergo workup for peripheral arterial disease. 10/14 patient remains hemodynamically stable, BP 130/67, afebrile, saturating normal on room air, getting IV antibiotics at the time of my visit, Doppler of the lower extremities no evidence of DVT to the right lower extremity, MRI of the foot pending. Arterial Doppler no hemodynamically significant stenosis or occlusion in either lower extremity, monophasic flow in the right anterior tibial and dorsalis pedis arteries consistent with mild discharge atherosclerotic disease and hyperemia. We will continue the patient on vancomycin and Flagyl IV, patient also on cefepime, podiatry and infectious disease consulted, we will continue to follow input and recommendations. 10/15 patient remains admitted to the medical floor, getting IV antibiotics at the time of my visit, comfortably in bed, no acute events overnight per discussion with the RN. Results of MRI of the right foot positive for osteomyelitis, discussed with the patient. Arterial Doppler findings reviewed and discussed with the patient, findings of monophasic flow in the right anterior tibial and dorsalis pedis arteries consistent with a mild atherosclerotic disease. We will continue the patient on broad-spectrum IV antibiotics, infectious disease consultation requested, continue to follow input and recommendation, follow up Podiatry input recommendation, local wound care. Patient is scheduled for angiogram tomorrow. 10/16 patient remains admitted to the medical floor, BP 151/77, afebrile, saturating normal on room air. Hemoglobin of 8.4, hematocrit 26.1. Sodium 140, potassium 3.3, BUN of nine, creatinine 0.7, magnesium level 1.5. Iron level of 29. Patient evaluated by resaw machine operator yesterday, CTA aorta runoff with IV contrast no hemodynamically significant abnormality, mild to moderate circumferential calcific atheromatous plaques in the bilateral superficial femoral, popliteal, anterior tibial, posterior tibial and peroneal arteries without significant luminal stenosis, normal three-vessel flow to the foot, incidental mildly prominent common bile duct, cystitis. Grossly unremarkable ultrasound arterial Doppler of the bilateral lower limb stated 10/13/2024. Results of culture from right foot positive for Bindu albicans, Streptococcus agalactiae group B. Start losartan 25 mg p.o. daily, hydralazine 5 mg IV every 6 hours as needed. Replace electrolytes with magnesium sulfate 2 g IV x1, potassium chloride 40 mEq p.o. x1. Follow stool occult blood, if positive we will request GI consultation. We will hold aspirin for now. Continue to follow podiatry input and recommendation, continue local wound care with the cadexomer iodine one application daily, continue broad-spectrum IV antibiotics with the vanco and Flagyl IV, continue to follow ID input and recommendation. Follow Cardiology input and recommendation. Patient is scheduled for angiogram tomorrow. During my visit patient comfortably in bed, alert oriented x3, getting IV fluids and IV antibiotics. Denies chest pain, shortness shortness for breath, no nausea, no vomiting, no abdominal pain, no pain to the right foot area. 10/17 patient remains admitted to the medical floor, hemodynamically stable, afebrile, saturating normal on room air, hemoglobin 8.8, hematocrit 27.5, stool occult blood positive. Continue losartan 25 mg p.o. daily, hydralazine 5 mg IV every 6 hours as needed. Stool occult blood positive, we will request GI consultation. Continue to hold aspirin, start the patient on Protonix 40 mg IV b.i.d.. Continue to follow podiatry input and recommendation, continue local wound care with the cadexomer iodine one application daily, continue broad-spectrum IV antibiotics with the vanco and Flagyl IV, continue to follow ID input and recommendation. Follow Cardiology input and recommendation. Patient is scheduled for angiogram today. During my visit comfortably in bed, alert oriented x3, no acute events overnight per discussion with the RN, eating lunch, tolerating well, no nausea, no vomiting, no abdominal pain. 10/18 patient remains admitted to the medical floor, BP 154/85, afebrile, saturating normal on room air, hemoglobin 8.9, hematocrit 27.3. Magnesium 1.7. Patient underwent abdominal aortogram with pelvic runoff, right lower extremity digital subtraction arteriogram, right posterior tibial drug coated balloon angioplasty 10/17/2024 with the following results: Results: There is no disease in the distal aorta, pelvic vessels on either side, right superficial femoral, or right anterior tibial or peroneal. There is 30% plaque in the tibioperoneal trunk and 90% stenosis at the origin of the right posterior tibial and this was reduced to 0% residual. On the initial angiogram hypervascularity is noted in the toes of the right foot, particularly in the lateral portion of the foot, but there was no disease in the anterior tibial. Successful [employer] RIGHT POSTERIOR TIBIAL Patient to continue on broad-spectrum IV antibiotics, continue aspirin 81 mg p.o. daily, Plavix 75 mg p.o. daily, continue to follow Cardiology input recommendation, continue local wound care, continue to follow podiatry and infectious disease input and recommendations. GI consultation requested secondary to positive stool occult blood, okay to start and continue dual antiplatelet therapy, can defer EGD/colonoscopy as an outpatient, as there is no overt GI bleeding and hemoglobin stable, if the patient shows signs of upper GI bleed reconsult as needed. During my visit the patient is comfortably in bed, alert oriented x3, getting IV antibiotics, case discussed with the RN, no acute events overnight, findings of angiogram discussed in detail with the patient, all questions answered, she agreed and understood all the information provided as well as plan of care. 10/19 patient remains admitted to the medical floor, hemodynamically stable, BP 147/70, afebrile, saturating normal on room air. Hemoglobin continues to drop, today at 8.2, hematocrit 26.1, WBC 8.6, platelet count of 380. Sodium 139, potassium 3.8, BUN of 12, creatinine 0.7, total calcium 8.8, magnesium 1.8. Patient to continue on broad-spectrum IV antibiotics, continue aspirin 81 mg p.o. daily, Plavix 75 mg p.o. daily, continue to follow Cardiology input recommendation, continue local wound care, continue to follow podiatry and infectious disease input and recommendations. Possible debridement/amputation on Monday. GI consultation requested secondary secondary to positive stool occult blood, okay to start and continue dual antiplatelet therapy, can defer EGD/colonoscopy as an outpatient, as there is no overt GI bleeding and hemoglobin stable, if the patient shows signs of upper GI bleed reconsult as needed. Hemoglobin continues to decrease, today 8.2, hematocrit 26.1. We will do CBC q.8 hours, transfuse 1 unit of PRBC if hemoglobin less than seven. If hemoglobin continues to drop we will reconsult GI. Patient iron level is low, continue Venofer 200 mg IV daily to complete three days. At the time of my visit the patient comfortably in bed, alert oriented x3, watching TV, no chest pain, no shortness a breath, no nausea, no vomiting. 10/20 patient remains admitted to the medical floor, hemodynamically stable, afebrile, saturating normal on room air, hemoglobin keeps dropping, today 8.1, hematocrit 25.1, platelet count of 357. Potassium 3.5, magnesium 1.7. Patient to continue on broad-spectrum IV antibiotics, continue aspirin 81 mg p.o. daily, Plavix 75 mg p.o. daily, continue to follow Cardiology input recommendation, continue local wound care, continue to follow podiatry and infectious disease input and recommendations. Possible debridement/amputation on Monday. GI consultation requested secondary secondary to positive stool occult blood, okay to start and continue dual antiplatelet therapy, can defer EGD/colonoscopy as an outpatient, as there is no overt GI bleeding and hemoglobin stable, if the patient shows signs of upper GI bleed reconsult as needed. Hemoglobin continues to decrease, today 8.1, hematocrit 25.1 follow CBC transfuse as needed. Continue Venofer IV. At the time of my visit the patient is comfortably in bed, she is eating lunch, tolerating well, no nausea, no vomiting, no abdominal pain, family members at bedside, updated. 10/21 patient remains admitted to medical floor, hemodynamically stable, afebrile, saturating normal on room air. Hemoglobin stable 8.2, hematocrit 25.2. Sodium 137, potassium 3.6, BUN 40, creatinine 1.0, magnesium 1.8. Patient to continue on broad-spectrum IV antibiotics, continue aspirin 81 mg p.o. daily, Plavix 75 mg p.o. daily, continue to follow Cardiology input recommendation, continue local wound care, continue to follow podiatry and infectious disease input and recommendations. Status post amputation today. Hemoglobin dropped to 6.8. We will transfuse 1 unit of PRBC. Discussed with the GI, plan for EGD tomorrow. 10/23 patient is seen and examined at bedside, case discussed with the RN, no acute events overnight, patient underwent EGD yesterday, tolerated the procedure well, findings of gastritis, status post biopsy, normal duodenal bulb and 2nd portion of the duodenum, status post biopsy. At the time of my visit the patien t is comfortable, alert oriented x3, she is getting IV antibiotics. At the time of my visit the patient is comfortably in bed, alert oriented x3, not in distress, received a phone call by the nurse because patient dropped her systolic blood pressure to 89, she has been oozing blood from amputation site. Podiatry contacted, Surgicel to be applied. I have decided to give a bolus of NS 500 total. Patient re-evaluated, and systolic blood pressure 120/70. Asymptomatic. Continue to monitor. 10/22 patient is seen at bedside, case discussed with the RN, no acute events overnight, during my visit the patient is alert oriented x3, hemodynamically stable, received 1 unit of PRBC yesterday, tolerated well, no acute reaction, hemoglobin today at 8.3, hematocrit 35.3, currently the patient NPO, scheduled vomiting EGD today. We will follow up. REVIEW OF SYSTEMS CONSTITUTIONAL: Denies fevers, chills, or night sweats. No unintentional weight loss reported. NEUROLOGICAL: Denies headache, amaurosis fugax, motor weakness, sensory deficit, vertigo/spinning sensation, gait abnormalities, or tremors. ENT: No hearing loss, otalgia, otorrhea, rhinitis, rhinorrhea, hoarseness, or sore throat. CARDIOVASCULAR: Denies any exertional angina, dyspnea on exertion, orthopnea, paroxysmal nocturnal dyspnea, palpitations, life-threatening arrhythmias, claudication. PULMONARY: Denies any shortness of breath, cough, phlegm/sputum, hemoptysis, pleuritic chest pain. SLEEP: Denies morning headaches, daytime somnolence or napping. Denies difficulty falling asleep, staying asleep, waking from sleep. Denies knowledge of snoring. GASTROINTESTINAL: Denies any type of dysphagia to either liquids or solids. Denies nausea, vomiting, pyrosis, early satiety, abdominal pain, diarrhea, constipation, or changes in stool consistency or caliber. Denies coffee-ground emesis, hematemesis, hematochezia, or melanotic stools. GENITOURINARY: Denies frequency, urgency, nocturia, hematuria or incontinence (Storage/Irritative symptoms.) Low urinary stream, straining to void, urinary intermittency or hesitancy, splitting of the voiding stream, terminal dribbling. ENDOCRINOLOGIC: Denies polyuria, polydipsia, polyphagia or heat/cold intolerances. HEMATOLOGIC: Denies thrombophilia/previous clots, or coagulopathy/bleeding disorders. ONCOLOGIC: Denies personal history of malignancy. DERMATOLOGIC: Progressive redness, swelling and non healing diabetic foot ulcer involving the right foot, redness involving the 2nd to 4th toes PSYCHIATRIC: Denies any suicidal or homicidal ideation. Denies hallucinations. PHYSICAL EXAM GENERAL APPEARANCE: The patient is awake, alert, and oriented, in no acute cardiopulmonary distress. NEUROLOGICAL: Cranial nerves II-XII grossly intact. neurological examination is non focal for the patient HEENT: Face is symmetric. Pupils are equal and reactive. Extraocular movements are intact. NECK: Supple. No JVD. No thyromegaly. No submental, submandibular, pre- /postauricular, occipital or supraclavicular lymphadenopathy. CHEST: Normal chest expansion. No Telemetry. LUNGS: Absence of any rales, rhonchi or any wheezing. CARDIOVASCULAR: Regular. S1 and S2 normal. No appreciable rubs, murmurs or gallops. ABDOMEN: Soft, nontender, and nondistended. There is no rebound, voluntary guarding, or rigidity. : Deferred. No [place]. EXTREMITIES: right foot is swollen and redness noted extending to the midfoot, deep ulcer with purulence noted between the interdigital space of the 3rd and 4th toes, redness, noted of the 2nd, 3rd and 4th digit, patchy area of necrosis noted of the plantar and dorsal aspect of the metatarsal aspect of the third and fourth digit SKIN: as noted above Vital Signs (last 8hr) Date Time Temp Pulse Resp B/P (MAP) Pulse Ox O2 Delivery O2 Flow Rate FiO2 10/23/24 12:00 98.1 75 19 120/68 95 Room Air 10/23/24 08:00 97.9 82 17 115/63 93 Room Air 10/23/24 05:58 99.1 89 18 135/69 95 Room Air LABS: Laboratory: Test 10/23/24 11:47 10/23/24 08:50 Range/Units Whole Blood Glucose 158 H 70-110 MG/DL White Blood Count 7.5 4.8-10.8 K/uL Red Blood Count 3.09 L 4.00-5.50 MIL/uL Hemoglobin 8.6 L 12.0-16.0 g/dL Hematocrit 25.3 L 36-48 % Mean Corpuscular Volume 81.9 79-99 fL Mean Corpuscular Hemoglobin 27.8 27.0-33.0 pg Mean Corpuscular Hemoglobin Concent 34.0 32.0-36.0 g/dL Red Cell Distribution Width 14.5 11.0-15.5 % Platelet Count 305 130-400 K/uL Mean Platelet Volume 8.8 7.5-10.5 fL Nucleated Red Blood Cells 0.0 0.0-0.19 % Sodium Level 133 L 136-145 mmol/L Potassium Level 3.5 3.5-5.1 mmol/L Chloride Level 103 101-111 mmol/L Carbon Dioxide Level 27 21-32 mmol/L Blood Urea Nitrogen 10 7-18 mg/dL Creatinine 0.8 0.5-1.0 mg/dL Glomerular Filtration Rate Calc 86 >90 mL/min Random Glucose 158 H 70-105 mg/dL Total Calcium 8.5 8.5-10.1 mg/dL Magnesium Level 1.90 1.80-2.40 mg/dL Total Bilirubin 0.3 0.2-1.0 mg/dL Aspartate Amino Transf (AST/SGOT) 24 10-37 U/L Alanine Aminotransferase (ALT/SGPT) 20 12-78 U/L Alkaline Phosphatase 59 50-136 U/L Total Protein 6.5 6.0-8.3 g/dL Albumin 2.2 L 3.5-5.0 g/dL Current Medications Medications (Trade) Dose Ordered Sig/Elsy Route PRN Reason Start Time Stop Time Status Last Admin Dose Admin Acetaminophen (TYLenol 500MG TAB) 500 mg Q6H PRN PO MILD PAIN (1-3) 10/13/24 18:00 11/12/24 17:59 10/21/24 18:33 500 MG Aspirin (Aspirin 81mg Chew Tab) 81 mg DAILY PO 10/18/24 09:00 11/17/24 08:59 10/23/24 08:31 81 MG Aspirin (Aspirin 81mg Ec Tab) 81 mg DAILY PO 10/15/24 11:30 10/16/24 11:09 DC 10/16/24 10:44 81 MG Atorvastatin Calcium (LIPItor 40MG) 40 mg HS PO 10/15/24 21:00 11/14/24 20:59 10/22/24 20:36 40 MG Cadexomer Iodine (Iodosorb Gel 40gm) 1 APPL DAILY TP 10/15/24 09:00 10/15/24 15:22 DC Cadexomer Iodine (Iodosorb Gel 40gm) 1 APPL DAILY TP 10/16/24 09:00 11/15/24 08:59 10/23/24 08:33 1 APPL Cadexomer Iodine (Iodosorb Gel 40gm) 1 APPL ONCE TP 10/14/24 17:30 10/14/24 23:32 DC Cefepime HCl (MAXipime 2 gm vial) 2 gm Q12H IVPB 10/13/24 18:00 10/23/24 17:59 10/23/24 05:03 2 GM Clopidogrel Bisulfate (plaVIX 75MG) 75 mg DAILY PO 10/18/24 09:00 11/17/24 08:59 10/23/24 08:32 75 MG Dextrose (D50w) 50 ml AD PRN IV HYPOGLYCEMIA PROTOCOL 10/14/24 12:30 11/13/24 12:29 Famotidine (Pepcid 20mg Vial) 20 mg DAILY IV 10/14/24 09:00 10/13/24 18:14 DC Fluconazole (DiFLUCan 100 mg TAB) 200 mg DAILY PO 10/19/24 09:00 10/28/24 08:59 10/23/24 08:32 200 MG Glucagon (Glucagon 1mg Kit) 1 mg AD PRN IM HYPOGLYCEMIA PROTOCOL 10/14/24 12:30 11/13/24 12:29 Hydralazine HCl (APRESOLine 20MG INJ) 5 mg Q6H PRN IV ADMINISTER FOR SBP > 160 10/16/24 09:30 11/15/24 09:29 Hydromorphone HCl (DiLAUDid 0.5MG INJ) 0.5 mg Q4H PRN IVP SEVERE PAIN (7-10) 10/21/24 19:00 10/22/24 01:14 DC 10/21/24 19:14 0.5 MG Insulin Glargine (LANtus 100 UNITS/ML 10 ML VIAL) 12 units DAILY SQ 10/14/24 09:00 11/13/24 08:59 10/23/24 08:42 12 UNITS Insulin Human Regular (humuLIN R 100 UNIT/ML 3ML) INSULIN SLIDING SCAL... ACHS SQ 10/13/24 21:00 11/12/24 20:59 10/23/24 06:23 2 UNIT Iron Sucrose (VenoFER) 200 mg DAILY IV 10/18/24 12:00 10/20/24 14:00 DC 10/20/24 12:04 200 MG Losartan Potassium (CozAAR 25MG TAB) 25 mg DAILY PO 10/16/24 09:30 11/15/24 09:29 10/23/24 08:32 25 MG Magnesium Sulfate 50 ml @ 0 mls/hr PROTOCOL IV 10/16/24 09:30 10/16/24 09:24 DC Magnesium Sulfate 50 ml @ 0 mls/hr PROTOCOL IV 10/18/24 09:30 10/20/24 12:03 DC 10/20/24 09:26 25 MLS/HR Magnesium Sulfate 50 ml @ 0 mls/hr PROTOCOL IV 10/20/24 12:00 11/19/24 11:59 10/22/24 06:07 25 MLS/HR Magnesium Sulfate 50 ml @ 0 mls/hr PROTOCOL IV 10/22/24 12:30 10/22/24 12:45 DC Magnesium Sulfate 50 ml @ 0 mls/hr PROTOCOL PRN IV MAGNESIUM PROTOCOL 10/16/24 06:30 10/18/24 12:48 DC 10/17/24 11:08 25 MLS/HR Metronidazole/ Sodium Chloride 100 ml @ 100 mls/hr Q8H IVPB 10/15/24 07:30 10/25/24 07:29 10/23/24 08:31 100 MLS/HR Metronidazole/ Sodium Chloride 100 ml @ 100 mls/hr Q8H6 IVPB 10/13/24 22:00 10/15/24 00:10 DC 10/14/24 22:21 100 MLS/HR Morphine Sulfate (morPHINE 2MG SYG) 2 mg Q6H PRN IVP SEVERE PAIN (7-10) 10/13/24 18:00 10/18/24 20:59 DC 10/13/24 18:46 2 MG Morphine Sulfate (morPHINE 4MG SYG) 4 mg Q4H PRN IM SEVERE PAIN (7-10) 10/22/24 01:30 10/22/24 01:51 DC Morphine Sulfate (morPHINE 4MG SYG) 4 mg Q4H PRN IVP SEVERE PAIN (7-10) 10/22/24 02:00 10/29/24 01:59 10/23/24 06:16 4 MG Ondansetron HCl (zoFRAN 4MG INJ) 4 mg Q6H PRN IVP NAUSEA/VOMITING 10/13/24 18:00 11/12/24 17:59 10/13/24 18:46 4 MG Pantoprazole Sodium (PROTonix 40MG INJ) 40 mg BID IVP 10/17/24 10:30 11/16/24 10:29 10/23/24 08:31 40 MG Pantoprazole Sodium (PROTonix 40MG INJ) 40 mg HS IVP 10/13/24 21:00 10/19/24 14:22 DC 10/18/24 21:22 40 MG Piperacillin Sod/ Tazobactam Sod (Zosyn 3.375gm+NS 50ml) 3.375 gm Q12H IV 10/13/24 17:30 10/13/24 17:56 DC Potassium Chloride 100 ml @ 50 mls/hr AD PRN IV POTASSIUM PROTOCOL 10/16/24 06:30 11/15/24 06:29 10/16/24 18:36 50 MLS/HR Potassium Chloride 100 ml @ 100 mls/hr AD PRN IV POTASSIUM PROTOCOL 10/17/24 10:30 10/17/24 10:11 DC Potassium Chloride (K-Dur/Klor-Con 20meq) 20 meq AD PRN PO POTASSIUM PROTOCOL 10/17/24 10:30 11/16/24 10:29 10/18/24 11:27 20 MEQ Potassium Chloride (KCl 10% Elixir 20meq/15ml) 20 meq AD PRN PO POTASSIUM PROTOCOL 10/17/24 10:30 11/16/24 10:29 10/20/24 17:17 20 MEQ Sodium Chloride 500 ml @ 0 mls/hr Q0M STAT IV 10/21/24 13:53 10/21/24 13:56 DC 10/21/24 14:37 500 MLS/HR Sodium Chloride 1,000 ml @ 100 mls/hr Q10H IV 10/13/24 18:00 10/17/24 14:07 DC 10/17/24 12:16 100 MLS/HR Sodium Chloride 1,000 ml @ 150 mls/hr AD IV 10/17/24 14:00 10/17/24 19:59 DC Vancomycin HCl (Vancomycin 750mg) 750 mg Q12H IVPB 10/14/24 06:00 10/24/24 05:59 10/23/24 06:07 750 MG Vancomycin HCl (Vancomycin Protocol) 1 each AD IV 10/13/24 18:30 10/27/24 18:29 DIAGNOSTICS / RADIOLOGY: [ ] ASSESSMENT: Osteomyelitis tip of 4th right toe, POA Right 3rd toe ulceration, POA Status post amputation 4th toe right foot and debridement ulceration right 3rd toe Progressive cellulitis of the right foot involving the midfoot with failure of outpatient treatment, POA Infected diabetic deep foot ulcer involving the interdigital space of the 3rd and 4th digit, POA Progressive cellulitis involving the 2nd, 3rd, 4th toes of the right foot, POA Right foot cultures positive for Bindu albicans and Streptococcus agalactiae group B. Peripheral arterial disease, POA Successful DCB-[employer] RIGHT POSTERIOR TIBIAL 10/17/24 Hypovolemic hyponatremia, POA Anemia, POA Underlying history of insulin-dependent diabetes mellitus, POA Iron deficiency anemia with a stool occult blood positive, POA PLAN: Continue broad-spectrum IV antibiotics, continue local wound care, continue current pain medication with the adjustment as needed, we will request PT to evaluate the patient, continue to follow podiatry and ID input and recommendation. NEURO: Minimize central acting medications as possible. Fall Precautions. Well lighted room through the day and minimize interruptions through the night to prevent acute delirium. PULMONARY: Supplemental 02 as needed BiPAP as necessary, for respiratory distress Titrate Fio2 to keep Spo2 > or = 90% DuoNebs and CPT as needed IS hourly while awake for pulmonary hygiene prn Out of bed to chair as tolerated Maintain aspiration precautions at all times CARDIOVASCULAR: Follow hemodynamics. Vital signs per facility protocol GI & NUTRITION: Continue nutritional support Aspirations precautions Prokinetic agents and laxatives as needed KIDNEYS & ELECTROLYTES: Strict monitoring of intake and output Daily weights Avoid nephrotoxic agents Monitor electrolytes and replace as needed Goal urine output of 30mL/hr or 0.5mL/kg/hr Medications to be dosed according to renal function. Avoid contrast if possible ENDOCRINE: Maintain blood glucose between 100-180 at all times. Insulin sliding scale for blood glucose management Hypoglycemia and hyperglycemia protocol in place INFECTIOUS DISEASE: Trend temperature, WBC and procalcitonin level Follow cultures, deescalate antibiotics as soon as possible. Panculture if new onset fever HEMATOLOGY & COAGULATION: Monitor H&H. Keep Hgb > 7 Transfuse 1 unit of PRBC for Hgb < 7 Transfuse 1 pack of platelets of platelets < 20, 000 Watch for any signs and symptoms of bleeding SKIN: Pressure ulcer prevention per facility protocol Specialty mattress as needed ORTHO/REHAB Continue PT/OT PRN: MEDICATIONS Tylenol 650 mg po every 4 hrs for fever zofran 4 mg IV every 6 hrs for n/v Hydralazine 5 mg IV every 4 hrs systolic pressure > 160 bowel regiment: lactulose 20 gm PO BID PRN constipation Supportive measures: Continue GI and DVT prophylaxis Disposition: Pending improvement in clinical condition All questions answered time spent: > 35 min NANCY COLBERT MD Oct 23, 2024 12:55
--- NOTE | 2024-10-23 13:10 | PN ---
GASTROENTEROLOGY PROGRESS NOTE Date of Visit: Oct 23, 2024 Time of Visit: 13:10 Events / Notes: No acute events overnight. S/P egd. Review of Systems: CONSTITUTIONAL: No malaise or change in sensation of wellbeing. ENMT: No rhinorrhea, otorrhea, sinus pain, ear ache. CARDIOVASCULAR: No angina, palpitations, orthopnea or paroxysmal dyspnea. RESPIRATORY: No SOB. GASTROINTESTINAL: No abdominal pain, nausea, vomiting, diarrhea, hematemesis, melena or change in the patient's habitual bowel movements consistency/number. GENITOURINARY: No dysuria, hematuria or change in bladder continence. MUSCULOSKELETAL: No new muscle pain or decrease in muscular strength. No new joint swelling, redness or tenderness. SKIN: No new rash. Physical Exam: GEN: Awake, alert, oriented in person, time and place, and in no acute distress. HEENT: No sinus tenderness. Tympanic membranes were not examined. No rhinorrhea. Oral pharyngeal mucosa is pink, moist and within normal limits. Neck is supple with no cervical lymphadenopathy, thyromegaly or JVD. CHEST: Inspection, palpation and percussion of the chest were unremarkable. Lung auscultation revealed normal breath sounds bilaterally. CARDIAC: PMI is within normal limits. Heart sounds are regular. Normal S1, S2. No gallop or murmur. ABD: Soft, non-tender and not distended. No peritoneal signs on palpation. No organomegaly. Normal bowel sounds. EXT: No cyanosis or clubbing. No edema. SKIN: Intact. No rashes. JOINTS: No evidence of synovitis or acute arthritis. NEURO: Alert and oriented to name, place and person. Cranial nerve examination is unremarkable. No focal motor deficits. Normal speech. Gait is normal. Strength is normal. Vital Signs (last 8hr) Date Time Temp Pulse Resp B/P (MAP) Pulse Ox O2 Delivery O2 Flow Rate FiO2 10/23/24 12:00 98.1 75 19 120/68 95 Room Air 10/23/24 08:00 97.9 82 17 115/63 93 Room Air 10/23/24 05:58 99.1 89 18 135/69 95 Room Air Laboratory: [ ] Laboratory: Test 10/23/24 11:47 10/23/24 08:50 Range/Units Whole Blood Glucose 158 H 70-110 MG/DL White Blood Count 7.5 4.8-10.8 K/uL Red Blood Count 3.09 L 4.00-5.50 MIL/uL Hemoglobin 8.6 L 12.0-16.0 g/dL Hematocrit 25.3 L 36-48 % Mean Corpuscular Volume 81.9 79-99 fL Mean Corpuscular Hemoglobin 27.8 27.0-33.0 pg Mean Corpuscular Hemoglobin Concent 34.0 32.0-36.0 g/dL Red Cell Distribution Width 14.5 11.0-15.5 % Platelet Count 305 130-400 K/uL Mean Platelet Volume 8.8 7.5-10.5 fL Nucleated Red Blood Cells 0.0 0.0-0.19 % Sodium Level 133 L 136-145 mmol/L Potassium Level 3.5 3.5-5.1 mmol/L Chloride Level 103 101-111 mmol/L Carbon Dioxide Level 27 21-32 mmol/L Blood Urea Nitrogen 10 7-18 mg/dL Creatinine 0.8 0.5-1.0 mg/dL Glomerular Filtration Rate Calc 86 >90 mL/min Random Glucose 158 H 70-105 mg/dL Total Calcium 8.5 8.5-10.1 mg/dL Magnesium Level 1.90 1.80-2.40 mg/dL Total Bilirubin 0.3 0.2-1.0 mg/dL Aspartate Amino Transf (AST/SGOT) 24 10-37 U/L Alanine Aminotransferase (ALT/SGPT) 20 12-78 U/L Alkaline Phosphatase 59 50-136 U/L Total Protein 6.5 6.0-8.3 g/dL Albumin 2.2 L 3.5-5.0 g/dL Current Medications Medications (Trade) Dose Ordered Sig/Elsy Route PRN Reason Start Time Stop Time Status Last Admin Dose Admin Acetaminophen (TYLenol 500MG TAB) 500 mg Q6H PRN PO MILD PAIN (1-3) 10/13/24 18:00 11/12/24 17:59 10/21/24 18:33 500 MG Aspirin (Aspirin 81mg Chew Tab) 81 mg DAILY PO 10/18/24 09:00 11/17/24 08:59 10/23/24 08:31 81 MG Aspirin (Aspirin 81mg Ec Tab) 81 mg DAILY PO 10/15/24 11:30 10/16/24 11:09 DC 10/16/24 10:44 81 MG Atorvastatin Calcium (LIPItor 40MG) 40 mg HS PO 10/15/24 21:00 11/14/24 20:59 10/22/24 20:36 40 MG Cadexomer Iodine (Iodosorb Gel 40gm) 1 APPL DAILY TP 10/15/24 09:00 10/15/24 15:22 DC Cadexomer Iodine (Iodosorb Gel 40gm) 1 APPL DAILY TP 10/16/24 09:00 11/15/24 08:59 10/23/24 08:33 1 APPL Cadexomer Iodine (Iodosorb Gel 40gm) 1 APPL ONCE TP 10/14/24 17:30 10/14/24 23:32 DC Cefepime HCl (MAXipime 2 gm vial) 2 gm Q12H IVPB 10/13/24 18:00 10/23/24 17:59 10/23/24 05:03 2 GM Clopidogrel Bisulfate (plaVIX 75MG) 75 mg DAILY PO 10/18/24 09:00 11/17/24 08:59 10/23/24 08:32 75 MG Dextrose (D50w) 50 ml AD PRN IV HYPOGLYCEMIA PROTOCOL 10/14/24 12:30 11/13/24 12:29 Famotidine (Pepcid 20mg Vial) 20 mg DAILY IV 10/14/24 09:00 10/13/24 18:14 DC Fluconazole (DiFLUCan 100 mg TAB) 200 mg DAILY PO 10/19/24 09:00 10/28/24 08:59 10/23/24 08:32 200 MG Glucagon (Glucagon 1mg Kit) 1 mg AD PRN IM HYPOGLYCEMIA PROTOCOL 10/14/24 12:30 11/13/24 12:29 Hydralazine HCl (APRESOLine 20MG INJ) 5 mg Q6H PRN IV ADMINISTER FOR SBP > 160 10/16/24 09:30 11/15/24 09:29 Hydromorphone HCl (DiLAUDid 0.5MG INJ) 0.5 mg Q4H PRN IVP SEVERE PAIN (7-10) 10/21/24 19:00 10/22/24 01:14 DC 10/21/24 19:14 0.5 MG Insulin Glargine (LANtus 100 UNITS/ML 10 ML VIAL) 12 units DAILY SQ 10/14/24 09:00 8/13/25 08:59 10/23/24 08:42 12 UNITS Insulin Human Regular (humuLIN R 100 UNIT/ML 3ML) INSULIN SLIDING SCAL... ACHS SQ 10/13/24 21:00 11/12/24 20:59 10/23/24 06:23 2 UNIT Iron Sucrose (VenoFER) 200 mg DAILY IV 10/18/24 12:00 10/20/24 14:00 DC 10/20/24 12:04 200 MG Losartan Potassium (CozAAR 25MG TAB) 25 mg DAILY PO 10/16/24 09:30 11/15/24 09:29 10/23/24 08:32 25 MG Magnesium Sulfate 50 ml @ 0 mls/hr PROTOCOL IV 10/16/24 09:30 10/16/24 09:24 DC Magnesium Sulfate 50 ml @ 0 mls/hr PROTOCOL IV 10/18/24 09:30 10/20/24 12:03 DC 10/20/24 09:26 25 MLS/HR Magnesium Sulfate 50 ml @ 0 mls/hr PROTOCOL IV 10/20/24 12:00 11/19/24 11:59 10/22/24 06:07 25 MLS/HR Magnesium Sulfate 50 ml @ 0 mls/hr PROTOCOL IV 10/22/24 12:30 10/22/24 12:45 DC Magnesium Sulfate 50 ml @ 0 mls/hr PROTOCOL PRN IV MAGNESIUM PROTOCOL 10/16/24 06:30 10/18/24 12:48 DC 10/17/24 11:08 25 MLS/HR Metronidazole/ Sodium Chloride 100 ml @ 100 mls/hr Q8H IVPB 10/15/24 07:30 10/25/24 07:29 10/23/24 08:31 100 MLS/HR Metronidazole/ Sodium Chloride 100 ml @ 100 mls/hr Q8H6 IVPB 10/13/24 22:00 10/15/24 00:10 DC 10/14/24 22:21 100 MLS/HR Morphine Sulfate (morPHINE 2MG SYG) 2 mg Q6H PRN IVP SEVERE PAIN (7-10) 10/13/24 18:00 10/18/24 20:59 DC 10/13/24 18:46 2 MG Morphine Sulfate (morPHINE 4MG SYG) 4 mg Q4H PRN IM SEVERE PAIN (7-10) 10/22/24 01:30 10/22/24 01:51 DC Morphine Sulfate (morPHINE 4MG SYG) 4 mg Q4H PRN IVP SEVERE PAIN (7-10) 10/22/24 02:00 10/29/24 01:59 10/23/24 06:16 4 MG Ondansetron HCl (zoFRAN 4MG INJ) 4 mg Q6H PRN IVP NAUSEA/VOMITING 10/13/24 18:00 11/12/24 17:59 10/13/24 18:46 4 MG Pantoprazole Sodium (PROTonix 40MG INJ) 40 mg BID IVP 10/17/24 10:30 11/16/24 10:29 10/23/24 08:31 40 MG Pantoprazole Sodium (PROTonix 40MG INJ) 40 mg HS IVP 10/13/24 21:00 10/19/24 14:22 DC 10/18/24 21:22 40 MG Piperacillin Sod/ Tazobactam Sod (Zosyn 3.375gm+NS 50ml) 3.375 gm Q12H IV 10/13/24 17:30 10/13/24 17:56 DC Potassium Chloride 100 ml @ 50 mls/hr AD PRN IV POTASSIUM PROTOCOL 10/16/24 06:30 11/15/24 06:29 10/16/24 18:36 50 MLS/HR Potassium Chloride 100 ml @ 100 mls/hr AD PRN IV POTASSIUM PROTOCOL 10/17/24 10:30 10/17/24 10:11 DC Potassium Chloride (K-Dur/Klor-Con 20meq) 20 meq AD PRN PO POTASSIUM PROTOCOL 10/17/24 10:30 11/16/24 10:29 10/18/24 11:27 20 MEQ Potassium Chloride (KCl 10% Elixir 20meq/15ml) 20 meq AD PRN PO POTASSIUM PROTOCOL 10/17/24 10:30 11/16/24 10:29 10/20/24 17:17 20 MEQ Sodium Chloride 500 ml @ 0 mls/hr Q0M STAT IV 10/21/24 13:53 10/21/24 13:56 DC 10/21/24 14:37 500 MLS/HR Sodium Chloride 1,000 ml @ 100 mls/hr Q10H IV 10/13/24 18:00 10/17/24 14:07 DC 10/17/24 12:16 100 MLS/HR Sodium Chloride 1,000 ml @ 150 mls/hr AD IV 10/17/24 14:00 10/17/24 19:59 DC Vancomycin HCl (Vancomycin 750mg) 750 mg Q12H IVPB 10/14/24 06:00 10/24/24 05:59 10/23/24 06:07 750 MG Vancomycin HCl (Vancomycin Protocol) 1 each AD IV 10/13/24 18:30 10/27/24 18:29 Diagnostics / Radiology: [COPY/PASTE HERE IF NO REPORTS PLEASE DELETE SECTION] Assessment: Positive fobt Normocytic anemia Cellulitis Plan: Continue GI prophylaxis Advance diet as tolerated Avoid NSAIDs Antireflux measures Monitor H&H and transfuse as needed Call with questions, concerns or change in clinical status Patient to follow-up at clinic post discharge Thank you for this consult [employer] [employer] LAMINATOR Oct 23, 2024 13:10
--- NOTE | 2024-10-23 16:11 | PN ---
INFECTIOUS DISEASE PROGRESS NOTE Date of Service: Oct 23, 2024 SUBJECTIVE: This is a 54-year-old female patient who was seen and examined at bedside in room 317. Patient is status post amputation of the right 4th toe on 10/21/2024. No reports of fever, temperature is 98.1. Patient has been evaluated by Physical therapy today. Patient underwent an EGD yesterday with findings of gastritis. No nausea or vomiting. Patient is currently on fluconazole, vancomycin, cefepime and metronidazole. Plan is to discharge patient on oral antibiotics when ready to discharge. PHYSICAL EXAM EYES: Anicteric. Pupils equal and reactive. HENT: No oral thrush seen, moist Oral mucosa NECK: Supple, no JVD or thyromegaly. LUNGS: Good air entry. No rales, no rhonchi. CARDIOVASCULAR: S1, S2 regular. No murmur heard. ABDOMEN: Soft, non tender, bowel sounds present, no organomegaly CENTRAL NERVOUS SYSTEM: Awake, alert, oriented x 3. SKIN: No rashes, no swelling. Status post right 4th toe amputation. LYMPHATICS: No peripheral lymphadenopathy MUSCULOSKELETAL: No joint swelling, erythema or tenderness. EXTREMITIES: Right foot swelling and redness. BACK: No deformity, no pressure ulcer. GENITOURINARY: No dysuria or hematuria. Vital Sign (Last 12 Hours) 10/23/24 10/23/24 10/23/24 10/23/24 05:58 08:00 08:31 12:00 Temp 99.1 97.9 98.1 Pulse 89 82 75 Resp 18 17 19 B/P (MAP) 135/69 115/63 120/68 Pulse Ox 95 93 93 95 O2 Delivery Room Air Room Air Room Air* Room Air O2 Flow Rate 0 FiO2 21 Intake & Output (last 24hrs) 10/22/24 10/22/24 10/23/24 15:00 23:00 07:00 Intake Total 400 ml 200.0 ml Output Total 800 ml Balance -400 ml 200.0 ml LABS: Laboratory: Test 10/23/24 11:47 10/23/24 08:50 Range/Units Whole Blood Glucose 158 H 70-110 MG/DL White Blood Count 7.5 4.8-10.8 K/uL Red Blood Count 3.09 L 4.00-5.50 MIL/uL Hemoglobin 8.6 L 12.0-16.0 g/dL Hematocrit 25.3 L 36-48 % Mean Corpuscular Volume 81.9 79-99 fL Mean Corpuscular Hemoglobin 27.8 27.0-33.0 pg Mean Corpuscular Hemoglobin Concent 34.0 32.0-36.0 g/dL Red Cell Distribution Width 14.5 11.0-15.5 % Platelet Count 305 130-400 K/uL Mean Platelet Volume 8.8 7.5-10.5 fL Nucleated Red Blood Cells 0.0 0.0-0.19 % Sodium Level 133 L 136-145 mmol/L Potassium Level 3.5 3.5-5.1 mmol/L Chloride Level 103 101-111 mmol/L Carbon Dioxide Level 27 21-32 mmol/L Blood Urea Nitrogen 10 7-18 mg/dL Creatinine 0.8 0.5-1.0 mg/dL Glomerular Filtration Rate Calc 86 >90 mL/min Random Glucose 158 H 70-105 mg/dL Total Calcium 8.5 8.5-10.1 mg/dL Magnesium Level 1.90 1.80-2.40 mg/dL Total Bilirubin 0.3 0.2-1.0 mg/dL Aspartate Amino Transf (AST/SGOT) 24 10-37 U/L Alanine Aminotransferase (ALT/SGPT) 20 12-78 U/L Alkaline Phosphatase 59 50-136 U/L Total Protein 6.5 6.0-8.3 g/dL Albumin 2.2 L 3.5-5.0 g/dL ASSESSMENT: 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 Right foot diabetic ulcer in the 3rd and 4th interdigital space with gangrene. Polymicrobial infection. Right foot Cellulitis. Peripheral artery disease, s/p peripheral angiogram with findings of 90% stenosis at the origin of the right posterior tibial with successful intervention reducing it to 0 %. Diabetes mellitus. Anemia requiring blood transfusion, status post EGD with findings of gastritis. PLAN: Continue fluconazole. Continue on Vancomycin per pharmacy protocol. Continue Cefepime. Continue Metronidazole IV. Continue pain management. Continue wound care as recommended by retaining room cutter. Continue GI prophylaxis. Continue antidiabetics. Physical therapy has evaluated patient. Plan is to discharge patient on oral antibiotic. This case was reviewed and discussed with my supervising physician and the above assessment and plan was formulated and agreed upon. ATTESTATION BY PHYSICIAN I have seen and examined the patient. I reviewed the documentation, medical decision making, and treatment plan as noted by the mid-level provider above. I agree with the findings and plan of care. MENDY KHAN MD, [facility] Oct 23, 2024 16:11
--- NOTE | 2024-10-23 16:52 | NUR ---
Discharge Planning: New order for PT. Pending evaluation and recommendations. Pt. has been approved for 4 [facility]gio visits at [facility], pending nurse to make appt. before discharge. DCP is for home. (Non-funded)
[2024-10-24 02:45] VITALS: O2SAT 98
[2024-10-24 04:00] VITALS: BP 125/74; PULSE 91; RESP 18; TEMP 98.2
[2024-10-24 08:00] VITALS: BP 121/71; PULSE 82; RESP 16; TEMP 98.1
[2024-10-24 08:29] VITALS: O2SAT 95
--- NOTE | 2024-10-24 11:21 | DS ---
Discharge Summary Hospital Course Summary: 4-year-old female with underlying history of type 2 diabetes mellitus (diagnosed with diabetes for about 21 years) who presented to the ER for further evaluation of progressive redness, nonhealing wound involving the interdigital space of the 3rd and 4th digit of the right foot. Symptoms have been ongoing for the past 4- 5 days and patient has been using local therapy with iodine as well as been taking penicillin for further treatment as outpatient. She has been cleaning the wound with sterile water. Symptoms have been worsening and patient has developed progressive redness of the right foot as well as increased drainage between the interdigital space with purulence noted. She denied previous history of cardiac disease of peripheral arterial disease. She has been taking ibuprofen intermittently with Tylenol for pain control at home. Reported having subjective chills. On presentation to the hospital, patient was noted to be afebrile with T-max of 98.1 F, heart rate of 91, blood pressure of 123/67. Labs on presentation showed WBC count of 9000, hemoglobin of 9.1, platelet count of [id number]. BMP remarkable for sodium of 131, potassium 4.1, BUN of 26, creatinine 1.0. Patient had x-rays of the right foot which showed no acute fractures or soft tissue gas. Patient admitted for further treatment management of complicated cellulitis with infected diabetic foot wound/ulcer involving the interdigital space of the 3rd and 4th toe with progressive cellulitis of the right foot. Patient received broad-spectrum antibiotics, IV hydration. Podiatry and Infectious Disease consulted. Patient will undergo workup for peripheral arterial disease. 10/14 patient remains hemodynamically stable, BP 130/67, afebrile, saturating normal on room air, getting IV antibiotics at the time of my visit, Doppler of the lower extremities no evidence of DVT to the right lower extremity, MRI of the foot pending. Arterial Doppler no hemodynamically significant stenosis or occlusion in either lower extremity, monophasic flow in the right anterior tibial and dorsalis pedis arteries consistent with mild discharge atherosclerotic disease and hyperemia. We will continue the patient on vancomycin and Flagyl IV, patient also on cefepime, podiatry and infectious disease consulted, we will continue to follow input and recommendations. 10/15 patient remains admitted to the medical floor, getting IV antibiotics at the time of my visit, comfortably in bed, no acute events overnight per discussion with the RN. Results of MRI of the right foot positive for osteomyelitis, discussed with the patient. Arterial Doppler findings reviewed and discussed with the patient, findings of monophasic flow in the right anterior tibial and dorsalis pedis arteries consistent with a mild atherosclerotic disease. We will continue the patient on broad-spectrum IV antibiotics, infectious disease consultation requested, continue to follow input and recommendation, follow up Podiatry input recommendation, local wound care. Patient is scheduled for angiogram tomorrow. 10/16 patient remains admitted to the medical floor, BP 151/77, afebrile, saturating normal on room air. Hemoglobin of 8.4, hematocrit 26.1. Sodium 140, potassium 3.3, BUN of nine, creatinine 0.7, magnesium level 1.5. Iron level of 29. Patient evaluated by glass furnace tender yesterday, CTA aorta runoff with IV contrast no hemodynamically significant abnormality, mild to moderate circumferential calcific atheromatous plaques in the bilateral superficial femoral, popliteal, anterior tibial, posterior tibial and peroneal arteries without significant luminal stenosis, normal three-vessel flow to the foot, incidental mildly prominent common bile duct, cystitis. Grossly unremarkable ultrasound arterial Doppler of the bilateral lower limb stated 10/13/2024. Results of culture from right foot positive for Bindu albicans, Streptococcus agalactiae group B. Start losartan 25 mg p.o. daily, hydralazine 5 mg IV every 6 hours as needed. Replace electrolytes with magnesium sulfate 2 g IV x1, potassium chloride 40 mEq p.o. x1. Follow stool occult blood, if positive we will request GI consultation. We will hold aspirin for now. Continue to follow podiatry input and recommendation, continue local wound care with the cadexomer iodine one application daily, continue broad-spectrum IV antibiotics with the vanco and Flagyl IV, continue to follow ID input and recommendation. Follow Cardiology input and recommendation. Patient is scheduled for angiogram tomorrow. During my visit patient comfortably in bed, alert oriented x3, getting IV fluids and IV antibiotics. Denies chest pain, shortness shortness for breath, no nausea, no vomiting, no abdominal pain, no pain to the right foot area. 10/17 patient remains admitted to the medical floor, hemodynamically stable, afebrile, saturating normal on room air, hemoglobin 8.8, hematocrit 27.5, stool occult blood positive. Continue losartan 25 mg p.o. daily, hydralazine 5 mg IV every 6 hours as needed. Stool occult blood positive, we will request GI consultation. Continue to hold aspirin, start the patient on Protonix 40 mg IV b.i.d.. Continue to follow podiatry input and recommendation, continue local wound care with the cadexomer iodine one application daily, continue broad-spectrum IV antibiotics with the vanco and Flagyl IV, continue to follow ID input and recommendation. Follow Cardiology input and recommendation. Patient is scheduled for angiogram today. During my visit comfortably in bed, alert oriented x3, no acute events overnight per discussion with the RN, eating lunch, tolerating well, no nausea, no vomiting, no abdominal pain. 10/18 patient remains admitted to the medical floor, BP 154/85, afebrile, saturating normal on room air, hemoglobin 8.9, hematocrit 27.3. Magnesium 1.7. Patient underwent abdominal aortogram with pelvic runoff, right lower extremity digital subtraction arteriogram, right posterior tibial drug coated balloon angioplasty 10/17/2024 with the following results: Results: There is no disease in the distal aorta, pelvic vessels on either side, right superficial femoral, or right anterior tibial or peroneal. There is 30% plaque in the tibioperoneal trunk and 90% stenosis at the origin of the right posterior tibial and this was reduced to 0% residual. On the initial angiogram hypervascularity is noted in the toes of the right foot, particularly in the lateral portion of the foot, but there was no disease in the anterior tibial. 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 daily, Plavix 75 mg p.o. daily, continue to follow Cardiology input recommendation, continue local wound care, continue to follow podiatry and infectious disease input and recommendations. GI consultation requested secondary to positive stool occult blood, okay to start and continue dual antiplatelet therapy, can defer EGD/colonoscopy as an outpatient, as there is no overt GI bleeding and hemoglobin stable, if the patient shows signs of upper GI bleed reconsult as needed. During my visit the patient is comfortably in bed, alert oriented x3, getting IV antibiotics, case discussed with the RN, no acute events overnight, findings of angiogram discussed in detail with the patient, all questions answered, she agreed and understood all the information provided as well as plan of care. 10/19 patient remains admitted to the medical floor, hemodynamically stable, BP 147/70, afebrile, saturating normal on room air. Hemoglobin continues to drop, today at 8.2, hematocrit 26.1, WBC 8.6, platelet count of 380. Sodium 139, potassium 3.8, BUN of 12, creatinine 0.7, total calcium 8.8, magnesium 1.8. Patient to continue on broad-spectrum IV antibiotics, continue aspirin 81 mg p.o. daily, Plavix 75 mg p.o. daily, continue to follow Cardiology input recommendation, continue local wound care, continue to follow podiatry and infectious disease input and recommendations. Possible debridement/amputation on Monday. GI consultation requested secondary secondary to positive stool occult blood, okay to start and continue dual antiplatelet therapy, can defer EGD/colonoscopy as an outpatient, as there is no overt GI bleeding and hemoglobin stable, if the patient shows signs of upper GI bleed reconsult as needed. Hemoglobin continues to decrease, today 8.2, hematocrit 26.1. We will do CBC q.8 hours, transfuse 1 unit of PRBC if hemoglobin less than seven. If hemoglobin continues to drop we will reconsult GI. Patient iron level is low, continue Venofer 200 mg IV daily to complete three days. At the time of my visit the patient comfortably in bed, alert oriented x3, watching TV, no chest pain, no shortness a breath, no nausea, no vomiting. 10/20 patient remains admitted to the medical floor, hemodynamically stable, afebrile, saturating normal on room air, hemoglobin keeps dropping, today 8.1, hematocrit 25.1, platelet count of 357. Potassium 3.5, magnesium 1.7. Patient to continue on broad-spectrum IV antibiotics, continue aspirin 81 mg p.o. daily, Plavix 75 mg p.o. daily, continue to follow Cardiology input recommendation, continue local wound care, continue to follow podiatry and infectious disease input and recommendations. Possible debridement/amputation on Monday. GI consultation requested secondary secondary to positive stool occult blood, okay to start and continue dual antiplatelet therapy, can defer EGD/colonoscopy as an outpatient, as there is no overt GI bleeding and hemoglobin stable, if the patient shows signs of upper GI bleed reconsult as needed. Hemoglobin continues to decrease, today 8.1, hematocrit 25.1 follow CBC transfuse as needed. Continue Venofer IV. At the time of my visit the patient is comfortably in bed, she is eating lunch, tolerating well, no nausea, no vomiting, no abdominal pain, family members at bedside, updated. 10/21 patient remains admitted to medical floor, hemodynamically stable, afe brile, saturating normal on room air. Hemoglobin stable 8.2, hematocrit 25.2. Sodium 137, potassium 3.6, BUN 40, creatinine 1.0, magnesium 1.8. Patient to continue on broad-spectrum IV antibiotics, continue aspirin 81 mg p.o. daily, Plavix 75 mg p.o. daily, continue to follow Cardiology input recommendation, continue local wound care, continue to follow podiatry and infectious disease input and recommendations. Status post amputation today. Hemoglobin dropped to 6.8. We will transfuse 1 unit of PRBC. Discussed with the GI, plan for EGD tomorrow. 10/23 patient is seen and examined at bedside, case discussed with the RN, no acu te events overnight, patient underwent EGD yesterday, tolerated the procedure well, findings of gastritis, status post biopsy, normal duodenal bulb and 2nd portion of the duodenum, status post biopsy. At the time of my visit the patient is comfortable, alert oriented x3, she is getting IV antibiotics. At the time of my visit the patient is comfortably in bed, alert oriented x3, n ot in distress, received a phone call by the nurse because patient dropped her systolic blood pressure to 89, she has been oozing blood from amputation site. Podiatry contacted, Surgicel to be applied. I have decided to give a bolus of NS 500 total. Patient re-evaluated, and systolic blood pressure 120/70. Asymptomatic. Continue to monitor. 10/22 patient is seen at bedside, case discussed with the RN, no acute events overnight, during my visit the patient is alert oriented x3, hemodynamically stable, received 1 unit of PRBC yesterday, tolerated well, no acute reaction, hemoglobin today at 8.3, hematocrit 35.3, currently the patient NPO, scheduled vomiting EGD today. We will follow up. Today the patient 81, hemodynamically stable, plan to discharge patient home. Hammer Heater(s): Podiatry, ID, GI. Assessment/Plan: Final diagnosis Osteomyelitis tip of 4th right toe, POA Right 3rd toe ulceration, POA Status post amputation 4th toe right foot and debridement ulceration right 3rd toe Progressive cellulitis of the right foot involving the midfoot with failure of outpatient treatment, POA Infected diabetic deep foot ulcer involving the interdigital space of the 3rd and 4th digit, POA Progressive cellulitis involving the 2nd, 3rd, 4th toes of the right foot, POA Right foot cultures positive for Bindu albicans and Streptococcus agalactiae group B. 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 Patient agreed with plan and understood the information provided. Home Medications: Reported Medications Insulin Glargine,Hum.rec.anlog (Lantus Solostar) 100 Unit/Ml (3 Ml) Insuln.pen, 15 UNIT SQ ACBKFST for 30 Days, #5 ML 0 Refills 10/15/24 Metformin HCl (Metformin HCl) 1,000 Mg Tablet, 1 TAB PO BID for 30 Days, #60 TAB 0 Refills 10/14/24 Time spent arranging discharge: 31-60 minutes NANCY COLBERT MD Oct 24, 2024 11:21
--- NOTE | 2024-10-24 11:58 | PN ---
INFECTIOUS DISEASE PROGRESS NOTE Date of Service: Oct 24, 2024 SUBJECTIVE: Patient was seen and examined at bedside in room 320. Patient is status post amputation of the right 4th toe on 10/21/2024. Per nursing report the dressing change was done by Dr. Amaya yesterday. No bleeding reported overnight and the hemoglobin is stable at 8.6. Patient is afebrile, temperature is 98.1. Patient performed well with Physical therapy yesterday. From Infectious Disease standpoint patient can be discharged on fluconazole 200 mg p.o. Q 24 and amoxicillin 500 t.i.d. x 4 weeks when ready to discharge. Prescription was written. PHYSICAL EXAM EYES: Anicteric. Pupils equal and reactive. HENT: No oral thrush seen, moist Oral mucosa NECK: Supple, no JVD or thyromegaly. LUNGS: Good air entry. No rales, no rhonchi. CARDIOVASCULAR: S1, S2 regular. No murmur heard. ABDOMEN: Soft, non tender, bowel sounds present, no organomegaly CENTRAL NERVOUS SYSTEM: Awake, alert, oriented x 3. SKIN: No rashes, no swelling. Status post right 4th toe amputation. LYMPHATICS: No peripheral lymphadenopathy MUSCULOSKELETAL: No joint swelling, erythema or tenderness. EXTREMITIES: Right foot swelling and redness. BACK: No deformity, no pressure ulcer. GENITOURINARY: No dysuria or hematuria. Vital Sign (Last 12 Hours) 10/24/24 10/24/24 10/24/24 02:45 04:00 08:00 Temp 98.2 98.1 Pulse 91 82 Resp 18 16 B/P (MAP) 125/74 121/71 Pulse Ox 98 96 95 O2 Delivery Room Air* Room Air Room Air O2 Flow Rate 0 FiO2 21 Intake & Output (last 24hrs) 10/23/24 10/23/24 10/24/24 15:00 23:00 07:00 Intake Total 150 ml 75 ml 200.0 ml Output Total 0 ml Balance 150 ml 75 ml 200.0 ml LABS: Laboratory: Test 10/24/24 11:03 10/23/24 17:00 10/23/24 08:50 Range/Units Whole Blood Glucose 266 H 70-110 MG/DL Bedside Glucose Comment Notified Nurse Vancomycin Level Trough 14.9 10.0-20.0 UG/ML White Blood Count 7.5 4.8-10.8 K/uL Red Blood Count 3.09 L 4.00-5.50 MIL/uL Hemoglobin 8.6 L 12.0-16.0 g/dL Hematocrit 25.3 L 36-48 % Mean Corpuscular Volume 81.9 79-99 fL Mean Corpuscular Hemoglobin 27.8 27.0-33.0 pg Mean Corpuscular Hemoglobin Concent 34.0 32.0-36.0 g/dL Red Cell Distribution Width 14.5 11.0-15.5 % Platelet Count 305 130-400 K/uL Mean Platelet Volume 8.8 7.5-10.5 fL Nucleated Red Blood Cells 0.0 0.0-0.19 % Sodium Level 133 L 136-145 mmol/L Potassium Level 3.5 3.5-5.1 mmol/L Chloride Level 103 101-111 mmol/L Carbon Dioxide Level 27 21-32 mmol/L Blood Urea Nitrogen 10 7-18 mg/dL Creatinine 0.8 0.5-1.0 mg/dL Glomerular Filtration Rate Calc 86 >90 mL/min Random Glucose 158 H 70-105 mg/dL Total Calcium 8.5 8.5-10.1 mg/dL Magnesium Level 1.90 1.80-2.40 mg/dL Total Bilirubin 0.3 0.2-1.0 mg/dL Aspartate Amino Transf (AST/SGOT) 24 10-37 U/L Alanine Aminotransferase (ALT/SGPT) 20 12-78 U/L Alkaline Phosphatase 59 50-136 U/L Total Protein 6.5 6.0-8.3 g/dL Albumin 2.2 L 3.5-5.0 g/dL ASSESSMENT: 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 Right foot diabetic ulcer in the 3rd and 4th interdigital space with gangrene. Polymicrobial infection. Right foot Cellulitis. Peripheral artery disease, s/p peripheral angiogram with findings of 90% stenosis at the origin of the right posterior tibial with successful intervention reducing it to 0 %. Diabetes mellitus. Anemia, status post blood transfusion. PLAN: Continue physical therapy. Continue fluconazole. Start amoxicillin 500 mg p.o. t.i.d.. From Infectious Disease standpoint patient can be discharged on fluconazole and amoxicillin x 4 weeks when ready to discharge. Prescription was written. This case was reviewed and discussed with my supervising physician and the above assessment and plan was formulated and agreed upon. ATTESTATION BY PHYSICIAN I have seen and examined the patient. I reviewed the documentation, medical decision making, and treatment plan as noted by the mid-level provider above. I agree with the findings and plan of care. MENDY KHAN MD, [facility] Oct 24, 2024 11:58
[2024-10-24 12:09] VITALS: BP 145/77; PULSE 86; RESP 18; TEMP 98.3
[2024-10-24] MEDS: AMOXICILLIN 500 MG CAPSULE PO SCH (12:12)
--- NOTE | 2024-10-24 14:15 | NUR ---
[facility] Follow-up: Patient re-assessed by wound healing team. Wound care refused at this time, requesting pain medication first. Primary nurse to wound care. Recommendations provided. Addendum: 10/25/24 at 1006 by LENNOX ANDRE RN RN/ Amended: Links added.
[2024-10-24 16:00] VITALS: BP 142/74; PULSE 80; RESP 18; TEMP 98
--- NOTE | 2024-10-24 18:45 | NUR ---
DISCHARGE PERIPHERAL IV DISCONTINUED. DISCHARGE EDUCATION AND INSTRUCTIONS PROVIDED TO PATIENT AND FAMILY PATIENT AND FAMILY AWARE TO FOLLOW UP WITH PCP AND INDUSTRIAL SOCIOLOGIST. PATIENT AND FAMILY EDUCATED ON PROPER WOUND CARE AND TAUGHT HOW TO CHANGE DRESSING PATIENT AND FAMILY AWARE OF NEW PRESCRIPTIONS AND TO REMELT PAN TANK OPERATOR NEW PRESCRIPTIONS AT PREFERRED PHARMACY. PATIENT AND FAMILY AWARE TO TAKE WRITTEN PRESCRIPTION ORDERS TO PREFERRED PHARMACY ALL QUESTIONS ANSWERED.
== END 2024-10-24 19:00 | disposition home or self-care (01) | DRG 253 ==
LOC: EDH 16:34 → EDHIP 16:35 → 3CH 10-14 22:36
PROVIDERS: ADMIT Internal Medicine; ATTEND Internal Medicine
PROC: 047R3Z1 Dilation of Right Posterior Tibial Artery using Drug-Coated Balloon, Percutaneous Approach (ICD-10-PCS; principal; 2024-10-17)
PROC: B4101ZZ Fluoroscopy of Abdominal Aorta using Low Osmolar Contrast (ICD-10-PCS; 2024-10-17)
PROC: B41F1ZZ Fluoroscopy of Right Lower Extremity Arteries using Low Osmolar Contrast (ICD-10-PCS; 2024-10-17)
PROC: 0JBQ0ZZ Excision of Right Foot Subcutaneous Tissue and Fascia, Open Approach (ICD-10-PCS; 2024-10-21)
PROC: 0Y6V0Z0 Detachment at Right 4th Toe, Complete, Open Approach (ICD-10-PCS; 2024-10-21)
PROC: 30233N1 Transfusion of Nonautologous Red Blood Cells into Peripheral Vein, Percutaneous Approach (ICD-10-PCS; 2024-10-21)
PROC: 0DB98ZX Excision of Duodenum, Via Natural or Artificial Opening Endoscopic, Diagnostic (ICD-10-PCS; 2024-10-22)
PROC: 0DB78ZX Excision of Stomach, Pylorus, Via Natural or Artificial Opening Endoscopic, Diagnostic (ICD-10-PCS; 2024-10-22)
PROC: 0DB68ZX Excision of Stomach, Via Natural or Artificial Opening Endoscopic, Diagnostic (ICD-10-PCS; 2024-10-22)
DX: E11.52 Type 2 diabetes mellitus with diabetic peripheral angiopathy with gangrene (principal); D62 Acute posthemorrhagic anemia; E87.1 Hypo-osmolality and hyponatremia; L03.115 Cellulitis of right lower limb; L97.528 Non-pressure chronic ulcer of other part of left foot with other specified severity; L97.518 Non-pressure chronic ulcer of other part of right foot with other specified severity; M86.8X7 Other osteomyelitis, ankle and foot; E11.69 Type 2 diabetes mellitus with other specified complication; K29.70 Gastritis, unspecified, without bleeding; E11.621 Type 2 diabetes mellitus with foot ulcer; D50.9 Iron deficiency anemia, unspecified; E86.1 Hypovolemia; Z79.4 Long term (current) use of insulin; E11.65 Type 2 diabetes mellitus with hyperglycemia; Z79.02 Long term (current) use of antithrombotics/antiplatelets; Z79.82 Long term (current) use of aspirin; Z79.84 Long term (current) use of oral hypoglycemic drugs; Z79.899 Other long term (current) drug therapy; Z83.3 Family history of diabetes mellitus; Z90.710 Acquired absence of both cervix and uterus
CPT/HCPCS: 36415; 36430; 37228; 43239; 73620; 73718; 75635; 75716; 80048; 80053; 80061; 80076; 80202; 82270; 82728; 82948; 83036; 83540; 83550; 83605; 83615; 83735; 84145; 84443; 85025; 85027; 85610; 85651; 85730; 86140; 86850; 86900; 86901; 86923; 87070; 87076; 87205; 88305; 88311; 93925; 93971; 96374; 99156; 99157; 99285; A4606; C1760; C1769; C1893; C1894; G0378; J0692; J1171; J1644; J1756; J1815; J2250; J2270; J2405; J2470; J2704; J3010; J3373; J3475; J3480; J3490; J7030; P9016; Q9967; A4215; A4221; A4222; A4223; A4510; A4620; A4663; A6223; C1725; C2623; J0665; J3370